=== PATIENT | female | born 1940 | race Caucasian/White ===

== ENCOUNTER → 2019-10-11 13:55 | Outpatient (BNVA) | payer MEDICARE, OTHER, SELFPAY | PROVIDERS: Family Provider Family Medicine; PCP Family Medicine; Visit Provider Nurse Practitioner Family | DX: N39.0 Urinary tract infection, site not specified (principal); N39.41 Urge incontinence | CPT/HCPCS: 81001; 87086 ==

== ENCOUNTER 2019-10-30 13:46 | Outpatient (CLI) | payer MEDICARE, OTHER, SELFPAY ==
--- NOTE | 2019-10-30 14:15 | USCV_ITS ---
Corina Cabral Age: 79 Gender: F : 1940 Exam Date: 10/30/2019 14:06 Ordering Phys: Norbert Felipe MD ([email or web address]) Technologist: Cassi Shukla Exam Location: [facility] [place] Indication: STENOSIS Risk Factors: Previous Vascular Surgery: Right Brachial BP: / Left Brachial BP: / Right Left Velocity (cm/s) Spectral Plaque Velocity (cm/s) Spectral Plaque Syst/Diast Broadening Syst/Diast Broadening 60.60/ 12.10 Prox CCA 48.60 / 11.50 55.10/ 15.40 Mid CCA 38.90 / 10.60 35.70/ 16.30 Distal CCA 37.90 / 11.50 19.90/ 9.90 Prox ICA 25.70 / 8.40 50.00/ 13.50 Mid ICA 45.40 / 13.80 47.30/ 15.50 Distal ICA 46.00 / 17.80 46.60 ECA 44.30 0.91 ICA/CCA 1.18 Antegrade Vertebral Antegrade 23.40/ 7.90 cm/s 26.70/ 7.80 cm/s Tri Subclavian Tri 67.20 71.20 CONCLUSIONS Right ICA stenosis <50%. Mild atheromatous plaque right carotid bulb/ICA. Left ICA stenosis <50%. Mild atheromatous plaque left carotid bulb/ICA. Normal antegrade Doppler flow noted in the right vertebral artery. Normal antegrade Doppler flow noted in the left vertebral artery. Stephan Pires MD (Electronically Signed) Final Date: 30 October 2019 15:07 S
== END 2019-10-30 13:47 | disposition home or self-care (01) ==
LOC: RAD 13:51
PROVIDERS: Family Provider Family Medicine; PCP Family Medicine; Visit Provider Internal Medicine Cardiovascular Disease
DX: I65.23 Occlusion and stenosis of bilateral carotid arteries (principal)
CPT/HCPCS: 93880

== ENCOUNTER → 2020-05-27 13:08 | Outpatient (BNVA) | payer MEDICARE, OTHER, SELFPAY | PROVIDERS: Family Provider Family Medicine; PCP Family Medicine; Referring Provider Dermatology; Visit Provider Dermatology | DX: L81.4 Other melanin hyperpigmentation (principal); L21.9 Seborrheic dermatitis, unspecified; L30.0 Nummular dermatitis; L57.0 Actinic keratosis | CPT/HCPCS: 17000; 17003; 99203; 99204 ==

== ENCOUNTER 2020-06-03 15:07 | Outpatient (CLI) | payer MEDICARE, OTHER, SELFPAY ==
--- NOTE | 2020-06-03 15:45 | USCV_ITS ---
Corina Cabral Age: 79 Gender: F : 1940 Exam Date: 06/03/2020 15:25 Ordering Phys: Lio Yang MD ([email or web address]) Technologist: Roz Olivas Exam Location: [facility] [place] Indication: AV STENOSIS BP: 125 / 67 HR: 68 Rhythm: Sinus Technical Quality: Adequate MEASUREMENTS (Male / Female) Normal Values 2D ECHO LV Diastolic Diameter PLAX 3.7 cm 4.2 - 5.9 / 3.9 - 5.3 cm LV Systolic Diameter PLAX 2.9 cm LV Chamber Size 3.9 cm IVS Diastolic Thickness 1.9 cm 0.6 - 1.0 / 0.6 - 0.9 cm IVS Systolic Thickness 1.8 cm LVPW Diastolic Thickness 1.7 cm 0.6 - 1.0 / 0.6 - 0.9 cm LVPW Systolic Thickness 2.2 cm RV Chamber Size 3.3 cm LVOT Diameter 2.0 cm LV Ejection Fraction 2D Teich 45.3 % LV Ejection Fraction MOD 2C 62.6 % LV Ejection Fraction 2C AL 62.5 % LA Diameter 4.6 cm LA Width 3.5 cm LA Height 4.7 cm RA Width 3.0 cm RA Height 3.7 cm Aorta at Sinotubular Diameter 2.7 cm M-MODE LV Diastolic Diameter MM 3.9 cm 4.2 - 5.9 / 3.9 - 5.3 cm LV Systolic Diameter MM 2.3 cm LV Ejection Fraction MM Teich 71.4 % IVS Diastolic Thickness MM 1.5 cm 0.6 - 1.0 / 0.6 - 0.9 cm IVS Systolic Thickness MM 2.1 cm LVPW Diastolic Thickness MM 1.5 cm 0.6 - 1.0 / 0.6 - 0.9 cm LVPW Systolic Thickness MM 2.2 cm RV Diastolic Diameter MM 2.2 cm Aortic Annulus Diameter 2.9 cm LA Ao Ratio MM 1.8 MV E Point Septal Separation 0.6 cm DOPPLER AV Peak Velocity 197.0 cm/s LVOT Peak Velocity 131.0 cm/s AV Area Cont Eq vti 2.4 cm squared AV Area Cont Eq pk 2.1 cm squared MV Area PHT 2.1 cm squared Mitral E to A Ratio 0.9 MV E' Velocity 64.0 cm/s Mitral E to MV E' Ratio 14.4 Mitral E to LV E' Lateral Ratio 15.4 Mitral E to LV E' Septal Ratio 13.8 TR Peak Velocity 318.5 cm/s TR Peak Gradient 40.6 mmHg TR Mean Velocity 230.9 cm/s TR Mean Gradient 23.7 mmHg TR Velocity Time Integral 103.9 cm TV Peak E Velocity 80.0 cm/s PV Peak Velocity 58.0 cm/s RV Acceleration Time 0.1 s RV Ejection Time 0.3 s RV AcT/ET 0.4 FINDINGS Left Ventricle Normal left ventricular size and systolic function, EF 56 %. Mild left ventricular hypertrophy. No regional wall motion abnormalities. Grade I/IV diastolic dysfunction (abnormal relaxation filling pattern), normal to mildly elevated filling pressures. Right Ventricle Normal right ventricular size and systolic function. Right Atrium The right atrium is normal in size. Left Atrium Mildly increased left atrial size. Mitral Valve Thickened mitral valve. Heavy mitral annular calcification. Calcification in the chordal structures Aortic Valve Thickened aortic valve. Peak velocity aortic valve is 1.9 cm/s Tricuspid Valve Mild tricuspid valve regurgitation. Pulmonic Valve Pulmonic valve not well visualized. Pericardium Normal pericardium without effusion. Aorta Normal aortic annulus size. CONCLUSIONS Features of aortic valve sclerosis Normal left ventricular size and systolic function, EF 56 %. Mild left ventricular hypertrophy. No regional wall motion abnormalities. Grade I/IV diastolic dysfunction (abnormal relaxation filling pattern), normal to mildly elevated filling pressures. Thickened mitral valve. Heavy mitral annular calcification. Calcification in the chordal structures. Mildly increased left atrial size. Mild tricuspid valve regurgitation. Estimated pulmonary artery peak systolic pressure was 30 mmHg There is no pericardial effusion. There are no intracardiac masses. Compared to the previous study from 07/28/2017, there may not be a significant change Dr Lio Yang MD FAC (Electronically Signed) Final Date: 03 June 2020 17:07 S
== END 2020-06-03 15:08 | disposition home or self-care (01) ==
LOC: US 15:11
PROVIDERS: PCP Family Medicine; Visit Provider Internal Medicine Cardiovascular Disease
DX: R01.1 Cardiac murmur, unspecified (principal); I08.1 Rheumatic disorders of both mitral and tricuspid valves
CPT/HCPCS: 93306

== ENCOUNTER → 2020-06-04 16:51 | Outpatient (BNVA) | payer MEDICARE, OTHER, SELFPAY | PROVIDERS: PCP Family Medicine; Visit Provider Nurse Practitioner Family | DX: Z11.59 Encounter for screening for other viral diseases (principal); J06.9 Acute upper respiratory infection, unspecified; Z20.828 Contact with and (suspected) exposure to other viral communicable diseases | CPT/HCPCS: 87635 ==

== ENCOUNTER 2020-06-06 12:18 | Emergency (ER) | payer MEDICARE, OTHER, SELFPAY ==
--- NOTE | 2020-06-06 12:20 | XR_ITS ---
WS: [id number] Portable AP upright chest, 06/06/2020 Clinical Data: cp Comparison: Portable chest, 03/18/2017. Findings: No nodules, masses or effusions are seen. The heart is normal. The pulmonary vascularity is not increased. No pneumonia or pneumothorax is seen. There is a monitor device overlying the aortic arch. Monitor leads are on the chest wall. XR/XR chest 1V portable [id number] Impression: Negative chest.
--- NOTE | 2020-06-06 12:20 | ECG_ITS ---
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 Measurements Intervals Sherman Rate: 66 P: 70 VA: 171 QRS: 3 QRSD: 134 T: 185 QT: 438 QTc: 461 Interpretive Statements SINUS RHYTHM LEFT BUNDLE BRANCH BLOCK [120+ ms QRS DURATION, 80+ ms Q/S IN V1/V2, 85+ ms R IN I/aVL/V5/V6] Compared to ECG 07/28/2017 07:19:07 Left bundle-branch block now present Atrial fibrillation no longer present Myocardial infarct finding no longer present T-wave abnormality no longer present Possible ischemia no longer present Electronically Signed On 06-06-2020 20:37:49 CDT by Fredrick Marcial M.D. [id number]
[2020-06-06 12:28] VITALS: BP 130/72; PULSE 62; RESP 16; TEMP 36.9; O2SAT 94; BMI 39.6
--- NOTE | 2020-06-06 12:47 | W.ED.CHESTPA ---
HPI - Chest Pain General: Chief Complaint: Chest Pain Stated Complaint: says heart stopped this morning/ sent by doc Time Seen by Provider: 06/06/20 12:38 Source: patient Mode of arrival: ambulatory Limitations: no limitations History of Present Illness: HPI narrative: 79-year-old female states she has history of A. fib been having some chest discomfort since last night and got worse today. States the burning sensation in the center of her chest and she is just not felt right. 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 She states her pain is currently 2 out of 10. Denies any vomiting or diarrhea. MD complaint: chest pain Associated symptoms: Deny abdominal pain, dyspnea, fever(s), nausea or vomiting Review of Systems Const: Denies: fever(s), chills, body aches or change in appetite Eyes: Denies: blurry vision or eye discomfort ENMT: Denies: throat pain or dental pain Card: Reports: chest pain Resp: Denies: dyspnea GI: Denies: abdominal pain, nausea, vomiting or diarrhea : Denies: dysuria Musc: Denies: neck pain or back pain Skin/Breast: Denies: rash Neuro: Denies: headache(s) Psych: Denies: depression Aurelio/Lymph: Denies: easy bruising All/Imm: Denies: urticaria PFSH ED PFSH: Medical History (Updated 06/04/20 @ 15:24 by Gayatri Neal APRN) A-fib Ortiz palsy Benign essential HTN Carotid stenosis, bilateral COPD (chronic obstructive pulmonary disease) Cystitis cystica Heart murmur HTN (hypertension) Hyperlipidemia IBD (inflammatory bowel disease) Left bundle branch block Mitral valve disorder Morbid obesity RICHARD (obstructive sleep apnea) Pt has clostrophobia, could not use CPAP- uses oxygen at tnight Recurrent UTI Type 2 diabetes mellitus Urgency incontinence Urgency of urination Surgical History H/O partial resection of colon S/P bladder repair S/P section S/P hysterectomy S/P lumpectomy of breast Status post correction of deviated nasal septum Status post tubal ligation Family History Other CAD (coronary artery disease) Cancer Chronic kidney disease (CKD) Diabetes Social History Smoking and tobacco status: former smoker Alcohol intake: never Adopted: No Caregiver/support person: No Lives independently: No Household members: spouse Marital status: Current occupational status: retired History of recent travel: No Physical Exam Const: COMMON NORMALS: no acute distress, patient oriented x3 and healthy appearing HENMT: COMMON NORMALS: normocephalic and atraumatic HEAD & SCALP: normocephalic and atraumatic Eye: COMMON NORMALS: Equal, round and reactive pupils present and EOMs intact bilaterally PUPIL: Yes Equal, round and reactive pupils present Neck/C-Spine: COMMON NORMALS: full ROM and supple Chest: COMMONS NORMALS: normal inspection of the chest and normal palpation of entire chest wall Resp: COMMON NORMALS: normal respiratory effort, No retractions, No use of accessory muscles and clear to auscultation bilaterally AUSCULTATION: clear to auscultation bilaterally Cardio: COMMON NORMALS: regular rate, regular rhythm and No murmurs present (Cardio) RATE: regular rate RHYTHM: regular rhythm GI: COMMON NORMALS: Normal to inspection, nondistended, normoactive bowel sounds present, Soft to palpation, non-tender and no masses PALPATION: Yes Soft to palpation Extremity: COMMON NORMALS: normal to inspection and full ROM Neuro: COMMON NORMALS: patient oriented x3, moves all extremities and no focal motor deficits Psych: COMMON NORMALS: mental status grossly normal, Normal thought process present and cooperative THOUGHT PROCESS: Normal thought process present Skin: COMMON NORMALS: no rashes or lesions noted and no wounds GENERAL SKIN EXAM: no rashes or lesions noted Course Vital Signs: Vital signs: Vital Signs Temperature 98.4 F 06/06/20 12:28 Pulse Rate 67 06/06/20 13:07 Respiratory Rate 18 06/06/20 13:07 Blood Pressure 116/78 06/06/20 13:07 Pulse Oximetry 95 06/06/20 13:07 MDM - Chest Pain MDM Narrative: Medical decision making narrative: Patient presents with chest pain that comes and goes. Initial troponin is mildly elevated. Spoke to hospitalist and will admit for ACS rule out. She has no signs of pulmonary embolism and EKG here is normal. Lab Data: Labs: Lab Results 06/06/20 06/06/20 06/06/20 Range/Units 13:03 13:03 13:03 WBC 6.5 (4.0-10.0) 10^3/ uL RBC 4.82 (4.1-5.3) 10^6/u L Hgb 14.1 (11.5-15.3) g/dL Hct 43.9 (37.0-47.0) % MCV 91.1 (81-99) fL MCH 29.3 (28.0-34.0) pg MCHC 32.1 (30.0-36.0) g/dL RDW 13.2 (12.1-15.1) % Plt Count 263 (130-400) 10^3/c mm MPV 9.6 (7.4-10.4) fL Neut % (Auto) 61.9 % Lymph % (Auto) 27.1 % Kingsbury % (Auto) 10.1 % Eos % (Auto) 0.3 % Baso % (Auto) 0.3 % Neut # (Auto) 4.05 (1.8-7.7) 10^3/u L Lymph # (Auto) 1.8 (0.8-4.8) 10^3/u L Kingsbury # (Auto) 0.7 (0.2-0.9) 10^3/u L Eos # (Auto) 0.0 (0.0-0.8) 10^3/u L Baso # (Auto) 0.0 (0.0-0.1) 10^3/u L Nucleated RBC % (a uto) 0 % Nucleated RBCs # 0.0 /100WBC Sodium 132 L (136-145) mmol/L Potassium 4.0 (3.5-5.1) mmol/L Chloride 98 (98-107) mmol/L Carbon Dioxide 22 (22-29) mmol/L Anion Gap 16.0 (5-19) BUN 11 (8-23) mg/dL Creatinine 0.6 (0.5-0.9) mg/dL GFR Calculation Not Reportable Glucose 119 H (65-115) mg/dL Calculated Osmolal ity 275 L (285-295) mOsm/k g Calcium 9.3 (8.5-10.5) mg/dL Total Bilirubin 0.2 (0.15-1.2) mg/dL AST 13 (0-32) U/L ALT 17 (0-33) U/L Alkaline Phosphata se 72 (35-105) IU/L Troponin T Baselin e 34 H (0-10) ng/L NT-Pro-B Natriuret Pep 1583 H (0-450) pg/mL Total Protein 7.4 (6.6-8.7) g/dL Albumin 4.1 (3.5-5.2) g/dL Globulin 3.3 (1.3-4.6) g/dL EKG Data^: EKG 1: Attestation: I personally reviewed and interpreted this EKG as follows: EKG interpretation date: 06/06/20 EKG interpretation time: 11:45 Interpretation: nsr hr 66 lbbb qrs 134 qtc 452 Discharge Plan Discharge Prescriptions: No Action alpha lipoic acid 100 mg capsule 100 mg PO BID RF: 0 PreserVision AREDS-2 [id number] [id number]-atqn-dn-mg capsule 1 tab PO BID RF: 0 Macular Health Formula 5-1-7.5 mg capsule 1 cap PO DAILY RF: 0 estro dim 1 tab PO DAILY RF: 0 astralagalus See Rx Instructions .ROUTE .COMPLEX RF: 0 super enzymes See Rx Instructions .ROUTE .COMPLEX RF: 0 acetylcysteine [NAC] 600 mg capsule 600 mg PO BID RF: 0 ketoconazole 2 % shampoo 1 applic TOPICAL .2 x weekly Qty: 120 RF: 3 triamcinolone acetonide 0.1 % ointment 1 applic TOPICAL BID Qty: 80 RF: 0 hydroxyzine HCl 10 mg tablet 10 mg PO PRN RF: 0 magnesium 200 mg tablet 200 mg PO BID RF: 0 metoprolol tartrate 25 mg tablet 25 mg PO BID RF: 0 omega-3 fatty acids [Fish Oil Concentrate] 1,000 mg capsule See Rx Instructions .ROUTE .COMPLEX RF: 0 albuterol sulfate [Ventolin HFA] 90 mcg/actuation HFA aerosol inhaler 2 puff INHALATION Q6H PRN (Reason: Shortness Of Breath) RF: 0 furosemide 20 mg tablet 20 - 40 mg PO QAM PRN (Reason: edema) RF: 0 potassium chloride [Klor-Con 10] 10 mEq tablet extended release 10 meq PO DAILY PRN (Reason: unknown) RF: 0 lactobacillus combination no.8 1 cap PO BID RF: 0 lysine 500 mg tablet 500 mg PO DAILY RF: 0 diltiazem HCl 30 mg tablet 30 mg PO PRN RF: 0 cholecalciferol (vitamin D3) 2,000 unit tablet 5,000 unit PO DAILY RF: 0 diltiazem HCl 60 mg tablet 60 mg PO TID RF: 0 Vitamin C Powder See Rx Instructions .ROUTE .COMPLEX RF: 0 Beta-Glucan Tab 1 tab PO DAILY RF: 0 Chromium Tab 500 mg PO QPM RF: 0 CoQ-10 1 tab PO DAILY RF: 0 Xopenex 0.31 mg/3 mL solution for nebulization 0.31 mg INHALATION PRN RF: 0 mometasone 0.1 % solution See Rx Instructions .ROUTE .COMPLEX RF: 0 aspirin 81 mg Tablet,Delayed Release (Dr/Ec) 81 mg PO DAILY RF: 0 calcium gluconate 1 tab PO DAILY RF: 0 Coding Level of Care Code ED Recreation Therapy Teacher for Chg Fwd Exam Comprehensive
[2020-06-06 13:07] VITALS: BP 116/78; PULSE 67; RESP 18; O2SAT 95
[2020-06-06 13:08] LABS: Basophils % 0.3 %; Eosinophils % 0.3 %; Hematocrit 43.9 % (37.0-47.0); Hemoglobin 14.1 g/dL (11.5-15.3); Lymphocytes # 1.8 10^3/uL (0.8-4.8); Lymphocytes % 27.1 %; Mean Corpuscular HGB Conc 32.1 g/dL (30.0-36.0); Mean Corpuscular Hemoglobin 29.3 pg (28.0-34.0); Mean Corpuscular Volume 91.1 fL (81-99); Mean Platelet Volume 9.6 fL (7.4-10.4); Monocytes # 0.7 10^3/uL (0.2-0.9); Monocytes % 10.1 %; Neutrophils # 4.05 10^3/uL (1.8-7.7); Neutrophils % 61.9 %; Nucleated Red Blood Cells % 0 %; Platelet Count 263 10^3/cmm (130-400); Red Blood Count 4.82 10^6/uL (4.1-5.3); Red Cell Distribution Width 13.2 % (12.1-15.1); White Blood Count 6.5 10^3/uL (4.0-10.0)
[2020-06-06 13:28] LABS: Troponin(5th) Baseline 34 ng/L (0-10)
[2020-06-06 13:36] LABS: Alanine Aminotransferase 17 U/L (0-33); Albumin Level 4.1 g/dL (3.5-5.2); Alkaline Phosphatase 72 IU/L (35-105); Aspartate Amino Transferase 13 U/L (0-32); Blood Urea Nitrogen 11 mg/dL (8-23); Calcium 9.3 mg/dL (8.5-10.5); Carbon Dioxide 22 mmol/L (22-29); Chloride 98 mmol/L (98-107); Globulin 3.3 g/dL (1.3-4.6); Glucose 119 mg/dL (65-115); NT Pro B Type Natriuretic Pept 1583 pg/mL (0-450); Osmolality Calculated 275 mOsm/kg (285-295); Sodium 132 mmol/L (136-145); Total Bilirubin 0.2 mg/dL (0.15-1.2); Total Protein 7.4 g/dL (6.6-8.7)
--- NOTE | 2020-06-06 14:20 | ECG_ITS ---
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 Measurements Intervals Tracy Rate: 62 P: 17 AK: 159 QRS: -20 QRSD: 143 T: 166 QT: 442 QTc: 451 Interpretive Statements SINUS RHYTHM LEFT BUNDLE BRANCH BLOCK [120+ ms QRS DURATION, 80+ ms Q/S IN V1/V2, 85+ ms R IN I/aVL/V5/V6] Compared to ECG 06/06/2020 11:45:31 No significant changes Electronically Signed On 06-06-2020 20:40:28 CDT by Fredrick Marcial M.D. [id number] f
[2020-06-06 15:11] LABS: SARS Covid-2 Antigen Positive (Negative)
--- NOTE | 2020-06-06 15:36 | CT_ITS ---
WS: [id number] CTA OF THE CHEST WITH PULMONARY EMBOLISM PROTOCOL TECHNIQUE: High-resolution contrast enhanced CTA of the chest with coronal and sagittal reformatted i mages with pulmonary embolism protocol. MIP images are also reviewed. CLINICAL INFORMATION: cp COMPARISON: None. DLP: 569.[address] scans at [facility] use at least one of these dose optimization techniques: automat ed exposure control; mA and/or kV adjustment per patient size (includes targeted exams where dose is matched to clinical indication); or iterative reconstruction. FINDINGS: Proximal main pulmonary arteries are normal. Segmental and subsegmental pulmonary arteries are normal . No filling defects. No evidence of pulmonary embolus. Normal caliber thoracic aorta. No mediastinal or hilar lymphadenopathy. Calcified right hilar lymph nodes. Normal caliber thoracic aorta. Aortic a nd coronary calcification. Mild chronic emphysematous changes. No acute pulmonary infiltrates. No focal pneumonia. No pleural fl uid. Hypertrophic changes thoracic spine. Small esophageal hiatal hernia. Adrenal glands are normal. No axillary lymphadenopathy. Right breast lesion measuring 2.9 x 1.8 cm. Recommend further evaluation with right diagnostic mammog yeni and ultrasound. A few adjacent calcifications. CT/CT angio chest PE protcl [id number] IMPRESSION: 1. Proximal main pulmonary arteries are normal. No filling defects. No evidenc e of pulmonary embolus. 2. Both lungs are well aerated. No acute pulmonary infiltrates. 3. Mild chronic emphysematous changes. 4. No mediastinal or hilar lymphadenopathy. 5. Right breast lesion measures approximately 1.8 x 2.9 cm. Recommend right di agnostic mammography and ultrasound for further evaluation.
[2020-06-06 15:49] LABS: Troponin 5 2HR 34.82 ng/L (0-10); Troponin 5 2HR Delta 0.82 ABS# (0-10)
[2020-06-06 16:14] VITALS: BP 118/66; PULSE 66; RESP 18; O2SAT 95
[2020-06-06] MEDS: iohexol 350 mg/mL 100 mL Btl IV (16:18)
--- NOTE | 2020-06-06 16:32 | PM.CONSULT ---
Providers/Reason For Consult Consulting Physican/Specialty*: Hospitalist, internal medicine Reason for Consult*: Chest pain Attending Physician: Jayson Kemp MD Primary Care Provider: Susan Kemp MD History of Present Illness History of Present Illness Corina Cabral is a 79 year old female that presented to the emergency department with complaints of some chest discomfort. She reported she has had some chest discomfort off and on for the last 2 days. She reports it is usually burning, midsternal. She thinks sitting and leaning back, walking and relaxing sometimes help it. It is not exertional. She is worried about some abdominal bloating as well. She has had sinus congestion, and a headache. She has had no vomiting. She has had exposure to COVID, her sister on the who was febrile at that time and now positive. She denies any pleuritic pain. She was also called with a cardiac pause, noted last night on her Holter monitor cardiology had placed. It was approximately 4.8 seconds. She reports she occasionally will go into atrial fibrillation, which cardiology follows. Review of Systems General: Reports: 10 or more systems reviewed and unremarkable except in HPI and below Const: Reports: malaise; Denies: fever(s) or chills Eyes: Denies: change in vision ENMT: Reports: nasal congestion; Denies: throat pain Card: Reports: chest pain and palpitations Resp: Denies: dyspnea GI: Denies: abdominal pain : Denies: flank pain Musc: Denies: neck pain Skin/Breast: Denies: rash Neuro: Denies: headache(s) Psych: Denies: anxiety Endo: Denies: polyuria Aurelio/Lymph: Denies: easy bruising All/Imm: Denies: urticaria Meds/Allergies Home Medications and Allergies Home Medications Medication Instructions Recorded Confirmed Last Taken Type albuterol sulfate 90 mcg/actuation 2 puff INHALATION Q6H PRN 10/09/19 06/06/20 Unknown History aerosol inhaler diltiazem HCl 30 mg tablet 30 mg PO PRN tab 10/09/19 06/06/20 06/05/20 History furosemide 20 mg tablet 20 - 40 mg PO QAM PRN 10/09/19 06/06/20 Unknown History lactobacillus combination no.8 1 cap PO BID 10/09/19 06/06/20 06/06/20 History lysine 500 mg tablet 500 mg PO DAILY 10/09/19 06/06/20 06/06/20 History metoprolol tartrate 25 mg tablet 25 mg PO BID 10/09/19 06/06/20 06/06/20 History omega-3 fatty acids 1,000 mg See Rx Instructions .ROUTE .COMPLEX 10/09/19 06/06/20 Unknown History capsule potassium chloride 10 mEq 10 meq PO DAILY PRN 10/09/19 06/06/20 Unknown History tablet,extended release cholecalciferol (vitamin D3) 50 5,000 unit PO DAILY tab 10/11/19 06/06/20 06/06/20 History mcg (2,000 unit) tablet hydroxyzine HCl 10 mg tablet 10 mg PO PRN tab 10/11/19 06/06/20 Unknown History magnesium 200 mg tablet 200 mg PO BID tab 10/11/19 06/06/20 06/05/20 History alpha lipoic acid 100 mg capsule 100 mg PO BID 05/07/20 06/06/20 06/06/20 History astralagalus See Rx Instructions .ROUTE .COMPLEX 05/07/20 06/06/20 06/06/20 History diltiazem HCl 60 mg tablet 60 mg PO TID tab 05/07/20 06/06/20 06/06/20 13:18 History estro dim 1 tab PO DAILY 05/07/20 06/06/20 06/06/20 History cadyoifv-cqf-qhruin 5 mg-zeaxanth 1 cap PO DAILY 05/07/20 06/06/20 06/05/20 History 1 mg-bilberry 7.5 mg-herbal capsule super enzymes See Rx Instructions .ROUTE .COMPLEX 05/07/20 06/06/20 06/06/20 History vit C 250 mg-E 200 unit-zinc 40 1 tab PO BID 05/07/20 06/06/20 06/06/20 History mg-copper 1 jl-nuqpka-jhigde capsule ketoconazole 2 % shampoo 1 applic TOPICAL .2 x weekly #120 05/27/20 06/06/20 Unknown Rx ml triamcinolone acetonide 0.1 % 1 applic TOPICAL BID #80 gm 05/27/20 06/06/20 Unknown Rx topical ointment Beta-Glucan Tab 1 tab PO DAILY 1006/06/20 06/06/20 History Chromium Tab 500 mg PO QPM 06/06/20 06/06/20 06/05/20 History CoQ-10 1 tab PO DAILY 06/06/20 06/06/20 Unknown History acetylcysteine [NAC] 600 mg PO BID 06/06/20 06/06/20 06/06/20 History ascorbic acid (vitamin C) [Vitamin See Rx Instructions .ROUTE .COMPLEX 06/06/20 06/06/20 Unknown History C] aspirin 81 mg PO DAILY 06/06/20 06/06/20 06/06/20 History calcium gluconate 1 tab PO DAILY 06/06/20 06/06/20 06/06/20 History levalbuterol HCl [Xopenex] 0.31 mg INHALATION PRN 06/06/20 06/06/20 Unknown History mometasone See Rx Instructions .ROUTE .COMPLEX 06/06/20 06/06/20 Unknown History Allergies Allergy/AdvReac Type Severity Reaction Status Date / Time levofloxacin [From Levaquin] Allergy Unknown Unknown Verified 06/06/20 14:11 prednisone Allergy Unknown Unknown Verified 06/06/20 14:11 sulfamethoxazole Allergy Unknown unknown Verified 06/06/20 14:11 [From Bactrim] tretinoin [From Retin-A] Allergy Unknown unknown Verified 06/06/20 14:11 trimethoprim [From Bactrim] Allergy Unknown unknown Verified 06/06/20 14:11 bacitracin [From Polysporin] Allergy wasn't Verified 06/06/20 14:11 healing polymyxin B [From Polysporin] Allergy wasn't Verified 06/06/20 14:11 healing PFSH Acute PFSH: Medical History (Updated 06/06/20 @ 16:49 by Jayson Kemp MD) A-fib Ortiz palsy Benign essential HTN Breast cancer no evidence of mets Carotid stenosis, bilateral COPD (chronic obstructive pulmonary disease) Cystitis cystica GERD (gastroesophageal reflux disease) Heart murmur HTN (hypertension) Hyperlipidemia IBD (inflammatory bowel disease) Left bundle branch block Mitral valve disorder Morbid obesity RICHARD (obstructive sleep apnea) Pt has clostrophobia, could not use CPAP- uses oxygen at tnight Recurrent UTI Type 2 diabetes mellitus Urgency incontinence Urgency of urination Surgical History H/O partial resection of colon S/P bladder repair S/P section S/P hysterectomy S/P lumpectomy of breast Status post correction of deviated nasal septum Status post tubal ligation Family History Other CAD (coronary artery disease) Cancer Chronic kidney disease (CKD) Diabetes Social History Smoking and tobacco status: former smoker Alcohol intake: never Adopted: No Caregiver/support person: No Lives independently: No Household members: spouse Marital status: Current occupational status: retired History of recent travel: No Vitals/I&O/Wt Last Vital Signs Temp 98.4 F 06/06/20 12:28 Pulse 66 06/06/20 16:14 Resp 18 06/06/20 16:14 BP 118/66 06/06/20 16:14 Pulse Ox 95 06/06/20 16:14 Weight last 48 hrs Weight 101.605 kg Physical Exam Narrative: EXAM NARRATIVE: General exam is a white female, no apparent distress. 95% saturation on room air. She reports she normally uses 2 L of oxygen at night. HEENT: Pupils equally round. Oropharynx clear. Neck is supple no lymphadenopathy or thyromegaly Cardiovascular regular rate and rhythm without murmur, occasional premature beat Lungs clear no wheezing or crackles Abdomen is soft, positive bowel sounds. No obvious organomegaly was deferred Extremities no cyanosis clubbing or edema, cap refill brisk Skin no rash Neuro no obvious focal deficits Data Other Data: Other data: Troponin baseline is 34 with repeat 34.82. BNP elevated at 1583 I have now been informed her rapid COVID is positive Chest x-ray without infiltrate Recent echocardiogram demonstrated an EF of 56%, 1/4 diastolic dysfunction, pulmonary artery pressure of 30 on June [id number] Carotid duplex in October demonstrated no significant stenosis bilaterally EKG demonstrated sinus rhythm, left bundle branch block. A&P Assessment and plan (1) Chest pain: Atypical pain. May be associated with COVID infection. The emergency department is appropriately doing CTA to prove no pulmonary embolism is present. No significant delta in regards to troponin. Could consider outpatient stress test. This will need to be done greater than 10 days from now considering positive COVID test. Follow-up expeditiously with cardiology in regards to this. I have also discussed this with her primary care provider who will be following up on this. Would consider aspirin 81 mg daily, continuation of her chronic medication, addition of Imdur 15 mg daily Return for any continued pain Status: Acute (2) GERD (gastroesophageal reflux disease): A lot of her chest discomfort sounds reflux in etiology. Place her on Protonix 40 mg twice daily Status: Acute (3) COVID-19: Reviewed with patient to return for any worsening symptoms, shortness of breath, hypoxia(she has pulse oximeter at home and we reviewed normal saturations) Encourage fluids Status: Acute Additional A&P Information Atrial fibrillation, arrhythmia, with history of pause. I have instructed the emergency department physician to call cardiology to determine if this requires any medication change or further concerns CTA demonstrating breast lesion. I have informed her primary regarding this for follow-up. History of COPD, no evidence of exacerbation History of hypertension History of inflammatory bowel disease Hyperlipidemia Type 2 diabetes Consult Attestations Medical Necessity Statement: Not applicable Coding Level of Care Code Acute Continuous Process Tanner Rotary Drum for Chg Fwd Diagnoses Chest pain R07.9 GERD (gastroesophageal reflux disease) K21.9 COVID-19 U07.1
[2020-06-06 17:39] VITALS: BP 138/69; PULSE 66; RESP 18; TEMP 37.1; O2SAT 97
== END 2020-06-06 17:52 | disposition home or self-care (01) ==
LOC: ER 12:38 → CSU 16:54
PROVIDERS: Emergency Provider Emergency Medicine; PCP Family Medicine
DX: R07.9 Chest pain, unspecified (principal); U07.1 COVID-19; Z79.82 Long term (current) use of aspirin; I48.91 Unspecified atrial fibrillation; J44.9 Chronic obstructive pulmonary disease, unspecified; I10 Essential (primary) hypertension; E78.5 Hyperlipidemia, unspecified; E11.9 Type 2 diabetes mellitus without complications; Z87.891 Personal history of nicotine dependence
CPT/HCPCS: 12345; 71045; 71275; 80053; 83880; 84484; 85025; 87426; 93005; 99284; Q9967

== ENCOUNTER 2020-06-28 09:11 | Emergency (ER) | payer MEDICARE, OTHER, SELFPAY ==
[2020-06-28 09:25] VITALS: BP 149/97; PULSE 98; RESP 18; TEMP 36.8; O2SAT 97
--- NOTE | 2020-06-28 09:31 | ED_ITS ---
HPI - Arrhythmia/Palpitations General: Chief Complaint: Weakness Stated Complaint: ELEVATED BP Time Seen by Provider: 06/28/20 09:21 History of Present Illness: HPI narrative: 79-year-old female presents emergency room complaining of irregular heart rate. She has a known history of atrial fibrillation she feels like she is in A. fib now began around 2 in the morning she is wearing a 21-day event monitor. Evidently there is a 4-second pause last night and she was contacted by the monitoring service. She has had what she describes as a chest discomfort not really chest pain. last night she did have an episode where she had diaphoresis and some shortness of breath. She also reported a systolic pressure last night in the 90s. Today in the ER she has a moderately elevated blood pressure 150 systolic. She is showing a sinus arrhythmia with frequent PVCs on the monitor when I came in the room. MD complaint: rapid heart beat, palpitations and atrial fibrillation Onset (ago): hour(s) Duration: intermittent Severity: moderate Context: occurred during rest and awoke with symptoms Arrhythmia history: atrial fibrillation Associated symptoms: Reports anxiety, diaphoresis, nausea and sense of impending doom; Deny short of breath, syncope or vomiting Review of Systems Const: Reports: diaphoresis ENMT: Denies: throat pain, ear or mastoid pain, nasal discharge or nasal congestion Card: Denies: syncope Resp: Denies: dyspnea, productive cough or non-productive cough GI: Reports: nausea; Denies: vomiting : Denies: flank pain, difficulty voiding, dysuria, urinary frequency or urinary urgency Skin/Breast: Denies: rash or pruritus Psych: Reports: anxiety PFSH ED PFSH: Medical History A-fib Ortiz palsy Benign essential HTN Breast cancer no evidence of mets Carotid stenosis, bilateral COPD (chronic obstructive pulmonary disease) Cystitis cystica GERD (gastroesophageal reflux disease) Heart murmur HTN (hypertension) Hyperlipidemia IBD (inflammatory bowel disease) Left bundle branch block Mitral valve disorder Morbid obesity RICHARD (obstructive sleep apnea) Pt has clostrophobia, could not use CPAP- uses oxygen at [facility] Recurrent UTI Type 2 diabetes mellitus Urgency incontinence Urgency of urination Surgical History H/O partial resection of colon S/P bladder repair S/P section S/P hysterectomy S/P lumpectomy of breast Status post correction of deviated nasal septum Status post tubal ligation Family History Other CAD (coronary artery disease) Cancer Chronic kidney disease (CKD) Diabetes Social History Smoking and tobacco status: former smoker Alcohol intake: never Adopted: No Caregiver/support person: No Lives independently: No Household members: spouse Marital status: Current occupational status: retired History of recent travel: No Physical Exam Const: COMMON NORMALS: no acute distress GENERAL APPEARANCE: cooperative and comfortable ORIENTATION/CONSCIOUSNESS: Yes awake, Yes oriented to person, Yes oriented to place and Yes oriented to time HENMT: COMMON NORMALS: normocephalic, atraumatic and hearing grossly normal bilaterally HEAD & SCALP: normocephalic and atraumatic Neck/C-Spine: COMMON NORMALS: no JVD Resp: COMMON NORMALS: normal respiratory effort, No retractions, No use of accessory muscles and clear to auscultation bilaterally AUSCULTATION: clear to auscultation bilaterally Cardio: COMMON NORMALS: no JVD, regular rate, regular rhythm and No murmurs present (Cardio) RATE: regular rate RHYTHM: regular rhythm GI: COMMON NORMALS: Soft to palpation and No hepatosplenomegaly present AUSCULTATION: Yes normoactive bowel sounds PALPATION: Yes Soft to palpation, No Tenderness to palpation present (GI), No Guarding due to palpation present (GI) and Yes No hepatosplenomegaly present Extremity: COMMON NORMALS: normal to inspection, capillary refill normal, no clubbing, cyanosis or edema, no calf tenderness and no pedal edema Neuro: SENSORIUM/ORIENTATION: Yes oriented to person, Yes oriented to place and Yes oriented to time Skin: COMMON NORMALS: no rashes or lesions noted GENERAL SKIN EXAM: no rashes or lesions noted Course Vital Signs: Vital signs: Vital Signs Temperature 98.4 F 06/28/20 09:41 Pulse Rate 72 06/28/20 13:59 Respiratory Rate 18 06/28/20 13:59 Blood Pressure 115/62 06/28/20 13:59 Pulse Oximetry 93 06/28/20 13:59 MDM - Arrhythmia/Palpitations MDM Narrative: Medical decision making narrative: Heart rate now under good control blood pressure is a little bit on the low side we can recommend at this point that she hold the isosorbide mononitrate continue her other medications. Her heart rate was getting good control while she is here she has any recurrent symptoms recheck. Lab Data: Labs: Lab Results 06/28/20 06/28/20 06/28/20 Range/Units 09:38 09:38 09:38 WBC 8.7 (4.0-10.0) 10^3/ uL RBC 4.84 (4.1-5.3) 10^6/u L Hgb 14.1 (11.5-15.3) g/dL Hct 44.0 (37.0-47.0) % MCV 90.9 (81-99) fL MCH 29.1 (28.0-34.0) pg MCHC 32.0 (30.0-36.0) g/dL RDW 13.2 (12.1-15.1) % Plt Count 293 (130-400) 10^3/c mm MPV 9.8 (7.4-10.4) fL Neut % (Auto) 74.1 % Lymph % (Auto) 16.1 % [place] % (Auto) 8.4 % Eos % (Auto) 1.0 % Baso % (Auto) 0.2 % Neut # (Auto) 6.42 (1.8-7.7) 10^3/u L Lymph # (Auto) 1.4 (0.8-4.8) 10^3/u L [place] # (Auto) 0.7 (0.2-0.9) 10^3/u L Eos # (Auto) 0.1 (0.0-0.8) 10^3/u L Baso # (Auto) 0.0 (0.0-0.1) 10^3/u L Nucleated RBC % (a uto) 0 % Nucleated RBCs # 0.0 /100WBC Sodium 136 (136-145) mmol/L Potassium 4.4 (3.5-5.1) mmol/L Chloride 101 (98-107) mmol/L Carbon Dioxide 26 (22-29) mmol/L Anion Gap 13.4 (5-19) BUN 11 (8-23) mg/dL Creatinine 0.7 (0.5-0.9) mg/dL GFR Calculation Not Reportable Glucose 185 H (65-115) mg/dL Calculated Osmolal ity 286 (285-295) mOsm/k g Calcium 9.6 (8.5-10.5) mg/dL Total Bilirubin 0.3 (0.15-1.2) mg/dL AST 8 (0-32) U/L ALT 20 (0-33) U/L Alkaline Phosphata se 72 (35-105) IU/L Troponin T Baselin e 13 H (0-10) ng/L Troponin T 120 Min [place] (0-10) ng/L Delta Troponin T (0-10) ABS# NT-Pro-B Natriuret Pep 1832 H (0-450) pg/mL Total Protein 7.1 (6.6-8.7) g/dL Albumin 3.8 (3.5-5.2) g/dL Globulin 3.3 (1.3-4.6) g/dL 06/28/20 Range/Units 12:28 WBC (4.0-10.0) 10^3/ uL RBC (4.1-5.3) 10^6/u L Hgb (11.5-15.3) g/dL Hct (37.0-47.0) % MCV (81-99) fL MCH (28.0-34.0) pg MCHC (30.0-36.0) g/dL RDW (12.1-15.1) % Plt Count (130-400) 10^3/c mm MPV (7.4-10.4) fL Neut % (Auto) % Lymph % (Auto) % [place] % (Auto) % Eos % (Auto) % Baso % (Auto) % Neut # (Auto) (1.8-7.7) 10^3/u L Lymph # (Auto) (0.8-4.8) 10^3/u L [place] # (Auto) (0.2-0.9) 10^3/u L Eos # (Auto) (0.0-0.8) 10^3/u L Baso # (Auto) (0.0-0.1) 10^3/u L Nucleated RBC % (a uto) % Nucleated RBCs # /100WBC Sodium (136-145) mmol/L Potassium (3.5-5.1) mmol/L Chloride (98-107) mmol/L Carbon Dioxide (22-29) mmol/L Anion Gap (5-19) BUN (8-23) mg/dL Creatinine (0.5-0.9) mg/dL GFR Calculation Glucose (65-115) mg/dL Calculated Osmolal ity (285-295) mOsm/k g Calcium (8.5-10.5) mg/dL Total Bilirubin (0.15-1.2) mg/dL AST (0-32) U/L ALT (0-33) U/L Alkaline Phosphata se (35-105) IU/L Troponin T Baselin e (0-10) ng/L Troponin T 120 Min [place] 13.84 H (0-10) ng/L Delta Troponin T 0.84 (0-10) ABS# NT-Pro-B Natriuret Pep (0-450) pg/mL Total Protein (6.6-8.7) g/dL Albumin (3.5-5.2) g/dL Globulin (1.3-4.6) g/dL Discharge Plan Discharge Patient Disposition: Home Clinical Impression: A-fib, HTN (hypertension) Condition: Stable Prescriptions: Held isosorbide mononitrate 30 mg tablet extended release 24 hr 15 mg PO BID RF: 0 Hold Instructions: Resume on 07/12/20. hold until resumed by automobile sales consultant No Action alpha lipoic acid 100 mg capsule 100 mg PO BID RF: 0 PreserVision AREDS-2 [id number] sp-jieg-fq-mg capsule 1 tab PO BID RF: 0 Macular Health Formula 5-1-7.5 mg capsule 1 cap PO DAILY RF: 0 estro dim 1 tab PO DAILY RF: 0 astralagalus See Rx Instructions .ROUTE .COMPLEX RF: 0 super enzymes See Rx Instructions .ROUTE .COMPLEX RF: 0 ketoconazole 2 % shampoo 1 applic TOPICAL .2 x weekly Qty: 120 RF: 3 hydroxyzine HCl 10 mg tablet 10 mg PO PRN RF: 0 magnesium 200 mg tablet 200 mg PO BID RF: 0 metoprolol tartrate 25 mg tablet 25 mg PO BID RF: 0 omega-3 fatty acids [Fish Oil Concentrate] 1,000 mg capsule See Rx Instructions .ROUTE .COMPLEX RF: 0 albuterol sulfate [Ventolin HFA] 90 mcg/actuation HFA aerosol inhaler 2 puff INHALATION Q6H PRN (Reason: Shortness Of Breath) RF: 0 furosemide 20 mg tablet 20 - 40 mg PO QAM PRN (Reason: edema) RF: 0 potassium chloride [Klor-Con 10] 10 mEq tablet extended release 10 meq PO DAILY PRN (Reason: unknown) RF: 0 lactobacillus combination no.8 1 cap PO BID RF: 0 lysine 500 mg tablet 500 mg PO DAILY RF: 0 diltiazem HCl 30 mg tablet 30 mg PO PRN RF: 0 cholecalciferol (vitamin D3) 2,000 unit tablet 5,000 unit PO DAILY RF: 0 diltiazem HCl 60 mg tablet 60 mg PO TID RF: 0 Vitamin C Powder See Rx Instructions .ROUTE .COMPLEX RF: 0 Beta-Glucan Tab 1 tab PO DAILY RF: 0 Chromium Tab 500 mg PO QPM RF: 0 CoQ-10 1 tab PO DAILY RF: 0 mometasone 0.1 % solution See Rx Instructions .ROUTE .COMPLEX RF: 0 aspirin 81 mg Tablet,Delayed Release (Dr/Ec) 81 mg PO DAILY RF: 0 calcium gluconate 1 tab PO DAILY RF: 0 acetylcysteine [NAC] 600 mg Capsule 600 mg PO TID PRN (Reason: unknown) RF: 0 levalbuterol HCl 0.63 mg/3 mL solution for nebulization 0.63 mg INHALATION TID PRN (Reason: unknown) RF: 0 pantoprazole 40 mg tablet,delayed release (DR/EC) 40 mg PO BID RF: 0 dexamethasone 4 mg tablet 6 mg PO DAILY RF: 0 Systane Ultra (PF) 0.4-0.3 % dropperette 1 drp ophthalmic (eye) PRN RF: 0 triamcinolone acetonide 0.1 % ointment 1 applic TOPICAL BID PRN (Reason: unknown) RF: 0 Discharge Orders: Discharge Order (Routine); Ordered 06/28/20 Ordered By: Ernie Bahena Referrals: Susan Kemp MD [Primary Care Provider] - Discharge Diet: Usual diet Discharge Activity: Limit activity as instructed Activity Restrictions/Additional Instructions: Limit exertional activity. Follow-up with your automobile sales consultant within 2 to 4 days. Return to the emergency room if worsens. Discharge Date/Time: 06/28/20 14:01 Coding Level of Care Code ED Oncology Technician for Angelg Fwd Exam Comprehensive
[2020-06-28 09:41] VITALS: BP 153/94; RESP 18; TEMP 36.9; O2SAT 96
--- NOTE | 2020-06-28 09:46 | ECG_ITS ---
[facility] Test Date: 2020-06-28 Pat Name: Corina Cabral Department: Room: Gender: Female Apprentice Embalmer: : 1940 Requested By: Ernie Dickinson Order Number: [id number] Clarita MD: Shaniqua Phelps M.D. Measurements Intervals [place] Rate: 90 P: 54 [place]: 157 QRS: -26 QRSD: 132 T: 142 QT: 366 QTc: 449 Interpretive Statements SINUS RHYTHM WITH OCCASIONAL VENTRICULAR PREMATURE COMPLEXES LEFT BUNDLE BRANCH BLOCK [120+ ms QRS DURATION, 80+ ms Q/S IN V1/V2, 85+ ms R IN I/aVL/V5/V6] Compared to ECG 06/06/2020 13:43:06 Ventricular premature complex(es) now present Electronically Signed On 06-28-2020 22:06:06 CDT by Shaniqua Phelps M.D. [email or web address]/[id number] mary
--- NOTE | 2020-06-28 09:46 | XRR_ITS ---
PROCEDURE INFORMATION: Exam: XR Chest, 1 View Exam date and time: 06/28/2020 10:05 AM Age: 79 years old Clinical indication: Pain; Other: Afib; Additional info: Dyspnea chest pain TECHNIQUE: Imaging protocol: XR of the chest Views: 1 view. COMPARISON: CR XR chest 1V portable [id number] 06/06/2020 12:44 PM FINDINGS: Lungs: Unremarkable. No consolidation. Pleural space: There is slight blunting of the right costophrenic angle which could indicate minimal effusion. Heart/Mediastinum: Unremarkable. No cardiomegaly. Bones/joints: Unremarkable. Soft tissues: Clips are present in the right axilla from old surgery. XR/XR chest 1V portable [id number] IMPRESSION: There is slight blunting of the right costophrenic angle which may indicate small effusion. No other significant abnormality.
[2020-06-28 10:00] LABS: Basophils % 0.2 %; Eosinophils # 0.1 10^3/uL (0.0-0.8); Hemoglobin 14.1 g/dL (11.5-15.3); Lymphocytes # 1.4 10^3/uL (0.8-4.8); Lymphocytes % 16.1 %; Mean Corpuscular Hemoglobin 29.1 pg (28.0-34.0); Mean Corpuscular Volume 90.9 fL (81-99); Mean Platelet Volume 9.8 fL (7.4-10.4); Monocytes # 0.7 10^3/uL (0.2-0.9); Monocytes % 8.4 %; Neutrophils # 6.42 10^3/uL (1.8-7.7); Neutrophils % 74.1 %; Nucleated Red Blood Cells % 0 %; Platelet Count 293 10^3/cmm (130-400); Red Blood Count 4.84 10^6/uL (4.1-5.3); Red Cell Distribution Width 13.2 % (12.1-15.1); White Blood Count 8.7 10^3/uL (4.0-10.0)
[2020-06-28 10:56] LABS: Alanine Aminotransferase 20 U/L (0-33); Albumin Level 3.8 g/dL (3.5-5.2); Alkaline Phosphatase 72 IU/L (35-105); Anion Gap 13.4 (5-19); Aspartate Amino Transferase 8 U/L (0-32); Blood Urea Nitrogen 11 mg/dL (8-23); Calcium 9.6 mg/dL (8.5-10.5); Carbon Dioxide 26 mmol/L (22-29); Chloride 101 mmol/L (98-107); Globulin 3.3 g/dL (1.3-4.6); Glucose 185 mg/dL (65-115); NT Pro B Type Natriuretic Pept 1832 pg/mL (0-450); Osmolality Calculated 286 mOsm/kg (285-295); Potassium 4.4 mmol/L (3.5-5.1); Sodium 136 mmol/L (136-145); Total Bilirubin 0.3 mg/dL (0.15-1.2); Total Protein 7.1 g/dL (6.6-8.7)
[2020-06-28 11:10] LABS: Troponin(5th) Baseline 13 ng/L (0-10)
[2020-06-28 11:46] VITALS: BP 100/67; PULSE 74; RESP 18; O2SAT 96
--- NOTE | 2020-06-28 11:46 | ECG_ITS ---
[facility] Test Date: 2020-06-28 Pat Name: Corina Cabral Department: Room: Gender: Female Hose Tester: : 1940 Requested By: Ernie Dickinson Order Number: [id number] Clarita MD: Shaniqua Phelps M.D. Measurements Intervals [place] Rate: 102 P: [place]: -1 QRS: 46 QRSD: 97 T: 210 QT: 409 QTc: 534 Interpretive Statements Sinus tachycardia POSSIBLE LEFT VENTRICULAR HYPERTROPHY ST DEVIATION AND MODERATE T-WAVE ABNORMALITY, CONSIDER LATERAL ISCHEMIA ST DEVIATION AND MODERATE T-WAVE ABNORMALITY, CONSIDER INFERIOR ISCHEMIA Compared to ECG 06/28/2020 13:41:23 T-wave abnormality now present Possible ischemia now present Sinus rhythm no longer present Left bundle-branch block no longer present Electronically Signed On 06-29-2020 14:28:09 CDT by Shaniqua Phelps M.D. [id number]
[2020-06-28 12:54] LABS: Troponin 5 2HR 13.84 ng/L (0-10); Troponin 5 2HR Delta 0.84 ABS# (0-10)
[2020-06-28 13:36] VITALS: BP 115/62; PULSE 77; RESP 16; O2SAT 93
[2020-06-28 13:59] VITALS: BP 115/62; PULSE 72; RESP 18; O2SAT 93
--- NOTE | 2020-06-28 15:46 | ECG_ITS ---
[facility] Test Date: 2020-06-28 Pat Name: Corina Cabral Department: Room: Gender: Female Staff Midwife/Apprenticeship Director: : 1940 Requested By: Ernie Dickinson Order Number: [id number] Clarita MD: Shaniqua Phelps M.D. Measurements Intervals [place] Rate: 70 P: 50 ME: 165 QRS: -17 QRSD: 126 T: 163 QT: 409 QTc: 443 Interpretive Statements SINUS RHYTHM POSSIBLE LEFT ATRIAL ENLARGEMENT [-0.1mV P WAVE IN V1/V2] LEFT BUNDLE BRANCH BLOCK [120+ ms QRS DURATION, 80+ ms Q/S IN V1/V2, 85+ ms R IN I/aVL/V5/V6] Compared to ECG 06/28/2020 09:29:07 Ventricular premature complex(es) no longer present Electronically Signed On 06-28-2020 22:14:06 CDT by Shaniqua Phelps M.D. [id number]
== END 2020-06-28 14:01 | disposition home or self-care (01) ==
PROVIDERS: Emergency Provider Family Medicine; PCP Family Medicine
DX: I48.91 Unspecified atrial fibrillation (principal); I10 Essential (primary) hypertension; Z79.82 Long term (current) use of aspirin; Z85.3 Personal history of malignant neoplasm of breast; J44.9 Chronic obstructive pulmonary disease, unspecified; E78.5 Hyperlipidemia, unspecified; E11.9 Type 2 diabetes mellitus without complications; Z87.891 Personal history of nicotine dependence
CPT/HCPCS: 12345; 36415; 71045; 80053; 83880; 84484; 85025; 93005; 99283; 99284

== ENCOUNTER → 2020-09-11 12:48 | Outpatient (BNVA) | payer MEDICARE, OTHER, SELFPAY | PROVIDERS: PCP Family Medicine; Visit Provider Nurse Practitioner Family | DX: N39.0 Urinary tract infection, site not specified (principal); N89.8 Other specified noninflammatory disorders of vagina | CPT/HCPCS: 81003; 87086 ==

== ENCOUNTER → 2020-09-16 15:08 | Outpatient (BNVA) | payer MEDICARE, OTHER, SELFPAY | PROVIDERS: PCP Family Medicine; Visit Provider Obstetrics & Gynecology | DX: N89.8 Other specified noninflammatory disorders of vagina (principal); N95.0 Postmenopausal bleeding | CPT/HCPCS: 87512; 87799 ==

== ENCOUNTER → 2020-12-10 10:48 | Outpatient (BNVA) | payer MEDICARE, OTHER, SELFPAY | PROVIDERS: PCP Family Medicine; Visit Provider Urology | DX: N39.0 Urinary tract infection, site not specified (principal); N89.8 Other specified noninflammatory disorders of vagina; T19.2XXA Foreign body in vulva and vagina, initial encounter | CPT/HCPCS: 81003 ==

== ENCOUNTER 2021-02-17 14:20 | Outpatient (CLI) | payer MEDICARE, OTHER, SELFPAY ==
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
== END 2021-02-17 14:21 | disposition home or self-care (01) ==
PROVIDERS: PCP Family Medicine; Visit Provider Family Medicine
DX: S14.5XXA Injury of cervical sympathetic nerves, initial encounter (principal); S49.91XA Unspecified injury of right shoulder and upper arm, initial encounter; S79.912A Unspecified injury of left hip, initial encounter; V89.2XXA Person injured in unspecified motor-vehicle accident, traffic, initial encounter; M19.011 Primary osteoarthritis, right shoulder
CPT/HCPCS: 72040; 73030; 73502

== ENCOUNTER 2021-04-14 00:22 | Emergency (ER) | payer MEDICARE, OTHER, SELFPAY ==
[2021-04-14 00:29] VITALS: BP 191/87; PULSE 81; RESP 22; TEMP 36.7; O2SAT 94; BMI 40.7
--- NOTE | 2021-04-14 00:34 | ECG_ITS ---
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 Measurements Intervals [place] Rate: 76 P: 19 MA: 157 QRS: -15 QRSD: 142 T: 153 QT: 416 QTc: 471 Interpretive Statements SINUS RHYTHM LEFT BUNDLE BRANCH BLOCK [120+ ms QRS DURATION, 80+ ms Q/S IN V1/V2, 85+ ms R IN I/aVL/V5/V6] Compared to ECG 06/28/2020 19:31:25 Left bundle-branch block now present Sinus tachycardia no longer present T-wave abnormality no longer present Possible ischemia no longer present Electronically Signed On 04-16-2021 7:45:41 CDT by Shaniqua Phelps M.D. [id number]
--- NOTE | 2021-04-14 00:34 | XRR_ITS ---
PROCEDURE INFORMATION: Exam: XR Chest Exam date and time: 04/14/2021 12:34 AM Age: 80 years old Clinical indication: Pain; Chest pressure; Additional info: Cp TECHNIQUE: Imaging protocol: XR of the chest. Views: 1 view. COMPARISON: CR XR chest 1V portable [id number] 06/28/2020 9:54 AM FINDINGS: Lungs: Unremarkable. No consolidation. Pleural spaces: Unremarkable. No pleural effusion. No pneumothorax. Heart/Mediastinum: There is mild cardiomegaly. Bones/joints: Unremarkable. Soft tissues: Surgical clips in the right axilla. XR/XR chest 1V portable [id number] IMPRESSION: 1. Mild cardiomegaly. 2. No acute disease.
--- NOTE | 2021-04-14 00:37 | ED_ITS ---
HPI - Chest Pain General: Chief Complaint: Chest Pain Stated Complaint: HIGH BLOOD PRESSURE Time Seen by Provider: 04/14/21 00:31 Source: patient and EMS Mode of arrival: EMS Limitations: no limitations History of Present Illness: HPI narrative: 80-year-old female who has history of high blood pressure states her blood pressures running 180/110 throughout the night she is getting nervous about it. States she started having some chest discomfort as well. States pain in the center of her chest is a 2 out of 10. Denies any vomiting or diarrhea. Denies any shortness of breath. Denies any radiation of her pain. Associated symptoms: Deny abdominal pain, dyspnea, fever(s), nausea or vomiting Review of Systems Const: Denies: fever(s), chills, body aches or change in appetite Eyes: Denies: blurry vision or eye discomfort ENMT: Denies: throat pain or dental pain Card: Reports: chest pain Resp: Denies: dyspnea GI: Denies: abdominal pain, nausea, vomiting or diarrhea : Denies: dysuria Musc: Denies: neck pain or back pain Skin/Breast: Denies: rash Neuro: Denies: headache(s) Psych: Denies: depression Aurelio/Lymph: Denies: easy bruising All/Imm: Denies: urticaria PFSH ED PFSH: Medical History A-fib Ortiz palsy Benign essential HTN Breast cancer no evidence of mets Carotid stenosis, bilateral COPD (chronic obstructive pulmonary disease) Cystitis cystica GERD (gastroesophageal reflux disease) Heart murmur HTN (hypertension) Hyperlipidemia IBD (inflammatory bowel disease) Left bundle branch block Mitral valve disorder Morbid obesity RICHARD (obstructive sleep apnea) Pt has clostrophobia, could not use CPAP- uses oxygen at tnight PMB (postmenopausal bleeding) Recurrent UTI Type 2 diabetes mellitus Urgency incontinence Urgency of urination Surgical History H/O partial resection of colon S/P ablation of atrial fibrillation S/P bladder repair S/P section S/P hysterectomy S/P lumpectomy of breast Status post correction of deviated nasal septum Status post tubal ligation Family History Mother CAD (coronary artery disease) Dementia Diabetes Sister CAD (coronary artery disease) Stroke Brother Cancer Father Chronic kidney disease (CKD) Grandmother Diabetes Denies family history of Clotting disorder Suicide Anesthesia complication Bleeding disorder Lung disease Social History Smoking and tobacco status: former smoker (quit in 1981 stated she was a light smoker) Alcohol intake: never Adopted: No Caregiver/support person: No Lives independently: No Household members: spouse Marital status: Current occupational status: retired History of recent travel: No Physical Exam Const: COMMON NORMALS: no acute distress, patient oriented x3 and healthy appearing HENMT: COMMON NORMALS: normocephalic and atraumatic HEAD & SCALP: normocephalic and atraumatic Eye: COMMON NORMALS: Equal, round and reactive pupils present and EOMs intact bilaterally PUPIL: Yes Equal, round and reactive pupils present Neck/C-Spine: COMMON NORMALS: full ROM and supple Chest: COMMONS NORMALS: normal inspection of the chest and normal palpation of entire chest wall Resp: COMMON NORMALS: normal respiratory effort, No retractions, No use of accessory muscles and clear to auscultation bilaterally AUSCULTATION: clear to auscultation bilaterally Cardio: COMMON NORMALS: regular rate, regular rhythm and No murmurs present (Cardio) RATE: regular rate RHYTHM: regular rhythm GI: COMMON NORMALS: Normal to inspection, nondistended, normoactive bowel sounds present, Soft to palpation, non-tender and no masses PALPATION: Yes Soft to palpation Extremity: COMMON NORMALS: normal to inspection and full ROM Neuro: COMMON NORMALS: patient oriented x3, moves all extremities and no focal motor deficits Psych: COMMON NORMALS: mental status grossly normal, Normal thought process present and cooperative THOUGHT PROCESS: Normal thought process present Skin: COMMON NORMALS: no rashes or lesions noted and no wounds GENERAL SKIN EXAM: no rashes or lesions noted Course Vital Signs: Vital signs: Vital Signs Temperature 98.1 F 04/14/21 00:29 Pulse Rate 70 04/14/21 03:05 Respiratory Rate 18 04/14/21 03:05 Blood Pressure 138/67 04/14/21 03:05 Pulse Oximetry 93 04/14/21 03:05 MDM - Chest Pain MDM Narrative: Medical decision making narrative: Patient presents with hypertension along with chest pain. Her pain is atypical on her initial repeat troponins here are negative. Her blood pressure is improved as well. EKGs here are normal. She is stable for discharge is to follow-up with PCP and return if worsening. Lab Data: Labs: Lab Results 04/14/21 04/14/21 04/14/21 Range/Units 00:40 00:40 00:40 WBC 9.0 (4.0-10.0) 10^3/ uL RBC 5.16 (4.1-5.3) 10^6/u L Hgb 15.0 (11.5-15.3) g/dL Hct 46.8 (37.0-47.0) % MCV 90.7 (81-99) fL MCH 29.1 (28.0-34.0) pg MCHC 32.1 (30.0-36.0) g/dL RDW 13.1 (12.1-15.1) % Plt Count 274 (130-400) 10^3/c mm MPV 9.2 (7.4-10.4) fL Neut % (Auto) 54.2 % Lymph % (Auto) 33.6 % [place] % (Auto) 10.1 % Eos % (Auto) 1.6 % Baso % (Auto) 0.3 % Neut # (Auto) 4.85 (1.8-7.7) 10^3/u L Lymph # (Auto) 3.0 (0.8-4.8) 10^3/u L [place] # (Auto) 0.9 (0.2-0.9) 10^3/u L Eos # (Auto) 0.1 (0.0-0.8) 10^3/u L Baso # (Auto) 0.0 (0.0-0.1) 10^3/u L Nucleated RBC % (a uto) 0 % Nucleated RBCs # 0.0 /100WBC Sodium 135 L (136-145) mmol/L Potassium 4.4 (3.5-5.1) mmol/L Chloride 95 L (98-107) mmol/L Carbon Dioxide 27 (22-29) mmol/L Anion Gap 17.4 (5-19) BUN 10 (8-23) mg/dL Creatinine 0.5 (0.5-0.9) mg/dL GFR Calculation Not Reportable Glucose 109 (65-115) mg/dL Calculated Osmolal ity 280 L (285-295) mOsm/k g Calcium 9.0 (8.5-10.5) mg/dL Total Bilirubin 0.3 (0.15-1.2) mg/dL AST 10 (0-32) U/L ALT 19 (0-33) U/L Alkaline Phosphata se 83 (35-105) IU/L Troponin T Baselin e 9 (0-10) ng/L Troponin T 120 [place] (0-10) ng/L Delta Troponin T (0-10) ABS# Total Protein 7.3 (6.6-8.7) g/dL Albumin 4.4 (3.5-5.2) g/dL Globulin 2.9 (1.3-4.6) g/dL 04/14/21 Range/Units 03:25 WBC (4.0-10.0) 10^3/ uL RBC (4.1-5.3) 10^6/u L Hgb (11.5-15.3) g/dL Hct (37.0-47.0) % MCV (81-99) fL MCH (28.0-34.0) pg MCHC (30.0-36.0) g/dL RDW (12.1-15.1) % Plt Count (130-400) 10^3/c mm MPV (7.4-10.4) fL Neut % (Auto) % Lymph % (Auto) % [place] % (Auto) % Eos % (Auto) % Baso % (Auto) % Neut # (Auto) (1.8-7.7) 10^3/u L Lymph # (Auto) (0.8-4.8) 10^3/u L [place] # (Auto) (0.2-0.9) 10^3/u L Eos # (Auto) (0.0-0.8) 10^3/u L Baso # (Auto) (0.0-0.1) 10^3/u L Nucleated RBC % (a uto) % Nucleated RBCs # /100WBC Sodium (136-145) mmol/L Potassium (3.5-5.1) mmol/L Chloride (98-107) mmol/L Carbon Dioxide (22-29) mmol/L Anion Gap (5-19) BUN (8-23) mg/dL Creatinine (0.5-0.9) mg/dL GFR Calculation Glucose (65-115) mg/dL Calculated Osmolal ity (285-295) mOsm/k g Calcium (8.5-10.5) mg/dL Total Bilirubin (0.15-1.2) mg/dL AST (0-32) U/L ALT (0-33) U/L Alkaline Phosphata se (35-105) IU/L Troponin T Baselin e (0-10) ng/L Troponin T 120 [place] 10.17 H (0-10) ng/L Delta Troponin T 1.17 (0-10) ABS# Total Protein (6.6-8.7) g/dL Albumin (3.5-5.2) g/dL Globulin (1.3-4.6) g/dL EKG Data^: EKG 1: Attestation: I personally reviewed and interpreted this EKG as follows: EKG interpretation date: 04/14/21 EKG interpretation time: 00:31 Interpretation: nsr hr [address] elevation LBBB qrs 142 qtc 447 unchanged from previous EKG 2: Attestation: I personally reviewed and interpreted this EKG as follows: EKG interpretation date: 04/14/21 EKG interpretation time: 02:25 Interpretation: nsr hr [address] elevation lbbb qrs 136 qtc 448 Discharge Plan Discharge Patient Disposition: Home Clinical Impression: HTN (hypertension) Qualifiers: Hypertension type: unspecified Qualified Code(s): I10 - Essential (primary) hypertension Chest pain Qualifiers: Chest pain type: unspecified Qualified Code(s): R07.9 - Chest pain, unspecified Condition: Stable Prescriptions: No Action PreserVision AREDS-2 [id number] yl-rtpu-mj-mg capsule 1 tab PO BID RF: 0 Macular Health Formula 5-1-7.5 mg capsule 1 cap PO DAILY RF: 0 astralagalus See Rx Instructions .ROUTE .COMPLEX RF: 0 alpha lipoic acid 100 mg capsule 100 mg PO DAILY RF: 0 cholecalciferol (vitamin D3) 125 mcg (5,000 unit) capsule 125 mcg PO DAILY RF: 0 magnesium 200 mg tablet 200 mg PO BID RF: 0 metoprolol tartrate 25 mg tablet 25 mg PO BID RF: 0 albuterol sulfate [Ventolin HFA] 90 mcg/actuation HFA aerosol inhaler 2 puff INHALATION Q6H PRN (Reason: Shortness Of Breath) RF: 0 furosemide 20 mg tablet 20 - 40 mg PO QAM PRN (Reason: edema) RF: 0 potassium chloride [Klor-Con 10] 10 mEq tablet extended release 10 meq PO DAILY PRN (Reason: unknown) RF: 0 lactobacillus combination no.8 1 cap PO BID RF: 0 lysine 500 mg tablet 500 mg PO DAILY RF: 0 omega-3 fatty acids [Fish Oil Concentrate] 1,000 mg capsule See Rx Instructions .ROUTE DAILY RF: 0 diltiazem HCl 60 mg tablet 60 mg PO BID RF: 0 aspirin 81 mg tablet,chewable 81 mg PO DAILY 30 Days Qty: 30 RF: 5 (DME) Diabetic shoes See Rx Instructions .Route .MEDSUPPLY Qty: 1 RF: 0 Vitamin C Powder See Rx Instructions .ROUTE .COMPLEX RF: 0 Beta-Glucan Tab 1 tab PO DAILY RF: 0 Chromium Tab 500 mg PO QPM RF: 0 CoQ-10 1 tab PO DAILY RF: 0 calcium gluconate 1 tab PO DAILY RF: 0 levalbuterol HCl 0.63 mg/3 mL solution for nebulization 0.63 mg INHALATION TID PRN (Reason: unknown) RF: 0 Systane Ultra (PF) 0.4-0.3 % dropperette 1 drp ophthalmic (eye) PRN RF: 0 Discharge Orders: Discharge ED (Routine); Ordered 04/14/21 Ordered By: Rebecca Hernández Discharge Diet: Advance as tolerated Discharge Activity: Resume usual activity Patient Instructions: Chest Pain (ED), Hypertension (ED) Coding Level of Care Code ED Soil Sampler for Chg Fwd Exam Comprehensive
[2021-04-14 00:48] LABS: Basophils % 0.3 %; Eosinophils # 0.1 10^3/uL (0.0-0.8); Eosinophils % 1.6 %; Hematocrit 46.8 % (37.0-47.0); Lymphocytes % 33.6 %; Mean Corpuscular HGB Conc 32.1 g/dL (30.0-36.0); Mean Corpuscular Hemoglobin 29.1 pg (28.0-34.0); Mean Corpuscular Volume 90.7 fL (81-99); Mean Platelet Volume 9.2 fL (7.4-10.4); Monocytes # 0.9 10^3/uL (0.2-0.9); Monocytes % 10.1 %; Neutrophils # 4.85 10^3/uL (1.8-7.7); Neutrophils % 54.2 %; Nucleated Red Blood Cells % 0 %; Platelet Count 274 10^3/cmm (130-400); Red Blood Count 5.16 10^6/uL (4.1-5.3); Red Cell Distribution Width 13.1 % (12.1-15.1)
[2021-04-14] MEDS: aspirin 81 mg Chew Tablet 324 MG PO (00:59)
[2021-04-14] MEDS: labetalol 5 mg/mL SDV 20mL 10 MG IVP (01:02)
[2021-04-14 01:06] LABS: Troponin(5th) Baseline 9 ng/L (0-10)
--- NOTE | 2021-04-14 01:07 | PC.NURSE ---
pt states she has a 'bleeding problem' so is taking the aspirin slowly not all at the same time.
[2021-04-14 01:08] LABS: Alanine Aminotransferase 19 U/L (0-33); Albumin Level 4.4 g/dL (3.5-5.2); Alkaline Phosphatase 83 IU/L (35-105); Anion Gap 17.4 (5-19); Aspartate Amino Transferase 10 U/L (0-32); Blood Urea Nitrogen 10 mg/dL (8-23); Carbon Dioxide 27 mmol/L (22-29); Chloride 95 mmol/L (98-107); Globulin 2.9 g/dL (1.3-4.6); Glucose 109 mg/dL (65-115); Osmolality Calculated 280 mOsm/kg (285-295); Potassium 4.4 mmol/L (3.5-5.1); Sodium 135 mmol/L (136-145); Total Bilirubin 0.3 mg/dL (0.15-1.2); Total Protein 7.3 g/dL (6.6-8.7)
--- NOTE | 2021-04-14 02:34 | ECG_ITS ---
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 Measurements Intervals [place] Rate: 75 P: 31 NV: 165 QRS: -18 QRSD: 136 T: 154 QT: 419 QTc: 471 Interpretive Statements SINUS RHYTHM LEFT BUNDLE BRANCH BLOCK [120+ ms QRS DURATION, 80+ ms Q/S IN V1/V2, 85+ ms R IN I/aVL/V5/V6] Compared to ECG 04/14/2021 00:31:04 No significant changes Electronically Signed On 04-16-2021 10:05:09 CDT by Shaniqua Phelps M.D. [id number]
[2021-04-14 03:05] VITALS: BP 135/89; BP 138/67; PULSE 70; PULSE 79; RESP 18; O2SAT 92; O2SAT 93
[2021-04-14 04:09] LABS: Troponin 5 2HR 10.17 ng/L (0-10); Troponin 5 2HR Delta 1.17 ABS# (0-10)
[2021-04-14 04:36] VITALS: BP 137/78; PULSE 80; RESP 18; O2SAT 93
== END 2021-04-14 04:37 | disposition home or self-care (01) ==
PROVIDERS: Emergency Provider Emergency Medicine
DX: R07.89 Other chest pain (principal); I10 Essential (primary) hypertension; I48.91 Unspecified atrial fibrillation; J44.9 Chronic obstructive pulmonary disease, unspecified; E78.5 Hyperlipidemia, unspecified; E66.01 Morbid (severe) obesity due to excess calories; Z68.41 Body mass index [BMI] 40.0-44.9, adult; E11.9 Type 2 diabetes mellitus without complications; Z87.891 Personal history of nicotine dependence; Z82.49 Family history of ischemic heart disease and other diseases of the circulatory system; Z79.82 Long term (current) use of aspirin; Z79.899 Other long term (current) drug therapy
CPT/HCPCS: 71045; 80053; 81003; 84484; 85025; 87086; 93005; 96374; 99204; 99284; J3490

== ENCOUNTER 2021-05-12 13:26 | Outpatient (CLI) | payer MEDICARE, OTHER, SELFPAY ==
--- NOTE | 2021-05-12 14:04 | CT_ITS ---
WS: [id number] CT NECK WITH CONTRAST HISTORY: ATYPICAL FACIAL PAIN TECHNIQUE: Contiguous 5 mm axial images are performed through the neck with intravenous contrast. Sag ittal and coronal reformats are also submitted. All CT scans at [facility] use at least one o f these dose optimization techniques: automated exposure control; mA and/or kV adjustment per patient size (includes targeted exams where dose is matched to clinical indication); or iterative reconstruc tion. CONTRAST: CONTRAST: Omnipaque 300; 95 mL IV. DLP: 980.65 mGycm COMPARISON: None available. Nasopharynx, oropharynx, hypopharynx and larynx are unremarkable. No soft tissue masses or abnormal e nhancement. Torus tubarius and fossa of Rosenmuller and parapharyngeal fat are normal. No significant lymphadenopathy is identified. Small bilateral cervical chain lymph nodes. Thyroid gland and salivary glands are normally enhancing with no masses. No osseous abnormalities. Visualized portions of the skull base demonstrate no abnormalities. Orbits and globes are within norm al limits. No soft tissue masses. Mild atherosclerosis carotid arteries. Visualized paranasal sinuses and mastoid air cells are normal. Lung apices are clear. Benign lymph nodes in the RIGHT paratracheal region and mild atherosclerosis a sharmin. CT/CT neck w con* [id number] IMPRESSION: 1. No neck mass or adenopathy. 2. Mild atherosclerosis carotid arteries.
[2021-05-12] MEDS: iohexol 300 mg/mL 100 mL Btl IV (14:35)
== END 2021-05-12 13:27 | disposition home or self-care (01) ==
PROVIDERS: Visit Provider Specialist
DX: G50.1 Atypical facial pain (principal); I65.23 Occlusion and stenosis of bilateral carotid arteries
CPT/HCPCS: 70491; Q9967

== ENCOUNTER 2021-05-14 20:11 | Emergency (ER) | payer MEDICARE, OTHER, SELFPAY ==
[2021-05-14 20:44] VITALS: BP 114/71; PULSE 105; RESP 16; TEMP 36.7; O2SAT 95; BMI 40.7
--- NOTE | 2021-05-14 21:02 | ED_ITS ---
HPI - Allergic Reaction General: Chief complaint: Allergic Reaction Stated complaint: Reaction to Antibiotic Time Seen by Provider: 05/14/21 21:01 History of Present Illness: HPI narrative: 80-year-old female comes in today with complaints of reaction to antibiotic. Patient has multiple allergies. Patient was started on doxycycline for a probable infection to the left face. Patient reports having a CT scan done by Dr. Priest. On exam is noticeable patient has some facial drooping that appears to be Ortiz's palsy. Patient reports then she seen her physician today which started her on hydroxyzine and methylprednisone pack. Patient states tonight she took the methylprednisone and started having hives. Patient does have an issue with prednisone which causes her to react. Patient does have some hives noted to her arms and ears. Review of Systems General: Reports: 10 or more systems reviewed and unremarkable except in HPI and below Skin/Breast: Reports: other (Hives) [facility] ED PFSH: Medical History A-fib Ortiz palsy Benign essential HTN Breast cancer no evidence of mets Carotid stenosis, bilateral COPD (chronic obstructive pulmonary disease) Cystitis cystica GERD (gastroesophageal reflux disease) Heart murmur HTN (hypertension) Hyperlipidemia IBD (inflammatory bowel disease) Left bundle branch block Mitral valve disorder Morbid obesity RICHARD (obstructive sleep apnea) Pt has clostrophobia, could not use CPAP- uses oxygen at tnight PMB (postmenopausal bleeding) Recurrent UTI Type 2 diabetes mellitus Urgency incontinence Urgency of urination Surgical History H/O partial resection of colon S/P ablation of atrial fibrillation S/P bladder repair S/P section S/P hysterectomy S/P lumpectomy of breast Status post correction of deviated nasal septum Status post tubal ligation Family History Mother CAD (coronary artery disease) Dementia Diabetes Sister CAD (coronary artery disease) Stroke Brother Cancer Father Chronic kidney disease (CKD) Grandmother Diabetes Denies family history of Clotting disorder Suicide Anesthesia complication Bleeding disorder Lung disease Social History Alcohol intake: never Adopted: No Caregiver/support person: No Lives independently: No Household members: spouse Marital status: Current occupational status: retired History of recent travel: No Physical Exam Const: COMMON NORMALS: no acute distress and patient oriented x3 GENERAL APPEARANCE: cooperative HENMT: COMMON NORMALS: normocephalic, TM's normal bilaterally and Normal external nose present HEAD & SCALP: normal to inspection and normocephalic NOSE: Normal external nose present TYMPANIC MEMBRANE: TM's normal bilaterally MOUTH: Normal oral and palatal mucosa present THROAT: posterior oropharynx normal Eye: GENERAL EYE: appearance normal, both eyes and all related structures Neck/C-Spine: COMMON NORMALS: full ROM Lymph: LYMPHATIC: no lymphadenopathy noted Chest: COMMONS NORMALS: normal inspection of the chest Resp: COMMON NORMALS: normal respiratory effort EFFORT & INSPECTION: Yes able to speak in complete sentences Cardio: COMMON NORMALS: regular rate and regular rhythm RATE: regular rate RHYTHM: regular rhythm GI: COMMON NORMALS: non-tender : COMMON NORMALS: Yes no CVA tenderness BLADDER/KIDNEY EXAM: Yes no CVA tenderness Back/Pelvis: COMMON NORMALS: no CVA tenderness and thoracic and lumbar spine normal to inspection Extremity: COMMON NORMALS: normal to inspection Neuro: COMMON NORMALS: patient oriented x3 and moves all extremities Psych: COMMON NORMALS: mental status grossly normal and cooperative Skin: NARRATIVE SKIN EXAM: Urticaria noted to the torso and upper extremities, patient also has some urticaria to her neck and some redness to her ears with some mild swelling to the lobes. Course Vital Signs: Vital signs: Vital Signs Temperature 98.1 F 05/14/21 20:44 Pulse Rate 105 H 05/14/21 20:44 Respiratory Rate 16 05/14/21 20:44 Blood Pressure 114/71 05/14/21 20:44 Pulse Oximetry 95 05/14/21 20:44 MDM - Allergic Reaction MDM Narrative: Medical decision making narrative: Patient comes in for aggravation of hives. Patient was taken some doxycycline and started breaking out in hives so she attended her physician today and was started on hydroxyzine and methylprednisone. Patient then took the methylprednisone tonight and about 30 minutes after taking the methylprednisone started breaking out in new onset of hives. Patient has a history of reaction to prednisone. On exam patient has some hives noted to her neck ears torso and upper extremities. Respirations are even lungs are clear to auscultation. Oropharynx is open without any signs of significant swelling. Differential diagnosis includes adverse drug effect, allergic reaction, anaphylaxis. Patient was given 50 mg of Benadryl with improvement of symptoms and rash. Patient was instructed to stop the methylprednisone and the doxycycline. Patient was recommended to follow-up with Dr. Leal regarding other medication for her ear nose and throat infection. Patient was recommended to continue with Claritin twice a day to help control the hives and then use Benadryl or hydroxyzine as needed for breakthrough rash and itching. Patient reported understanding of care plan and need for follow-up or return to the ER. Discharge Plan Discharge Patient Disposition: Home Clinical Impression: Urticaria Adverse reaction to drug Qualifiers: Encounter type: initial encounter Qualified Code(s): T50.905A - Adverse effect of unspecified drugs, medicaments and biological substances, initial encounter Condition: Stable Prescriptions: No Action PreserVision AREDS-2 [id number] si-cush-wi-mg capsule 1 tab PO BID RF: 0 Macular Health Formula 5-1-7.5 mg capsule 1 cap PO DAILY RF: 0 astralagalus See Rx Instructions .ROUTE .COMPLEX RF: 0 conjugated estrogens 0.625 mg/gram cream 0.625 mg vaginal .3 x weekly RF: 0 nitrofurantoin monohyd/m-cryst [Macrobid] 100 mg capsule 100 mg PO BID Qty: 60 RF: 1 alpha lipoic acid 100 mg capsule 100 mg PO DAILY RF: 0 cholecalciferol (vitamin D3) 125 mcg (5,000 unit) capsule 125 mcg PO DAILY RF: 0 magnesium 200 mg tablet 200 mg PO BID RF: 0 metoprolol tartrate 25 mg tablet 25 mg PO BID RF: 0 albuterol sulfate [Ventolin HFA] 90 mcg/actuation HFA aerosol inhaler 2 puff INHALATION Q6H PRN (Reason: Shortness Of Breath) RF: 0 furosemide 20 mg tablet 20 - 40 mg PO QAM PRN (Reason: edema) RF: 0 potassium chloride [Klor-Con 10] 10 mEq tablet extended release 10 meq PO DAILY PRN (Reason: unknown) RF: 0 lactobacillus combination no.8 1 cap PO BID RF: 0 lysine 500 mg tablet 500 mg PO DAILY RF: 0 omega-3 fatty acids [Fish Oil Concentrate] 1,000 mg capsule See Rx Instructions .ROUTE DAILY RF: 0 diltiazem HCl 60 mg tablet 60 mg PO BID RF: 0 aspirin 81 mg tablet,chewable 81 mg PO DAILY 30 Days Qty: 30 RF: 5 (DME) Diabetic shoes See Rx Instructions .Route .MEDSUPPLY Qty: 1 RF: 0 Vitamin C Powder See Rx Instructions .ROUTE .COMPLEX RF: 0 Beta-Glucan Tab 1 tab PO DAILY RF: 0 Chromium Tab 500 mg PO QPM RF: 0 CoQ-10 1 tab PO DAILY RF: 0 calcium gluconate 1 tab PO DAILY RF: 0 levalbuterol HCl 0.63 mg/3 mL solution for nebulization 0.63 mg INHALATION TID PRN (Reason: unknown) RF: 0 Systane Ultra (PF) 0.4-0.3 % dropperette 1 drp ophthalmic (eye) PRN RF: 0 Discharge Orders: Discharge ED (Routine); Ordered 05/14/21 Ordered By: Addison Calderón Discharge Diet: Usual diet Discharge Activity: Increase activity as tolerated Patient Instructions: Opioid Safety Activity Restrictions/Additional Instructions: Home and rest. Use Claritin 10 mg 1 tablet twice a day to help control the rash and hives. Use Benadryl or hydroxyzine for breakthrough rash, itching, hives as needed. Drink plenty of water with medication. Follow-up with clinical research administrator regarding the antibiotic for other alternatives of treatment. Stop the methylprednisolone, often steroids are not necessary for hives with studies showing minimal benefit, and in your case seemed to cause more reaction. Return to the ER for worsening symptoms or new concerns. Coding Level of Care Code ED Battery Container Inspector for Refugio Helms Exam Comprehensive
[2021-05-14] MEDS: diphenhydrAMINE 50 mg/mL SDV 1mL IM (21:33)
== END 2021-05-14 21:54 | disposition home or self-care (01) ==
PROVIDERS: Emergency Provider Nurse Practitioner Family
DX: L50.9 Urticaria, unspecified (principal); T50.905A Adverse effect of unspecified drugs, medicaments and biological substances, initial encounter; Z79.82 Long term (current) use of aspirin; I10 Essential (primary) hypertension; Z85.3 Personal history of malignant neoplasm of breast; J44.9 Chronic obstructive pulmonary disease, unspecified; E78.5 Hyperlipidemia, unspecified; E11.9 Type 2 diabetes mellitus without complications; Z87.440 Personal history of urinary (tract) infections
CPT/HCPCS: 96372; 99283; J1200

== ENCOUNTER 2021-05-16 02:05 | Emergency (ER) | payer MEDICARE, OTHER, SELFPAY ==
[2021-05-16 02:13] VITALS: BP 145/84; PULSE 106; RESP 18; TEMP 37; O2SAT 93; BMI 40.7
--- NOTE | 2021-05-16 02:16 | W.ED.ALLEREA ---
HPI - Allergic Reaction General: Chief complaint: Allergic Reaction Stated complaint: ALLERGIC REACTION Time Seen by Provider: 05/16/21 02:06 Source: patient Mode of arrival: ambulatory Limitations: no limitations History of Present Illness: HPI narrative: 80-year-old female with a history of multiple allergic reactions in the past. States she was recently placed on doxycycline had allergic reaction to that. She was seen here last night given Benadryl and states she was improving but tonight the rash came back worse. States that she has severe itching. Denies any shortness of breath. She is in no distress. She cannot take steroids either as she is allergic to steroids as well. Associated symptoms: Deny abdominal pain, nausea or vomiting Review of Systems Const: Denies: fever(s), chills, body aches or change in appetite Eyes: Denies: blurry vision or eye discomfort ENMT: Denies: throat pain or dental pain Card: Denies: chest pain Resp: Denies: dyspnea GI: Denies: abdominal pain, nausea, vomiting or diarrhea : Denies: dysuria Musc: Denies: neck pain or back pain Skin/Breast: Reports: rash Neuro: Denies: headache(s) Psych: Denies: depression Aurelio/Lymph: Denies: easy bruising All/Imm: Denies: urticaria PFSH ED PFSH: Medical History A-fib Ortiz palsy Benign essential HTN Breast cancer no evidence of mets Carotid stenosis, bilateral COPD (chronic obstructive pulmonary disease) Cystitis cystica GERD (gastroesophageal reflux disease) Heart murmur HTN (hypertension) Hyperlipidemia IBD (inflammatory bowel disease) Left bundle branch block Mitral valve disorder Morbid obesity RICHARD (obstructive sleep apnea) Pt has clostrophobia, could not use CPAP- uses oxygen at tnight PMB (postmenopausal bleeding) Recurrent UTI Type 2 diabetes mellitus Urgency incontinence Urgency of urination Surgical History H/O partial resection of colon S/P ablation of atrial fibrillation S/P bladder repair S/P section S/P hysterectomy S/P lumpectomy of breast Status post correction of deviated nasal septum Status post tubal ligation Family History Mother CAD (coronary artery disease) Dementia Diabetes Sister CAD (coronary artery disease) Stroke Brother Cancer Father Chronic kidney disease (CKD) Grandmother Diabetes Denies family history of Clotting disorder Suicide Anesthesia complication Bleeding disorder Lung disease Social History Alcohol intake: never Adopted: No Caregiver/support person: No Lives independently: No Household members: spouse Marital status: Current occupational status: retired History of recent travel: No Physical Exam Const: COMMON NORMALS: no acute distress, patient oriented x3 and healthy appearing HENMT: COMMON NORMALS: normocephalic and atraumatic HEAD & SCALP: normocephalic and atraumatic Eye: COMMON NORMALS: Equal, round and reactive pupils present and EOMs intact bilaterally PUPIL: Yes Equal, round and reactive pupils present Neck/C-Spine: COMMON NORMALS: full ROM and supple Chest: COMMONS NORMALS: normal inspection of the chest and normal palpation of entire chest wall Resp: COMMON NORMALS: normal respiratory effort, No retractions, No use of accessory muscles and clear to auscultation bilaterally AUSCULTATION: clear to auscultation bilaterally Cardio: COMMON NORMALS: regular rate, regular rhythm and No murmurs present (Cardio) RATE: regular rate RHYTHM: regular rhythm GI: COMMON NORMALS: Normal to inspection, nondistended, normoactive bowel sounds present, Soft to palpation, non-tender and no masses PALPATION: Yes Soft to palpation Extremity: COMMON NORMALS: normal to inspection and full ROM Neuro: COMMON NORMALS: patient oriented x3, moves all extremities and no focal motor deficits Psych: COMMON NORMALS: mental status grossly normal, Normal thought process present and cooperative THOUGHT PROCESS: Normal thought process present Skin: COMMON NORMALS: no wounds NARRATIVE SKIN EXAM: urticarial rash to face and trunk and back Course Vital Signs: Vital signs: Vital Signs Temperature 98.6 F 05/16/21 02:13 Pulse Rate 84 05/16/21 03:31 Respiratory Rate 18 05/16/21 03:31 Blood Pressure 109/58 05/16/21 03:31 Pulse Oximetry 92 05/16/21 03:31 MDM - Allergic Reaction MDM Narrative: Medical decision making narrative: Patient presents here with rash consistent with allergic reaction to the doxycycline. Patient is to continue Benadryl and is to take Pepcid. Patient is well-appearing here and is improved after IV Benadryl. She is stable for discharge and is to follow-up with PCP and return if worsening. Discharge Plan Discharge Patient Disposition: Home Clinical Impression: Allergic reaction Qualifiers: Encounter type: subsequent encounter Qualified Code(s): T78.40XD - Allergy, unspecified, subsequent encounter Condition: Stable Prescriptions: No Action PreserVision AREDS-2 [id number] hg-gxhn-fh-mg capsule 1 tab PO BID RF: 0 Macular Health Formula 5-1-7.5 mg capsule 1 cap PO DAILY RF: 0 astralagalus See Rx Instructions .ROUTE .COMPLEX RF: 0 conjugated estrogens 0.625 mg/gram cream 0.625 mg vaginal .3 x weekly RF: 0 nitrofurantoin monohyd/m-cryst [Macrobid] 100 mg capsule 100 mg PO BID Qty: 60 RF: 1 alpha lipoic acid 100 mg capsule 100 mg PO DAILY RF: 0 cholecalciferol (vitamin D3) 125 mcg (5,000 unit) capsule 125 mcg PO DAILY RF: 0 magnesium 200 mg tablet 200 mg PO BID RF: 0 metoprolol tartrate 25 mg tablet 25 mg PO BID RF: 0 albuterol sulfate [Ventolin HFA] 90 mcg/actuation HFA aerosol inhaler 2 puff INHALATION Q6H PRN (Reason: Shortness Of Breath) RF: 0 furosemide 20 mg tablet 20 - 40 mg PO QAM PRN (Reason: edema) RF: 0 potassium chloride [Klor-Con 10] 10 mEq tablet extended release 10 meq PO DAILY PRN (Reason: unknown) RF: 0 lactobacillus combination no.8 1 cap PO BID RF: 0 lysine 500 mg tablet 500 mg PO DAILY RF: 0 omega-3 fatty acids [Fish Oil Concentrate] 1,000 mg capsule See Rx Instructions .ROUTE DAILY RF: 0 diltiazem HCl 60 mg tablet 60 mg PO BID RF: 0 aspirin 81 mg tablet,chewable 81 mg PO DAILY 30 Days Qty: 30 RF: 5 (DME) Diabetic shoes See Rx Instructions .Route .MEDSUPPLY Qty: 1 RF: 0 Vitamin C Powder See Rx Instructions .ROUTE .COMPLEX RF: 0 Beta-Glucan Tab 1 tab PO DAILY RF: 0 Chromium Tab 500 mg PO QPM RF: 0 CoQ-10 1 tab PO DAILY RF: 0 calcium gluconate 1 tab PO DAILY RF: 0 levalbuterol HCl 0.63 mg/3 mL solution for nebulization 0.63 mg INHALATION TID PRN (Reason: unknown) RF: 0 Systane Ultra (PF) 0.4-0.3 % dropperette 1 drp ophthalmic (eye) PRN RF: 0 Discharge Orders: Discharge ED (Routine); Ordered 05/16/21 Ordered By: Rebecca Hernández Referrals: Susan Kemp MD [Primary Care Provider] - 1-3 days Discharge Diet: Advance as tolerated Discharge Activity: Resume usual activity Patient Instructions: Allergic Reaction Coding Level of Care Code ED Electrical Equipment Assembler for Chg Fwd Exam Comprehensive
[2021-05-16 02:19] VITALS: BP 123/68; PULSE 84; RESP 22; O2SAT 92
[2021-05-16] MEDS: diphenhydrAMINE 50 mg/mL SDV 1mL IVP (02:46)
[2021-05-16] MEDS: famotidine 20 mg/2 mL INJ 40 MG IVP (02:47)
[2021-05-16 03:10] VITALS: BP 109/58; PULSE 84; RESP 18; O2SAT 92
[2021-05-16 03:31] VITALS: BP 109/58; PULSE 84; RESP 18; O2SAT 92
== END 2021-05-16 03:32 | disposition home or self-care (01) ==
PROVIDERS: Emergency Provider Emergency Medicine; PCP Family Medicine
DX: T78.40XA Allergy, unspecified, initial encounter (principal); Z79.82 Long term (current) use of aspirin; I10 Essential (primary) hypertension; Z85.3 Personal history of malignant neoplasm of breast; J44.9 Chronic obstructive pulmonary disease, unspecified; E78.5 Hyperlipidemia, unspecified; E11.9 Type 2 diabetes mellitus without complications
CPT/HCPCS: 96374; 96375; 99283; J1200; J3490

== ENCOUNTER 2021-05-17 11:22 | Emergency (ER) | payer MEDICARE, OTHER, SELFPAY ==
[2021-05-17 12:03] VITALS: BP 149/84; PULSE 77; RESP 15; TEMP 36.8; O2SAT 95; BMI 40.7
[2021-05-17 12:19] VITALS: BP 193/124; PULSE 82; RESP 16; O2SAT 96
--- NOTE | 2021-05-17 12:43 | W.ED.ALLEREA ---
HPI - Allergic Reaction General: Chief complaint: Allergic Reaction Stated complaint: ALLERGIC REACTION: FACIAL SWELLING AND OTHERS Time Seen by Provider: 05/17/21 12:14 History of Present Illness: HPI narrative: Presents with fluid underneath her eyes after waking this morning. Patient states rash and itching has gone away with medications received other day. Patient's states that swelling is going down some under her eyes now that she has been up. Patient denies any shortness of breath problems swallowing or chest pain MD complaint: allergic reaction Onset (ago): hour(s) Exposure: medication Associated symptoms: Reports no associated symptoms; Deny abdominal pain, nausea or vomiting Severity: mild Treatment prior to arrival: benadryl Previous Allergic Reaction History: prior ED visit(s) Review of Systems Const: Denies: fever(s), chills or body aches Eyes: Denies: change in vision or blurry vision ENMT: Denies: throat pain or nasal congestion Card: Reports: other (Has a history of hypertension has not taken all her medicine this morning.); Denies: chest pain or dyspnea on exertion Resp: Denies: dyspnea, productive cough or non-productive cough GI: Denies: abdominal pain, nausea or vomiting Musc: Denies: extremity pain Skin/Breast: Reports: other (Has swelling under the eyes, redness to cheeks); Denies: rash Neuro: Denies: headache(s) Psych: Denies: anxiety or depression Aurelio/Lymph: Denies: easy bruising PFS ED PFSH: Medical History A-fib Ortiz palsy Benign essential HTN Breast cancer no evidence of mets Carotid stenosis, bilateral COPD (chronic obstructive pulmonary disease) Cystitis cystica GERD (gastroesophageal reflux disease) Heart murmur HTN (hypertension) Hyperlipidemia IBD (inflammatory bowel disease) Left bundle branch block Mitral valve disorder Morbid obesity RICHARD (obstructive sleep apnea) Pt has clostrophobia, could not use CPAP- uses oxygen at tnight PMB (postmenopausal bleeding) Recurrent UTI Type 2 diabetes mellitus Urgency incontinence Urgency of urination Surgical History H/O partial resection of colon S/P ablation of atrial fibrillation S/P bladder repair S/P section S/P hysterectomy S/P lumpectomy of breast Status post correction of deviated nasal septum Status post tubal ligation Family History Mother CAD (coronary artery disease) Dementia Diabetes Sister CAD (coronary artery disease) Stroke Brother Cancer Father Chronic kidney disease (CKD) Grandmother Diabetes Denies family history of Clotting disorder Suicide Anesthesia complication Bleeding disorder Lung disease Social History Alcohol intake: never Adopted: No Caregiver/support person: No Lives independently: No Household members: spouse Marital status: Current occupational status: retired History of recent travel: No Physical Exam Const: COMMON NORMALS: no acute distress GENERAL APPEARANCE: cooperative HENMT: MOUTH: Normal oral and palatal mucosa present THROAT: posterior oropharynx normal Eye: OTHER: Pockets of fluid underneath both eyes Lymph: LYMPHATIC: no lymphadenopathy noted Resp: COMMON NORMALS: normal respiratory effort Skin: OTHER: Mild redness of both cheeks. No rash noted in the scalp or neck now Course Vital Signs: Vital signs: Vital Signs Temperature 98.2 F 05/17/21 12:03 Pulse Rate 82 05/17/21 12:19 Respiratory Rate 16 05/17/21 12:19 Blood Pressure 193/124 05/17/21 12:19 Pulse Oximetry 96 05/17/21 12:19 MDM - Allergic Reaction MDM Narrative: Medical decision making narrative: Patient encouraged take medicine as directed. Can increase Benadryl dosage as needed. Apply cool compress to the eyes. Monitor blood pressure. Discharge Plan Discharge Patient Disposition: Home Clinical Impression: Adverse reaction to drug Qualifiers: Encounter type: subsequent encounter Qualified Code(s): T50.905D - Adverse effect of unspecified drugs, medicaments and biological substances, subsequent encounter Allergic angioedema Qualifiers: Encounter type: initial encounter Qualified Code(s): T78.3XXA - Angioneurotic edema, initial encounter Condition: Stable Prescriptions: No Action PreserVision AREDS-2 [id number] be-duih-up-mg capsule 1 tab PO BID RF: 0 Macular Health Formula 5-1-7.5 mg capsule 1 cap PO DAILY RF: 0 astralagalus See Rx Instructions .ROUTE .COMPLEX RF: 0 conjugated estrogens 0.625 mg/gram cream 0.625 mg vaginal .3 x weekly RF: 0 nitrofurantoin monohyd/m-cryst [Macrobid] 100 mg capsule 100 mg PO BID Qty: 60 RF: 1 alpha lipoic acid 100 mg capsule 100 mg PO DAILY RF: 0 cholecalciferol (vitamin D3) 125 mcg (5,000 unit) capsule 125 mcg PO DAILY RF: 0 magnesium 200 mg tablet 200 mg PO BID RF: 0 metoprolol tartrate 25 mg tablet 25 mg PO BID RF: 0 albuterol sulfate [Ventolin HFA] 90 mcg/actuation HFA aerosol inhaler 2 puff INHALATION Q6H PRN (Reason: Shortness Of Breath) RF: 0 furosemide 20 mg tablet 20 - 40 mg PO QAM PRN (Reason: edema) RF: 0 potassium chloride [Klor-Con 10] 10 mEq tablet extended release 10 meq PO DAILY PRN (Reason: unknown) RF: 0 lactobacillus combination no.8 1 cap PO BID RF: 0 lysine 500 mg tablet 500 mg PO DAILY RF: 0 omega-3 fatty acids [Fish Oil Concentrate] 1,000 mg capsule See Rx Instructions .ROUTE DAILY RF: 0 diltiazem HCl 60 mg tablet 60 mg PO BID RF: 0 aspirin 81 mg tablet,chewable 81 mg PO DAILY 30 Days Qty: 30 RF: 5 (DME) Diabetic shoes See Rx Instructions .Route .MEDSUPPLY Qty: 1 RF: 0 Vitamin C Powder See Rx Instructions .ROUTE .COMPLEX RF: 0 Beta-Glucan Tab 1 tab PO DAILY RF: 0 Chromium Tab 500 mg PO QPM RF: 0 CoQ-10 1 tab PO DAILY RF: 0 calcium gluconate 1 tab PO DAILY RF: 0 levalbuterol HCl 0.63 mg/3 mL solution for nebulization 0.63 mg INHALATION TID PRN (Reason: unknown) RF: 0 Systane Ultra (PF) 0.4-0.3 % dropperette 1 drp ophthalmic (eye) PRN RF: 0 Discharge Orders: Discharge ED (Routine); Ordered 05/17/21 Ordered By: Rivas Lara Referrals: Susan Kemp MD [Primary Care Provider] - Discharge Diet: Usual diet Discharge Activity: Increase activity as tolerated Activity Restrictions/Additional Instructions: Take your Benadryl 50 mg every 6 hours as needed. Apply cool ice packs to the face area. Sleep sitting up if at all possible. Continue taking Pepcid. Follow-up your family medical provider tomorrow if no significant improvement are can return here to the ER. Coding Level of Care Code ED Copping Machine Operator for Refugio Helms
== END 2021-05-17 12:45 | disposition home or self-care (01) ==
PROVIDERS: Emergency Provider Nurse Practitioner Family; PCP Family Medicine
DX: T78.3XXA Angioneurotic edema, initial encounter (principal); T50.905A Adverse effect of unspecified drugs, medicaments and biological substances, initial encounter; Z79.82 Long term (current) use of aspirin; I10 Essential (primary) hypertension; Z85.3 Personal history of malignant neoplasm of breast; J44.9 Chronic obstructive pulmonary disease, unspecified; E78.5 Hyperlipidemia, unspecified; E11.9 Type 2 diabetes mellitus without complications
CPT/HCPCS: 99281

== ENCOUNTER 2021-07-14 14:55 | Outpatient (CLI) | payer MEDICARE, OTHER, SELFPAY ==
--- NOTE | 2021-07-14 15:00 | XR_ITS ---
WS: [id number] SCREENING DEXA SCAN [email or web address] CLINICAL INFORMATION: ASYMPTOMATIC MENOPAUSAL STATE COMPARISON: None. FINDINGS: The L1-L4 bone mineral density measures 1.306 g/cm2. This corresponds to a T score score of 1.1 and Z score of 1.7. Left femoral neck bone mineral density measures 1.048 g/cm2. This corresponds to a T score of 0.3 and Z score of 1.4. Right femoral neck bone mineral density measures 1.053 g/cm2. This corresponds to a T score 0.4of and Z score of 1.5. Mean femoral neck bone mineral density measures 1.051 g/cm2. This corresponds to a T score of 0.3 and Z score of 1.4. XR/XR DEXA axial skeleton* [id number] IMPRESSION: Normal bone mineralization. Patient's FRAX calculated 10 year probability for major osteoporotic fracture i s 9.4 % and osteoporotic hip fracture is 1.5%.
== END 2021-07-14 14:56 | disposition home or self-care (01) ==
PROVIDERS: Visit Provider Family Medicine
DX: Z78.0 Asymptomatic menopausal state (principal)
CPT/HCPCS: 77080

== ENCOUNTER 2021-07-28 20:18 | Emergency (ER) | payer MEDICARE, OTHER, SELFPAY ==
[2021-07-28 20:18] VITALS: BP 148/86; PULSE 104; RESP 24; O2SAT 96
--- NOTE | 2021-07-28 20:58 | W.ED.GENADLT ---
HPI - General Adult General: Stated complaint: BLEED NOSE Time Seen by Provider: 07/28/21 20:38 History of Present Illness: HPI narrative: Patient is a 80-year-old female history of A. fib, hypertension, COPD who presents the emergency room with nosebleed since 10 AM. Patient says that she has had intermittent nosebleed throughout the day. She normally does not have nosebleed. Patient is only on aspirin denies any anticoagulation use. Patient denies any trauma to the nose. Patient has been out of control the bleed called EMS and was brought to the emergency room. Patient denies any lightheadedness, chest pain, shortness breath, nausea/vomiting, abdominal pain, diarrhea, melena hematochezia. Onset: 10 am Duration: 8 hrs Location:home Severity:mild Review of Systems Narrative: Constitutional: No fever, no chills. HEENT: No vision changes, +nose bleed CV: No chest pain, no palpitations PULM: no cough, no dyspnea. GI: No abdominal pain, no N/V/D. : No dysuria MSKEL: No muscle pain SKIN: No new rashes, no lesions. NEURO: No headache, no focal weakness. HEME: No visible bruises PSYCH: Normal mood PFSH ED PFSH: Medical History A-fib Ortiz palsy Benign essential HTN Breast cancer no evidence of mets Carotid stenosis, bilateral COPD (chronic obstructive pulmonary disease) Cystitis cystica GERD (gastroesophageal reflux disease) Heart murmur HTN (hypertension) Hyperlipidemia IBD (inflammatory bowel disease) Left bundle branch block Mitral valve disorder Morbid obesity RICHARD (obstructive sleep apnea) Pt has clostrophobia, could not use CPAP- uses oxygen at [facility] PMB (postmenopausal bleeding) Recurrent UTI Type 2 diabetes mellitus Urgency incontinence Urgency of urination Surgical History H/O partial resection of colon S/P ablation of atrial fibrillation S/P bladder repair S/P section S/P hysterectomy S/P lumpectomy of breast Status post correction of deviated nasal septum Status post tubal ligation Family History Mother CAD (coronary artery disease) Dementia Diabetes Sister CAD (coronary artery disease) Stroke Brother Cancer Father Chronic kidney disease (CKD) Grandmother Diabetes Denies family history of Clotting disorder Suicide Anesthesia complication Bleeding disorder Lung disease Social History Smoking and tobacco status: former smoker Alcohol intake: never Adopted: No Caregiver/support person: No Lives independently: No Household members: spouse Marital status: Current occupational status: retired History of recent travel: No Physical Exam Narrative: EXAM NARRATIVE: Head: Atraumatic Eyes: PERRL, conjunctiva without injection ENT: Mucous membrane moist, +b/l nonbrisk bilateral oozing NECK: Supple, ROM intact LUNGS: LCTAB, no crackles/rhonchi CV: RRR ABDOMEN: Soft, nontender in all quadrants EXTREMITY: Normal ROM SKIN: No rash or erythema NEURO: Awake and alert, no focal motor deficits PSYCH: Normal mood and affect MDM - General Adult MDM Narrative: Medical decision making narrative: 80-year-old female with history of CAD, hypertension, A. fib, presenting to the emergency room for evaluation of nosebleed. Patient has bleeding from both nares. Patient is hemodynamically stable, no signs of active bleeding. Do not suspect posterior epistaxis. Symptoms are likely anterior. Patient has had intermittent resolution of symptoms. 200mg of TXA mixed with Rhino Rocket has been inserted into the right nare. Pressure has been applied to the left nare with successful resolution of bleeding in the emergency room. H&H appears to be stable today. Continues to be hemodynamically stable. Patient has not had any bleed while the Rhino Rocket has been pinned in place. I have given patient strict instructions to have the Rhino Rocket taken out tomorrow morning. has been shown ways to deflate the commercial helicopter pilot balloon to take out the Rhino Rocket. Patient would like to follow-up with a PCP first thing in the morning. Have given patient follow-up with Dr. Duarte the a.m. Disposition: Discharge. Patient counseled regarding diagnostic impression, treatment plan. Patient given ED strict return precautions to return for continuation, worsening, or development of new symptoms. Instructed to f/u w/ PCP regarding symptoms today. Patient verbalized understanding. Lab Data: Labs: Lab Results 07/28/21 07/28/21 07/28/21 20:59 22:19 22:19 WBC 10.8 10^3/uL H 10 ^3/uL (4.0-10.0) RBC 4.74 10^6/uL 10^6 /uL (4.1-5.3) Hgb 14.0 g/dL g/dL (11.5-15.3) Hct 42.8 % % (37.0-47.0) MCV 90.3 fl fl (81-99) MCH 29.5 pg pg (28.0-34.0) MCHC 32.7 g/dL g/dL (30.0-36.0) RDW 12.8 % % (12.1-15.1) Plt Count 303 10^3/cmm 10^3 /cmm (130-400) MPV 9.1 fL fL (7.4-10.4) Neut % (Auto) 75.1 % % Lymph % (Auto) 14.8 % % [place] % (Auto) 8.9 % % Eos % (Auto) 0.6 % % Baso % (Auto) 0.3 % % Neut # (Auto) 8.13 10^3/uL H 10 ^3/uL (1.8-7.7) Lymph # (Auto) 1.6 10^3/uL 10^3/ uL (0.8-4.8) [place] # (Auto) 1.0 10^3/uL H 10^ 3/uL (0.2-0.9) Eos # (Auto) 0.1 10^3/uL 10^3/ uL (0.0-0.8) Baso # (Auto) 0.0 10^3/uL 10^3/ uL (0.0-0.1) Nucleated RBC % (a uto) 0 % % Nucleated RBCs # 0.0 /100WBC /100W BC PT 13.50 SECONDS SEC ONDS (12.1-14.9) INR 1.00 (0.8-1.2) APTT 29.5 SECONDS SECO NDS (23.9-36.7) Sodium Potassium Chloride Carbon Dioxide Anion Gap BUN Creatinine GFR Calculation Glucose POC Glucose 148 mg/dL H mg/dL (70-110) Calculated Osmolal ity Calcium 07/28/21 07/28/21 22:19 23:05 WBC RBC Hgb Hct MCV MCH MCHC RDW Plt Count MPV Neut % (Auto) Lymph % (Auto) [place] % (Auto) Eos % (Auto) Baso % (Auto) Neut # (Auto) Lymph # (Auto) [place] # (Auto) Eos # (Auto) Baso # (Auto) Nucleated RBC % (a uto) Nucleated RBCs # PT INR APTT Sodium 135 mmol/L L mmol /L (136-145) Potassium 4.0 mmol/L mmol/L (3.5-5.1) Chloride 98 mmol/L mmol/L (98-107) Carbon Dioxide 28 mmol/L mmol/L (22-29) Anion Gap 13.0 (5-19) BUN 12 mg/dL mg/dL (8-23) Creatinine 0.5 mg/dL mg/dL (0.5-0.9) GFR Calculation Not Reportable Glucose 127 mg/dL H mg/dL (65-115) POC Glucose 136 mg/dL H mg/dL (70-110) Calculated Osmolal ity 281 mOsm/kg L mOs m/kg (285-295) Calcium 8.8 mg/dL mg/dL (8.5-10.5) Discharge Plan Discharge Patient Disposition: Home Clinical Impression: Epistaxis Condition: Stable Prescriptions: No Action PreserVision AREDS-2 [id number] ac-ythe-he-mg capsule 1 tab PO BID RF: 0 Macular Health Formula 5-1-7.5 mg capsule 1 cap PO DAILY RF: 0 astralagalus See Rx Instructions .ROUTE .COMPLEX RF: 0 conjugated estrogens 0.625 mg/gram cream 0.625 mg vaginal .3 x weekly RF: 0 alpha lipoic acid 100 mg capsule 100 mg PO DAILY RF: 0 cholecalciferol (vitamin D3) 125 mcg (5,000 unit) capsule 125 mcg PO DAILY RF: 0 metoprolol succinate 25 mg tablet extended release 24 hr 25 mg PO DAILY Qty: 30 RF: 5 magnesium 200 mg tablet 200 mg PO BID RF: 0 metoprolol tartrate 25 mg tablet 25 mg PO BID RF: 0 albuterol sulfate [Ventolin HFA] 90 mcg/actuation HFA aerosol inhaler 2 puff INHALATION Q6H PRN (Reason: Shortness Of Breath) RF: 0 furosemide 20 mg tablet 20 - 40 mg PO QAM PRN (Reason: edema) RF: 0 potassium chloride [Klor-Con 10] 10 mEq tablet extended release 10 meq PO DAILY PRN (Reason: unknown) RF: 0 lactobacillus combination no.8 1 cap PO BID RF: 0 lysine 500 mg tablet 500 mg PO DAILY RF: 0 omega-3 fatty acids [Fish Oil Concentrate] 1,000 mg capsule See Rx Instructions .ROUTE DAILY RF: 0 diltiazem HCl 60 mg tablet 60 mg PO BID RF: 0 aspirin 81 mg tablet,chewable 81 mg PO DAILY 30 Days Qty: 30 RF: 5 (DME) Diabetic shoes See Rx Instructions .Route .MEDSUPPLY Qty: 1 RF: 0 Vitamin C Powder See Rx Instructions .ROUTE .COMPLEX RF: 0 Beta-Glucan Tab 1 tab PO DAILY RF: 0 Chromium Tab 500 mg PO QPM RF: 0 CoQ-10 1 tab PO DAILY RF: 0 calcium gluconate 1 tab PO DAILY RF: 0 levalbuterol HCl 0.63 mg/3 mL solution for nebulization 0.63 mg INHALATION TID PRN (Reason: unknown) RF: 0 Systane Ultra (PF) 0.4-0.3 % dropperette 1 drp ophthalmic (eye) PRN RF: 0 Discharge Orders: Discharge ED (Routine); Ordered 07/28/21 Ordered By: Servando Jo Referrals: Susan Kemp MD [Primary Care Provider] - Discharge Diet: Advance as tolerated Discharge Activity: Resume usual activity Patient Instructions: Nosebleed (ED) Activity Restrictions/Additional Instructions: Please, the emergency room have any worsening please, lightheadedness, or other complaints. Please follow-up in primary care doctor to evaluate for causes of nosebleed. The rhino rocket needs to be removed in 24 hrs Our case checker will have you follow-up with Dr. Duarte in AM for rocket removal. You would be expected to have a phone call with our case checker who will put you on the schedule. His address is: [address] [place] [address] [address], [place] [address] Coding Level of Care Code ED Sap Business Analyst for Refugio Helms
[2021-07-28 21:04] LABS: Glucose Point of Care 148 mg/dL (70-110)
--- NOTE | 2021-07-28 21:04 | PC.NURSE ---
400mg total of tXA adm by physician topically in both nares. secured in R nare by megan cano packed by 4x2 in L nare. bleeding appears controlled at this time
[2021-07-28 22:27] LABS: Basophils % 0.3 %; Eosinophils # 0.1 10^3/uL (0.0-0.8); Eosinophils % 0.6 %; Hematocrit 42.8 % (37.0-47.0); Lymphocytes # 1.6 10^3/uL (0.8-4.8); Lymphocytes % 14.8 %; Mean Corpuscular HGB Conc 32.7 g/dL (30.0-36.0); Mean Corpuscular Hemoglobin 29.5 pg (28.0-34.0); Mean Corpuscular Volume 90.3 fl (81-99); Mean Platelet Volume 9.1 fL (7.4-10.4); Monocytes % 8.9 %; Neutrophils # 8.13 10^3/uL (1.8-7.7); Neutrophils % 75.1 %; Nucleated Red Blood Cells % 0 %; Platelet Count 303 10^3/cmm (130-400); Red Blood Count 4.74 10^6/uL (4.1-5.3); Red Cell Distribution Width 12.8 % (12.1-15.1); White Blood Count 10.8 10^3/uL (4.0-10.0)
[2021-07-28 22:47] LABS: Partial Thromboplastin Time 29.5 SECONDS (23.9-36.7)
[2021-07-28 22:54] LABS: Blood Urea Nitrogen 12 mg/dL (8-23); Calcium 8.8 mg/dL (8.5-10.5); Carbon Dioxide 28 mmol/L (22-29); Chloride 98 mmol/L (98-107); Glucose 127 mg/dL (65-115); Osmolality Calculated 281 mOsm/kg (285-295); Sodium 135 mmol/L (136-145)
[2021-07-28 23:10] LABS: Glucose Point of Care 136 mg/dL (70-110)
[2021-07-28 23:31] VITALS: BP 136/71; PULSE 64; RESP 20; O2SAT 96
--- NOTE | 2021-07-29 11:12 | DCPLANNER ---
oracle manager had message to schedule a follow up appointment for patient with Dr. Lazaro. According to chart, patient is to follow up with Dr. Duarte as well. oracle manager spoke with ER physician to clarify who patient needs to follow up with. oracle manager was told that patient wants to establish care with Dr. Lazaro, and that patient is following up with Dr. Duarte, and he will refer patient to Dr. Lazaro. No needs from corrections caseworker at this time.
== END 2021-07-28 23:20 | disposition home or self-care (01) ==
PROVIDERS: Emergency Provider Emergency Medicine; PCP Family Medicine
DX: R04.0 Epistaxis (principal); Z79.82 Long term (current) use of aspirin; I10 Essential (primary) hypertension; Z87.891 Personal history of nicotine dependence; E78.5 Hyperlipidemia, unspecified; E11.9 Type 2 diabetes mellitus without complications
CPT/HCPCS: 36416; 80048; 82962; 85025; 85610; 85730; 96365; 99283

== ENCOUNTER → 2021-08-11 10:50 | Outpatient (BNVA) | payer MEDICARE, OTHER, SELFPAY | PROVIDERS: PCP Family Medicine; Visit Provider Internal Medicine | DX: K59.00 Constipation, unspecified (principal); R04.0 Epistaxis; R14.0 Abdominal distension (gaseous); R73.03 Prediabetes; E66.9 Obesity, unspecified; Z68.41 Body mass index [BMI] 40.0-44.9, adult | CPT/HCPCS: 99214 ==

== ENCOUNTER 2021-09-15 15:00 | Outpatient (CLI) | payer MEDICARE, OTHER, SELFPAY ==
--- NOTE | 2021-09-15 15:00 | USCV_ITS ---
Corina Cabral Age: 80 Gender: F : 1940 Exam Date: 09/15/2021 15:37 Ordering Phys: Sameer Goodwin DPM Technologist: TISHA Exam Location: [facility] [place] Indication: RLE PAIN HISTORY: Lower extremity pain. PROCEDURES: Venous duplex imaging was performed in only the right lower extremity. The following venous structures were evaluated: common femoral vein, profunda vein, proximal portion of the greater saphenous vein, superficial femoral vein, and the popliteal vein. In addition, the posterior tibial and peroneal trunk were evaluated. Serial compression, augmentation maneuvers, and spectral Doppler flow evaluation were performed. FINDINGS: No evidence of DVT seen in any vessel visualized at this time. CONCLUSIONS No evidence of right lower extremity DVT. Stephan Pires MD (Electronically Signed) Final Date: 15 September 2021 17:05 S
== END 2021-09-15 15:01 | disposition home or self-care (01) ==
LOC: RAD 15:13
PROVIDERS: PCP Family Medicine; Visit Provider Podiatrist Foot & Ankle Surgery
DX: I73.9 Peripheral vascular disease, unspecified (principal)
CPT/HCPCS: 93971

== ENCOUNTER → 2021-10-13 12:59 | Outpatient (BNVA) | payer MEDICARE, OTHER, SELFPAY | PROVIDERS: PCP Family Medicine; Visit Provider Urology | DX: N39.0 Urinary tract infection, site not specified (principal) | CPT/HCPCS: 81003 ==

== ENCOUNTER → 2021-11-30 10:50 | Outpatient (BNVA) | payer MEDICARE, OTHER, SELFPAY | PROVIDERS: PCP Family Medicine; Visit Provider Internal Medicine Cardiovascular Disease | DX: R01.1 Cardiac murmur, unspecified (principal); I11.0 Hypertensive heart disease with heart failure; I50.30 Unspecified diastolic (congestive) heart failure | CPT/HCPCS: 99214 ==

== ENCOUNTER → 2021-12-11 13:36 | Outpatient (BNVA) | payer MEDICARE, OTHER, SELFPAY | PROVIDERS: PCP Family Medicine; Visit Provider Podiatrist Foot & Ankle Surgery | DX: L60.3 Nail dystrophy (principal); M20.41 Other hammer toe(s) (acquired), right foot; M20.42 Other hammer toe(s) (acquired), left foot; M21.41 Flat foot [pes planus] (acquired), right foot; M21.42 Flat foot [pes planus] (acquired), left foot; E11.9 Type 2 diabetes mellitus without complications; I73.9 Peripheral vascular disease, unspecified; Z87.891 Personal history of nicotine dependence | CPT/HCPCS: 11721 ==

== ENCOUNTER 2022-01-08 08:57 | Outpatient (CLI) | payer MEDICARE, OTHER, SELFPAY ==
--- NOTE | 2022-01-08 09:07 | CT_ITS ---
WS: [id number] CT LUMBAR SPINE TECHNIQUE: Noncontrast CT of the lumbar spine with coronal and sagittal reformatted images. CLINICAL INFORMATION: VERTEBROGENIC LOW BACK PAIN DLP: 2513.[address] scans at [facility] use at least one of these dose optimization techniques: automated e xposure control; mA and/or kV adjustment per patient size (includes targeted exams where dose is matc hed to clinical indication); or iterative reconstruction. FINDINGS: Mild lumbar curve. No acute compression. Vacuum disc phenomenon worse at L3-L4 and L5-S1. Slight ante rolisthesis L3 on L4 and L4 on L5. No acute appearing compression fractures. L1-L2: Normal. L2-L3: Normal. L3-L4: Mild annular bulging with slight effacement of ventral thecal sac. Slight anterolisthesis. Mil d central canal stenosis with impingement subarticular recess bilaterally. Moderate facet arthropathy with mild ligamentum flavum hypertrophy. Mild LEFT and no significant RIGHT foraminal narrowing. L4-L5: Mild annular bulging. Mild central canal stenosis. Impingement on the subarticular recess bila terally. LEFT foraminal protrusion impinges the exiting LEFT L4 nerve root with moderate LEFT foramin al narrowing. RIGHT foramen is patent. Moderate facet arthropathy ligamentum flavum hypertrophy. Slig ht anterolisthesis. L5-S1: Mild annular bulging with slight contact of the traversing LEFT greater than RIGHT S1 nerve ro ots. Spinal canal and foramen are patent. Moderate to advanced facet arthropathy. Slight atelectasis in the lung bases. Adrenal glands are normal. Small esophageal hiatal hernia. CT/CT lumbar spine wo con* [id number] IMPRESSION: 1. Mild lumbar curve. No acute compression. Slight anterolisthesis L3 on L4 an d L4 on L5. 2. Mild central canal stenosis L3-L4 and L4-L5 due to mild annular bulging in combination with facet arthropathy and ligamentum flavum hypertrophy. Impingeme nt traversing L5 nerve roots bilaterally at the L4-L5 level. 3. LEFT foraminal protrusion L4-L5 with moderate LEFT foraminal narrowing impi nges the exiting LEFT L4 nerve root. 4. Mild LEFT L3-L4 foraminal narrowing with a small LEFT foraminal protrusion. 5. Advanced facet arthropathy L5-S1. 6. Mild annular bulge L5-S1 with slight impingement on the traversing LEFT gre ater than RIGHT S1 nerve roots.
--- NOTE | 2022-01-08 09:07 | XR_ITS ---
WS: [id number] Lumbar spine with flexion and extension lateral, 01/08/2022 Clinical Data: VERTEBROGENIC LOW BACK PAIN Comparison: None. Findings: No compression fractures are seen. There is disc space narrowing at L4-L5 and L5-S1. There is a 0.3 c m subluxation of L4 on L5. There is osteoarthritic spurring from L1 through L5.. No limitation of motion or change in subluxation is seen. There is calcification in the wall of the abdominal aorta but no aneurysm is seen. XR/XR lumbar spine f/e only [id number] Impression: 1. Degenerative disc narrowing at L4-L5 with 0.3 cm subluxation of L4 and L5. 2. 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 3. Negative for limitation of motion or change in subluxation at L4-L5.
== END 2022-01-08 08:58 | disposition home or self-care (01) ==
LOC: RAD 08:59
PROVIDERS: PCP Family Medicine; Visit Provider Nurse Practitioner
DX: M54.51 Vertebrogenic low back pain (principal); M48.061 Spinal stenosis, lumbar region without neurogenic claudication; M47.816 Spondylosis without myelopathy or radiculopathy, lumbar region; M51.16 Intervertebral disc disorders with radiculopathy, lumbar region
CPT/HCPCS: 72120; 72131

== ENCOUNTER → 2022-03-10 12:09 | Outpatient (BNVA) | payer MEDICARE, OTHER, SELFPAY | PROVIDERS: PCP Family Medicine; Visit Provider Podiatrist Foot & Ankle Surgery | DX: L60.3 Nail dystrophy (principal); M79.671 Pain in right foot; M79.672 Pain in left foot; M20.41 Other hammer toe(s) (acquired), right foot; M20.42 Other hammer toe(s) (acquired), left foot; M21.41 Flat foot [pes planus] (acquired), right foot; M21.42 Flat foot [pes planus] (acquired), left foot; E11.9 Type 2 diabetes mellitus without complications; I73.9 Peripheral vascular disease, unspecified | CPT/HCPCS: 11721 ==

== ENCOUNTER → 2022-03-30 12:04 | Outpatient (BNVA) | payer MEDICARE, OTHER, SELFPAY | PROVIDERS: PCP Family Medicine; Visit Provider Internal Medicine Cardiovascular Disease | DX: I48.11 Longstanding persistent atrial fibrillation (principal); I11.0 Hypertensive heart disease with heart failure; I50.32 Chronic diastolic (congestive) heart failure; I44.7 Left bundle-branch block, unspecified | CPT/HCPCS: 99213; 99214 ==

== ENCOUNTER 2022-04-10 19:44 | Emergency (ER) | payer MEDICARE, OTHER, SELFPAY ==
--- NOTE | 2022-04-10 19:55 | ECG_ITS ---
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 Measurements Intervals [place] Rate: 77 P: 56 MO: 170 QRS: -34 QRSD: 142 T: 137 QT: 390 QTc: 442 Interpretive Statements SINUS RHYTHM LEFT AXIS DEVIATION [QRS AXIS < -30] LEFT BUNDLE BRANCH BLOCK [120+ ms QRS DURATION, 80+ ms Q/S IN V1/V2, 85+ ms R IN I/aVL/V5/V6] Compared to ECG 04/14/2021 02:25:22 Left-axis deviation now present Electronically Signed On 04-11-2022 19:00:45 CDT by Lio Yang M.D. [id number]
[2022-04-10 19:56] VITALS: BP 154/82; PULSE 82; RESP 16; TEMP 36.5; O2SAT 93
--- NOTE | 2022-04-10 20:17 | XRR_ITS ---
PROCEDURE INFORMATION: Exam: XR Chest Exam date and time: 04/10/2022 8:51 PM Age: 81 years old Clinical indication: Pain; Left-sided; Prior surgery; Surgery type: Masectomy - right breast; Patient HX: HX breast/colon cancer; Additional info: Cp TECHNIQUE: Imaging protocol: Radiologic exam of the chest. Views: 1 view. COMPARISON: CR XR chest 1V portable [id number] 04/14/2021 1:05 AM FINDINGS: Lungs: Unremarkable. No consolidation. Pleural spaces: Unremarkable. No pleural effusion. No pneumothorax. Heart/Mediastinum: Unremarkable. No cardiomegaly. Bones/joints: There are incidental spurs in the thoracic spine. XR/XR chest 1V portable [id number] IMPRESSION: No change, lungs clear
--- NOTE | 2022-04-10 21:05 | W.ED.CHESTPA ---
HPI - Chest Pain General: Chief Complaint: Chest Pain Stated Complaint: A Fib Time Seen by Provider: 04/10/22 20:42 Source: patient Mode of arrival: ambulatory Limitations: no limitations History of Present Illness: 81-year-old female states that tonight she is having some epigastric pain. States she has reflux and has a hiatal hernia and gets these pains very often states it felt like her normal reflux type pain states that she was having some palpitations and her family is concerned whenever her heart checked out she denies any actual chest pain she denies any worsening proving factors her heart rate here is 79 she feels improved with the palpitations does have some burning in her abdomen she rates a 1-2 out of 10. Denies any vomiting or diarrhea or fevers. Associated symptoms: Reports abdominal pain and palpitations; Deny dyspnea or fever(s) Review of Systems Const: Denies: fever(s), chills, body aches or change in appetite Eyes: Denies: blurry vision or eye discomfort ENMT: Denies: throat pain or dental pain Card: Reports: chest pain and palpitations Resp: Denies: dyspnea GI: Reports: abdominal pain : Denies: dysuria Musc: Denies: neck pain or back pain Skin/Breast: Denies: rash Neuro: Denies: headache(s) Psych: Denies: depression Aurelio/Lymph: Denies: easy bruising All/Imm: Denies: urticaria PFSH ED PFSH: Medical History A-fib Ortiz palsy Benign essential HTN Breast cancer no evidence of mets. Right breast - lumpectomy and radiation. Carotid stenosis, bilateral COPD (chronic obstructive pulmonary disease) Cystitis cystica GERD (gastroesophageal reflux disease) Heart murmur History of gastrointestinal stromal tumor (GIST) Of jejunum - in remission Hyperlipidemia Left bundle branch block Mitral valve disorder Morbid obesity RICHARD (obstructive sleep apnea) Pt has clostrophobia, could not use CPAP- uses oxygen at tnight PMB (postmenopausal bleeding) Recurrent UTI Urgency incontinence Urgency of urination Surgical History S/P ablation of atrial fibrillation S/P bladder repair S/P section S/P hysterectomy S/P lumpectomy of breast S/P small bowel resection Status post correction of deviated nasal septum Status post tubal ligation Family History Mother CAD (coronary artery disease) Dementia Diabetes Sister CAD (coronary artery disease) Stroke Brother Cancer Father Chronic kidney disease (CKD) Grandmother Diabetes Denies family history of Clotting disorder Suicide Anesthesia complication Bleeding disorder Lung disease Social History Smoking and tobacco status: former smoker Alcohol intake: never Adopted: No Caregiver/support person: No Lives independently: No Household members: spouse Marital status: Current occupational status: retired History of recent travel: No Physical Exam Const: COMMON NORMALS: no acute distress, patient oriented x3 and healthy appearing HENMT: COMMON NORMALS: normocephalic and atraumatic HEAD & SCALP: normocephalic and atraumatic Eye: COMMON NORMALS: Equal, round and reactive pupils present and EOMs intact bilaterally PUPIL: Yes Equal, round and reactive pupils present Neck/C-Spine: COMMON NORMALS: full ROM and supple Chest: COMMONS NORMALS: normal inspection of the chest and normal palpation of entire chest wall Resp: COMMON NORMALS: normal respiratory effort, No retractions, No use of accessory muscles and clear to auscultation bilaterally AUSCULTATION: clear to auscultation bilaterally Cardio: COMMON NORMALS: regular rate, regular rhythm and No murmurs present (Cardio) RATE: regular rate RHYTHM: regular rhythm GI: COMMON NORMALS: Normal to inspection, nondistended, normoactive bowel sounds present, Soft to palpation, non-tender and no masses PALPATION: Yes Soft to palpation Extremity: COMMON NORMALS: normal to inspection and full ROM Neuro: COMMON NORMALS: patient oriented x3, moves all extremities and no focal motor deficits Psych: COMMON NORMALS: mental status grossly normal, Normal thought process present and cooperative THOUGHT PROCESS: Normal thought process present Skin: COMMON NORMALS: no rashes or lesions noted and no wounds GENERAL SKIN EXAM: no rashes or lesions noted Course Vital Signs: Vital signs: Vital Signs Temperature 97.7 F 04/10/22 19:56 Pulse Rate 82 04/10/22 19:56 Respiratory Rate 16 04/10/22 19:56 Blood Pressure 154/82 04/10/22 19:56 Pulse Oximetry 93 04/10/22 19:56 Oxygen Delivery Me thod 04/10/22 19:56 MDM - Chest Pain Medical Decision Making Patient presents for chest pains atypical in nature patient's blood work troponins and EKG here are all normal she feels much improved she is stable for discharge she is to follow-up with PCP and return if worsening she understands agrees to plan. Lab Data : 04/10/22 21:05 04/10/22 21:05 Radiology Impressions Chest X-Ray 04/10/22 20:17 IMPRESSION: No change, lungs clear Laboratory Results WBC 10.2 10^3/uL (4.0-10.0) H 04/10/22 21:05 RBC 5.01 10^6/uL (4.1-5.3) 04/10/22 21:05 Hgb 14.8 g/dL (11.5-15.3) 04/10/22 21:05 Hct 44.8 % (37.0-47.0) 04/10/22 21:05 MCV 89.4 fl (81-99) 04/10/22 21:05 MCH 29.5 pg (28.0-34.0) 04/10/22 21:05 MCHC 33.0 g/dL (30.0-36.0) 04/10/22 21:05 RDW 12.8 % (12.1-15.1) 04/10/22 21:05 Plt Count 297 10^3/cmm (130-400) 04/10/22 21:05 MPV 9.5 fL (7.4-10.4) 04/10/22 21:05 Neut % (Auto) 69.5 % 04/10/22 21:05 Lymph % (Auto) 19.4 % 04/10/22 21:05 [place] % (Auto) 10.0 % 04/10/22 21:05 Eos % (Auto) 0.5 % 04/10/22 21:05 Baso % (Auto) 0.3 % 04/10/22 21:05 Neut # (Auto) 7.05 10^3/uL (1.8-7.7) 04/10/22 21:05 Lymph # (Auto) 2.0 10^3/uL (0.8-4.8) 08/06/22 21:05 [place] # (Auto) 1.0 10^3/uL (0.2-0.9) H 04/10/22 21:05 Eos # (Auto) 0.1 10^3/uL (0.0-0.8) 04/10/22 21:05 Baso # (Auto) 0.0 10^3/uL (0.0-0.1) 04/10/22 21:05 Nucleated RBC % (auto) 0 % 04/10/22 21:05 Nucleated RBCs # 0.0 /100WBC 04/10/22 21:05 Sodium 133 mmol/L (136-145) L 04/10/22 21:05 Potassium 4.3 mmol/L (3.5-5.1) 04/10/22 21:05 Chloride 96 mmol/L (98-107) L 04/10/22 21:05 Carbon Dioxide 24 mmol/L (22-29) 04/10/22 21:05 Anion Gap 17.3 (5-19) 04/10/22 21:05 BUN 13 mg/dL (8-23) 04/10/22 21:05 Creatinine 0.6 mg/dL (0.5-0.9) 04/10/22 21:05 GFR Calculation Not Reportable 04/10/22 21:05 Glucose 123 mg/dL (65-115) H 04/10/22 21:05 Calculated Osmolality 277 mOsm/kg (285-295) L 04/10/22 21:05 Calcium 9.6 mg/dL (8.5-10.5) 04/10/22 21:05 Total Bilirubin 0.4 mg/dL (0.15-1.2) 04/10/22 21:05 AST 10 U/L (0-32) 04/10/22 21:05 ALT 16 U/L (0-33) 04/10/22 21:05 Alkaline Phosphatase 66 IU/L (35-105) 04/10/22 21:05 Troponin T Baseline 13 ng/L (0-10) H 04/10/22 21:05 Troponin T 120 Minute 13.81 ng/L (0-10) H 04/10/22 23:05 Delta Troponin T 0.81 ABS# (0-10) 04/10/22 23:05 Total Protein 7.5 g/dL (6.6-8.7) 04/10/22 21:05 Albumin 4.6 g/dL (3.5-5.2) 04/10/22 21:05 Globulin 2.9 g/dL (1.3-4.6) 04/10/22 21:05 Lipase 44 U/L (13-60) 04/10/22 21:05 EKG Data EKG 1: I personally reviewed and interpreted this EKG as follows: EKG interpretation date: 04/10/22 EKG interpretation time: 19:55 Interpretation: nsrr hr [address] or t wave abnormalities lbbb unchanged from previous ekg qrs 142 qtc 422 Discharge Plan Discharge Patient Disposition: Home Clinical Impression: Chest pain Condition: Stable Prescriptions: No Action PreserVision AREDS-2 [id number] lb-lenv-gg-mg capsule 1 tab PO BID Rx Instructions: administer with meals Macular Health Formula 5-1-7.5 mg capsule 1 cap PO DAILY astralagalus See Rx Instructions .ROUTE .COMPLEX Rx Instructions: pt states she takes 1 tab po two to three times a day cholecalciferol (vitamin D3) 125 mcg (5,000 unit) capsule 125 mcg PO DAILY hydrochlorothiazide 12.5 mg capsule 12.5 mg PO DAILY PRN (Reason: edema) Qty: 90 2RF nitrofurantoin macrocrystal 100 mg capsule 100 mg PO BID PRN Rx Instructions: must administer with a meal/food magnesium 200 mg tablet 150 mg PO DAILY Rx Instructions: pt states sometimes she just takes once a day albuterol sulfate [Ventolin HFA] 90 mcg/actuation HFA aerosol inhaler 2 puff INHALATION Q6H PRN (Reason: Shortness Of Breath) furosemide 20 mg tablet 20 - 40 mg PO QAM PRN (Reason: edema) Hold Instructions: switching to HCTZ potassium chloride [Klor-Con 10] 10 mEq tablet extended release 10 meq PO DAILY PRN (Reason: unknown) lactobacillus combination no.8 1 cap PO BID omega-3 fatty acids [Fish Oil Concentrate] 1,000 mg capsule See Rx Instructions .ROUTE DAILY Rx Instructions: 1 cap po bid daily; (DME) Diabetic shoes See Rx Instructions .Route .MEDSUPPLY Qty: 1 0RF Rx Instructions: As directed with 3 pairs of inserts. Made by [employer] metoprolol tartrate 25 mg tablet 25 mg PO TID Rx Instructions: Take 1 tab two to three times daily. May take up to 75mg in a 24hr period as long as HR remains > 60 bpm Vitamin C Powder See Rx Instructions .ROUTE .COMPLEX Rx Instructions: 1/2 teaspoonful po bid CoQ-10 1 tab PO DAILY levalbuterol HCl 0.63 mg/3 mL solution for nebulization 0.63 mg INHALATION TID PRN (Reason: unknown) Systane Ultra (PF) 0.4-0.3 % dropperette 1 drp ophthalmic (eye) PRN Discharge Orders: Discharge ED (Routine); Ordered 04/10/22 Ordered By: Rebecca Hernández Referrals: Evangelina Winslow DO [Primary Care Provider] - 1-3 days Discharge Diet: Advance as tolerated Discharge Activity: Resume usual activity Patient Instructions: Chest Pain (ED) Coding Level of Care Code ED Hospitalist Program Director for [facility] Fwd Exam Comprehensive
[2022-04-10 21:11] LABS: Basophils % 0.3 %; Eosinophils # 0.1 10^3/uL (0.0-0.8); Eosinophils % 0.5 %; Hematocrit 44.8 % (37.0-47.0); Hemoglobin 14.8 g/dL (11.5-15.3); Lymphocytes % 19.4 %; Mean Corpuscular Hemoglobin 29.5 pg (28.0-34.0); Mean Corpuscular Volume 89.4 fl (81-99); Mean Platelet Volume 9.5 fL (7.4-10.4); Neutrophils # 7.05 10^3/uL (1.8-7.7); Neutrophils % 69.5 %; Nucleated Red Blood Cells % 0 %; Platelet Count 297 10^3/cmm (130-400); Red Blood Count 5.01 10^6/uL (4.1-5.3); Red Cell Distribution Width 12.8 % (12.1-15.1); White Blood Count 10.2 10^3/uL (4.0-10.0)
[2022-04-10 21:33] LABS: Alanine Aminotransferase 16 U/L (0-33); Albumin Level 4.6 g/dL (3.5-5.2); Alkaline Phosphatase 66 IU/L (35-105); Aspartate Amino Transferase 10 U/L (0-32); Blood Urea Nitrogen 13 mg/dL (8-23); Calcium 9.6 mg/dL (8.5-10.5); Carbon Dioxide 24 mmol/L (22-29); Chloride 96 mmol/L (98-107); Creatinine Clr Calc Pharmacy 63.4162; Globulin 2.9 g/dL (1.3-4.6); Glucose 123 mg/dL (65-115); Lipase 44 U/L (13-60); Osmolality Calculated 277 mOsm/kg (285-295); Sodium 133 mmol/L (136-145); Total Bilirubin 0.4 mg/dL (0.15-1.2); Total Protein 7.5 g/dL (6.6-8.7)
[2022-04-10 21:34] LABS: Troponin(5th) Baseline 13 ng/L (0-10)
[2022-04-10 21:35] LABS: Anion Gap 17.3 (5-19); Potassium 4.3 mmol/L (3.5-5.1)
[2022-04-10 23:33] LABS: Troponin 5 2HR 13.81 ng/L (0-10)
[2022-04-10 23:35] LABS: Troponin 5 2HR Delta 0.81 ABS# (0-10)
== END 2022-04-10 23:56 | disposition home or self-care (01) ==
PROVIDERS: Emergency Provider Emergency Medicine; PCP Family Medicine
DX: R07.9 Chest pain, unspecified (principal); Z87.891 Personal history of nicotine dependence; I10 Essential (primary) hypertension; Z85.3 Personal history of malignant neoplasm of breast; J44.9 Chronic obstructive pulmonary disease, unspecified; E78.5 Hyperlipidemia, unspecified
CPT/HCPCS: 71045; 80053; 83690; 84484; 85025; 93005; 99285

== ENCOUNTER → 2022-05-11 10:32 | Outpatient (BNVA) | payer MEDICARE, OTHER, SELFPAY | PROVIDERS: PCP Family Medicine; Visit Provider Internal Medicine | DX: K59.00 Constipation, unspecified (principal); R14.0 Abdominal distension (gaseous); R73.03 Prediabetes; E66.9 Obesity, unspecified | CPT/HCPCS: 99214 ==

== ENCOUNTER 2022-05-14 10:00 | Outpatient (CLI) | payer MEDICARE, OTHER, SELFPAY ==
--- NOTE | 2022-05-14 10:15 | USCV_ITS ---
Corina Cabral Age: 81 Gender: F : 1940 Exam Date: 05/14/2022 10:17 Ordering Phys: Norbert Felipe MD ([email or web address]) Technologist: Katalina Dumont [place] [facility] [place]: dizziness BP: 101 / 62 HR: 74 Rhythm: Sinus Technical Quality: Fair MEASUREMENTS (Male / Female) Normal Values 2D ECHO LV Diastolic Diameter PLAX 3.9 cm 4.2 - 5.9 / 3.9 - 5.3 cm LV Systolic Diameter PLAX 2.1 cm IVS Diastolic Thickness 2.1 cm 0.6 - 1.0 / 0.6 - 0.9 cm IVS Systolic Thickness 2.1 cm LVPW Diastolic Thickness 1.4 cm 0.6 - 1.0 / 0.6 - 0.9 cm LVPW Systolic Thickness 2.3 cm LVOT Diameter 2.0 cm LV Ejection Fraction 2D Teich 78.0 % LV Ejection Fraction MOD 2C 56.7 % LV Ejection Fraction 2C AL 55.0 % LA Diameter 3.6 cm LA Width 3.4 cm LA Height 5.6 cm RA Width 5.3 cm RA Height 5.8 cm Aorta at Sinotubular Diameter 2.6 cm IVC Diameter 2.2 cm M-MODE MV E Point Septal Separation 0.9 cm DOPPLER AV Peak Velocity 183.0 cm/s LVOT Peak Velocity 153.0 cm/s AV Area Cont Eq vti 3.0 cm squared AV Area Cont Eq pk 2.6 cm squared MV Peak Velocity 144.0 cm/s MV Area PHT 2.5 cm squared Mitral E to A Ratio 0.9 MV E' Velocity 61.5 cm/s Mitral E to MV E' Ratio 14.0 Mitral E to LV E' Lateral Ratio 19.6 Mitral E to LV E' Septal Ratio 10.9 TR Peak Velocity 266.7 cm/s TR Peak Gradient 28.4 mmHg Right Atrial Pressure 3.0 mmHg Pulmonary Artery Systolic Pressu 31.4 mmHg PV Peak Velocity 113.0 cm/s RV Acceleration Time 0.1 s RV Ejection Time 0.3 s RV AcT/ET 0.4 FINDINGS Left Ventricle Normal left ventricular size, systolic function and wall thickness, with no regional wall motion abnormalities. Grade I/IV diastolic dysfunction (abnormal relaxation filling pattern), normal to mildly elevated filling pressures. Left ventricular ejection fraction is estimated at 65 %. Right Ventricle Normal right ventricular size and systolic function. Normal right ventricular systolic pressure. Right Atrium Mildly increased right atrial size. Left Atrium Mildly increased left atrial size. Mitral Valve Structurally normal mitral valve. Severe mitral annular calcification. No mitral valve stenosis. Mild mitral valve regurgitation. Aortic Valve Structurally normal trileaflet aortic valve. Mild aortic valve calcification. Mild aortic valve regurgitation. Aortic valve sclerosis without stenosis. Tricuspid Valve Structurally normal tricuspid valve without significant stenosis or regurgitation. Pulmonary artery systolic pressure is normal. Pulmonic Valve Structurally normal pulmonic valve. Pericardium Normal pericardium without effusion. Aorta Normal ascending aorta dimension. IVC The inferior vena cava appears normal. CONCLUSIONS Normal left ventricular size, systolic function and wall thickness, with no regional wall motion abnormalities. Grade I/IV diastolic dysfunction (abnormal relaxation filling pattern), normal to mildly elevated filling pressures. Left ventricular ejection fraction is estimated at 65 %. Mildly increased right atrial size. Mildly increased left atrial size. Structurally normal mitral valve. Severe mitral annular calcification. No mitral valve stenosis. Mild mitral valve regurgitation. Structurally normal trileaflet aortic valve. Mild aortic valve calcification. Mild aortic valve regurgitation. Aortic valve sclerosis without stenosis. No significant change since the prior echocardiogram study of 06/03/2020 Dr. Norbert Felipe MD (Electronically Signed) Final Date: 17 May 2022 17:35 S
== END 2022-05-14 10:01 | disposition home or self-care (01) ==
LOC: RAD 10:02
PROVIDERS: PCP Family Medicine; Visit Provider Internal Medicine Cardiovascular Disease
DX: R42 Dizziness and giddiness (principal); I44.7 Left bundle-branch block, unspecified; I08.0 Rheumatic disorders of both mitral and aortic valves
CPT/HCPCS: 93306

== ENCOUNTER → 2022-05-19 10:16 | Outpatient (BNVA) | payer MEDICARE, OTHER, SELFPAY | PROVIDERS: PCP Family Medicine; Visit Provider Podiatrist Foot & Ankle Surgery | DX: I73.9 Peripheral vascular disease, unspecified (principal); L60.3 Nail dystrophy; M20.41 Other hammer toe(s) (acquired), right foot; M20.42 Other hammer toe(s) (acquired), left foot; M21.41 Flat foot [pes planus] (acquired), right foot; M21.42 Flat foot [pes planus] (acquired), left foot; E11.9 Type 2 diabetes mellitus without complications | CPT/HCPCS: 11721 ==

== ENCOUNTER → 2022-06-15 08:46 | Outpatient (BNVA) | payer MEDICARE, OTHER, SELFPAY | PROVIDERS: PCP Family Medicine; Visit Provider Family Medicine | DX: R73.03 Prediabetes (principal); E78.2 Mixed hyperlipidemia; J42 Unspecified chronic bronchitis; L30.4 Erythema intertrigo | CPT/HCPCS: 80061; 83036 ==

== ENCOUNTER 2022-07-13 20:17 | Emergency (ER) | payer MEDICARE, OTHER, SELFPAY ==
[2022-07-13 20:18] VITALS: BP 182/86; PULSE 87; RESP 20; TEMP 36.6; O2SAT 95; BMI 37.2
[2022-07-13] MEDS: oxymetazoline 0.05% Nasal Spray 15 mL 2 SPRAY NOSTRIL-B (20:43)
--- NOTE | 2022-07-13 20:49 | W.ED.EPISTAX ---
HPI - Epistaxis General: Chief complaint: Epistaxis Stated complaint: nosebleed Time Seen by Provider: 07/13/22 20:21 Source: patient and EMS Mode of arrival: EMS Limitations: no limitations History of Present Illness: 81-year-old female states she has had bleeding from her right nare started roughly 1 hour ago. States its been moderate in nature she has had difficult time getting to stop she is hypertensive here has a history of hypertension she is not on any blood thinners denies any worsening proving factors she states she has had nosebleeds in the past. Associated symptoms: Deny fever(s), headache(s) or vomiting Review of Systems Const: Denies: fever(s), chills, body aches or change in appetite Eyes: Denies: blurry vision or eye discomfort ENMT: Reports: epistaxis; Denies: throat pain or dental pain Card: Denies: chest pain Resp: Denies: dyspnea GI: Denies: abdominal pain, nausea, vomiting or diarrhea : Denies: dysuria Musc: Denies: neck pain or back pain Skin/Breast: Denies: rash Neuro: Denies: headache(s) Psych: Denies: depression Aurelio/Lymph: Denies: easy bruising All/Imm: Denies: urticaria PFSH ED PFSH: Medical History A-fib Ortiz palsy Benign essential HTN Breast cancer no evidence of mets. Right breast - lumpectomy and radiation. Carotid stenosis, bilateral COPD (chronic obstructive pulmonary disease) Cystitis cystica GERD (gastroesophageal reflux disease) Heart murmur History of gastrointestinal stromal tumor (GIST) Of jejunum - in remission Hyperlipidemia Left bundle branch block Mitral valve disorder Morbid obesity RICHARD (obstructive sleep apnea) Pt has clostrophobia, could not use CPAP- uses oxygen at tnight PMB (postmenopausal bleeding) Recurrent UTI Urgency incontinence Urgency of urination Surgical History S/P ablation of atrial fibrillation S/P bladder repair S/P section S/P hysterectomy S/P lumpectomy of breast S/P small bowel resection Status post correction of deviated nasal septum Status post tubal ligation Family History Mother CAD (coronary artery disease) Dementia Diabetes Sister CAD (coronary artery disease) Stroke Brother Cancer Father Chronic kidney disease (CKD) Grandmother Diabetes Denies family history of Clotting disorder Suicide Anesthesia complication Bleeding disorder Lung disease Social History Smoking and tobacco status: former smoker Alcohol intake: never Adopted: No Caregiver/support person: No Lives independently: No Household members: spouse Marital status: Current occupational status: retired History of recent travel: No Physical Exam Const: COMMON NORMALS: no acute distress, patient oriented x3 and healthy appearing HENMT: COMMON NORMALS: normocephalic and atraumatic HEAD & SCALP: normocephalic and atraumatic OTHER: Nosebleed from right nare Eye: COMMON NORMALS: conjunctivae normal CONJUNCTIVA: Yes conjunctivae normal Neck/C-Spine: COMMON NORMALS: full ROM and supple Chest: COMMONS NORMALS: normal inspection of the chest Resp: COMMON NORMALS: normal respiratory effort Cardio: COMMON NORMALS: regular rate, regular rhythm and No murmurs present (Cardio) RATE: regular rate RHYTHM: regular rhythm GI: INSPECTION: Yes normal to inspection Extremity: COMMON NORMALS: normal to inspection and full ROM Neuro: COMMON NORMALS: patient oriented x3, moves all extremities and no focal motor deficits Psych: COMMON NORMALS: mental status grossly normal, Normal thought process present and cooperative THOUGHT PROCESS: Normal thought process present Skin: COMMON NORMALS: no rashes or lesions noted and no wounds GENERAL SKIN EXAM: no rashes or lesions noted Procedures Epistaxis Control Time Out Performed: Yes Nostril: right Clots Removed by: blowing nose Device Inserted: hemostatic balloon Patient Tolerated Procedure: well Course Vital Signs: Vital signs: Vital Signs Temperature 97.9 F 07/13/22 20:18 Pulse Rate 87 07/13/22 20:18 Respiratory Rate 20 H 07/13/22 20:18 Blood Pressure 182/86 07/13/22 20:18 Pulse Oximetry 95 07/13/22 20:18 Oxygen Delivery Me thod 07/13/22 20:18 MDM - Epistaxis Medical Decision Making Patient presents here with nosebleed was unable to get it to stop with pressure did place a Rhino Rocket and the bleeding resolved we will place her on Keflex she is to follow-up with Dr. Priest of ENT return if worsening she understands agrees to plan. Discharge Plan Discharge Patient Disposition: Home Clinical Impression: Epistaxis Condition: Stable Prescriptions: New cephalexin 500 mg capsule 500 mg PO TID 3 Days Qty: 9 0RF No Action PreserVision AREDS-2 [id number]-mg capsule 1 tab PO BID Rx Instructions: administer with meals Macular Health Formula 5-1-7.5 mg capsule 1 cap PO DAILY astralagalus See Rx Instructions .ROUTE .COMPLEX Rx Instructions: pt states she takes 1 tab po two to three times a day cholecalciferol (vitamin D3) 125 mcg (5,000 unit) capsule 125 mcg PO DAILY magnesium 200 mg tablet 150 mg PO DAILY Rx Instructions: pt states sometimes she just takes once a day furosemide 20 mg tablet 20 - 40 mg PO QAM PRN (Reason: edema) Hold Instructions: switching to HCTZ potassium chloride [Klor-Con 10] 10 mEq tablet extended release 10 meq PO DAILY PRN (Reason: unknown) lactobacillus combination no.8 1 cap PO BID omega-3 fatty acids [Fish Oil Concentrate] 1,000 mg capsule See Rx Instructions .ROUTE DAILY Rx Instructions: 1 cap po bid daily; (DME) Diabetic shoes See Rx Instructions .Route .MEDSUPPLY Qty: 1 0RF Rx Instructions: As directed with 3 pairs of inserts. Made by [employer] triamcinolone acetonide 0.1 % ointment 1 applic topical BID Qty: 80 0RF Rx Instructions: Apply to affected areas on back and arms no more than 2 weeks per month. Not for face ondansetron HCl 4 mg tablet 4 mg PO Q8H PRN (Reason: nausea and vomiting) Qty: 10 0RF metoprolol tartrate 25 mg tablet 25 mg PO TID Rx Instructions: Take 1 tab two to three times daily. May take up to 75mg in a 24hr period as long as HR remains > 60 bpm albuterol sulfate [Ventolin HFA] 90 mcg/actuation HFA aerosol inhaler 2 puff INHALATION Q6H PRN (Reason: Shortness Of Breath) Qty: 8.5 1RF levalbuterol HCl 0.63 mg/3 mL solution for nebulization 0.63 mg INHALATION TID PRN (Reason: SOB or wheezing) Qty: 90 0RF mupirocin 2 % ointment 1 applic topical BID Qty: 22 0RF Rx Instructions: To affected area (DME) Rollator Walker See Rx Instructions .Route .MEDSUPPLY Qty: 1 0RF Rx Instructions: As directed Vitamin C Powder See Rx Instructions .ROUTE .COMPLEX Rx Instructions: 1/2 teaspoonful po bid CoQ-10 1 tab PO DAILY Systane Ultra (PF) 0.4-0.3 % dropperette 1 drp ophthalmic (eye) PRN Discharge Orders: Discharge ED (Routine); Ordered 07/13/22 Ordered By: Rebecca Hernández Referrals: Evangelina Winslow DO [Primary Care Provider] - Discharge Diet: Advance as tolerated Discharge Activity: Resume usual activity Patient Instructions: Nosebleed (ED) Coding Level of Care Code ED Web Services Professional for Chg Fwd Exam Comprehensive
[2022-07-13 21:00] VITALS: BP 151/82; PULSE 75; RESP 17; O2SAT 93
[2022-07-13] MEDS: metoprolol tartrate 25 mg Tablet PO (21:04)
[2022-07-13 21:30] VITALS: BP 146/79; PULSE 73; RESP 16; O2SAT 92
[2022-07-13 22:30] VITALS: BP 173/90; PULSE 79; RESP 18; O2SAT 91
--- NOTE | 2022-07-14 08:30 | DCPLANNER ---
Addendum entered by Kusum Simmons 07/27/22 11:21: Patient had a follow up appointment scheduled for 07.14.[address] Leal - patient did attend appointment. Original Note: manager lsw had message to schedule a follow up appointment for patient with ENT, Dr. Leal. manager lsw faxed patients information to Dr. Chilel office. Patients information will be reviewed, clinic will call patient with appointment information.
== END 2022-07-13 22:50 | disposition home or self-care (01) ==
PROVIDERS: Emergency Provider Emergency Medicine; PCP Family Medicine
DX: R04.0 Epistaxis (principal); Z87.891 Personal history of nicotine dependence; I10 Essential (primary) hypertension; Z85.3 Personal history of malignant neoplasm of breast; J44.9 Chronic obstructive pulmonary disease, unspecified; E78.5 Hyperlipidemia, unspecified
CPT/HCPCS: 30901; 99284

== ENCOUNTER 2022-07-14 15:36 | Outpatient (CLI) | payer MEDICARE, OTHER, SELFPAY ==
[2022-07-14 16:16] LABS: Basophils % 0.2 %; Eosinophils % 0.4 %; Hematocrit 41.3 % (37.0-47.0); Hemoglobin 13.6 g/dL (11.5-15.3); Lymphocytes # 2.4 10^3/uL (0.8-4.8); Lymphocytes % 22.4 %; Mean Corpuscular HGB Conc 32.9 g/dL (30.0-36.0); Mean Corpuscular Hemoglobin 29.5 pg (28.0-34.0); Mean Corpuscular Volume 89.6 fl (81-99); Mean Platelet Volume 9.5 fL (7.4-10.4); Monocytes # 1.2 10^3/uL (0.2-0.9); Monocytes % 11.2 %; Neutrophils # 7.07 10^3/uL (1.8-7.7); Neutrophils % 65.6 %; Nucleated Red Blood Cells % 0 %; Platelet Count 278 10^3/cmm (130-400); Red Blood Count 4.61 10^6/uL (4.1-5.3); Red Cell Distribution Width 12.7 % (12.1-15.1); White Blood Count 10.8 10^3/uL (4.0-10.0)
[2022-07-14 16:42] LABS: INR 1.07 (0.8-1.2)
== END 2022-07-14 15:37 | disposition home or self-care (01) ==
LOC: LAB 15:42
PROVIDERS: PCP Family Medicine; Visit Provider Otolaryngology
DX: R04.0 Epistaxis (principal)
CPT/HCPCS: 85025; 85610

== ENCOUNTER → 2022-07-20 11:04 | Outpatient (BNVA) | payer MEDICARE, OTHER, SELFPAY | PROVIDERS: PCP Family Medicine; Visit Provider Podiatrist Foot & Ankle Surgery | DX: I73.9 Peripheral vascular disease, unspecified (principal); M20.41 Other hammer toe(s) (acquired), right foot; M20.42 Other hammer toe(s) (acquired), left foot; M21.41 Flat foot [pes planus] (acquired), right foot; M21.42 Flat foot [pes planus] (acquired), left foot; E11.9 Type 2 diabetes mellitus without complications; L60.3 Nail dystrophy | CPT/HCPCS: 11721 ==

== ENCOUNTER → 2022-08-17 11:35 | Outpatient (BNVA) | payer MEDICARE, OTHER, SELFPAY | PROVIDERS: PCP Family Medicine; Visit Provider Internal Medicine Cardiovascular Disease | DX: I11.0 Hypertensive heart disease with heart failure (principal); I50.30 Unspecified diastolic (congestive) heart failure; E66.9 Obesity, unspecified; Z68.38 Body mass index [BMI] 38.0-38.9, adult; I35.8 Other nonrheumatic aortic valve disorders; R01.1 Cardiac murmur, unspecified; E11.65 Type 2 diabetes mellitus with hyperglycemia; I44.7 Left bundle-branch block, unspecified; I48.11 Longstanding persistent atrial fibrillation; G47.33 Obstructive sleep apnea (adult) (pediatric); I65.23 Occlusion and stenosis of bilateral carotid arteries; E78.2 Mixed hyperlipidemia; Z87.891 Personal history of nicotine dependence | CPT/HCPCS: 99214 ==

== ENCOUNTER 2022-08-17 21:09 | Emergency (ER) | payer MEDICARE, OTHER, SELFPAY ==
[2022-08-17 21:16] VITALS: BP 180/91; PULSE 89; RESP 20; TEMP 36.6; O2SAT 93; BMI 372.0
--- NOTE | 2022-08-17 21:35 | W.ED.GENADLT ---
HPI - General Adult General: Chief complaint: General Medical Stated complaint: nose bleed, htn Time Seen by Provider: 08/17/22 21:35 History of Present Illness: Ms. Cabral is a 81-year-old lady with history of hypertension presenting to the emergency room due to nosebleed. Onset of symptoms was approximately 1 hour ago and atraumatic in nature. She does note higher blood pressure than normal but no other associated symptoms. Bleeding was not improved with direct pressure and upon venous arrival with clamp nosebleed has improved. Patient denies other significant health. She is not on anticoagulation. Intensity symptoms when present is moderate. No other specific changes in health, exacerbating, or alleviating factors identified. Onset (ago): hour(s) Associated symptoms: Reports other Review of Systems General: Reports: 10 or more systems reviewed and unremarkable except in HPI and below PFSH ED PFSH: Medical History A-fib Ortiz palsy Benign essential HTN Breast cancer no evidence of mets. Right breast - lumpectomy and radiation. Carotid stenosis, bilateral COPD (chronic obstructive pulmonary disease) Cystitis cystica GERD (gastroesophageal reflux disease) Heart murmur History of gastrointestinal stromal tumor (GIST) Of jejunum - in remission Hyperlipidemia Left bundle branch block Mitral valve disorder Morbid obesity RICHARD (obstructive sleep apnea) Pt has clostrophobia, could not use CPAP- uses oxygen at tnight PMB (postmenopausal bleeding) Recurrent UTI Urgency incontinence Urgency of urination Surgical History S/P ablation of atrial fibrillation S/P bladder repair S/P section S/P hysterectomy S/P lumpectomy of breast S/P small bowel resection Status post correction of deviated nasal septum Status post tubal ligation Family History Mother CAD (coronary artery disease) Dementia Diabetes Sister CAD (coronary artery disease) Stroke Brother Cancer Father Chronic kidney disease (CKD) Grandmother Diabetes Denies family history of Clotting disorder Suicide Anesthesia complication Bleeding disorder Lung disease Social History Smoking and tobacco status: former smoker Alcohol intake: never Adopted: No Caregiver/support person: No Lives independently: No Household members: spouse Marital status: Current occupational status: retired History of recent travel: No Physical Exam Const: COMMON NORMALS: alert GENERAL APPEARANCE: cooperative and well developed HENMT: COMMON NORMALS: normocephalic and atraumatic HEAD & SCALP: normocephalic and atraumatic OTHER: Large clot removed from the right nare. Venous trickle noted from anterior right nare, no definitive vessel identified. Clot noted in the posterior pharynx though this resolved with gargling water without recurrence or evidence of posterior bleed. Eye: COMMON NORMALS: conjunctivae normal CONJUNCTIVA: Yes conjunctivae normal SCLERA: sclerae normal Neck/C-Spine: COMMON NORMALS: supple GENERAL: Yes trachea midline Resp: COMMON NORMALS: normal respiratory effort EFFORT & INSPECTION: Yes able to speak in complete sentences Cardio: COMMON NORMALS: regular rate and regular rhythm RATE: regular rate RHYTHM: regular rhythm GI: COMMON NORMALS: Soft to palpation PALPATION: Yes Soft to palpation and No Tenderness to palpation present (GI) PERCUSSION: normal to percussion Extremity: GENERAL: Yes normal exam except as noted and No edema Neuro: COMMON NORMALS: moves all extremities SENSORIUM/ORIENTATION: Yes alert and No Orientation impaired Psych: COMMON NORMALS: mental status grossly normal and Normal thought process present THOUGHT PROCESS: Normal thought process present Course Vital Signs: Vital signs: Vital Signs Temperature 98 F 08/17/22 21:16 Pulse Rate 88 08/18/22 00:10 Respiratory Rate 16 08/18/22 00:10 Blood Pressure 124/95 08/18/22 00:10 Pulse Oximetry 95 08/18/22 00:10 Oxygen Delivery In thod 08/17/22 21:[address] [facility] - General Adult Medical Decision Making 81-year-old lady presenting with nosebleed in the context of high blood pressure. Exam as above. Labetalol ordered for blood pressure control. Afrin and nose clamp reapplied with successful control of bleeding. No vessel amenable to cauterization identified. There is no evidence of posterior bleed. On reassessment patient improved and had continued hemostasis. Plan to follow-up in outpatient setting again with ENT. Most likely etiology of symptoms is hypertensive epistaxis. The results of ED evaluation were discussed with the patient including prescriptions and/or symptomatic cares (if applicable) including appropriate and responsible use, followup plan, and return precautions. The patient verbalized understanding and felt safe for discharge. Medical Records I reviewed the patient's medical records. Lab Data I reviewed the patient's lab results. Discharge Plan Discharge Patient Disposition: Home Clinical Impression: Hemorrhage from nose Hypertension Qualifiers: Hypertension type: primary hypertension Qualified Code(s): I10 - Essential (primary) hypertension Condition: Stable Prescriptions: New hydralazine 25 mg tablet 25 mg PO TID PRN (Reason: hypertension with nosebleed) Qty: 20 0RF Rx Instructions: for >160 systolic or >110 diastolic with nosebleed No Action Macular Health Formula 5-1-7.5 mg capsule 1 cap PO DAILY astralagalus See Rx Instructions .ROUTE .COMPLEX Rx Instructions: pt states she takes 1 tab po two to three times a day cholecalciferol (vitamin D3) 125 mcg (5,000 unit) capsule 125 mcg PO DAILY magnesium 200 mg tablet 150 mg PO DAILY Rx Instructions: pt states sometimes she just takes once a day furosemide 20 mg tablet 20 - 40 mg PO QAM PRN (Reason: edema) Hold Instructions: switching to HCTZ potassium chloride [Klor-Con 10] 10 mEq tablet extended release 10 meq PO DAILY PRN (Reason: unknown) lactobacillus combination no.8 1 cap PO BID omega-3 fatty acids [Fish Oil Concentrate] 1,000 mg capsule See Rx Instructions .ROUTE DAILY Rx Instructions: 1 cap po bid daily; (DME) Diabetic shoes See Rx Instructions .Route .MEDSUPPLY Qty: 1 0RF Rx Instructions: As directed with 3 pairs of inserts. Made by [employer] mupirocin 2 % ointment 1 applic topical BID PRN Rx Instructions: To affected area triamcinolone acetonide 0.1 % ointment 1 applic topical BID PRN Rx Instructions: Apply to affected areas on back and arms no more than 2 weeks per month. Not for face multivitamin Tablet 1 tab PO DAILY ondansetron HCl 4 mg tablet 4 mg PO Q8H PRN (Reason: nausea and vomiting) Qty: 10 0RF citalopram [Celexa] 10 mg tablet 10 mg PO DAILY Qty: 30 0RF metoprolol tartrate 25 mg tablet 25 mg PO TID Rx Instructions: Take 1 tab two to three times daily. May take up to 75mg in a 24hr period as long as HR remains > 60 bpm albuterol sulfate [Ventolin HFA] 90 mcg/actuation HFA aerosol inhaler 2 puff INHALATION Q6H PRN (Reason: Shortness Of Breath) Qty: 8.5 1RF levalbuterol HCl 0.63 mg/3 mL solution for nebulization 0.63 mg INHALATION TID PRN (Reason: SOB or wheezing) Qty: 90 0RF (DME) Rollator Walker See Rx Instructions .Route .MEDSUPPLY Qty: 1 0RF Rx Instructions: As directed Vitamin C Powder See Rx Instructions .ROUTE .COMPLEX Rx Instructions: 1/2 teaspoonful po bid CoQ-10 1 tab PO DAILY Systane Ultra (PF) 0.4-0.3 % dropperette 1 drp ophthalmic (eye) PRN Discharge Orders: Discharge ED (Routine); Ordered 08/17/22 Ordered By: Glen Oliveira Referrals: Evangelina Winslow DO [Primary Care Provider] - Discharge Diet: Usual diet Discharge Activity: Limit activity as instructed Patient Instructions: Oxymetazoline (Into the nose), Hydralazine (By mouth), Nosebleed (ED) Activity Restrictions/Additional Instructions: Thank you for visiting the emergency department you were seen and evaluated for nosebleed. The exact cause of your increased nosebleeds is unclear though likely somewhat associated with high blood pressure. We are pleased that you had improvement in the emergency department. I will add as needed hydralazine to your blood pressure regimen, please use this cautiously. Additionally if your nosebleed recurs you should use the nasal spray and clamp the nose for at least 20 minutes. Please follow-up with your primary care provider and ENT. Return to the emergency department for bleeding that continues despite the above treatments, lightheadedness, shortness of breath, dizziness, fainting, or anything else that you are concerned about a feel needs emergency department evaluation. Coding Level of Care Code ED Residential Service Technician for Refugio Helms
[2022-08-17] MEDS: labetalol 5 mg/mL SDV 20mL 20 MG IVP (22:04)
[2022-08-17] MEDS: oxymetazoline 0.05% Nasal Spray 15 mL 2 SPRAY NOSTRIL-B (22:05)
[2022-08-18 00:10] VITALS: BP 124/95; PULSE 88; RESP 16; O2SAT 95
== END 2022-08-18 00:10 | disposition home or self-care (01) ==
PROVIDERS: Emergency Provider Emergency Medicine; PCP Family Medicine
DX: R04.0 Epistaxis (principal); I10 Essential (primary) hypertension; Z87.891 Personal history of nicotine dependence; Z85.3 Personal history of malignant neoplasm of breast; J44.9 Chronic obstructive pulmonary disease, unspecified; E78.5 Hyperlipidemia, unspecified
CPT/HCPCS: 96374; 99284; J3490

== ENCOUNTER 2022-08-25 12:58 | Inpatient (IN) | payer MEDICARE, OTHER, SELFPAY ==
[2022-08-25] VITALS (13 sets, daily range): BP systolic 105–146; BP diastolic 62–86; PULSE 58–143; RESP 16–20; TEMP 36.6–36.8; O2SAT 92–98; BMI 37.2
--- NOTE | 2022-08-25 13:08 | XR_ITS ---
WS: [id number] Exam: XR chest 1V portable [id number] Date/Time of Exam: 08/25/2022 1:20 PM Reason For Exam: cp Comparison 04/10/2022. The lungs are clear and fully expanded. No pleural effusions. Unremarkable cardiomediastinal silhouet te. Surgical clips along the right axilla. Regional bony structures are intact. Spondylosis of the th oracic spine. XR/XR chest 1V portable [id number] IMPRESSION: 1. No acute cardiopulmonary finding. No change.
--- NOTE | 2022-08-25 13:16 | ECG_ITS ---
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 Measurements Intervals [place] Rate: 84 P: 60 GA: 152 QRS: -22 QRSD: 137 T: 139 QT: 387 QTc: 458 Interpretive Statements SINUS RHYTHM WITH OCCASIONAL VENTRICULAR PREMATURE COMPLEXES LEFT BUNDLE BRANCH BLOCK [120+ ms QRS DURATION, 80+ ms Q/S IN V1/V2, 85+ ms R IN I/aVL/V5/V6] Compared to ECG 04/10/2022 19:55:42 Ventricular premature complex(es) now present Left-axis deviation no longer present Electronically Signed On 08-26-2022 9:11:20 GAME BRE[employer]ING FARM MANAGER by Shaniqua Phelps M.D. [email or web address]
[2022-08-25 13:39] LABS: Basophils % 0.2 %; Eosinophils % 0.4 %; Hematocrit 44.9 % (37.0-47.0); Hemoglobin 14.8 g/dL (11.5-15.3); Lymphocytes % 20.7 %; Mean Corpuscular Hemoglobin 29.7 pg (28.0-34.0); Mean Platelet Volume 9.3 fL (7.4-10.4); Monocytes # 0.9 10^3/uL (0.2-0.9); Monocytes % 9.8 %; Neutrophils % 68.7 %; Nucleated Red Blood Cells % 0 %; Platelet Count 315 10^3/cmm (130-400); Red Blood Count 4.99 10^6/uL (4.1-5.3); Red Cell Distribution Width 12.7 % (12.1-15.1); White Blood Count 9.5 10^3/uL (4.0-10.0)
--- NOTE | 2022-08-25 13:49 | ED_ITS ---
HPI - Chest Pain General: Chief Complaint: Chest Pain Stated Complaint: irregular Blood pressure, chest pain, SOB Time Seen by Provider: 08/25/22 13:20 Source: patient and family Mode of arrival: ambulatory Limitations: no limitations History of Present Illness: This patient presents to our emergency department because she woke up today and took her blood pressure is noted to be elevated and became a bit concerned about that. She states she also had some brief episodes of fluttering and other symptoms to include tingling in her feet as well as some facial tingling. She denied any difficulty with speech, focal weakness etc. She has a history of atrial fibrillation and had an ablation several years ago which was curative. She does monitor her heart rate on a weekly basis and has been in sinus rhythm according to her. She states she has been faithful to her metoprolol. She denies any nonsteroidals or other potential stimulants. She does admit to having episodes of subjective anxiety since the loss of her earlier this year. She states she slept well last night until she woke at 5 AM which is not unusual for her. She denies any associated shortness of breath although she gets occasional episodes of nausea when she feels these symptoms. She has seen her primary care doctor recently who has started her on Celexa but she has not begun that medication yet. She denies any recent exposure to illness to include fever cough etc. MD complaint: chest discomfort Timing of current episode: episodic Exacerbating factors: stress Associated symptoms: Reports palpitations; Deny abdominal pain, dyspnea, fever(s), nausea, syncope or vomiting Review of Systems Const: Denies: fever(s) or chills Eyes: Denies: change in vision ENMT: Denies: throat pain, odynophagia, nasal discharge, nasal congestion or epistaxis Card: Reports: palpitations and lightheadedness; Denies: edema, swelling of feet/ankles, syncope or dyspnea on exertion Resp: Denies: dyspnea, productive cough or non-productive cough GI: Denies: abdominal pain, nausea, vomiting or hematemesis : Denies: flank pain, difficulty voiding or dysuria Musc: Denies: neck pain, back pain, extremity pain or extremity swelling Skin/Breast: Denies: rash or pruritus Neuro: Denies: headache(s), numbness in extremities, weakness in extremities, dizziness, confusion or Slurred speech present Psych: Reports: anxiety and depression Aurelio/Lymph: Denies: easy bruising or easy bleeding PFSH ED PFSH: Medical History A-fib Ortiz palsy Benign essential HTN Breast cancer no evidence of mets. Right breast - lumpectomy and radiation. Carotid stenosis, bilateral COPD (chronic obstructive pulmonary disease) Cystitis cystica GERD (gastroesophageal reflux disease) Heart murmur History of gastrointestinal stromal tumor (GIST) Of jejunum - in remission Hyperlipidemia Left bundle branch block Mitral valve disorder Morbid obesity RICHARD (obstructive sleep apnea) Pt has clostrophobia, could not use CPAP[facility] PMB (postmenopausal bleeding) Recurrent UTI Urgency incontinence Urgency of urination Surgical History S/P ablation of atrial fibrillation S/P bladder repair S/P section S/P hysterectomy S/P lumpectomy of breast S/P small bowel resection Status post correction of deviated nasal septum Status post tubal ligation Family History Mother CAD (coronary artery disease) Dementia Diabetes Sister CAD (coronary artery disease) Stroke Brother Cancer Father Chronic kidney disease (CKD) Grandmother Diabetes Denies family history of Clotting disorder Suicide Anesthesia complication Bleeding disorder Lung disease Social History Smoking and tobacco status: former smoker Alcohol intake: never Adopted: No Caregiver/support person: No Lives independently: No Household members: spouse Marital status: Current occupational status: retired History of recent travel: No Physical Exam Narrative: EXAM NARRATIVE: She makes good eye contact and is pleasant and answers questions a goal-directed fashion. Has episodes where she displays some anxiety about her symptoms. Const: COMMON NORMALS: no acute distress and patient oriented x3 GENERAL APPEARANCE: cooperative, well kempt and anxious HENMT: COMMON NORMALS: normocephalic and atraumatic HEAD & SCALP: normocephalic and atraumatic FACE & SINUS: normal facial exam Eye: COMMON NORMALS: Equal, round and reactive pupils present, EOMs intact bilaterally and conjunctivae normal CONJUNCTIVA: Yes conjunctivae normal PUPIL: Yes Equal, round and reactive pupils present Neck/C-Spine: COMMON NORMALS: full ROM, no lymphadenopathy, no JVD and No carotid bruits Chest: COMMONS NORMALS: normal inspection of the chest and normal palpation of entire chest wall Resp: COMMON NORMALS: normal respiratory effort, No retractions and clear to auscultation bilaterally AUSCULTATION: clear to auscultation bilaterally Cardio: COMMON NORMALS: no JVD, regular rate, regular rhythm and Peripheral pulses 2+ throughout RATE: regular rate RHYTHM: regular rhythm PERIPHERAL PULSES: Peripheral pulses 2+ throughout GI: COMMON NORMALS: Normal to inspection, nondistended, normoactive bowel sounds present, Soft to palpation and non-tender PALPATION: Yes Soft to palpation : COMMON NORMALS: Yes no CVA tenderness BLADDER/KIDNEY EXAM: Yes no CVA tenderness Back/Pelvis: COMMON NORMALS: no CVA tenderness, thoracic and lumbar spine normal to inspection, no thoracic nor lumbar tenderness and thoraco-lumbar ROM normal Extremity: COMMON NORMALS: normal to inspection, full ROM, no calf tenderness and no pedal edema Neuro: COMMON NORMALS: patient oriented x3, moves all extremities, no focal motor deficits and no sensory deficits noted CRANIAL NERVES: Yes CN normal except as noted SPEECH: speech normal Psych: COMMON NORMALS: mental status grossly normal and speech normal APPEARANCE: Yes well kempt SPEECH: Yes normal speech Skin: COMMON NORMALS: no rashes or lesions noted and turgor normal GENERAL SKIN EXAM: no rashes or lesions noted and turgor normal Course Reevaluation(s): Reevaluation #1: Monitor is now showing her in atrial fibrillation with a rapid ventricular response. We will give her a 2 g of magnesium and follow her response prior to giving any additional rate control. She is asymptomatic without any chest pain or shortness of breath at this time Time: 14:38 Reevaluation #2: She has responded to magnesium followed by 10 mg of diltiazem with her now being back in sinus rhythm of rate of 55 bpm. It would appear at least what what 1 can from discern from today is that she may be having episodes of intermittent atrial fibrillation that is causing some of her symptoms. Her initial troponin is slightly elevated and we will await second troponin to ensure that there is less likelihood of ACS. Time: 15:04 Reevaluation #3: While awaiting second troponin she was observed to be back in atrial for with a rapid ventricular response. We will give her additional diltiazem bolus followed by a infusion and plan on admission. Prior to the time we could initiate her diltiazem infusion she converted back to a controlled ventricular response. I feel that this still remains a likely etiology of her presentation. I do not feel that she is adequately controlled and has intermittent episodes of atrial fibrillation. I think she might benefit from a switching her to diltiazem rather than metoprolol as she has responded to diltiazem in the emergency department. She will need cardiology follow-up as well for additional monitoring and perhaps additional electrophysiology studies. We also reviewed her antiplatelet, anticoagulation status and she has been told that she cannot take anticoagulants due to prior bleeding issues. She voiced understanding of her increased stroke risk because of intermittent uncontrolled atrial fibrillation. Time: 17:31 Consultations: Consultation #1: Hospitalist was consulted Time: 19:00 Vital Signs: Vital signs: Vital Signs Temperature 98.3 F 08/25/22 13:14 Pulse Rate 73 08/25/22 19:20 Respiratory Rate 20 H 08/25/22 19:20 Blood Pressure 127/75 08/25/22 19:20 Pulse Oximetry 93 08/25/22 19:20 Oxygen Delivery Me thod 08/25/22 19:20 MDM - Chest Pain Medical Decision Making To the emergencyPatient with a known history of atrial fibrillation in the past who underwent an ablation in [place] in [address] [place] [address] with episodes where she is felt anxious and odd sensations in her feet and face which she thought may have been related to anxiety. During her evaluation here she was noted to have episodes of atrial fibrillation with a rapid ventricular response. This was continued despite giving her additional beta-blockade. She is not eventually required diltiazem to control her rate she did have another episode of prolonged rapid ventricular response while in the emergency department. Because of failure to control on beta-jean is felt that she would might better controlled on a calcium channel jean and would like to place her in observation to make that in change. Medical Records I reviewed the patient's medical records. Lab Data I reviewed the patient's lab results. 08/25/22 13:31 08/25/22 13:31 Radiology Impressions Chest X-Ray 08/25/22 13:08 IMPRESSION: 1. No acute cardiopulmonary finding. No change. Laboratory Results WBC 9.5 10^3/uL (4.0-10.0) 08/25/22 13:31 RBC 4.99 10^6/uL (4.1-5.3) 08/25/22 13:31 Hgb 14.8 g/dL (11.5-15.3) 08/25/22 13:31 Hct 44.9 % (37.0-47.0) 08/25/22 13:31 MCV 90.0 fl (81-99) 08/25/22 13:31 MCH 29.7 pg (28.0-34.0) 08/25/22 13:31 MCHC 33.0 g/dL (30.0-36.0) 08/25/22 13:31 RDW 12.7 % (12.1-15.1) 08/25/22 13:31 Plt Count 315 10^3/cmm (130-400) 08/25/22 13:31 MPV 9.3 fL (7.4-10.4) 08/25/22 13:31 Neut % (Auto) 68.7 % 08/25/22 13:31 Lymph % (Auto) 20.7 % 08/25/22 13:31 Delta % (Auto) 9.8 % 08/25/22 13:31 Eos % (Auto) 0.4 % 08/25/22 13:31 Baso % (Auto) 0.2 % 08/25/22 13:31 Neut # (Auto) 6.50 10^3/uL (1.8-7.7) 08/25/22 13:31 Lymph # (Auto) 2.0 10^3/uL (0.8-4.8) 08/25/22 13:31 Delta # (Auto) 0.9 10^3/uL (0.2-0.9) 08/25/22 13:31 Eos # (Auto) 0.0 10^3/uL (0.0-0.8) 08/25/22 13:31 Baso # (Auto) 0.0 10^3/uL (0.0-0.1) 08/25/22 13:31 Nucleated RBC % (auto) 0 % 08/25/22 13:31 Nucleated RBCs # 0.0 /100WBC 08/25/22 13:31 Sodium 131 mmol/L (136-145) L 08/25/22 13:31 Potassium 4.1 mmol/L (3.5-5.1) 08/25/22 13:31 Chloride 94 mmol/L (98-107) L 08/25/22 13:31 Carbon Dioxide 27 mmol/L (22-29) 08/25/22 13:31 Anion Gap 14.1 (5-19) 08/25/22 13:31 BUN 11 mg/dL (8-23) 08/25/22 13:31 Creatinine 0.7 mg/dL (0.5-0.9) 08/25/22 13:31 GFR Calculation Not Reportable 08/25/22 13:31 Glucose 110 mg/dL (65-115) 08/25/22 13:31 Calculated Osmolality 272 mOsm/kg (285-295) L 08/25/22 13:31 Calcium 9.6 mg/dL (8.5-10.5) 08/25/22 13:31 Total Bilirubin 0.3 mg/dL (0.15-1.2) 08/25/22 13:31 AST 11 U/L (0-32) 08/25/22 13:31 ALT 18 U/L (0-33) 08/25/22 13:31 Alkaline Phosphatase 78 U/L (35-105) 08/25/22 13:31 Troponin T Baseline 14 ng/L (0-10) H 08/25/22 13:31 Troponin T 120 Minute 16.00 ng/L (0-10) H 08/25/22 15:48 Delta Troponin T 2.00 ABS# (0-10) 08/25/22 15:48 Total Protein 8.2 g/dL (6.6-8.7) 08/25/22 13:31 Albumin 4.5 g/dL (3.5-5.2) 08/25/22 13:31 Globulin 3.7 g/dL (1.3-4.6) 08/25/22 13:31 EKG Data EKG 2: I personally reviewed and interpreted this EKG as follows: Interpretation: Resting EKG shows a sinus bradycardia 52 bpm. She has a left bundle branch block pattern. She appears to be in sinus bradycardia at this time. No acute ST-T wave changes noted. EKG 1: I personally reviewed and interpreted this EKG as follows: Interpretation: EKG shows a sinus rhythm with a left bundle branch block pattern. No acute ST-T wave changes noted at this time. Discharge Plan Discharge Patient Disposition: Placed in Observation Clinical Impression: Atrial fibrillation with rapid ventricular response Condition: Stable Prescriptions: No Action Macular Health Formula 5-1-7.5 mg capsule 1 cap PO DAILY astralagalus 1 cap PO DAILY cholecalciferol (vitamin D3) 125 mcg (5,000 unit) capsule 125 mcg PO DAILY magnesium 200 mg tablet 150 mg PO QPM furosemide 20 mg tablet 20 - 40 mg PO QAM PRN (Reason: edema) Hold Instructions: switching to HCTZ potassium chloride [Klor-Con 10] 10 mEq tablet extended release 10 meq PO DAILY PRN (Reason: when taking lasix) (DME) Diabetic shoes See Rx Instructions .Route .MEDSUPPLY Qty: 1 0RF Rx Instructions: As directed with 3 pairs of inserts. Made by [employer] mupirocin 2 % ointment 1 applic topical BID PRN (Reason: unknown) Rx Instructions: To affected area triamcinolone acetonide 0.1 % ointment 1 applic topical BID PRN (Reason: unknown) Rx Instructions: Apply to affected areas on back and arms no more than 2 weeks per month. Not for face multivitamin Tablet 1 tab PO DAILY ondansetron HCl 4 mg tablet 4 mg PO Q8H PRN (Reason: nausea and vomiting) Qty: 10 0RF citalopram [Celexa] 10 mg tablet 10 mg PO DAILY Qty: 30 0RF Rx Instructions: pt not started taking as of 08/25/22 metoprolol tartrate 25 mg tablet 25 mg PO TID Rx Instructions: May take up to 75mg in a 24hr period as long as HR remains > 60 bpm albuterol sulfate [Ventolin HFA] 90 mcg/actuation HFA aerosol inhaler 2 puff INHALATION Q6H PRN (Reason: Shortness Of Breath) Qty: 8.5 1RF levalbuterol HCl 0.63 mg/3 mL solution for nebulization 0.63 mg INHALATION TID PRN (Reason: SOB or wheezing) Qty: 90 0RF (DME) Rollator Walker See Rx Instructions .Route .MEDSUPPLY Qty: 1 0RF Rx Instructions: As directed Vitamin C Powder See Rx Instructions .ROUTE .COMPLEX Rx Instructions: 1/2 teaspoonful po bid (mix with water) Systane Ultra (PF) 0.4-0.3 % dropperette 1 drp ophthalmic (eye) DAILY hydralazine 25 mg tablet 25 mg PO TID PRN (Reason: hypertension with nosebleed) Qty: 20 0RF Rx Instructions: for >160 systolic or >110 diastolic with nosebleed estradiol 0.01 % (0.1 mg/gram) cream See Rx Instructions .ROUTE .COMPLEX Rx Instructions: insert vaginally once a week on tuesday CoQ-10 100 mg Capsule 100 mg PO DAILY Leslie 3 Fish Oil 684-1,200 mg Capsule,Delayed Release(Dr/Ec) 1 cap PO DAILY Referrals: Evangelina Winslow DO [Primary Care Provider] - Coding Level of Care Code ED [employer] Top Helper for Chg Fwd Exam Comprehensive
[2022-08-25 14:21] LABS: Troponin(5th) Baseline 14 ng/L (0-10)
[2022-08-25 14:25] LABS: Alanine Aminotransferase 18 U/L (0-33); Albumin Level 4.5 g/dL (3.5-5.2); Alkaline Phosphatase 78 U/L (35-105); Anion Gap 14.1 (5-19); Aspartate Amino Transferase 11 U/L (0-32); Blood Urea Nitrogen 11 mg/dL (8-23); Calcium 9.6 mg/dL (8.5-10.5); Carbon Dioxide 27 mmol/L (22-29); Chloride 94 mmol/L (98-107); Creatinine Clr Calc Pharmacy 62.5995; Globulin 3.7 g/dL (1.3-4.6); Glucose 110 mg/dL (65-115); Osmolality Calculated 272 mOsm/kg (285-295); Potassium 4.1 mmol/L (3.5-5.1); Sodium 131 mmol/L (136-145); Total Bilirubin 0.3 mg/dL (0.15-1.2); Total Protein 8.2 g/dL (6.6-8.7)
[2022-08-25] MEDS: magnesium sulfate premix 2 GM/50 ML PIGGYBACK IV (14:27)
[2022-08-25] MEDS: dilTIAZem 5 mg/mL SDV 5 mL 10 MG IVP (14:44)
--- NOTE | 2022-08-25 15:08 | ECG_ITS ---
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 Measurements Intervals [place] Rate: 52 P: 63 SC: 174 QRS: -26 QRSD: 137 T: 161 QT: 445 QTc: 415 Interpretive Statements SINUS BRADYCARDIA LEFT BUNDLE BRANCH BLOCK [120+ ms QRS DURATION, 80+ ms Q/S IN V1/V2, 85+ ms R IN I/aVL/V5/V6] Compared to ECG 08/25/2022 13:16:41 Sinus rhythm no longer present Ventricular premature complex(es) no longer present Electronically Signed On 08-26-2022 9:22:58 INSERTER by Shaniqua Phelps M.D. [id number]
--- NOTE | 2022-08-25 15:14 | PC.PHAR ---
pt states she takes care of her own medications-pt states she hasnt started taking celexa 10mg daily filled 08/19/22 30d/s-pt states she only uses her estradiol once a week on tuesday rx filled 06/30/22 30d/s for bid-rx filled 06/15/22 90d/s for lasix 20-40mg qam prn -pt also brought in med bottle for hctz 12.5mg daily prn filled 09/17/21 pt states only takes the lasix prn not hctz-notes are made in the pharmacy comments
--- NOTE | 2022-08-25 17:30 | PC.NURSE ---
NURSE ROUNDING AND FOUND PATIENT HR TO BE ELEVATED AT 162. PATIENT STATES THAT SHE DOES NOT FEEL WELL. PROVIDER NOTIFIED OF INCREASED HEART RATE AND OVERALL WELL-BEING.
--- NOTE | 2022-08-25 18:00 | PC.NURSE ---
CARDIZEM PULLED. NURSE CONNECTED NEW IV TUBING AND PATIENT HEART RATE CAME BACK DOWN TO 72 IN SINUS RHYTHM. PROVIDER NOTIFIED OF FINDINGS. PROVIDER VERBALIZED TO HOLD THE CARDIZEM DRIP. CARDIZEM BAG HANGING FROM IV POLE IN PATIENT ROOM.
[2022-08-25] MEDS: dilTIAZem 60 mg Tablet PO (18:35)
--- NOTE | 2022-08-25 19:06 | PM.HP ---
Providers/Chief Complaint Primary Care Provider: Evangelina Winslow DO Chief Complaint: irregular Blood pressure, chest pain, SOB History of Present Illness Corina Cabral is a 81 year old female who carries history of A. fib, not a candidate for anticoagulation because of history of GI bleed requiring blood transfusion, lives alone presenting today with chief complaint of palpitations hypertensive urgency. Patient is stating that around 6 AM she woke up started having chest discomfort at that time when she checked her blood pressure her diastolic was around 119 mmHg, she was experiencing chest palpitations heart rate was in 130s -140s range. She started experiencing chest discomfort which she is describing as left-sided heaviness that prompted her visit to the ER around 1 PM. It eased up on its own by the time she arrived in the ER. She did not experience any nausea, vomiting, fever, diarrhea or diaphoresis. In the ER she received multiple doses of Cardizem which controlled her heart rate she was well to be discharged however her heart rate jumped up to 130s again, she is being admitted as observation for up titration of AV emiliano blocking agent and antihypertensive regimen. Her CBC and BMP is unremarkable, troponins without significant delta EKG showing A. fib, chest x-ray unremarkable She is hemodynamically stable She lives alone and is concerned that if something happened overnight she was able to make it especially when the weather is going to be rough tomorrow Review of Systems Const: Denies: fever(s) Eyes: Denies: change in vision ENMT: Denies: throat pain Card: Reports: chest pain and irregular heart rhythm Resp: Denies: dyspnea GI: Denies: abdominal pain or GI cramping : Denies: flank pain Musc: Denies: neck pain Skin/Breast: Denies: rash Neuro: Denies: headache(s) Psych: Denies: anxiety Endo: Denies: polyuria Aurelio/Lymph: Denies: easy bruising All/Imm: Denies: urticaria Medications/Allergies Home Medications Medication Instructions Recorded Confirmed Last Taken Type furosemide 20 mg tablet 20 - 40 mg PO QAM PRN edema 10/09/19 08/25/22 Unknown History potassium chloride 10 mEq 10 meq PO DAILY PRN when taking 10/09/19 08/25/22 Unknown History tablet,extended release (Klor-Con) lasix astralagalus 1 cap PO DAILY 09/10/2508/25/22 06/27/20 History ljerxqok-oei-bqrkik 5 mg-zeaxanth 1 cap PO DAILY 05/07/20 08/25/22 08/25/22 History 1 mg-bilberry 7.5 mg-herbal capsule (Macular Health Formula) ascorbic acid (vitamin C) (Vitamin See Rx Instructions .Route .COMPLEX 06/06/20 08/25/22 06/27/20 History C oral powder) peg 400-propylene glycol (PF) 0.4 1 drp ophthalmic (eye) DAILY 06/28/20 08/25/22 Unknown History %-0.3 % eye drops in a dropperette (Systane Ultra (PF)) cholecalciferol (vitamin D3) 125 125 mcg PO DAILY 12/22/20 08/25/22 Unknown History mcg (5,000 unit) capsule Diabetic shoes #1 ea 03/03/21 08/25/22 Unknown Rx magnesium 200 mg tablet 150 mg PO QPM 03/30/22 08/25/22 Unknown History metoprolol tartrate 25 mg tablet 25 mg PO TID 03/30/22 08/25/22 08/25/22 14:00 History Rollator Walker #1 ea 04/12/22 08/25/22 Unknown Rx ondansetron HCl 4 mg tablet 4 mg PO Q8H PRN nausea and 05/11/22 08/25/22 Unknown Rx vomiting #10 tabs albuterol sulfate 90 mcg/actuation 2 puff inhalation Q6H PRN 06/15/22 08/25/22 Unknown Rx aerosol inhaler (Ventolin HFA) Shortness Of Breath #8.5 grams levalbuterol HCl 0.63 mg/3 mL 0.63 mg (3 mL) inhalation TID PRN 06/15/22 08/25/22 Unknown Rx solution for nebulization SOB or wheezing #90 mL hydralazine 25 mg tablet 25 mg PO TID PRN hypertension with 08/17/22 08/25/22 08/25/22 Rx nosebleed #20 tabs 1/4 tab multivitamin 1 tab PO DAILY 08/17/22 08/25/22 08/23/22 History mupirocin 2 % topical ointment 1 applic topical BID PRN unknown 08/17/22 08/25/22 Unknown History triamcinolone acetonide 0.1 % 1 applic topical BID PRN unknown 08/17/22 08/25/22 Unknown History topical ointment citalopram 10 mg tablet (Celexa) 10 mg PO DAILY #30 tabs 08/19/22 08/25/22 Unknown Rx coenzyme Q10 100 mg capsule 100 mg PO DAILY 08/25/22 08/25/22 Unknown History (CoQ-10) estradiol 0.01% (0.1 mg/gram) See Rx Instructions .Route .COMPLEX 08/25/22 08/25/22 Unknown History vaginal cream omega-3 fatty acids-fish oil 684 1 cap PO DAILY 08/25/22 08/25/22 08/23/22 History mg-1,200 mg capsule,delayed release Allergies Allergy/AdvReac Type Severity Reaction Status Date / Time levofloxacin [From Levaquin] Allergy Unknown Unknown Verified 08/25/22 14:47 prednisone Allergy Unknown Unknown Verified 08/25/22 14:47 sulfamethoxazole Allergy Unknown unknown Verified 08/25/22 14:47 [From Bactrim] tretinoin [From Retin-A] Allergy Unknown unknown Verified 08/25/22 14:47 trimethoprim [From Bactrim] Allergy Unknown unknown Verified 08/25/22 14:47 bacitracin [From Polysporin] Allergy wasn't Verified 08/25/22 14:47 healing doxycycline Allergy ALGY-Hives Verified 08/25/22 14:47 polymyxin B [From Polysporin] Allergy wasn't Verified 08/25/22 14:47 healing PFSH Acute PFSH: Medical History A-fib Ortiz palsy Benign essential HTN Breast cancer no evidence of mets. Right breast - lumpectomy and radiation. Carotid stenosis, bilateral COPD (chronic obstructive pulmonary disease) Cystitis cystica GERD (gastroesophageal reflux disease) Heart murmur History of gastrointestinal stromal tumor (GIST) Of jejunum - in remission Hyperlipidemia Left bundle branch block Mitral valve disorder Morbid obesity RICHARD (obstructive sleep apnea) Pt has clostrophobia, could not use CPAP- uses oxygen at tnight PMB (postmenopausal bleeding) Recurrent UTI Urgency incontinence Urgency of urination Surgical History S/P ablation of atrial fibrillation S/P bladder repair S/P section S/P hysterectomy S/P lumpectomy of breast S/P small bowel resection Status post correction of deviated nasal septum Status post tubal ligation Family History Mother CAD (coronary artery disease) Dementia Diabetes Sister CAD (coronary artery disease) Stroke Brother Cancer Father Chronic kidney disease (CKD) Grandmother Diabetes Denies family history of Clotting disorder Suicide Anesthesia complication Bleeding disorder Lung disease Social History Smoking and tobacco status: former smoker Alcohol intake: never Adopted: No Caregiver/support person: No Lives independently: No Household members: spouse Marital status: Current occupational status: retired History of recent travel: No Vitals/I&O/Wt Last Vital Signs Temp 98.3 F 08/25/22 13:14 Pulse 73 08/25/22 18:02 Resp 16 08/25/22 18:02 BP 125/73 08/25/22 18:02 Pulse Ox 94 08/25/22 18:02 O2 Del Method 08/25/22 18:02 08/25/22 08/25/22 08/25/22 06:59 14:59 22:59 Intake Total 50 / 50 Balance 50 / 50 Weight last 48 hrs Weight 95.254 kg Physical Exam Narrative: Patient is sitting upright Without any discomfort A. 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 fib with RVR Left bundle branch block is chronic Chronic history of A. fib Not a candidate for anticoagulation due to history of GI bleed requiring blood transfusion Patient was hypertensive however at the time of my evaluation blood pressure has improved Heart rate is in 70s Currently she is on Cardizem drip I will add Cardizem 30 mg every 6 hours and DC metoprolol considering left bundle branch block I will be cautious with dual AV emiliano blocking agent therapy No active chest pain Troponin without significant delta EKG showing A. fib Patient lives alone Uptitrate AV emiliano blocking agent and antihypertensive regimen Cardiac diet DVT prophylaxis Lovenox Full code Continue anxiolytics for history of generalized anxiety disorder Would use leave albuterol for shortness of breath and avoid albuterol Attestations Medical Necessity Statement*: Anticipating discharge within 48 hours Time Spent in Patient Care: 40 Coding Level of Care Code Acute External Grinder Tool for Chg Fwd Diagnoses Atrial fibrillation with rapid ventricular response I48.91 SILVA (generalized anxiety disorder) F41.1 Hypertension I10 Hypertension type: primary hypertension
--- NOTE | 2022-08-25 19:08 | ECG_ITS ---
[facility] Test Date: 2022-08-25 Pat Name: Corina Cabral Department: Room: Gender: Female Alteration Tailor: : 1940 Requested By: Carlitos Gold Order Number: [id number] Clarita MD: Shaniqua Phelps M.D. Measurements Intervals [place] Rate: 153 P: 0 DC: 0 QRS: -24 QRSD: 130 T: 141 QT: 303 QTc: 484 Interpretive Statements ATRIAL FIBRILLATION WITH RAPID VENTRICULAR RESPONSE LEFT BUNDLE BRANCH BLOCK Compared to ECG 08/25/2022 15:17:23 Sinus bradycardia no longer present Electronically Signed On 08-26-2022 9:21:55 PROTOTYPE ENGINEER by Shaniqua Phelps M.D. [id number]
--- NOTE | 2022-08-25 20:39 | PC.NURSE ---
PATIENT REFUSED TO PUT ON HOSPITAL GOWN. PATIENT BROUGHT OWN GOWN FROM HOME AND STATED SHE WOULD WEAR IT. PATIENT PLACED IN PERSONAL GOWN.
[2022-08-25 20:48] LABS: Troponin 5 6HR 16.16 ng/L (0-10)
[2022-08-25 20:52] LABS: Troponin 5 6HR Delta 2.16 ng/L (0-12)
[2022-08-25 21:19] LABS: NT Pro B Type Natriuretic Pept 1223 pg/mL (0-450)
--- NOTE | 2022-08-25 21:37 | PC.NURSE ---
Patient arrived A&O, VSS on the floor from the ED via wheelchair. Patient stated that she came in for arrythmias. Patient resting on side of bed with two purses, clothing, phone and phone telephone repairer.
--- NOTE | 2022-08-25 22:01 | PC.NURSE ---
Patient's money counted at bedside with this nurse, patient, and Brunilda Hill RN. Patient and these two nurses counted 4 $100, 5 $50, and 1 $2. Patient and nurse verbalized amount of money counted. Money was placed in a biohazard bag with patient label attached to front and sticky note inside with exact amount counted. Labeled money was placed in [facility] [place].
[2022-08-25 22:02] LABS: Thyroid Stimulating Hormone 1.72 uIU/mL (0.27-4.20)
--- NOTE | 2022-08-25 22:13 | PC.NURSE ---
Patient was concerned about taking cardizem as BP was 105/62 and heart rate was 65. Patient requested clarification of cardizem 30mg PO q6 hour order. Dr Martines instructed nurse to hold cardizem for another 6 hours.
[2022-08-26] VITALS (58 sets, daily range): BP systolic 101–175; BP diastolic 60–86; PULSE 56–89; RESP 15–29; TEMP 36.3–36.6; O2SAT 89–99
--- NOTE | 2022-08-26 03:31 | PC.NURSE ---
Dr Martines notified of patient's last set of vitals and instructed nurse to hold cardizem pill.
[2022-08-26 06:29] LABS: Blood Urea Nitrogen 12 mg/dL (8-23); Calcium 9.1 mg/dL (8.5-10.5); Carbon Dioxide 28 mmol/L (22-29); Chloride 97 mmol/L (98-107); Creatinine Clr Calc Pharmacy 62.5995; Glucose 92 mg/dL (65-115); Magnesium 2.3 mg/dL (1.7-2.3); Osmolality Calculated 277 mOsm/kg (285-295); Sodium 134 mmol/L (136-145)
--- NOTE | 2022-08-26 06:45 | PC.NURSE ---
Patient's heart rate jumped into the 160s for about [address] Martines notified and informed nurse to have patient walk in hallway.
[2022-08-26] MEDS: dilTIAZem 30 mg Tablet PO ×2 (07:59→14:22)
[2022-08-26] MEDS: citalopram 20 mg Tablet 10 MG PO (08:10)
[2022-08-26] MEDS: dilTIAZem 5 mg/mL SDV 5 mL 10 MG IVP (09:50)
--- NOTE | 2022-08-26 10:46 | PC.CHAP ---
Pastoral Care Encounter/Spiritual Assessment Type of Contact [] Declined iron miner blasting visit [] Patient/Family/Request visit [] Outpatient visit [] Follow-up visit [] Physician referral [] Code/Alert [x] Routine visit [] Staff referral [] Actively dying [] Patient sleeping [] Family support [] [] Out of room [] Palliative care [] [] Receiving care in room [] Pre-surgical visit [] Trauma [] Long length of stay [] ICU visit [] Other: Relational/Emotional Strength []x Patient feels connected with others/family/visitors/staff [x] Distress [] Loneliness/isolation [] Abandonment Spirituality of Patient [x] Person of Malorie [] Attends Yarsanism of their Malorie [x] Believes in Prayer [] Reads Bible or Sabianist materials [] There are Spiritual issues to be addressed Manager Underwriting Interventions []x Prayer [x] Active listening [] Non-anxious presence [] Spiritual/emotional support [] Crisis/trauma care [] Spiritual counseling [] Bereavement support [] Provided bereavement packet [] Provided Bible/devotional materials [] Provided toy/stuffed animal, coloring book to patient or family member [] Provided Communion [] Anointing/[place] [] Salvation [x] Completed spiritual assessment [] Other: Impact on Illness or Injury [] Angry [] Fearful [] Anxious [] Often cries [] Exhaustion [] Unable to work [] Unable to attend hinduism [] Unable to walk/stand [] Unable to read [] Unable to drive [] Unable to eat/drink [] Unable to sleep [] Unable to be with family [] Patient intubated [] Other: Summary Time spent with patient 10 min
--- NOTE | 2022-08-26 13:01 | PC.NURSE ---
Received patient in ICU accompanied by [facility] staff. BP: 148/78, HR:76, Pulse: 76, SPO2: 91. Alert and oriented to person, place, time, situation. No complaints. Diltiazim drip is running at 15mg/hr, but it is charted as 7.5, nurse updated charting to reflect current rate, continue to monitor, and will titrate diltiazem as ordered.
[2022-08-26] MEDS: enoxaparin 40 mg/0.4 mL Syringe SUBCUT (14:07)
--- NOTE | 2022-08-26 14:48 | PC.NURSE ---
While on 12.5 ofmg/hr of a cardizem drip, patient suddenly went into AFIB with RVR. rate went from mid 70's to 170's. Patient felt nauseated. Before nurse could respond with vagal maneuver instructions, RVR resolved and rate went back to the mid 70's. Patient no longer felt nauseated. Episode lasted less than 30 seconds. Nurse increased cardizen drip form 12.[address] Borrero to episode. No new orders received.
[2022-08-26] MEDS: docusate sodium 100 mg Capsule PO (14:58)
--- NOTE | 2022-08-26 15:04 | P.PN_ITS ---
Subjective Subjective: Patient was seen and examined this morning, went into A. fib with RVR again this morning, with Aberrant conduction (due to pre-existing left bundle branch block ) Medications: Medication Review Details: Generic Name Dose Route Start Last Admin Trade Name Emeka PRN Reason Stop Dose Admin Citalopram Hydrobr omide 10 mg 08/26/22 09:00 08/26/22 08:10 Citalopram 20 Mg Tablet PO 10 mg DAILY MEET Administration Diltiazem HCl 30 mg 08/25/22 21:16 08/26/22 14:22 Diltiazem 30 Mg Tablet PO 30 mg Q6H MEET Administration Docusate Sodium 100 mg 08/26/22 14:30 08/26/22 14:58 Docusate Sodium 100 Mg Capsule PO 100 mg DAILY MEET Administration Enoxaparin Sodium 40 mg 08/26/22 14:30 08/26/22 14:07 Enoxaparin 40 Mg /0.4 Ml Syringe SUBCUT 40 mg Q24H MEET Administration Non-Formulary Medi cation 100 mg 08/26/22 09:00 08/26/22 08:02 Coenzyme Q10 [Co q-10] PO Not Given DAILY MEET Vitals/I&O/Wt Last Vital Signs Temp 97.8 F 08/26/22 07:00 Pulse 69 08/26/22 14:00 Resp 16 08/26/22 09:01 BP 134/73 08/26/22 10:45 Pulse Ox 96 08/26/22 09:01 O2 Del Method 08/26/22 09:01 08/26/22 08/26/22 08/26/22 06:59 14:59 22:59 Intake Total 0 / 50 277.292 / 277.292 Output Total 400 / 400 Balance 0 / 50 -122.708 / -122.708 Weight last 48 hrs Weight 95.254 kg Weight 95.254 kg Physical Exam Const: COMMON NORMALS: patient oriented x3 HENMT: COMMON NORMALS: normocephalic, atraumatic, hearing grossly normal bilaterally and external ears normal HEAD & SCALP: normocephalic and atraumatic EXTERNAL EAR: Yes external ears normal Resp: COMMON NORMALS: clear to auscultation bilaterally EFFORT & INSP ECTION: Yes symmetric chest movement AUSCULTATION: clear to auscultation bilaterally Cardio: OTHER: Irregularly irregular rhythm, S1-S2 variable intensity GI: COMMON NORMALS: Normal to inspection, nondistended, normoactive bowel s ounds present, Soft to palpation, non-tender, No hepatosplenomegaly present and no masses AUSCULTATION: Yes normoactive bowel sounds PALPATION: Yes Soft to palpation and Yes No hepatosplenomegaly present RECTAL EXAM: deferred Extremity: COMMON NORMALS: no clubbing, cyanosis or edema and no pedal edema Neuro: COMMON NORMALS: patient oriented x3 Data 08/25/22 13:31 08/26/22 05:53 A&P Assessment and plan (1) Atrial fibrillation with rapid ventricular response: (2) SILVA (generalized anxiety disorder): (3) Hypertension: Qualifiers: Hypertension type: primary hypertension Qualified Code(s): I10 - Essential (primary) hypertension Plan 81-year-old female with past medical history of A. fib status post ablation, GI bleed, epistaxis , chronic left bundle branch block, left-sided Ortiz's palsy, hypertension, mild MR, mild AR, obstructive sleep apnea, COPD, Was brought in from home with chief complaint of palpitation, according to her she is having these episodes of palpitation for last week or so during these episodes she has chest tightness shortness of breath dizziness nausea. She was admitted for the management of: Assessment: A. fib with RVR: With possibility of underlying tachybradycardia syndrome History of left-sided Ortiz's palsy Chronic left bundle branch block Hypertension Mild MR Mild AR History of COPD History of sleep apnea Plan: Troponin trend without significant delta. Most recent 2D echo: Normal LV size and systolic function, no RWMA , grade 1 diastolic dysfunction, mild MR. Currently not on therapeutic anticoagulation, given her prior history of GI bleed, as well as epistaxis, on prophylactic anticoagulation with Lovenox. Patient is currently on Cardizem drip Currently on p.o. Cardizem 30 p.o. every 6H Cardiology on board CODE STATUS: Full code Attestations Medical Necessity Statement*: Patient needs to be in hospital for management A. fib with RVR. Time Spent in Patient Care: Greater than 35 minutes Critical Care Time: The high probability of a clinically significant, sudden or life threatening deterioration of the patient's [] system(s) required my full and direct attention, intervention and personal management. The critical care time is as shown. This time is in addition to time spent performing any reported procedures but includes the following: [x] Data and vital sign review and interpretation [x] Patient assessment, examination and intervention [x] Documentation [x] Medication orders and management Critical Care Time (min): 45 Coding Level of Care Code Acute Senior Radiation Protection Technician for g Fwd Exam Detailed Diagnoses Atrial fibrillation with rapid ventricular response I48.91 SILVA (generalized anxiety disorder) F41.1 Hypertension I10 Hypertension type: primary hypertension
[2022-08-26 15:52] LABS: Glucose Point of Care 116 mg/dL (70-110)
--- NOTE | 2022-08-26 16:06 | PC.NURSE ---
Patient described a strange sensation in the left upper chest, not painful, unable to describe other than a weird feeling. ALso feels a tingling sensation to the left side of her face. Says she feels like her BG is low. Nurse complete stroke assessment which was negative for any findings. Blood sugar was 116. Nurse alerted Dr Borrero, no new orders will continue to monitor.
--- NOTE | 2022-08-26 16:12 | PC.NURSE ---
Patient has left side facial droop. She states this is do to a history of bells palsy. Family is at bedside and says the left sided facial droop is normal for her and she is at her baseline.
[2022-08-26] MEDS: dilTIAZem 100 MG in sodium chloride 0.9% (add-van) 100 ML 12.5 MG IV (16:36)
[2022-08-26 17:26] LABS: Glucose Point of Care 111 mg/dL (70-110)
--- NOTE | 2022-08-26 17:49 | P.CONIM_ITS ---
Providers/Reason For Consult Consulting Physician/Specialty*: LOR Yang MD/cardiology Reason for Consult*: Patient with history of atrial fibrillation, status post ablation, presenting with recurrent atrial fibrillation Requesting Physician: Dr. Borrero Attending Physician: Terence Borrero MD Primary Care Provider: Evangelina Winslow DO History of Present Illness History of Present Illness Corina Cabral is a 81 year old female with a history of atrial fibrillation, status post radiofrequency ablation in 2019, now is presenting with complaints of palpitations intermittently associated with her dizziness. The frequency and the duration of these spells are getting more lately. She had a prolonged episode of palpitation associated the dizziness on the day of admission. Was found to be atrial fibrillation rapid ventricular rate in the emergency room. She was started on IV Cardizem. After several hours, she spontaneously co nverted to sinus rhythm. Today she again went back into fibrillation. Cardiology consult is requested for further cardiac evaluation recommendations. Patient is known to have high blood pressure, dyslipidemia, carotid artery disease, mitral regurgitation, sleep apnea, recurrent nosebleeds/GI bleed. Is currently on a Cardizem drip. The heart rate seems to be getting under control and intermittently going back into sinus rhythm. She has no history for any coronary artery disease. Has a history of diastolic heart failure. No fever or chills. No cough. No other specific complaints. She lives alone. She lost her in November of this year- of acute myocardial infarction. She has a history of anxiety disorder Review of Systems Narrative: CONSTITUTIONAL: No fever or chills. EYES: No blurring of vision or other visual disturbances lately. ENT: No hoarseness of voice, auditory disturbances or sore throat. History of nosebleed, recurrent CARDIOVASCULAR: As mentioned above. RESPIRATORY: Apnea/COPD GASTROINTESTINAL: History of GI bleed, GIST tumor, small bowel resection GENITOURINARY: No dysuria or hematuria. INTEGUMENTARY: No skin rashes or history of skin cancer. NEURO: No transient ischemic attacks or amaurosis. PSYCHIATRIC: No history of psychosis or major depression. HEMATOLOGIC: History of anemia ENDOCRINE: No history of polyuria or polydipsia. MUSCULOSKELETAL: No recent joint pain or swelling. ALLERGY/IMMUNOLOGY: As mentioned above. Medications/Allergies Home Medications Medication Instructions Recorded Confirmed Last Taken Type furosemide 20 mg tablet 20 - 40 mg PO QAM PRN edema 10/09/19 08/25/22 Unknown History potassium chloride 10 mEq 10 meq PO DAILY PRN when taking 10/09/19 08/25/22 Unknown History tablet,extended release (Klor-Con) lasix astralagalus 1 cap PO DAILY 05/07/20 08/25/22 06/27/20 History jkxlzsan-rvl-ejcdwq 5 mg-zeaxanth 1 cap PO DAILY 05/07/20 08/25/22 08/25/22 History 1 mg-bilberry 7.5 mg-herbal capsule ([facility] Formula) ascorbic acid (vitamin C) (Vitamin See Rx Instructions .Route .COMPLEX 06/06/20 08/25/22 06/27/20 History C oral powder) peg 400-propylene glycol (PF) 0.4 1 drp ophthalmic (eye) DAILY 06/28/20 08/25/22 Unknown History %-0.3 % eye drops in a dropperette (Systane Ultra (PF)) cholecalciferol (vitamin D3) 125 125 mcg PO DAILY 12/22/20 08/25/22 Unknown History mcg (5,000 unit) capsule Diabetic shoes #1 ea 03/03/21 08/25/22 Unknown Rx magnesium 200 mg tablet 150 mg PO QPM 03/30/22 08/25/22 Unknown History metoprolol tartrate 25 mg tablet 25 mg PO TID 03/30/22 08/25/22 08/25/22 14:00 History Rollator Walker #1 ea 04/12/22 08/25/22 Unknown Rx ondansetron HCl 4 mg tablet 4 mg PO Q8H PRN nausea and 05/11/22 08/25/22 Unknown Rx vomiting #10 tabs albuterol sulfate 90 mcg/actuation 2 puff inhalation Q6H PRN 06/15/22 08/25/22 Unknown Rx aerosol inhaler (Ventolin HFA) Shortness Of Breath #8.5 grams levalbuterol HCl 0.63 mg/3 mL 0.63 mg (3 mL) inhalation TID PRN 06/15/22 08/25/22 Unknown Rx solution for nebulization SOB or wheezing #90 mL hydralazine 25 mg tablet 25 mg PO TID PRN hypertension with 08/17/22 08/25/22 08/25/22 Rx nosebleed #20 tabs 1/4 tab multivitamin 1 tab PO DAILY 08/17/22 08/25/22 08/23/22 History mupirocin 2 % topical ointment 1 applic topical BID PRN unknown 08/17/22 08/25/22 Unknown History triamcinolone acetonide 0.1 % 1 applic topical BID PRN unknown 08/17/22 08/25/22 Unknown History topical ointment citalopram 10 mg tablet (Celexa) 10 mg PO DAILY #30 tabs 08/19/22 08/25/22 Unknown Rx coenzyme Q10 100 mg capsule 100 mg PO DAILY 08/25/22 08/25/22 Unknown History (CoQ-10) estradiol 0.01% (0.1 mg/gram) See Rx Instructions .Route .COMPLEX 08/25/22 08/25/22 Unknown History vaginal cream omega-3 fatty acids-fish oil 684 1 cap PO DAILY 08/25/22 08/25/22 08/23/22 History mg-1,200 mg capsule,delayed release Allergies Allergy/AdvReac Type Severity Reaction Status Date / Time levofloxacin [From Levaquin] Allergy Unknown Unknown Verified 08/25/22 14:47 prednisone Allergy Unknown Unknown Verified 08/25/22 14:47 sulfamethoxazole Allergy Unknown unknown Verified 08/25/22 14:47 [From Bactrim] tretinoin [From Retin-A] Allergy Unknown unknown Verified 08/25/22 14:47 trimethoprim [From Bactrim] Allergy Unknown unknown Verified 08/25/22 14:47 bacitracin [From Polysporin] Allergy wasn't Verified 08/25/22 14:47 healing doxycycline Allergy ALGY-Hives Verified 08/25/22 14:47 polymyxin B [From Polysporin] Allergy wasn't Verified 08/25/22 14:47 healing Current Medications Generic Name Dose Route Start Last Admin Trade Name Freq PRN Reason Stop Dose Admin Citalopram Hydrobromide 10 mg 08/26/22 09:00 08/26/22 08:10 Citalopram 20 Mg Tablet PO 10 mg DAILY MEET Administration Diltiazem HCl 30 mg 08/25/22 21:16 08/26/22 14:22 Diltiazem 30 Mg Tablet PO 30 mg Q6H MEET Administration Docusate Sodium 100 mg 08/26/22 14:30 08/26/22 14:58 Docusate Sodium 100 Mg Capsule PO 100 mg DAILY MEET Administration Enoxaparin Sodium 40 mg 08/26/22 14:30 08/26/22 14:07 Enoxaparin 40 Mg/0.4 Ml Syringe SUBCUT 40 mg Q24H MEET Administration Diltiazem HCl 100 mg/ Sodium 100 mls @ 0 mls/hr 08/26/22 15:30 08/26/22 16:45 Chloride IV 10 mg/hr .Q0M MEET 10 mls/hr Titration Protocol Per Protocol Non-Formulary Medication 100 mg 08/26/22 09:00 08/26/22 08:02 Coenzyme Q10 [Coq-10] PO Not Given DAILY MEET Non-Formulary Medication 150 mg 08/26/22 18:00 08/26/22 17:40 Magnesium PO Not Given QPM MEET PFSH Acute PFSH: Medical History A-fib Ortiz palsy Benign essential HTN Breast cancer no evidence of mets. Right breast - lumpectomy and radiation. Carotid stenosis, bilateral COPD (chronic obstructive pulmonary disease) Cystitis cystica GERD (gastroesophageal reflux disease) Heart murmur History of gastrointestinal stromal tumor (GIST) Of jejunum - in remission Hyperlipidemia Left bundle branch block Mitral valve disorder Morbid obesity RICHARD (obstructive sleep apnea) Pt has clostrophobia, could not use CPAP- uses oxygen at tnight PMB (postmenopausal bleeding) Recurrent UTI Urgency incontinence Urgency of urination Surgical History S/P ablation of atrial fibrillation S/P bladder repair S/P section S/P hysterectomy S/P lumpectomy of breast S/P small bowel resection Status post correction of deviated nasal septum Status post tubal ligation Family History Mother CAD (coronary artery disease) Dementia Diabetes Sister CAD (coronary artery disease) Stroke Brother Cancer Father Chronic kidney disease (CKD) Grandmother Diabetes Denies family history of Clotting disorder Suicide Anesthesia complication Bleeding disorder Lung disease Social History Smoking and tobacco status: former smoker Alcohol intake: never Adopted: No Caregiver/support person: No Lives independently: No Household members: spouse Marital status: Current occupational status: retired History of recent travel: No Vitals/I&O/Wt Last Vital Signs Temp 97.8 F 08/26/22 07:00 Pulse 75 08/26/22 15:05 Resp 25 H 08/26/22 15:05 BP 143/74 08/26/22 15:05 Pulse Ox 93 08/26/22 15:05 O2 Del Method 08/26/22 12:40 08/26/22 08/26/22 08/26/22 06:59 14:59 22:59 Intake Total 0 / 50 277.292 / 277.292 30.666 / 307.958 Output Total 400 / 400 Balance 0 / 50 -122.708 / -122.708 30.666 / -92.042 Weight last 48 hrs Weight 210 lb Weight 210 lb Physical Exam Narrative: GENERAL: The patient is alert and oriented times three. Not in any acute distress. HEENT: No significant pallor, icterus or lymphadenopathy.Oral cavity: There are no mucous membrane lesions. NECK: Trachea appears to be central. No masses noted. No JVD or thyromegaly appreciated. RESPIRATORY: Chest is symmetrical. No intercostals muscle retraction or any accessory muscle activation. There is no chest wall tenderness. Breath sounds are heard bilaterally. No rales or rhonchi heard. No evidence of any consolidation. BREASTS: Deferred. HEART: The heart sounds are normal. No S3 or S4. Systolic murmur grade 3 or 6 in the left sternal border. No diastolic murmurs. No pericardial rub ABDOMEN: No vessel pulsations or distention. No tenderness. No organomegaly appreciated. Bowel sounds are normally heard. : Deferred. RECTAL: Deferred. LYMPHATIC: No lymphadenopathy noted in the neck. EXTREMITIES: No edema or cyanosis. No clubbing. MUSCULOSKELETAL: No acute joint deformities or swelling SKIN: There are no significant rashes or ecchymosis NEUROPSYCHIATRIC: The patient is alert and oriented x3. Appears to be in a good mood. No tremors or rigidity noted. Data 08/25/22 13:31 08/26/22 05:53 Other Labs: CONCLUSIONS ?Normal left ventricular size, systolic function and wall ?thickness, with no regional wall motion abnormalities. Grade ?I/IV diastolic dysfunction (abnormal relaxation filling ?pattern), normal to mildly elevated filling pressures. Left ?ventricular ejection fraction is estimated at 65 %. ?Mildly increased right atrial size. ?Mildly increased left atrial size. ?Structurally normal mitral valve. Severe mitral annular ?calcification. No mitral valve stenosis. Mild mitral valve ?regurgitation. ?Structurally normal trileaflet aortic valve. Mild aortic valve ?calcification. Mild aortic valve regurgitation. Aortic valve ?sclerosis without stenosis. ?No significant change since the prior echocardiogram study of ?06/03/2020 06/06/20 CT angio chest 1.? Proximal main pulmonary arteries are normal. No filling defects. No evidence of pulmonary embolus. 2.? Both lungs are well aerated. No acute pulmonary infiltrates. 3.? Mild chronic emphysematous changes. 4.? No mediastinal or hilar lymphadenopathy. 5.? Right breast lesion measures approximately 1.8 x 2.9 cm. Recommend right diagnostic mammography and ultrasound for further evaluation. ? 05/27/20 Holter Monitor 1.? The baseline rhythm was found to be normal sinus at a heart rate of 73 bpm.? Episodes of atrial fibrillation with rapid ventricular rate were noted. ?The total duration of atrial fibrillation was 26 hours and 36 minutes.? 90% of the episode was atrial fibrillation with rapid ventricular rate and 10% controlled ventricular response rate 2.? No symptoms are mentioned with any of the recordings. 3.? No previous similar studies, available for comparison CAROTID DUPLEX 10/2019 ?Right ICA stenosis <50%. Mild atheromatous plaque right carotid ?bulb/ICA. ?Left ICA stenosis <50%. Mild atheromatous plaque left carotid ?bulb/ICA. ?Normal antegrade Doppler flow noted in the right vertebral ?artery. ?Normal antegrade Doppler flow noted in the left vertebral ?artery. Micro: Laboratory Last Values WBC 9.5 10^3/uL (4.0-10.0) 08/25/22 13:31 RBC 4.99 10^6/uL (4.1-5.3) 08/25/22 13:31 Hgb 14.8 g/dL (11.5-15.3) 08/25/22 13:31 Hct 44.9 % (37.0-47.0) 08/25/22 13:31 MCV 90.0 fl (81-99) 08/25/22 13:31 MCH 29.7 pg (28.0-34.0) 08/25/22 13:31 MCHC 33.0 g/dL (30.0-36.0) 08/25/22 13:31 RDW 12.7 % (12.1-15.1) 08/25/22 13:31 Plt Count 315 10^3/cmm (130-400) 08/25/22 13:31 MPV 9.3 fL (7.4-10.4) 08/25/22 13:31 Neut % (Auto) 68.7 % 08/25/22 13:31 Lymph % (Auto) 20.7 % 08/25/22 13:31 Allen % (Auto) 9.8 % 08/25/22 13:31 Eos % (Auto) 0.4 % 08/25/22 13:31 Baso % (Auto) 0.2 % 08/25/22 13:31 Neut # (Auto) 6.50 10^3/uL (1.8-7.7) 08/25/22 13:31 Lymph # (Auto) 2.0 10^3/uL (0.8-4.8) 08/25/22 13:31 Allen # (Auto) 0.9 10^3/uL (0.2-0.9) 08/25/22 13:31 Eos # (Auto) 0.0 10^3/uL (0.0-0.8) 08/25/22 13:31 Baso # (Auto) 0.0 10^3/uL (0.0-0.1) 08/25/22 13:31 Nucleated RBC % (auto) 0 % 08/25/22 13:31 Nucleated RBCs # 0.0 /100WBC 08/25/22 13:31 Sodium 134 mmol/L (136-145) L 08/26/22 05:53 Potassium 4.0 mmol/L (3.5-5.1) 08/26/22 05:53 Chloride 97 mmol/L (98-107) L 08/26/22 05:53 Carbon Dioxide 28 mmol/L (22-29) 08/26/22 05:53 Anion Gap 13.0 (5-19) 08/26/22 05:53 BUN 12 mg/dL (8-23) 08/26/22 05:53 Creatinine 0.7 mg/dL (0.5-0.9) 08/26/22 05:53 GFR Calculation Not Reportable 08/26/22 05:53 Glucose 92 mg/dL (65-115) 08/26/22 05:53 POC Glucose 111 mg/dL (70-110) H 08/26/22 17:21 Calculated Osmolality 277 mOsm/kg (285-295) L 08/26/22 05:53 Calcium 9.1 mg/dL (8.5-10.5) 08/26/22 05:53 Magnesium 2.3 mg/dL (1.7-2.3) 08/26/22 05:53 Total Bilirubin 0.3 mg/dL (0.15-1.2) 08/25/22 13:31 AST 11 U/L (0-32) 08/25/22 13:31 ALT 18 U/L (0-33) 08/25/22 13:31 Alkaline Phosphatase 78 U/L (35-105) 08/25/22 13:31 Troponin T Baseline 14 ng/L (0-10) H 08/25/22 13:31 Troponin T 120 Minute 16.00 ng/L (0-10) H 08/25/22 15:48 Delta Troponin T 2.00 ABS# (0-10) 08/25/22 15:48 Troponin T Hi Sens 6Hr 16.16 ng/L (0-10) H 08/25/22 20:00 Troponin T Hi Sens 6Hr Delta 2.16 ng/L (0-12) 08/25/22 20:00 NT-Pro-B Natriuret Pep 1223 pg/mL (0-450) H 08/25/22 20:00 Total Protein 8.2 g/dL (6.6-8.7) 08/25/22 13:31 Albumin 4.5 g/dL (3.5-5.2) 08/25/22 13:31 Globulin 3.7 g/dL (1.3-4.6) 08/25/22 13:31 TSH 1.72 uIU/mL (0.27-4.20) 08/25/22 20:00 EKG 1: My Interpretation: The EKG from 08/25/2022 showed atrial fibrillation with rapid ventricular rate. Ventricular rate of 153 bpm. Left bundle branch block. EKG 2: My Interpretation: EKG on 08/25/2022 at 15:17 revealed sinus bradycardia with a rate of 552 bpm. Left bundle branch block. Some nonspecific T wave changes. A&P Assessment and plan (1) Atrial fibrillation with rapid ventricular response: Patient seems to have symptomatic intermittent atrial fibrillation, with increasing frequency lately. Status post radiofrequency ablation 2019. She has recurrence of the arrhythmia with a beta-jean and calcium jean, I may start the patient on Betapace 80 mg p.o. now and twice daily. I will taper off the IV Cardizem and discontinue the p.o. Cardizem. Need to be closely monitored on telemetry for 48 hours. This was discussed the patient in detail which is understood well. (2) Diastolic heart failure: Currently the heart failure seems to be compensated. She may be treated with her diuretics on a as needed basis. (3) Benign essential HTN: Currently the blood pressures are stage II. Hopefully the Betapace will control her blood pressure as well . She will be closely monitored. (4) RICHARD (obstructive sleep apnea): Because of claustrophobia, patient is not able to tolerate the CPAP. She uses oxygen at night. This may be continued. (5) Left bundle branch block: Patient has not had any high degree AV block so far. Her rhythm needs to be closely monitored. (6) Type 2 diabetes mellitus: Management as per Dr. Borrero. Qualifiers: Diabetes mellitus terminal supervisor insulin use: without snf use Diabetes mellitus complication status: with hyperglycemia Qualified Code(s): E11.65 - Type 2 diabetes mellitus with hyperglycemia Plan We will do a baseline EKG and then daily EKG to evaluate for the QTC. Thank you for the opportunity to evaluate this patient and make these recommendations. Consult Attestations Medical Necessity Statement: Patient needs to be closely monitored on telemetry because of the high risk medication Coding Level of Care Code Acute [place] Machine Operator Helper for Chg Fwd History Expanded Problem Focused Exam Expanded Problem Focused Medical Decision Making Moderate Complexity Diagnoses Atrial fibrillation with rapid ventricular response I48.91 Diastolic heart failure I50.30 Benign essential HTN I10 RICHARD (obstructive sleep apnea) G47.33 Left bundle branch block I44.7 Type 2 diabetes mellitus E11.65 Diabetes mellitus snf insulin use: without snf use Diabetes mellitus complication status: with hyperglycemia
[2022-08-26] MEDS: sotalol 80 mg Tablet PO (18:46)
--- NOTE | 2022-08-26 18:52 | PC.NURSE ---
Received bedside report from SHA Patel. Patient resting in bed. Discussed new medication, Sotolol, for heart rate control. Patient verbalized complete understanding. Assisted patient up to BSC commode. VS WNL. Will continue to monitor.
--- NOTE | 2022-08-26 18:57 | ECG_ITS ---
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 Measurements Intervals [place] Rate: 67 P: 29 [place]: 158 QRS: -24 QRSD: 137 T: 142 QT: 427 QTc: 452 Interpretive Statements SINUS RHYTHM LEFT BUNDLE BRANCH BLOCK [120+ ms QRS DURATION, 80+ ms Q/S IN V1/V2, 85+ ms R IN I/aVL/V5/V6] Compared to ECG 08/25/2022 17:32:55 Atrial fibrillation no longer present Electronically Signed On 08-27-2022 7:55:42 ROLL TENSION TESTER by Cash Wick M.D. [id number]
[2022-08-26] MEDS: simethicone 80 mg Chew PO (19:38)
[2022-08-26] MEDS: ondansetron 2 mg/ML SDV 2 mL 4 MG IVP (20:35)
--- NOTE | 2022-08-26 20:42 | PC.NURSE ---
Addendum entered by Josee Disla RN 08/26/22 21:12: Spoke with Dr Yang and received order for EKG. Reported to Dr Yang that patient is feeling some better. Will continue to monitor. No new orders at this time from Dr Martines. Will continue to monitor. Original Note: Patient started new medication of betapace 80mg PO tonight. First dose was given around 1900. Patient appears to be having 3 to 6 beat runs of v-tach. Patient is complaining of nausea and palpitations. HR mostly controlled at 70-mid80s. Zofran given as ordered for nausea. Informed Dr Martines of patient condition. Will continue to monitor.
--- NOTE | 2022-08-26 20:48 | ECG_ITS ---
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 Measurements Intervals [place] Rate: 58 P: 44 IN: 168 QRS: -28 QRSD: 142 T: 155 QT: 494 QTc: 487 Interpretive Statements SINUS BRADYCARDIA WITH OCCASIONAL SUPRAVENTRICULAR PREMATURE COMPLEXES LEFT BUNDLE BRANCH BLOCK [120+ ms QRS DURATION, 80+ ms Q/S IN V1/V2, 85+ ms R IN I/aVL/V5/V6] Compared to ECG 08/26/2022 18:57:27 Sinus rhythm no longer present Electronically Signed On 08-27-2022 7:54:30 NIGHT BAKER by Cash Wick M.D. [id number]
[2022-08-27] VITALS (51 sets, daily range): BP systolic 84–175; BP diastolic 42–100; PULSE 55–76; RESP 10–23; TEMP 36.6–37.1; O2SAT 88–99
--- NOTE | 2022-08-27 03:07 | PC.NURSE ---
Patient refused dose of Lisinopril due to developing a cough stating I have not taken lisinopril for years because of persistent cough. Instructed patient on uses and side effects of this medication. Patient verbalized understanding however would not take due to cough.
[2022-08-27 03:42] LABS: Basophils % 0.4 %; Eosinophils # 0.1 10^3/uL (0.0-0.8); Eosinophils % 0.9 %; Hematocrit 40.9 % (37.0-47.0); Hemoglobin 13.2 g/dL (11.5-15.3); Lymphocytes # 2.6 10^3/uL (0.8-4.8); Lymphocytes % 30.6 %; Mean Corpuscular HGB Conc 32.3 g/dL (30.0-36.0); Mean Corpuscular Hemoglobin 29.6 pg (28.0-34.0); Mean Corpuscular Volume 91.7 fl (81-99); Mean Platelet Volume 9.8 fL (7.4-10.4); Monocytes # 0.8 10^3/uL (0.2-0.9); Monocytes % 9.5 %; Neutrophils # 4.94 10^3/uL (1.8-7.7); Neutrophils % 58.1 %; Nucleated Red Blood Cells % 0 %; Platelet Count 285 10^3/cmm (130-400); Red Blood Count 4.46 10^6/uL (4.1-5.3); Red Cell Distribution Width 12.7 % (12.1-15.1); White Blood Count 8.5 10^3/uL (4.0-10.0)
[2022-08-27 04:02] LABS: Anion Gap 15.1 (5-19); Blood Urea Nitrogen 10 mg/dL (8-23); Calcium 8.7 mg/dL (8.5-10.5); Carbon Dioxide 25 mmol/L (22-29); Chloride 97 mmol/L (98-107); Creatinine Clr Calc Pharmacy 62.5995; Glucose 95 mg/dL (65-115); Osmolality Calculated 275 mOsm/kg (285-295); Potassium 4.1 mmol/L (3.5-5.1); Sodium 133 mmol/L (136-145)
[2022-08-27] MEDS: sotalol 80 mg Tablet PO (06:03)
[2022-08-27] MEDS: citalopram 20 mg Tablet 10 MG PO (08:25)
[2022-08-27] MEDS: docusate sodium 100 mg Capsule PO (08:25)
--- NOTE | 2022-08-27 09:00 | ECG_ITS ---
[facility] Test Date: 2022-08-27 Pat Name: Corina Cabral Department: Room: ICU03 Gender: Female Outbound Supervisor: : 1940 Requested By: Lio Yang Order Number: [id number] Clarita MD: Lio Yang M.D. Measurements Intervals [place] Rate: 64 P: 37 AL: 167 QRS: -27 QRSD: 144 T: 158 QT: 475 QTc: 492 Interpretive Statements SINUS RHYTHM LEFT BUNDLE BRANCH BLOCK [120+ ms QRS DURATION, 80+ ms Q/S IN V1/V2, 85+ ms R IN I/aVL/V5/V6] Compared to ECG 08/26/2022 20:55:24 Sinus bradycardia no longer present Electronically Signed On 08-27-2022 15:44:33 JIG INSPECTOR by Lio Yang M.D. [id number]
[2022-08-27] MEDS: ondansetron 2 mg/ML SDV 2 mL 4 MG IVP (09:18)
--- NOTE | 2022-08-27 11:54 | P.PN_ITS ---
Subjective Subjective: Patient seems to be doing okay with the Betapace so far. Blood pressure also seems to be getting under control. New arrhythmias are noted on the monitor. EKG was done today which revealed a sinus rhythm with a rate of 64 bpm. Left bundle branch block. The QT corrected for left bundle branch block was 402 msec Vitals/I&O/Wt Last Vital Signs Temp 98.6 F 08/27/22 07:30 Pulse 65 08/27/22 09:00 Resp 21 H 08/27/22 09:00 BP 121/66 08/27/22 09:00 Pulse Ox 95 08/27/22 09:00 O2 Del Method 08/27/22 09:00 08/26/22 08/27/22 08/27/22 22:59 06:59 14:59 Intake Total 540.582 / 817.874 420 / 1237.874 240 / 240 Output Total 1750 / 2150 400 / 2550 Balance -1209.418 / -1332.126 20 / -1312.126 240 / 240 Weight last 48 hrs Weight 210 lb Weight 210 lb Physical Exam Narrative: GENERAL: The patient is alert and oriented times three. Not in any acute distress. HEENT: No significant pallor, icterus or lymphadenopathy.Oral cavity: There are no mucous membrane lesions. NECK: Trachea appears to be central. No masses noted. No JVD or thyromegaly appreciated. RESPIRATORY: Chest is symmetrical. No intercostals muscle retraction or any accessory muscle activation. There is no chest wall tenderness. Breath sounds are heard bilaterally. No rales or rhonchi heard. No evidence of any consolidation. BREASTS: Deferred. HEART: The heart sounds are normal. No S3 or S4. Short systolic murmur in the left sternal border. No pericardial rub ABDOMEN: No vessel pulsations or distention. No tenderness. No organomegaly appreciated. Bowel sounds are normally heard. : Deferred. RECTAL: Deferred. LYMPHATIC: No lymphadenopathy noted in the neck. EXTREMITIES: No edema or cyanosis. No clubbing. MUSCULOSKELETAL: No acute joint deformities or swelling SKIN: There are no significant rashes or ecchymosis NEUROPSYCHIATRIC: The patient is alert and oriented x3. Appears to be in a good mood. No tremors or rigidity noted. Data 08/27/22 02:24 08/27/22 02:24 Other Labs: Laboratory Last Values WBC 8.5 10^3/uL (4.0-10.0) 08/27/22 02:24 RBC 4.46 10^6/uL (4.1-5.3) 08/27/22 02:24 Hgb 13.2 g/dL (11.5-15.3) 08/27/22 02:24 Hct 40.9 % (37.0-47.0) 08/27/22 02:24 MCV 91.7 fl (81-99) 08/27/22 02:24 MCH 29.6 pg (28.0-34.0) 08/27/22 02:24 MCHC 32.3 g/dL (30.0-36.0) 08/27/22 02:24 RDW 12.7 % (12.1-15.1) 08/27/22 02:24 Plt Count 285 10^3/cmm (130-400) 08/27/22 02:24 MPV 9.8 fL (7.4-10.4) 08/27/22 02:24 Neut % (Auto) 58.1 % 08/27/22 02:24 Lymph % (Auto) 30.6 % 08/27/22 02:24 Wythe % (Auto) 9.5 % 08/27/22 02:24 Eos % (Auto) 0.9 % 08/27/22 02:24 Baso % (Auto) 0.4 % 08/27/22 02:24 Neut # (Auto) 4.94 10^3/uL (1.8-7.7) 08/27/22 02:24 Lymph # (Auto) 2.6 10^3/uL (0.8-4.8) 08/27/22 02:24 Wythe # (Auto) 0.8 10^3/uL (0.2-0.9) 08/27/22 02:24 Eos # (Auto) 0.1 10^3/uL (0.0-0.8) 08/27/22 02:24 Baso # (Auto) 0.0 10^3/uL (0.0-0.1) 08/27/22 02:24 Nucleated RBC % (auto) 0 % 08/27/22 02:24 Nucleated RBCs # 0.0 /100WBC 08/27/22 02:24 Sodium 133 mmol/L (136-145) L 08/27/22 02:24 Potassium 4.1 mmol/L (3.5-5.1) 08/27/22 02:24 Chloride 97 mmol/L (98-107) L 08/27/22 02:24 Carbon Dioxide 25 mmol/L (22-29) 08/27/22 02:24 Anion Gap 15.1 (5-19) 08/27/22 02:24 BUN 10 mg/dL (8-23) 08/27/22 02:24 Creatinine 0.6 mg/dL (0.5-0.9) 08/27/22 02:24 GFR Calculation Not Reportable 08/27/22 02:24 Glucose 95 mg/dL (65-115) 08/27/22 02:24 POC Glucose 111 mg/dL (70-110) H 08/26/22 17:21 Calculated Osmolality 275 mOsm/kg (285-295) L 08/27/22 02:24 Calcium 8.7 mg/dL (8.5-10.5) 08/27/22 02:24 Magnesium 2.3 mg/dL (1.7-2.3) 08/26/22 05:53 Total Bilirubin 0.3 mg/dL (0.15-1.2) 08/25/22 13:31 AST 11 U/L (0-32) 08/25/22 13:31 ALT 18 U/L (0-33) 08/25/22 13:31 Alkaline Phosphatase 78 U/L (35-105) 08/25/22 13:31 Troponin T Baseline 14 ng/L (0-10) H 08/25/22 13:31 Troponin T 120 Minute 16.00 ng/L (0-10) H 08/25/22 15:48 Delta Troponin T 2.00 ABS# (0-10) 08/25/22 15:48 Troponin T Hi Sens 6Hr 16.16 ng/L (0-10) H 08/25/22 20:00 Troponin T Hi Sens 6Hr Delta 2.16 ng/L (0-12) 08/25/22 20:00 NT-Pro-B Natriuret Pep 1223 pg/mL (0-450) H 08/25/22 20:00 Total Protein 8.2 g/dL (6.6-8.7) 08/25/22 13:31 Albumin 4.5 g/dL (3.5-5.2) 08/25/22 13:31 Globulin 3.7 g/dL (1.3-4.6) 08/25/22 13:31 TSH 1.72 uIU/mL (0.27-4.20) 08/25/22 20:00 A&P Assessment and plan (1) Atrial fibrillation with rapid ventricular response: Patient is currently on Betapace. Telemetry shows sinus rhythm. EKG today showed a QTC of 492. After the review for the left bundle branch block, it is around 430 msec (2) Diastolic heart failure: Currently the heart failure seems to be compensated. She may be treated with her diuretics on a as needed basis. (3) Benign essential HTN: Currently the blood pressures is in the normal range. Apparently had problems o f the lisinopril causing cough in the past. If she needs to be back on a blood pressure medication, losartan 25 mg will be a better choice. (4) RICHARD (obstructive sleep apnea): Because of claustrophobia, patient is not able to tolerate the CPAP. She uses oxygen at night. This may be continued. (5) Left bundle branch block: Patient has not had any high degree AV block so far. Her rhythm needs to be closely monitored. (6) Type 2 diabetes mellitus: Management as per Dr. Borrero. Qualifiers: Diabetes mellitus terminal operations manager insulin use: without terminal operations manager use Diabetes mellitus complication status: with hyperglycemia Qualified Code(s): E11.65 - Type 2 diabetes mellitus with hyperglycemia Plan May continue on the current medication. Continue to monitor on telemetry. Repeat EKG tomorrow. If she remains stable, possible discharge home tomorrow with Attestations Medical Necessity Statement*: Patient requires continued hospital stay for close monitoring and further management Coding Level of Care Code Acute Maintenance Repairman for Chg Fwd History Expanded Problem Focused Exam Expanded Problem Focused Medical Decision Making Moderate Complexity Diagnoses Atrial fibrillation with rapid ventricular response I48.91 Diastolic heart failure I50.30 Benign essential HTN I10 RICHARD (obstructive sleep apnea) G47.33 Left bundle branch block I44.7 Type 2 diabetes mellitus E11.65 Diabetes mellitus terminal operations manager insulin use: without terminal operations manager use Diabetes mellitus complication status: with hyperglycemia
[2022-08-27] MEDS: polyethylene glycol 3350 Pkt 17 gm PO (12:18)
--- NOTE | 2022-08-27 12:30 | ECG_ITS ---
[facility] Test Date: 2022-08-27 Pat Name: Corina Cabral Department: Room: ICU03 Gender: Female Lead Java J2Ee Developer: : 1940 Requested By: Terence Borrero Order Number: [id number] Clarita MD: Lio Yang M.D. Measurements Intervals [place] Rate: 56 P: 26 TN: 164 QRS: -24 QRSD: 134 T: 155 QT: 485 QTc: 472 Interpretive Statements SINUS BRADYCARDIA LEFT BUNDLE BRANCH BLOCK [120+ ms QRS DURATION, 80+ ms Q/S IN V1/V2, 85+ ms R IN I/aVL/V5/V6] INTERPRETATION BASED ON A DEFAULT AGE OF 40 YEARS Compared to ECG 08/27/2022 09:00:49 Sinus rhythm no longer present Electronically Signed On 08-27-2022 15:47:19 AUTOMOTIVE SERVICE TECHNICIAN by Lio Yang M.D. [email or web address] [email or web address] [id number]
[2022-08-27] MEDS: simethicone 80 mg Chew PO ×3 (13:58→21:27)
--- NOTE | 2022-08-27 14:06 | P.PN_ITS ---
Subjective Subjective: Patient was seen and examined this morning, currently in sinus rhythm, was started on sotalol. QTc interval being monitored, 2-hour after each dose. Currently at goal. Medications: Medication Review Details: Generic Name Dose Route Start Last Admin Trade Name Freq PRN Reason Stop Dose Admin Citalopram Hydrobr omide 10 mg 08/26/22 09:00 08/27/22 08:25 Citalopram 20 Mg Tablet PO 10 mg DAILY MEET Administration Docusate Sodium 100 mg 08/26/22 14:30 08/27/22 08:25 Docusate Sodium 100 Mg Capsule PO 100 mg DAILY MEET Administration Enoxaparin Sodium 40 mg 08/26/22 14:30 08/26/22 14:07 Enoxaparin 40 Mg /0.4 Ml Syringe SUBCUT 40 mg Q24H MEET Administration Non-Formulary Medi cation 100 mg 08/26/22 09:00 08/27/22 08:30 Coenzyme Q10 [Co q-10] PO Not Given DAILY MEET Non-Formulary Medi cation 150 mg 08/26/22 18:00 08/26/22 17:40 Magnesium PO Not Given QPM MEET Non-Formulary 0 each 08/26/22 19:00 08/27/22 08:25 Medication PO 1 each Famotidine 20 Mg BID MEET Administration Tablet Ondansetron HCl 4 mg 08/25/22 21:16 08/27/22 09:18 Ondansetron 2 Mg /Ml Sdv 2 Ml IVP 4 mg Q6H PRN Administration NAUSEA AND VOMITI NG Polyethylene Glyco l 17 gm 08/27/22 11:43 08/27/22 12:18 Polyethylene Gly col 3350 Pkt 17 Gm PO 17 gm DAILY PRN Administration CONSTIPATION Simethicone 80 mg 08/26/22 18:35 08/27/22 13:58 Simethicone 80 M g Chew PO 80 mg QID PRN Administration FLATULENCE Sotalol HCl 80 mg 08/26/22 19:00 08/27/22 06:03 Sotalol 80 Mg Ta blet PO 80 mg BID@0700,1900 MEET Administration Vitals/I&O/Wt Last Vital Signs Temp 98.6 F 08/27/22 07:30 Pulse 65 08/27/22 12:30 Resp 17 08/27/22 12:30 BP 129/73 08/27/22 12:30 Pulse Ox 94 08/27/22 12:30 O2 Del Method 08/27/22 12:30 08/26/22 08/27/22 08/27/22 22:59 06:59 14:59 Intake Total 540.582 / 817.874 420 / 1237.874 480 / 480 Output Total 1750 / 2150 400 / 2550 250 / 250 Balance -1209.418 / -1332.126 20 / -1312.126 230 / 230 Weight last 48 hrs Weight 95.254 kg Physical Exam Const: COMMON NORMALS: patient oriented x3 HENMT: COMMON NORMALS: normocephalic, atraumatic, hearing grossly normal bilaterally and external ears normal HEAD & SCALP: normocephalic and atraumatic EXTERNAL EAR: Yes external ears normal Resp: COMMON NORMALS: clear to auscultation bilaterally EFFORT & INSPECTION: Yes symmetric chest movement AUSCULTATION: clear to auscultation bilaterally Cardio: OTHER: Irregularly irregular rhythm, S1-S2 variable intensity GI: COMMON NORMALS: Normal to inspection, nondistended, normoactive bowel sounds present, Soft to palpation, non-tender, No hepatosplenomegaly present and no masses AUSCULTATION: Yes normoactive bowel sounds PALPATION: Yes Soft to palpation and Yes No hepatosplenomegaly present RECTAL EXAM: deferred Extremity: COMMON NORMALS: no clubbing, cyanosis or edema and no pedal edema Neuro: COMMON NORMALS: patient oriented x3 Data 08/27/22 02:24 08/27/22 02:24 A&P Assessment and plan (1) Atrial fibrillation with rapid ventricular response: (2) SILVA (generalized anxiety disorder): (3) Hypertension: Qualifiers: Hypertension type: primary hypertension Qualified Code(s): I10 - Essential (primary) hypertension Plan 81-year-old female with past medical history of A. fib status post ablation, GI bleed, epistaxis , chronic left bundle branch block, left-sided Ortiz's palsy, hypertension, mild MR, mild AR, obstructive sleep apnea, COPD, Was brought in from home with chief complaint of palpitation, according to her she is having these episodes of palpitation for last week or so during these episodes she has chest tightness shortness of breath dizziness nausea. She was admitted for the management of: Assessment: A. fib with RVR: With possibility of underlying tachybradycardia syndrome History of left-sided Ortiz's palsy Chronic left bundle branch block Hypertension Mild MR Mild AR History of COPD History of sleep apnea Plan: Troponin trend without significant delta. Most recent 2D echo: Normal LV size and systolic function, no RWMA , grade 1 diastolic dysfunction, mild MR. Currently not on therapeutic anticoagulation, given her prior history of GI bleed, as well as epistaxis, on prophylactic anticoagulation with Lovenox. Patient was initially on Cardizem drip, as well as p.o. Cardizem, was intermittently going into sinus rhythm, she was started on sotalol 80 p.o. twice daily, currently in sinus rhythm. Cardizem has been discontinued. Cardiology on board CODE STATUS: Full code Attestations Medical Necessity Statement*: Patient is in hospital for management of A. rick with RVR. Time Spent in Patient Care: Greater than 35 minutes (>than 50% of time spent in counselling and/or direct pt care on unit) . Coding Level of Care Code Acute Preformer Impregnated Fabrics for [facility] Fwd Diagnoses Atrial fibrillation with rapid ventricular response I48.91 SILVA (generalized anxiety disorder) F41.1 Hypertension I10 Hypertension type: primary hypertension
[2022-08-27] MEDS: enoxaparin 40 mg/0.4 mL Syringe SUBCUT (15:19)
[2022-08-27] MEDS: losartan 50 mg Tablet 25 MG PO (16:00)
--- NOTE | 2022-08-27 16:48 | ECG_ITS ---
[facility] Test Date: 2022-08-27 Pat Name: Corina Cabral Department: Room: ICU03 Gender: Female Performance Architect: : 1940 Requested By: Terence Borrero Order Number: [id number] Clarita MD: Shaniqua Phelps M.D. Measurements Intervals [place] Rate: 67 P: 29 FL: 159 QRS: -22 QRSD: 142 T: 149 QT: 445 QTc: 470 Interpretive Statements SINUS RHYTHM LEFT BUNDLE BRANCH BLOCK [120+ ms QRS DURATION, 80+ ms Q/S IN V1/V2, 85+ ms R IN I/aVL/V5/V6] Compared to ECG 08/27/2022 12:36:23 Sinus bradycardia no longer present Electronically Signed On 08-27-2022 17:33:06 RFID ANALYST by Shaniqua Phelps M.D. [id number]
--- NOTE | 2022-08-27 17:15 | PC.NURSE ---
Dr. Borrero notified of patient discomfort. Patient states she, just doesn't feel right. No changes on the monitor. Orders received to obtain EKG and repeat troponin series.
[2022-08-27 17:41] LABS: Glucose Point of Care 95 mg/dL (70-110)
[2022-08-27 18:24] LABS: Troponin(5th) Baseline 14 ng/L (0-10)
--- NOTE | 2022-08-27 18:34 | PC.NURSE ---
Unable to contact Dr. Yang at this time. Dr. Borrero notified of patients heart rate in the 60's with 80mg Sotalol due at 1900. Orders received to give 40mg Sotalol received.
[2022-08-27] MEDS: sotalol 80 mg Tablet 40 MG PO (18:49)
[2022-08-27 20:10] LABS: Troponin 5 2HR 13.21 ng/L (0-10)
[2022-08-27 20:12] LABS: Troponin 5 2HR Delta -0.79 ABS# (0-10)
[2022-08-28] VITALS (47 sets, daily range): BP systolic 85–188; BP diastolic 43–102; PULSE 57–82; RESP 0–30; TEMP 36.4–36.9; O2SAT 85–97
[2022-08-28 00:24] LABS: Troponin 5 6HR 14.72 ng/L (0-10)
[2022-08-28 00:26] LABS: Troponin 5 6HR Delta 0.72 ng/L (0-12)
[2022-08-28] MEDS: sotalol 80 mg Tablet PO ×2 (06:16→19:16)
--- NOTE | 2022-08-28 06:32 | ECG_ITS ---
[facility] Test Date: 2022-08-28 Pat Name: Corina Cabral Department: Room: ICU03 Gender: Female Chain Maker Hand: : 1940 Requested By: Lio Yang Order Number: [id number] Otto MD: Shaniqua Phelps M.D. Measurements Intervals [place] Rate: 59 P: 26 NE: 155 QRS: -26 QRSD: 134 T: 155 QT: 461 QTc: 457 Interpretive Statements SINUS BRADYCARDIA LEFT BUNDLE BRANCH BLOCK [120+ ms QRS DURATION, 80+ ms Q/S IN V1/V2, 85+ ms R IN I/aVL/V5/V6] Compared to ECG 08/27/2022 16:55:36 Sinus rhythm no longer present Electronically Signed On 08-28-2022 10:58:08 MATERIALS SCHEDULER by Shaniqua Phelps M.D. [email or web address] health miami valley [email or web address]/store/[id number]
[2022-08-28] MEDS: losartan 50 mg Tablet 25 MG PO ×2 (08:04→17:14)
[2022-08-28 08:06] LABS: Basophils % 0.4 %; Eosinophils # 0.1 10^3/uL (0.0-0.8); Hematocrit 41.4 % (37.0-47.0); Hemoglobin 13.9 g/dL (11.5-15.3); Lymphocytes # 1.9 10^3/uL (0.8-4.8); Lymphocytes % 22.2 %; Mean Corpuscular HGB Conc 33.6 g/dL (30.0-36.0); Mean Corpuscular Hemoglobin 30.1 pg (28.0-34.0); Mean Corpuscular Volume 89.6 fl (81-99); Mean Platelet Volume 9.3 fL (7.4-10.4); Monocytes # 0.8 10^3/uL (0.2-0.9); Monocytes % 9.1 %; Neutrophils # 5.63 10^3/uL (1.8-7.7); Neutrophils % 66.8 %; Nucleated Red Blood Cells % 0 %; Platelet Count 278 10^3/cmm (130-400); Red Blood Count 4.62 10^6/uL (4.1-5.3); Red Cell Distribution Width 12.4 % (12.1-15.1); White Blood Count 8.4 10^3/uL (4.0-10.0)
--- NOTE | 2022-08-28 08:23 | ECG_ITS ---
[facility] Test Date: 2022-08-28 Pat Name: Corina Cabral Department: Room: ICU03 Gender: Female Visual Designer: : 1940 Requested By: Terence Borrero Order Number: [id number] Clarita MD: Shaniqua Phelps M.D. Measurements Intervals [place] Rate: 64 P: 44 NM: 159 QRS: -26 QRSD: 139 T: 154 QT: 458 QTc: 474 Interpretive Statements SINUS RHYTHM LEFT BUNDLE BRANCH BLOCK [120+ ms QRS DURATION, 80+ ms Q/S IN V1/V2, 85+ ms R IN I/aVL/V5/V6] Compared to ECG 08/28/2022 06:32:06 Sinus bradycardia no longer present Electronically Signed On 08-29-2022 8:30:41 CHILLER TECHNICIAN by Shaniqua Phelps M.D. [id number]
--- NOTE | 2022-08-28 08:54 | PC.NURSE ---
EKG done at 0831, results are not synching to chart. Paper EKG results in physical chart. Qtc is 467. Nurse alerted Dr jeff to results
[2022-08-28] MEDS: citalopram 20 mg Tablet 10 MG PO (09:01)
[2022-08-28] MEDS: docusate sodium 100 mg Capsule PO (09:02)
[2022-08-28] MEDS: simethicone 80 mg Chew PO ×3 (09:26→18:24)
[2022-08-28 09:52] LABS: Anion Gap 14.6 (5-19); Blood Urea Nitrogen 9 mg/dL (8-23); Calcium 9.3 mg/dL (8.5-10.5); Carbon Dioxide 29 mmol/L (22-29); Chloride 91 mmol/L (98-107); Creatinine Clr Calc Pharmacy 62.5995; Glucose 121 mg/dL (65-115); Osmolality Calculated 270 mOsm/kg (285-295); Potassium 4.6 mmol/L (3.5-5.1); Sodium 130 mmol/L (136-145)
--- NOTE | 2022-08-28 09:55 | P.PN_ITS ---
Subjective Subjective: 81 year old female with a history of atrial fibrillation, status post radiofrequency ablation in 2019 admitted with complaints of palpitations and dizziness.? She was found to be atrial fibrillation rapid ventricular rate and was started on IV Cardizem.? She spontaneously converted to sinus rhythm and then went back into fibrillation. She has been started on sotalol 80 mg twice a day. Patient complains of feeling tired. No other complaints. No events on telemetry. Remains in sinus rhythm with sinus bradycardia with heart rate in 50s at night. Medications: Reviewed: Yes Vitals/I&O/Wt Last Vital Signs Temp 97.6 F 08/28/22 09:00 Pulse 74 08/28/22 09:00 Resp 19 H 08/28/22 09:00 BP 168/91 08/28/22 09:00 Pulse Ox 94 08/28/22 09:00 O2 Del Method 08/28/22 09:00 08/27/22 08/28/22 08/28/22 22:59 06:59 14:59 Intake Total 340 / 820 100 / 920 400 / 400 Output Total 1200 / 1200 Balance 340 / 320 100 / 420 -800 / -800 Physical Exam Const: COMMON NORMALS: no acute distress, patient oriented x3 and alert GENERAL APPEARANCE: cooperative, comfortable, well kempt and well hydrated HENMT: COMMON NORMALS: hearing grossly normal bilaterally and external ears normal FACE & SINUS: normal facial exam NOSE: No nasal discharge present EXTERNAL EAR: Yes external ears normal Eye: COMMON NORMALS: EOMs intact bilaterally and no scleral icterus GENERAL EYE: appearance normal, both eyes and all related structures ALIGNMENT: Yes alignment normal Neck/C-Spine: COMMON NORMALS: supple and no JVD GENERAL: Yes normal visual inspection CAROTIDS: Yes normal carotid upstroke Chest: COMMONS NORMALS: normal inspection of the chest and normal palpation of entire chest wall CHEST: Yes Symmetrical chest wall rise Resp: COMMON NORMALS: clear to auscultation bilaterally AUSCULTATION: clear to auscultation bilaterally, no crackles, no rales, no rhonchi and no wheezes Cardio: COMMON NORMALS: no JVD, regular rate, regular rhythm, S1 normal heart sound present, S2 normal heart sound present and Peripheral pulses 2+ throughout PALPATION: normal PMI RATE: regular rate RHYTHM: regular rhythm HEART SOUNDS: S1 normal heart sound present, S2 normal heart sound present, no gallops and no murmurs BRUITS: no carotid bruits PERIPHERAL PULSES: Pe ripheral pulses 2+ throughout, radial pulses present, posterior tibial pulses present and dorsalis pedis present GI: COMMON NORMALS: Soft to palpation AUSCULTATION: Yes normoactive bowel sounds PALPATION: Yes Soft to palpation, No Tenderness to palpation present (GI), No Guarding due to palpation present (GI) and No Rigid due to palpation Extremity: GENERAL: No cyanosis, No edema and No pallor Neuro: COMMON NORMALS: patient oriented x3 and no focal motor deficits S ENSORIUM/ORIENTATION: Yes alert Psych: COMMON NORMALS: Normal thought process present and speech normal APPEARANCE: Yes well kempt SPEECH: Yes normal speech MOOD & AFFECT: Yes euthymic mood THOUGHT PROCESS: Normal thought process present THOUGHT CONTENT: Yes Normal thought content present Data 08/28/22 07:41 08/28/22 09:10 A&P Assessment and plan (1) A-fib: Paroxysmal atrial fibrillation. -Noted anticoagulation given history of GI bleed. -EKG showing acceptable QTc interval -Possible discharge tomorrow morning Qualifiers: Atrial fibrillation type: longstanding persistent Qualified Code(s): I48.11 - Longstanding persistent atrial fibrillation (2) Diastolic heart failure: Appears compensated on exam (3) Benign essential HTN: (4) Left bundle branch block: (5) Type 2 diabetes mellitus: Qualifiers: Diabetes mellitus fci insulin use: without fci use Diabetes mellitus complication status: with hyperglycemia Qualified Code(s): E11.65 - Type 2 diabetes mellitus with hyperglycemia (6) RICHARD (obstructive sleep apnea): (7) Hyperlipidemia: Qualifiers: Hyperlipidemia type: mixed hyperlipidemia Qualified Code(s): E78.2 - Mixed hyperlipidemia Plan Mild mitral and aortic valve regurgitation Attestations Medical Necessity Statement*: Possible discharge tomorrow Time Spent in Patient Care: 16 - 35 minutes Coding Level of Care Code Acute Highway Truck Driver for [facility] Fwd Diagnoses A-fib I48.11 Atrial fibrillation type: longstanding persistent Diastolic heart failure I50.30 Benign essential HTN I10 Left bundle branch block I44.7 Type 2 diabetes mellitus E11.65 Diabetes mellitus assistant terminal manager insulin use: without fci use Diabetes mellitus complication status: with hyperglycemia RICHARD (obstructive sleep apnea) G47.33 Hyperlipidemia E78.2 Hyperlipidemia type: mixed hyperlipidemia
--- NOTE | 2022-08-28 11:16 | PC.NURSE ---
AMbulated patient in slater. Walked approximately 200 ft. No arrhythmias, heart rate stayed between 70-80. Patient tolerated activity well.
[2022-08-28] MEDS: hyDRALAzine 25 mg Tablet PO (13:07)
[2022-08-28] MEDS: enoxaparin 40 mg/0.4 mL Syringe SUBCUT (14:02)
--- NOTE | 2022-08-28 15:12 | PM.PN ---
Subjective Subjective: Patient was seen and examined this morning no acute events overnight continue to be in sinus rhythm on telemetry with sinus bradycardia overnight, complaining of fatigue, EKG monitoring has shown QTc interval at goal. Medications: Reviewed: Yes Medication Review Details: Generic Name Dose Route Start Last Admin Trade Name Freq PRN Reason Stop Dose Admin Citalopram Hydrobr omide 10 mg 08/26/22 09:00 08/28/22 09:01 Citalopram 20 Mg Tablet PO 10 mg DAILY MEET Administration Docusate Sodium 100 mg 08/26/22 14:30 08/28/22 09:02 Docusate Sodium 100 Mg Capsule PO 100 mg DAILY MEET Administration Enoxaparin Sodium 40 mg 08/26/22 14:30 08/28/22 14:02 Enoxaparin 40 Mg /0.4 Ml Syringe SUBCUT 40 mg Q24H MEET Administration Hydralazine HCl 25 mg 08/25/22 21:16 08/28/22 13:07 Hydralazine 25 M g Tablet PO 25 mg TID PRN Administration hypertension with nosebleed Losartan Potassium 25 mg 08/27/22 15:54 08/28/22 08:04 Losartan 50 Mg T ablet PO 25 mg DAILY MEET Administration Non-Formulary Medi cation 100 mg 08/26/22 09:00 08/28/22 09:15 Coenzyme Q10 [Co q-10] PO Not Given DAILY MEET Non-Formulary Medi cation 150 mg 08/26/22 18:00 08/27/22 17:53 Magnesium PO Not Given QPM MEET Non-Formulary 0 each 08/26/22 19:00 08/28/22 09:03 Medication PO 1 each Famotidine 20 Mg BID MEET Administration Tablet Ondansetron HCl 4 mg 08/25/22 21:16 08/27/22 09:18 Ondansetron 2 Mg /Ml Sdv 2 Ml IVP 4 mg Q6H PRN Administration NAUSEA AND VOMITI NG Polyethylene Glyco l 17 gm 08/27/22 11:43 08/27/22 12:18 Polyethylene Gly col 3350 Pkt 17 Gm PO 17 gm DAILY PRN Administration CONSTIPATION Simethicone 80 mg 08/26/22 18:35 08/28/22 13:05 Simethicone 80 M g Chew PO 80 mg QID PRN Administration FLATULENCE Sotalol HCl 80 mg 08/26/22 19:00 08/28/22 06:16 Sotalol 80 Mg Ta blet PO 80 mg BID@0700,1900 MEET Administration Vitals/I&O/Wt Last Vital Signs Temp 98.5 F 08/28/22 13:00 Pulse 69 08/28/22 14:00 Resp 23 H 08/28/22 14:00 BP 143/74 08/28/22 14:00 Pulse Ox 93 08/28/22 14:00 O2 Del Method 08/28/22 13:00 08/28/22 08/28/22 08/28/22 06:59 14:59 22:59 Intake Total 100 / 920 900 / 900 Output Total 2200 / 2200 Balance 100 / 420 -1300 / -1300 Physical Exam Const: COMMON NORMALS: patient oriented x3 HENMT: COMMON NORMALS: normocephalic, atraumatic, hearing grossly normal bilaterally and external ears normal HEAD & SCALP: normocephalic and atraumatic EXTERNAL EAR: Yes external ears normal Resp: COMMON NORMALS: clear to auscultation bilaterally EFFORT & INSPECTION: Yes symmetric chest movement AUSCULTATION: clear to auscultation bilaterally Cardio: OTHER: Regular rhythm, S1-S2 normal GI: COMMON NORMALS: Normal to inspection, nondistended, normoactive bowel sounds present, Soft to palpation, non-tender, No hepatosplenomegaly present and no masses AUSCULTATION: Yes normoactive bowel sounds PALPATION: Yes Soft to palpation and Yes No hepatosplenomegaly present RECTAL EXAM: deferred Extremity: COMMON NORMALS: no clubbing, cyanosis or edema and no pedal edema Neuro: COMMON NORMALS: patient oriented x3 Data 08/28/22 07:41 08/28/22 09:10 A&P Assessment and plan (1) Atrial fibrillation with rapid ventricular response: (2) SILVA (generalized anxiety disorder): (3) Hypertension: Qualifiers: Hypertension type: primary hypertension Qualified Code(s): I10 - Essential (primary) hypertension Plan 81-year-old female with past medical history of A. fib status post ablation, GI bleed, epistaxis , chronic left bundle branch block, left-sided Ortiz's palsy, hypertension, mild MR, mild AR, obstructive sleep apnea, COPD, Was brought in from home with chief complaint of palpitation, according to her she is having these episodes of palpitation for last week or so during these episodes she has chest tightness shortness of breath dizziness nausea. She was admitted for the management of: Assessment: A. rick with RVR: With possibility of underlying tachybradycardia syndrome History of left-sided Ortiz's palsy Chronic left bundle branch block Hypertension Mild MR Mild AR History of COPD History of sleep apnea Plan: Troponin trend without significant delta. Most recent 2D echo: Normal LV size and systolic function, no RWMA , grade 1 diastolic dysfunction, mild MR. Currently not on therapeutic anticoagulation, given her prior history of GI bleed, as well as epistaxis, on prophylactic anticoagulation with Lovenox. Patient was initially on Cardizem drip, as well as p.o. Cardizem, was intermittently going into sinus rhythm, she was started on sotalol 80 p.o. twice daily, currently in sinus rhythm. Cardizem has been discontinued. Cardiology on board CODE STATUS: Full code Attestations Medical Necessity Statement*: Patient is to be in hospital for continued EKG monitoring. Coding Level of Care Code Acute Reimbursement Consultant for Chg Fwd Exam Detailed Diagnoses Atrial fibrillation with rapid ventricular response I48.91 SILVA (generalized anxiety disorder) F41.1 Hypertension I10 Hypertension type: primary hypertension
--- NOTE | 2022-08-28 18:28 | PC.NURSE ---
at 1700 patient reported a dizzy feeling and tingling in her head. She feels as though her blood pressure is high. Nurse checked blood pressure and it was [address] guevara and received a a one time dose of losartan (see mar), and [facility] dose of [facility] was incraesed form 25 mg to 50 mg. Nurse administered losartant and it was effective at bringing blood pressure down and relieving the dizzyness and tingling feelings. Nurse has noticed that patient starts to feel these dizzy and tingling sensations when blood pressure in above 160 systolic. He report of symptoms reliably coincide with hypertension.
--- NOTE | 2022-08-28 18:37 | PC.NURSE ---
SHift SUmmary: Uneventful shift. Patient rested in bed throughout the day. WE ambulated in the slater about 200 feet and she tolerated this well with no arrhythmias. Patient has been very independent today frequently getting up to use the restroom and up to a chair. Patient has had to receive prn hydralazine once today, and a one time dose of losartan due to hypertension which has been accompanied with dizzyness and tingling sensations in the head.
--- NOTE | 2022-08-28 21:00 | ECG_ITS ---
[facility] Test Date: 2022-08-28 Pat Name: Corina Cabral Department: Room: ICU03 Gender: Female Electronic Device Monitor: : 1940 Requested By: Terence Borrero Order Number: [id number] Clarita MD: Shaniqua Phelps M.D. Measurements Intervals [place] Rate: 63 P: 16 MS: 163 QRS: -33 QRSD: 136 T: 148 QT: 451 QTc: 462 Interpretive Statements SINUS RHYTHM LEFT AXIS DEVIATION [QRS AXIS < -30] LEFT BUNDLE BRANCH BLOCK [120+ ms QRS DURATION, 80+ ms Q/S IN V1/V2, 85+ ms R IN I/aVL/V5/V6] Compared to ECG 08/28/2022 08:31:20 Left-axis deviation now present Electronically Signed On 08-29-2022 8:25:27 CEO & FOUNDER by Shaniqua Phelps M.D. [id number]
[2022-08-29] VITALS (7 sets, daily range): BP systolic 130–159; BP diastolic 67–91; PULSE 57–73; RESP 16–18; TEMP 36.4–36.8; O2SAT 92–97
[2022-08-29] MEDS: sotalol 80 mg Tablet PO (06:22)
[2022-08-29] MEDS: docusate sodium 100 mg Capsule PO (08:20)
[2022-08-29] MEDS: losartan 50 mg Tablet PO (08:21)
[2022-08-29] MEDS: citalopram 20 mg Tablet 10 MG PO (08:21)
[2022-08-29] MEDS: simethicone 80 mg Chew PO (08:23)
--- NOTE | 2022-08-29 08:33 | P.PN_ITS ---
Subjective Subjective: no new complaints. remains in SR Medications: Reviewed: Yes Vitals/I&O/Wt Last Vital Signs Temp 97.5 F L 08/29/22 07:34 Pulse 64 08/29/22 07:34 Resp 18 08/29/22 07:34 BP 159/91 08/29/22 08:21 Pulse Ox 97 08/29/22 07:34 O2 Del Method 08/29/22 07:34 O2 Flow Rate 2 08/29/22 07:34 08/28/22 08/29/22 08/29/22 22:59 06:59 14:59 Intake Total 400 / 1300 Output Total 900 / 3100 650 / 3750 Balance -500 / -1800 -650 / -2450 Physical Exam 2 Const: COMMON NORMALS: no acute distress, patient oriented x3 and alert GENERAL APPEARANCE: cooperative, comfortable, well kempt and well hydrated HENMT: COMMON NORMALS: hearing grossly normal bilaterally and external ears normal FACE & SINUS: normal facial exam NOSE: No nasal discharge present EXTERNAL EAR: Yes external ears normal Eye: COMMON NORMALS: EOMs intact bilaterally and no scleral icterus GENERAL EYE: appearance normal, both eyes and all related structures ALIGNMENT: Yes alignment normal Neck/C-Spine: COMMON NORMALS: supple and no JVD GENERAL: Yes normal visual inspection CAROTIDS: Yes normal carotid upstroke Chest: COMMONS NORMALS: normal inspection of the chest and normal palpation of entire chest wall CHEST: Yes Symmetrical chest wall rise Resp: COMMON NORMALS: clear to auscultation bilaterally AUSCULTATION: clear to auscultation bilaterally, no crackles, no rales, no rhonchi and no wheezes Cardio: COMMON NORMALS: no JVD, regular rate, regular rhythm, S1 normal heart sound present, S2 normal heart sound present and Peripheral pulses 2+ throughout PALPATION: normal PMI RATE: regular rate RHYTHM: regular rhythm HEART SOUNDS: S1 normal heart sound present, S2 normal heart sound present, no gallops and no murmurs BRUITS: no carotid bruits PERIPHERAL PULSES: Per ipheral pulses 2+ throughout, radial pulses present, posterior tibial pulses present and dorsalis pedis present GI: COMMON NORMALS: Soft to palpation AUSCULTATION: Yes normoactive bowel sounds PALPATION: Yes Soft to palpation, No Tenderness to palpation present (GI), No Guarding due to palpation present (GI) and No Rigid due to palpation Extremity: GENERAL: No cyanosis, No edema and No pallor Neuro: COMMON NORMALS: patient oriented x3 and no focal motor deficits SE NSORIUM/ORIENTATION: Yes alert Psych: COMMON NORMALS: Normal thought process present and speech normal APPEARANCE: Yes well kempt SPEECH: Yes normal speech MOOD & AFFECT: Yes euthymic mood THOUGHT PROCESS: Normal thought process present THOUGHT CONTENT: Yes Normal thought content present Data 08/28/22 07:41 08/28/22 09:10 A&P Assessment and plan (1) A-fib: Paroxysmal atrial fibrillation. -Noted anticoagulation given history of GI bleed. -EKG showing acceptable QTc interval -May be discharged today -f/u with Kathleen in 1-2 weeks Qualifiers: Atrial fibrillation type: longstanding persistent Qualified Code(s): I48.11 - Longstanding persistent atrial fibrillation (2) Diastolic heart failure: Appears compensated on exam (3) Benign essential HTN: (4) Left bundle branch block: (5) Type 2 diabetes mellitus: Qualifiers: Diabetes mellitus complication status: with hyperglycemia Diabetes mellitus alf insulin use: without rn long term care use Qualified Code(s): E11.65 - Type 2 diabetes mellitus with hyperglycemia (6) RICHARD (obstructive sleep apnea): (7) Hyperlipidemia: Qualifiers: Hyperlipidemia type: mixed hyperlipidemia Qualified Code(s): E78.2 - Mixed hyperlipidemia Plan Mild mitral and aortic valve regurgitation Attestations Medical Necessity Statement*: stable to be discharged Coding Level of Care Code Acute Property Damage Claims Adjustor for Chg Fwd Exam Comprehensive Diagnoses A-fib I48.11 Atrial fibrillation type: longstanding persistent Diastolic heart failure I50.30 Benign essential HTN I10 Left bundle branch block I44.7 Type 2 diabetes mellitus E11.65 Diabetes mellitus complication status: with hyperglycemia Diabetes mellitus rn long term care insulin use: without alf use RICHARD (obstructive sleep apnea) G47.33 Hyperlipidemia E78.2 Hyperlipidemia type: mixed hyperlipidemia
--- NOTE | 2022-08-29 09:30 | ECG_ITS ---
[facility] Test Date: 2022-08-29 Pat Name: Corina Cabral Department: Room: 105 Gender: Female Textile Chemist: : 1940 Requested By: Terence Borrero Order Number: [id number] Clarita MD: Shaniqua Phelps M.D. Measurements Intervals [place] Rate: 82 P: 77 IN: 182 QRS: -31 QRSD: 145 T: 138 QT: 416 QTc: 486 Interpretive Statements SINUS RHYTHM POSSIBLE LEFT ATRIAL ENLARGEMENT [-0.1mV P-WAVE IN V1/V2] LEFT AXIS DEVIATION [QRS AXIS < -30] LEFT BUNDLE BRANCH BLOCK [120+ ms QRS DURATION, 80+ ms Q/S IN V1/V2, 85+ ms R IN I/aVL/V5/V6] Compared to ECG 08/28/2022 20:35:47 No significant changes Electronically Signed On 08-30-2022 6:01:38 FUNERAL SERVICE PRACTITIONER/EMBALMER by Shaniqua Phelps M.D. [id number]
--- NOTE | 2022-08-29 09:45 | PC.NURSE ---
Patient had anxiety attack, physician notified. Patient to start xanax 0.5mg TID prn
[2022-08-29] MEDS: ALPRAZolam 0.5 mg Tablet PO (10:26)
--- NOTE | 2022-08-29 10:38 | P.DS_ITS ---
Discharge Providers Date of Admission: 08/26/22 14:49 Date of Discharge: August 29, 2022 Attending Provider at Admission: Fredrick Martines MD Attending Provider at Discharge: Terence Borrero MD Primary Care Provider: Evangelina Winslow DO Diagnoses at Discharge Discharge Diagnosis (1) A-fib: Status: Acute Qualifiers: Atrial fibrillation type: longstanding persistent Qualified Code(s): I48.11 - Longstanding persistent atrial fibrillation (2) Diastolic heart failure: Status: Acute (3) Benign essential HTN: Status: Acute (4) Left bundle branch block: Status: Acute (5) Type 2 diabetes mellitus: Status: Acute Qualifiers: Diabetes mellitus complication status: with hyperglycemia Diabetes mellitus lead maintenance technician insulin use: without alf use Qualified Code(s): E11.65 - Type 2 diabetes mellitus with hyperglycemia (6) RICHARD (obstructive sleep apnea): Status: Acute Permanent problem details: Pt has clostrophobia, could not use CPAP- uses oxygen at [facility] (7) Hyperlipidemia: Status: Acute Qualifiers: Hyperlipidemia type: mixed hyperlipidemia Qualified Code(s): E78.2 - Mixed hyperlipidemia Reason for Visit Reason for Visit: irregular Blood pressure, chest pain, SOB Hospital Course Hospital Course 81-year-old female with past medical history of A. fib status post ablation, GI bleed, epistaxis , chronic left bundle branch block, left-sided Ortiz's palsy, hypertension, mild MR, mild AR, obstructive sleep apnea, COPD, Was brought in from home with chief complaint of palpitation, according to her she is having these episodes of palpitation for last week or so during these episodes she has chest tightness shortness of breath dizziness nausea. 'she was admitted for the management of paroxysmal A. fib with RVR, initially she was kept on Cardizem drip As well as p.o. Cardizem, she was intermittently converting to sinus rhythm, was later transitioned to sotalol p.o. On sotalol she was monitored for 3 days with 2-hour post sotalol dose EKG, for corrected QTC: Which was within acceptable range, she was discharged on sotalol 80 twice daily p.o. she was in sinus rhythm at the time of discharge. Patient was not started on anticoagulation during the hospital stay, as he has prior history of GI bleed as well as epistaxis. Risk and benefit of anticoagulation was discussed in detail with the family and it was decided not to use anticoagulation.Patient responded well to above medical management she is being discharged in stable condition to home she willl follow cardiology as outpatient. Physical Exam Const: COMMON NORMALS: patient oriented x3 HENMT: COMMON NORMALS: normocephalic, atraumatic, hearing grossly normal bilaterally and external ears normal HEAD & SCALP: normocephalic and atraumatic EXTERNAL EAR: Yes external ears normal Resp: COMMON NORMALS: clear to auscultation bilaterally EFFORT & INSPECTION: Yes symmetric chest movement AUSCULTATION: clear to auscultation bilaterally Cardio: OTHER: Regular rhythm, S1-S2 normal GI: COMMON NORMALS: Normal to inspection, nondistended, normoactive bowel sounds present, Soft to palpation, non-tender, No hepatosplenomegaly present and no masses AUSCULTATION: Yes normoactive bowel sounds PALPATION: Yes Soft to palpation and Yes No hepatosplenomegaly present RECTAL EXAM: deferred Extremity: COMMON NORMALS: no clubbing, cyanosis or edema and no pedal edema Neuro: COMMON NORMALS: patient oriented x3 Discharge Data Studies Completed and Pending Completed Studies During Hospitalization Category Date Time Status XR chest 1V portable [id number] Stat Exams 08/25/22 13:08 Completed Radiology Impressions Chest X-Ray 08/25/22 13:08 IMPRESSION: 1. No acute cardiopulmonary finding. No change. Laboratory Results WBC 8.4 10^3/uL (4.0-10.0) 08/28/22 07:41 RBC 4.62 10^6/uL (4.1-5.3) 08/28/22 07:41 Hgb 13.9 g/dL (11.5-15.3) 08/28/22 07:41 Hct 41.4 % (37.0-47.0) 08/28/22 07:41 MCV 89.6 fl (81-99) 08/28/22 07:41 MCH 30.1 pg (28.0-34.0) 08/28/22 07:41 MCHC 33.6 g/dL (30.0-36.0) 08/28/22 07:41 RDW 12.4 % (12.1-15.1) 08/28/22 07:41 Plt Count 278 10^3/cmm (130-400) 08/28/22 07:41 MPV 9.3 fL (7.4-10.4) 08/28/22 07:41 Neut % (Auto) 66.8 % 08/28/22 07:41 Lymph % (Auto) 22.2 % 08/28/22 07:41 [place] % (Auto) 9.1 % 08/28/22 07:41 Eos % (Auto) 1.0 % 08/28/22 07:41 Baso % (Auto) 0.4 % 08/28/22 07:41 Neut # (Auto) 5.63 10^3/uL (1.8-7.7) 08/28/22 07:41 Lymph # (Auto) 1.9 10^3/uL (0.8-4.8) 08/28/22 07:41 [place] # (Auto) 0.8 10^3/uL (0.2-0.9) 08/28/22 07:41 Eos # (Auto) 0.1 10^3/uL (0.0-0.8) 08/28/22 07:41 Baso # (Auto) 0.0 10^3/uL (0.0-0.1) 08/28/22 07:41 Nucleated RBC % (auto) 0 % 08/28/22 07:41 Nucleated RBCs # 0.0 /100WBC 08/28/22 07:41 Sodium 130 mmol/L (136-145) L 08/28/22 09:10 Potassium 4.6 mmol/L (3.5-5.1) 08/28/22 09:10 Chloride 91 mmol/L (98-107) L 08/28/22 09:10 Carbon Dioxide 29 mmol/L (22-29) 08/28/22 09:10 Anion Gap 14.6 (5-19) 08/28/22 09:10 BUN 9 mg/dL (8-23) 08/28/22 09:10 Creatinine 0.6 mg/dL (0.5-0.9) 08/28/22 09:10 GFR Calculation Not Reportable 08/28/22 09:10 Glucose 121 mg/dL (65-115) H 08/28/22 09:10 POC Glucose 95 mg/dL (70-110) 08/27/22 17:21 Calculated Osmolality 270 mOsm/kg (285-295) L 08/28/22 09:10 Calcium 9.3 mg/dL (8.5-10.5) 08/28/22 09:10 Magnesium 2.3 mg/dL (1.7-2.3) 08/26/22 05:53 Total Bilirubin 0.3 mg/dL (0.15-1.2) 08/25/22 13:31 AST 11 U/L (0-32) 08/25/22 13:31 ALT 18 U/L (0-33) 08/25/22 13:31 Alkaline Phosphatase 78 U/L (35-105) 08/25/22 13:31 Troponin T Baseline 14 ng/L (0-10) H 08/27/22 17:58 Troponin T 120 Minute 13.21 ng/L (0-10) H 08/27/22 19:46 Delta Troponin T -0.79 ABS# (0-10) L 08/27/22 19:46 Troponin T Hi Sens 6Hr 14.72 ng/L (0-10) H 08/27/22 23:55 Troponin T Hi Sens 6Hr Delta 0.72 ng/L (0-12) 08/27/22 23:55 NT-Pro-B Natriuret Pep 1223 pg/mL (0-450) H 08/25/22 20:00 Total Protein 8.2 g/dL (6.6-8.7) 08/25/22 13:31 Albumin 4.5 g/dL (3.5-5.2) 08/25/22 13:31 Globulin 3.7 g/dL (1.3-4.6) 08/25/22 13:31 TSH 1.72 uIU/mL (0.27-4.20) 08/25/22 20:00 Vitals Last Vital Signs Temp 97.5 F L 08/29/22 07:34 Pulse 65 08/29/22 08:00 Resp 16 08/29/22 08:00 BP 159/91 08/29/22 08:21 Pulse Ox 94 08/29/22 08:00 O2 Del Method 08/29/22 08:00 O2 Flow Rate 2 08/29/22 07:34 Discharge Plan Discharge Patient Disposition: Home Condition: Stable Prescriptions: New losartan 50 mg Tablet 50 mg PO DAILY 30 Days Qty: 30 3RF polyethylene glycol 3350 17 gram Powder In Packet 17 g PO DAILY PRN (Reason: Constipation) 30 Days Qty: 30 0RF sotalol 80 mg Tablet 80 mg PO BID@0700,1900 30 Days Qty: 60 3RF alprazolam 0.5 mg Tablet 0.5 mg PO TID PRN (Reason: Anxiety) 30 Days Qty: 30 0RF Continued Macular Health Formula 5-1-7.5 mg capsule 1 cap PO DAILY astralagalus 1 cap PO DAILY cholecalciferol (vitamin D3) 125 mcg (5,000 unit) capsule 125 mcg PO DAILY magnesium 200 mg tablet 150 mg PO QPM furosemide 20 mg tablet 20 - 40 mg PO QAM PRN (Reason: edema) Hold Instructions: switching to HCTZ potassium chloride [Klor-Con 10] 10 mEq tablet extended release 10 meq PO DAILY PRN (Reason: when taking lasix) (DME) Diabetic shoes See Rx Instructions .Route .MEDSUPPLY Qty: 1 0RF Rx Instructions: As directed with 3 pairs of inserts. Made by [employer] mupirocin 2 % ointment 1 applic topical BID PRN (Reason: unknown) Rx Instructions: To affected area triamcinolone acetonide 0.1 % ointment 1 applic topical BID PRN (Reason: unknown) Rx Instructions: Apply to affected areas on back and arms no more than 2 weeks per month. Not for face multivitamin Tablet 1 tab PO DAILY ondansetron HCl 4 mg tablet 4 mg PO Q8H PRN (Reason: nausea and vomiting) Qty: 10 0RF citalopram [Celexa] 10 mg tablet 10 mg PO DAILY Qty: 30 0RF Rx Instructions: pt not started taking as of 08/25/22 albuterol sulfate [Ventolin HFA] 90 mcg/actuation HFA aerosol inhaler 2 puff INHALATION Q6H PRN (Reason: Shortness Of Breath) Qty: 8.5 1RF levalbuterol HCl 0.63 mg/3 mL solution for nebulization 0.63 mg INHALATION TID PRN (Reason: SOB or wheezing) Qty: 90 0RF (DME) Rollator Walker See Rx Instructions .Route .MEDSUPPLY Qty: 1 0RF Rx Instructions: As directed Vitamin C Powder See Rx Instructions .ROUTE .COMPLEX Rx Instructions: 1/2 teaspoonful po bid (mix with water) Systane Ultra (PF) 0.4-0.3 % dropperette 1 drp ophthalmic (eye) DAILY hydralazine 25 mg tablet 25 mg PO TID PRN (Reason: hypertension with nosebleed) Qty: 20 0RF Rx Instructions: for >160 systolic or >110 diastolic with nosebleed estradiol 0.01 % (0.1 mg/gram) cream See Rx Instructions .ROUTE .COMPLEX Rx Instructions: insert vaginally once a week on tuesday CoQ-10 100 mg Capsule 100 mg PO DAILY omega-3 fatty acids-fish oil 684-1,200 mg Capsule,Delayed Release(Dr/Ec) 1 cap PO DAILY Discontinued metoprolol tartrate 25 mg tablet 25 mg PO TID Rx Instructions: May take up to 75mg in a 24hr period as long as HR remains > 60 bpm Discharge Orders: Discharge Order (Routine); Ordered 08/29/22 Ordered By: Terence Borrero Referrals: Norbert Felipe MD [Physician] - 1 month ([facility] will call you with appointmets for Kathleen Snyder and Dr. Felipe. If you have not heard from by Tuesday, please call them at [phone]) Evangelina Winslow DO [Primary Care Provider] - 7-10 days ([facility] will call you with appointment with Dr. Winslow. If you have not heard from them by Tuesday, please call them at [phone].) Kathleen Snyder FNP [Nurse Practitioner] - 1 week Patient Instructions: Alprazolam (By mouth) (Xanax, Xanax XR, alprazolam Intensol, Gabazolamin), Losartan (By mouth) (Cozaar), Sotalol (By mouth) (Betapace, Betapace AF, Sorine, Sotylize), Polyethylene Glycol 3350/Electrolytes (By mouth) (Golytely,..., A-fib (Atrial Fibrillation) (DC), Cellulitis (GEN), Generalized Anxiety Disorder (GEN), Opioid Safety Discharge Attestations Time Spent in Discharge Care*: greater than 30 min Quality Metrics Clinical Quality Measures [ No reported AMI, CVA or VTE this stay] Coding Level of Care Code Acute Chg FW DC note Diagnoses A-fib I48.11 Atrial fibrillation type: longstanding persistent Diastolic heart failure I50.30 Benign essential HTN I10 Left bundle branch block I44.7 Type 2 diabetes mellitus E11.65 Diabetes mellitus complication status: with hyperglycemia Diabetes mellitus lead maintenance technician insulin use: without lead maintenance technician use RICHARD (obstructive sleep apnea) G47.33 Hyperlipidemia E78.2 Hyperlipidemia type: mixed hyperlipidemia
--- NOTE | 2022-08-29 13:57 | PC.NURSE ---
Discharge Note Patient discharged to home via wheelchair accompanied by family. Discharge instructions reviewed with patient and/or advertising sales representative. Mobile pharmacy medications and/or prescriptions provided. Belongings/home medications returned.
== END 2022-08-29 13:58 | disposition home or self-care (01) | DRG 309 ==
LOC: ER 19:57 → MEDSURG 20:57 → ICU 08-26 12:39 → CSU 08-28 22:20
PROVIDERS: Admitting Provider Internal Medicine; Emergency Provider Emergency Medicine; PCP Family Medicine; Visit Provider Internal Medicine
DX: I48.11 Longstanding persistent atrial fibrillation (principal); I50.32 Chronic diastolic (congestive) heart failure; F41.1 Generalized anxiety disorder; G47.33 Obstructive sleep apnea (adult) (pediatric); I65.23 Occlusion and stenosis of bilateral carotid arteries; I44.7 Left bundle-branch block, unspecified; Z88.3 Allergy status to other anti-infective agents; Z88.2 Allergy status to sulfonamides; I11.0 Hypertensive heart disease with heart failure; Z85.3 Personal history of malignant neoplasm of breast; J44.9 Chronic obstructive pulmonary disease, unspecified; K21.9 Gastro-esophageal reflux disease without esophagitis; I08.0 Rheumatic disorders of both mitral and aortic valves; Z79.890 Hormone replacement therapy; Z79.51 Long term (current) use of inhaled steroids; G51.0 Bell's palsy; E11.65 Type 2 diabetes mellitus with hyperglycemia; Z87.891 Personal history of nicotine dependence; Z90.49 Acquired absence of other specified parts of digestive tract; E66.01 Morbid (severe) obesity due to excess calories; Z68.37 Body mass index [BMI] 37.0-37.9, adult; E78.2 Mixed hyperlipidemia
CPT/HCPCS: 36415; 36416; 71045; 80048; 80053; 82962; 83735; 83880; 84443; 84484; 85025; 93005; 96365; 96366; 96372; 96375; 99285; G0378; J1650; J2405; J3475; J3490

== ENCOUNTER → 2022-09-13 13:55 | Outpatient (BNVA) | payer MEDICARE, OTHER, SELFPAY | PROVIDERS: PCP Family Medicine; Visit Provider Nurse Practitioner Family | DX: I48.11 Longstanding persistent atrial fibrillation (principal); I11.0 Hypertensive heart disease with heart failure; I50.30 Unspecified diastolic (congestive) heart failure | CPT/HCPCS: 93005; 99214 ==

== ENCOUNTER → 2022-09-28 10:56 | Outpatient (BNVA) | payer MEDICARE, OTHER, SELFPAY | PROVIDERS: PCP Family Medicine; Visit Provider Podiatrist Foot & Ankle Surgery | DX: L60.3 Nail dystrophy (principal); M20.41 Other hammer toe(s) (acquired), right foot; M20.42 Other hammer toe(s) (acquired), left foot; M21.41 Flat foot [pes planus] (acquired), right foot; M21.42 Flat foot [pes planus] (acquired), left foot; I73.9 Peripheral vascular disease, unspecified; E11.9 Type 2 diabetes mellitus without complications | CPT/HCPCS: 11721 ==

== ENCOUNTER → 2022-10-12 12:42 | Outpatient (BNVA) | payer MEDICARE, OTHER, SELFPAY | PROVIDERS: PCP Family Medicine; Visit Provider Urology | DX: Z87.440 Personal history of urinary (tract) infections (principal) | CPT/HCPCS: 51798; 81003; 99213 ==

== ENCOUNTER → 2022-11-08 08:30 | Outpatient (BNVA) | payer MEDICARE, OTHER, SELFPAY | PROVIDERS: PCP Family Medicine; Visit Provider Family Medicine | DX: R73.03 Prediabetes (principal) | CPT/HCPCS: 80048; 83036 ==

== ENCOUNTER → 2022-12-29 10:48 | Outpatient (BNVA) | payer MEDICARE, OTHER, SELFPAY | PROVIDERS: PCP Family Medicine; Visit Provider Podiatrist Foot & Ankle Surgery | DX: I73.9 Peripheral vascular disease, unspecified (principal); L60.3 Nail dystrophy; M20.41 Other hammer toe(s) (acquired), right foot; M20.42 Other hammer toe(s) (acquired), left foot; M21.41 Flat foot [pes planus] (acquired), right foot; M21.42 Flat foot [pes planus] (acquired), left foot; E11.9 Type 2 diabetes mellitus without complications | CPT/HCPCS: 11721 ==

== ENCOUNTER → 2023-01-24 09:43 | Outpatient (BNVA) | payer MEDICARE, OTHER, SELFPAY | PROVIDERS: PCP Family Medicine; Visit Provider Internal Medicine Cardiovascular Disease | DX: I11.0 Hypertensive heart disease with heart failure (principal); I50.30 Unspecified diastolic (congestive) heart failure; G47.33 Obstructive sleep apnea (adult) (pediatric); E78.2 Mixed hyperlipidemia; I44.7 Left bundle-branch block, unspecified; Z79.899 Other long term (current) drug therapy | CPT/HCPCS: 93005; 99214 ==

== ENCOUNTER → 2023-03-02 10:46 | Outpatient (BNVA) | payer MEDICARE, OTHER, SELFPAY | PROVIDERS: PCP Family Medicine; Visit Provider Podiatrist Foot & Ankle Surgery | DX: E11.8 Type 2 diabetes mellitus with unspecified complications (principal); L60.3 Nail dystrophy; I73.9 Peripheral vascular disease, unspecified; E11.69 Type 2 diabetes mellitus with other specified complication; M21.42 Flat foot [pes planus] (acquired), left foot; M21.41 Flat foot [pes planus] (acquired), right foot; M20.42 Other hammer toe(s) (acquired), left foot; M20.41 Other hammer toe(s) (acquired), right foot | CPT/HCPCS: 11721 ==

== ENCOUNTER 2023-05-02 22:25 | Emergency (ER) | payer MEDICARE, OTHER, SELFPAY ==
[2023-05-02 22:29] VITALS: BP 216/102; PULSE 105; RESP 18; TEMP 36.6; O2SAT 92; BMI 38.2
--- NOTE | 2023-05-02 22:43 | ECG_ITS ---
[facility] Test Date: 2023-05-02 Pat Name: Corina Cabral Department: Room: Gender: Female Pit Recorder: : 1940 Requested By: Rebecca Hernández Order Number: [id number] Clarita MD: Lio Yang M.D. Measurements Intervals [place] Rate: 90 P: 75 LA: 158 QRS: -43 QRSD: 138 T: 71 QT: 411 QTc: 504 Interpretive Statements SINUS RHYTHM LEFT AXIS DEVIATION [QRS AXIS < -30] INTRAVENTRICULAR CONDUCTION DELAY [130+ ms QRS DURATION] LEFT VENTRICULAR HYPERTROPHY AND ST-T CHANGE [VOLTAGE CRITERIA PLUS ST/T ABNORMALITY] POSSIBLE ANTEROSEPTAL MYOCARDIAL INFARCTION , OF INDETERMINATE AGE [30 ms Q WAVE IN V1-V4] Compared to ECG 01/24/2023 10:47:33 Intraventricular conduction delay now present Left ventricular hypertrophy now present ST (T wave) deviation now present.Myocardial infarct finding now present Sinus bradycardia no longer present.Left bundle-branch block no longer present Electronically Signed On 05-03-2023 23:55:12 CDT by Lio Yang M.D. [id number]
[2023-05-02 22:56] VITALS: BP 156/105; PULSE 92; RESP 18; O2SAT 91
--- NOTE | 2023-05-02 23:01 | W.ED.HA ---
HPI - Headache General: Chief Complaint: Headache Stated Complaint: Blood Pressure Time Seen by Provider: 05/02/23 22:33 Source: patient Mode of arrival: ambulatory Limitations: no limitations History of Present Illness: 82-year-old female states that she taken her sotalol 80 mg at 930 states she had fell asleep when she woke up and thought she had taken took another 1. She states that she is very concerned that she had overdosed she had tried to make herself vomit at home became extremely anxious. Patient came appear because she thought that she had overdosed now she realizes that taking an extra 1 has not enough to be overdose states she feels much improved her blood pressure here is improved 156/105 currently in triage it was quite high likely due to anxiety. She states that she feels like her head is buzzing but denies any actual headache denies any chest pain states she was having some dyspnea due to her anxiety. Associated symptoms: Deny chest pain, fever(s), nausea, rash or vomiting Review of Systems Const: Denies: fever(s), chills, body aches or change in appetite Eyes: Denies: blurry vision or eye discomfort ENMT: Denies: throat pain or dental pain Card: Denies: chest pain Resp: Reports: dyspnea GI: Denies: abdominal pain, nausea, vomiting or diarrhea : Denies: dysuria Musc: Denies: neck pain or back pain Skin/Breast: Denies: rash Neuro: Reports: headache(s) PFS ED PFSH: Medical History A-fib Atrial fibrillation with rapid ventricular response Ortiz palsy Benign essential HTN Breast cancer no evidence of mets. Right breast - lumpectomy and radiation. Carotid stenosis, bilateral COPD (chronic obstructive pulmonary disease) Cystitis cystica Diastolic heart failure SILVA (generalized anxiety disorder) GERD (gastroesophageal reflux disease) Heart murmur History of gastrointestinal stromal tumor (GIST) Of jejunum - in remission Hyperlipidemia Left bundle branch block Mitral valve disorder Morbid obesity RICHARD (obstructive sleep apnea) Pt has clostrophobia, could not use CPAP- uses oxygen at tnight PMB (postmenopausal bleeding) Recurrent UTI Urgency incontinence Urgency of urination Surgical History S/P ablation of atrial fibrillation S/P bladder repair S/P section S/P hysterectomy S/P lumpectomy of breast Right S/P small bowel resection Status post correction of deviated nasal septum Status post tubal ligation Family History Mother , Age 83 CAD (coronary artery disease) Dementia Diabetes Sister CAD (coronary artery disease) Stroke Brother Cancer Father , age 73 Chronic kidney disease (CKD) Grandmother Diabetes Denies family history of Clotting disorder Suicide Anesthesia complication Bleeding disorder Lung disease Social History Smoking and tobacco status: former smoker Alcohol intake: never Substance/Drug Use: never Adopted: No Caregiver/support person: No Lives independently: No Household members: spouse Marital status: / Current occupational status: retired Physical Exam Const: COMMON NORMALS: no acute distress, patient oriented x3 and healthy appearing HENMT: COMMON NORMALS: normocephalic and atraumatic HEAD & SCALP: normocephalic and atraumatic Eye: COMMON NORMALS: Equal, round and reactive pupils present and EOMs intact bilaterally PUPIL: Yes Equal, round and reactive pupils present Neck/C-Spine: COMMON NORMALS: full ROM and supple Chest: COMMONS NORMALS: normal inspection of the chest and normal palpation of entire chest wall Resp: COMMON NORMALS: normal respiratory effort, No retractions, No use of accessory muscles and clear to auscultation bilaterally AUSCULTATION: clear to auscultation bilaterally Cardio: COMMON NORMALS: regular rate, regular rhythm and No murmurs present (Cardio) RATE: regular rate RHYTHM: regular rhythm GI: COMMON NORMALS: Normal to inspection, nondistended, normoactive bowel sounds present, Soft to palpation, non-tender and no masses PALPATION: Yes Soft to palpation Extremity: COMMON NORMALS: normal to inspection and full ROM Neuro: COMMON NORMALS: patient oriented x3, moves all extremities and no focal motor deficits Psych: COMMON NORMALS: mental status grossly normal, Normal thought process present and cooperative THOUGHT PROCESS: Normal thought process present Skin: COMMON NORMALS: no rashes or lesions noted and no wounds GENERAL SKIN EXAM: no rashes or lesions noted Course Vital Signs: Vital signs: Vital Signs Temperature 97.8 F 05/02/23 22:29 Pulse Rate 92 05/02/23 22:56 Respiratory Rate 18 05/02/23 22:56 Blood Pressure 139/81 05/03/23 00:38 Pulse Oximetry 98 05/03/23 00:38 Oxygen Delivery Me thod Room Air 05/02/23 22:56 MDM - Headache Medical Decision Making Patient presents here with hypertension her blood pressure here is improved her main concern was that she had overdosed on her blood pressure medicine she had only taken 1 extra dose no signs of overdose here she was hypertensive when she arrived but she was extremely anxious thinking she had overdosed she never had a real headache more she states was like buzzing due to anxiety she is headache free currently has no signs of subarachnoid hemorrhage or meningitis she is stable for discharge she is to follow-up with PCP and return if worsening. Medical Records I reviewed the patient's medical records. Lab Data I reviewed the patient's lab results. 05/02/23 23:53 05/02/23 23:07 Laboratory Results WBC 8.29 10^3/uL (3.29-11.43) 05/02/23 23:53 Corrected WBC Cancelled 05/02/23 23:07 RBC 4.82 10^6/uL (3.85-5.65) 05/02/23 23:53 Hgb 14.20 g/dL (11.27-16.99) 05/02/23 23:53 Hct 44.2 % (36-47) 05/02/23 23:53 MCV 91.7 fl (85-98) 05/02/23 23:53 MCH 29.5 pg (27-33) 05/02/23 23:53 MCHC 32.1 g/dL (30-55) 05/02/23 23:53 RDW 12.6 % (12.1-15.1) 05/02/23 23:53 Plt Count 255 10^3/cmm (157-399) 05/02/23 23:53 MPV 9.6 fL (7.4-10.4) 05/02/23 23:53 Gran % Cancelled 05/02/23 23:07 Neut % (Auto) 61.1 % 05/02/23 23:53 Lymph % (Auto) 26.7 % 05/02/23 23:53 [place] % (Auto) 9.9 % 05/02/23 23:53 Eos % (Auto) 1.7 % 05/02/23 23:53 Baso % (Auto) 0.2 % 05/02/23 23:53 Neut # (Auto) 5.07 10^3/uL (1.8-7.7) 05/02/23 23:53 Lymph # (Auto) 2.2 10^3/uL (0.8-4.8) 05/02/23 23:53 [place] # (Auto) 0.8 10^3/uL (0.2-0.9) 05/02/23 23:53 Eos # (Auto) 0.1 10^3/uL (0.0-0.8) 05/02/23 23:53 Baso # (Auto) 0.0 10^3/uL (0.0-0.1) 05/02/23 23:53 Absolute Gran (auto) Cancelled 05/02/23 23:07 Nucleated RBC % (auto) 0 % 05/02/23 23:53 Nucleated RBCs # 0.0 /100WBC 05/02/23 23:53 Sodium 132 mmol/L (136-145) L 05/02/23 23:07 Potassium 4.0 mmol/L (3.5-5.1) 05/02/23 23:07 Chloride 95 mmol/L (98-107) L 05/02/23 23:07 Carbon Dioxide 29 mmol/L (22-29) 05/02/23 23:07 Anion Gap 12.0 (5-19) 05/02/23 23:07 BUN 16 mg/dL (8-23) 05/02/23 23:07 Creatinine 0.7 mg/dL (0.5-0.9) 05/02/23 23:07 GFR Calculation Not Reportable 05/02/23 23:07 Glucose 124 mg/dL (65-115) H 05/02/23 23:07 Calculated Osmolality 277 mOsm/kg (285-295) L 05/02/23 23:07 Calcium 9.3 mg/dL (8.5-10.5) 05/02/23 23:07 Total Bilirubin 0.3 mg/dL (0.15-1.2) 05/02/23 23:07 AST 13 U/L (0-32) 05/02/23 23:07 ALT 24 U/L (0-33) 05/02/23 23:07 Alkaline Phosphatase 73 U/L (35-105) 05/02/23 23:07 Total Protein 8.0 g/dL (6.6-8.7) 05/02/23 23:07 Albumin 4.5 g/dL (3.5-5.2) 05/02/23 23:07 Globulin 3.5 g/dL (1.3-4.6) 05/02/23 23:07 EKG Data EKG 1: I personally reviewed and interpreted this EKG as follows: EKG interpretation date: 05/02/23 EKG interpretation time: 22:43 Interpretation: nsr hr [address] elevation LVH qrs 138 qtc 458 Discharge Plan Discharge Patient Disposition: Home Clinical Impression: Benign essential HTN Condition: Stable Prescriptions: No Action Macular Health Formula 5-1-7.5 mg capsule 1 cap PO DAILY astralagalus 1 cap PO DAILY furosemide 20 mg tablet 20 - 40 mg PO QAM PRN (Reason: edema) Hold Instructions: switching to HCTZ potassium chloride [Klor-Con 10] 10 mEq tablet extended release 10 meq PO DAILY PRN (Reason: when taking lasix) (DME) Diabetic shoes See Rx Instructions .Route .MEDSUPPLY Qty: 1 0RF Rx Instructions: As directed with 3 pairs of inserts. Made by [employer] nitrofurantoin macrocrystal 100 mg capsule 100 mg PO BID Qty: 30 4RF Rx Instructions: must administer with a meal/food mupirocin 2 % ointment 1 applic topical BID PRN (Reason: unknown) Rx Instructions: To affected area triamcinolone acetonide 0.1 % ointment 1 applic topical BID PRN (Reason: unknown) Rx Instructions: Apply to affected areas on back and arms no more than 2 weeks per month. Not for face multivitamin Tablet 1 tab PO DAILY sotalol 80 mg tablet 80 mg PO BID@0700,1900 Qty: 180 3RF alprazolam 0.25 mg tablet 0.25 mg PO BID PRN (Reason: Anxiety) 30 Days Qty: 45 3RF losartan 25 mg tablet 25 mg PO BID Qty: 180 1RF albuterol sulfate [Ventolin HFA] 90 mcg/actuation HFA aerosol inhaler 2 puff INHALATION Q6H PRN (Reason: Shortness Of Breath) Qty: 8.5 1RF levalbuterol HCl 0.63 mg/3 mL solution for nebulization 0.63 mg INHALATION TID PRN (Reason: SOB or wheezing) Qty: 90 0RF (DME) lifealert See Rx Instructions .Route .MEDSUPPLY Qty: 1 0RF Rx Instructions: As directed (DME) portable O2 - 2 L See Rx Instructions .Route .MEDSUPPLY Qty: 1 0RF Rx Instructions: As directed nystatin 100,000 unit/gram cream 1 applic topical BID Qty: 30 4RF (DME) Rollator Walker See Rx Instructions .Route .MEDSUPPLY Qty: 1 0RF Rx Instructions: As directed hydralazine 25 mg tablet 25 mg PO TID PRN (Reason: hypertension with nosebleed) Qty: 270 1RF Rx Instructions: for >160 systolic or >110 diastolic ondansetron HCl 4 mg tablet See Rx Instructions .ROUTE .COMPLEX Qty: 10 0RF Dose Instruction: TAKE 1 TABLET BY MOUTH EVERY 8 HOURS NEEDED FOR NAUSEA AND VOMITING Rx Instructions: TAKE 1 TABLET BY MOUTH EVERY 8 HOURS NEEDED FOR NAUSEA AND VOMITING Vitamin C Powder See Rx Instructions .ROUTE .COMPLEX Rx Instructions: 1/2 teaspoonful po bid (mix with water) Systane Ultra (PF) 0.4-0.3 % dropperette 1 drp ophthalmic (eye) DAILY estradiol 0.01 % (0.1 mg/gram) cream See Rx Instructions .ROUTE .COMPLEX Rx Instructions: insert vaginally once a week on tuesday Discharge Orders: Discharge ED (Routine); Ordered 05/03/23 Ordered By: Rebecca Hernández Referrals: Evangelina Winslow DO [Primary Care Provider] - 1-3 days Discharge Diet: Advance as tolerated Discharge Activity: Resume usual activity Patient Instructions: Hypertension (ED) Coding Level of Care Code 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
[2023-05-02 23:34] LABS: Alanine Aminotransferase 24 U/L (0-33); Albumin Level 4.5 g/dL (3.5-5.2); Alkaline Phosphatase 73 U/L (35-105); Aspartate Amino Transferase 13 U/L (0-32); Blood Urea Nitrogen 16 mg/dL (8-23); Calcium 9.3 mg/dL (8.5-10.5); Carbon Dioxide 29 mmol/L (22-29); Chloride 95 mmol/L (98-107); Globulin 3.5 g/dL (1.3-4.6); Glucose 124 mg/dL (65-115); Osmolality Calculated 277 mOsm/kg (285-295); Sodium 132 mmol/L (136-145); Total Bilirubin 0.3 mg/dL (0.15-1.2)
[2023-05-03 00:15] LABS: Basophils % 0.2 %; Eosinophils # 0.1 10^3/uL (0.0-0.8); Eosinophils % 1.7 %; Hematocrit 44.2 % (36-47); Lymphocytes # 2.2 10^3/uL (0.8-4.8); Lymphocytes % 26.7 %; Mean Corpuscular HGB Conc 32.1 g/dL (30-55); Mean Corpuscular Hemoglobin 29.5 pg (27-33); Mean Corpuscular Volume 91.7 fl (85-98); Mean Platelet Volume 9.6 fL (7.4-10.4); Monocytes # 0.8 10^3/uL (0.2-0.9); Monocytes % 9.9 %; Neutrophils # 5.07 10^3/uL (1.8-7.7); Neutrophils % 61.1 %; Nucleated Red Blood Cells % 0 %; Platelet Count 255 10^3/cmm (157-399); Red Blood Count 4.82 10^6/uL (3.85-5.65); Red Cell Distribution Width 12.6 % (12.1-15.1); White Blood Count 8.29 10^3/uL (3.29-11.43)
[2023-05-03 00:38] VITALS: BP 139/81; O2SAT 98
== END 2023-05-03 00:39 | disposition home or self-care (01) ==
PROVIDERS: Emergency Provider Emergency Medicine; PCP Family Medicine
DX: I11.0 Hypertensive heart disease with heart failure (principal); I50.30 Unspecified diastolic (congestive) heart failure; Z87.891 Personal history of nicotine dependence; J44.9 Chronic obstructive pulmonary disease, unspecified; Z85.3 Personal history of malignant neoplasm of breast; E78.5 Hyperlipidemia, unspecified
CPT/HCPCS: 36415; 80053; 85025; 93005; 99284

== ENCOUNTER → 2023-05-03 09:33 | Outpatient (BNVA) | payer MEDICARE, OTHER, SELFPAY | PROVIDERS: PCP Family Medicine; Visit Provider Nurse Practitioner Family | DX: L85.3 Xerosis cutis (principal); D22.5 Melanocytic nevi of trunk; L57.0 Actinic keratosis; D17.22 Benign lipomatous neoplasm of skin and subcutaneous tissue of left arm; L57.8 Other skin changes due to chronic exposure to nonionizing radiation; L82.1 Other seborrheic keratosis; L81.4 Other melanin hyperpigmentation | CPT/HCPCS: 17000; 17003; 99213 ==

== ENCOUNTER → 2023-05-04 10:09 | Outpatient (BNVA) | payer MEDICARE, OTHER, SELFPAY | PROVIDERS: PCP Family Medicine; Visit Provider Podiatrist Foot & Ankle Surgery | DX: L60.3 Nail dystrophy; M20.41 Other hammer toe(s) (acquired), right foot; M20.42 Other hammer toe(s) (acquired), left foot; M21.41 Flat foot [pes planus] (acquired), right foot; M21.42 Flat foot [pes planus] (acquired), left foot; E11.9 Type 2 diabetes mellitus without complications; I73.9 Peripheral vascular disease, unspecified | CPT/HCPCS: 11721 ==

== ENCOUNTER → 2023-05-17 08:54 | Outpatient (BNVA) | payer MEDICARE, OTHER, SELFPAY | PROVIDERS: PCP Family Medicine; Visit Provider Family Medicine | DX: R73.03 Prediabetes (principal); I65.23 Occlusion and stenosis of bilateral carotid arteries | CPT/HCPCS: 80061; 83036 ==

== ENCOUNTER → 2023-06-07 09:57 | Outpatient (BNVA) | payer MEDICARE, OTHER, SELFPAY | PROVIDERS: PCP Family Medicine; Visit Provider Internal Medicine Cardiovascular Disease | DX: I48.11 Longstanding persistent atrial fibrillation (principal); G47.33 Obstructive sleep apnea (adult) (pediatric); I11.0 Hypertensive heart disease with heart failure; I50.30 Unspecified diastolic (congestive) heart failure; E78.2 Mixed hyperlipidemia; I44.7 Left bundle-branch block, unspecified; Z79.899 Other long term (current) drug therapy; Z87.891 Personal history of nicotine dependence | CPT/HCPCS: 99214 ==

== ENCOUNTER 2023-06-24 17:17 | Observation (INO) | payer MEDICARE, OTHER, SELFPAY ==
[2023-06-24 17:29] VITALS: BP 101/64; PULSE 75; RESP 18; TEMP 37.4; O2SAT 93; BMI 37.0
--- NOTE | 2023-06-24 18:19 | ED_ITS ---
HPI - Abdominal Pain General: Chief Complaint: Abdominal Pain Stated Complaint: UC for poss. diverticulitis Time Seen by Provider: 06/24/23 18:19 History of Present Illness: 82-year-old female comes in with left lower quadrant abdominal pain radiating to the midline. Patient has a history of diverticulitis with similar symptoms. Patient also has a history of colon cancer with resection of the bowel, breast cancer with mastectomy, coronary artery disease, diabetes. Patient appears nontoxic. Patient appears in mild pain. Patient was first seen at urgent care was referred to the ER for further evaluation. Associated Symptoms: Reports nausea; Denies constipation, diarrhea, fever(s), hematochezia and vomiting Review of Systems General: Reports: 10 or more systems reviewed and unremarkable except in HPI and below Const: Denies: fever(s) Card: Denies: chest pain Resp: Denies: dyspnea GI: Reports: abdominal pain and nausea; Denies: vomiting, diarrhea, constipation or hematochezia Musc: Denies: neck pain or back pain PFSH ED PFSH: Medical History A-fib Atrial fibrillation with rapid ventricular response Ortiz palsy Benign essential HTN Breast cancer no evidence of mets. Right breast - lumpectomy and radiation. Carotid stenosis, bilateral COPD (chronic obstructive pulmonary disease) Cystitis cystica Diastolic heart failure SILVA (generalized anxiety disorder) GERD (gastroesophageal reflux disease) Heart murmur History of gastrointestinal stromal tumor (GIST) Of jejunum - in remission Hyperlipidemia Left bundle branch block Mitral valve disorder Morbid obesity RICHARD (obstructive sleep apnea) Pt has clostrophobia, could not use CPAP- uses oxygen at [facility] PMB (postmenopausal bleeding) Recurrent UTI Urgency incontinence Urgency of urination Surgical History S/P ablation of atrial fibrillation S/P bladder repair S/P section S/P hysterectomy S/P lumpectomy of breast Right S/P small bowel resection Status post correction of deviated nasal septum Status post tubal ligation Family History Mother , Age 83 CAD (coronary artery disease) Dementia Diabetes Sister CAD (coronary artery disease) Stroke Brother Cancer Father , age 73 Chronic kidney disease (CKD) Grandmother Diabetes Denies family history of Clotting disorder Suicide Anesthesia complication Bleeding disorder Lung disease Social History Smoking and tobacco/nicotine status: former use of tobacco/nicotine Alcohol intake: never Substance/Drug Use: never Adopted: No Caregiver/support person: No Lives independently: No Household members: spouse Marital status: / Current occupational status: retired Physical Exam Const: COMMON NORMALS: alert HENMT: COMMON NORMALS: normocephalic HEAD & SCALP: normocephalic MOUTH: Normal oral and palatal mucosa present Neck/C-Spine: COMMON NORMALS: full ROM Resp: COMMON NORMALS: normal respiratory effort and clear to auscultation bi laterally AUSCULTATION: clear to auscultation bilaterally Cardio: COMMON NORMALS: regular rate and regular rhythm RATE: regular rate RHYTHM: regular rhythm GI: COMMON NORMALS: Soft to palpation and non-tender PALPATION: Yes Soft to palpation : COMMON NORMALS: Yes no CVA tenderness BLADDER/KIDNEY EXAM: Yes no CVA tenderness Back/Pelvis: COMMON NORMALS: no CVA tenderness Extremity: COMMON NORMALS: no pedal edema Neuro: SENSORIUM/ORIENTATION: Yes alert Skin: COMMON NORMALS: turgor normal GENERAL SKIN EXAM: turgor normal Course Vital Signs: Vital signs: Vital Signs Temperature 99.4 F 06/24/23 17:29 Pulse Rate 75 06/24/23 17:29 Respiratory Rate 18 06/24/23 17:29 Blood Pressure 101/64 06/24/23 17:29 Pulse Oximetry 93 06/24/23 17:29 Oxygen Delivery Me thod Room Air 06/24/23 17:29 MDM - Abdominal Pain Medical Decision Making 82-year-old female comes in today with some left lower quadrant abdominal pain radiating to the center abdomen. Patient reports symptoms for the last 2 days. Patient reports no other symptoms. Patient appears nontoxic. Patient appears in mild pain. On exam patient has some tenderness in the left lower quadrant of the abdomen. Bowel sounds are present. Vital signs are normal. Differential diagnosis includes diverticulitis, bowel obstruction, UTI, pyelonephritis. CT of the abdomen pelvis was unremarkable for acute infection or abnormality. CBC showed a white blood cell count 9.72. CMP did show a sodium of 126 and chloride of 90. Urinalysis was positive for white blood cells and leukocyte esterases. Recommended patient be treated for urinary tract infection. Patient does have a list of multiple medications she is allergic to. She agreed to take Macrobid 100 mg twice a day. Patient was started on a dose tonight and continued on for the next 5 days. Patient was recommended to follow-up with primary care or return to ED for worsening symptoms. Lab Data 06/24/23 18:02 06/24/23 18:02 Labs/Radiology: Radiology Impressions Abdomen/Pelvis CT 06/24/23 18:34 IMPRESSION: 1. Bilateral renal cysts, one of which on the left this hyperdense, negative for follow-up advised. 2. Diverticulosis without diverticulitis. 3. Bibasilar atelectasis. 4. Cholelithiasis. 5. Small hiatal hernia. 6. Mild coronary artery atherosclerotic calcifications. Laboratory Results WBC 9.72 10^3/uL (3.29-11.43) 06/24/23 18: RBC 4.44 10^6/uL (3.85-5.65) 06/24/23 18: Hgb 13.10 g/dL (11.27-16.99) 06/24/23 18: Hct 39.6 % (36-47) 06/24/23 18: MCV 89.2 fl (85-98) 06/24/23 18: MCH 29.5 pg (27-33) 06/24/23 18: MCHC 33.1 g/dL (30-55) 06/24/23 18: RDW 12.5 % (12.1-15.1) 06/24/23 18: Plt Count 241 10^3/cmm (157-399) 06/24/23 18: MPV 9.2 fL (7.4-10.4) 06/24/23 18: Neut % (Auto) 68.7 % 06/24/23 18: Lymph % (Auto) 16.4 % 06/24/23 18:02 [place] % (Auto) 14.1 % 06/24/23 18: Eos % (Auto) 0.3 % 06/24/23 18: Baso % (Auto) 0.2 % 06/24/23 18: Neut # (Auto) 6.68 10^3/uL (1.8-7.7) 06/24/23 18:02 Lymph # (Auto) 1.6 10^3/uL (0.8-4.8) 06/24/23 18:02 [place] # (Auto) 1.4 10^3/uL (0.2-0.9) H 06/24/23 18:02 Eos # (Auto) 0.0 10^3/uL (0.0-0.8) 06/24/23 18:02 Baso # (Auto) 0.0 10^3/uL (0.0-0.1) 06/24/23 18:02 Nucleated RBC % (auto) 0 % 06/24/23 18:02 Nucleated RBCs # 0.0 /100WBC 06/24/23 18:02 Sodium 126 mmol/L (136-145) L 06/24/23 18:02 Potassium 4.2 mmol/L (3.5-5.1) 06/24/23 18:02 Chloride 90 mmol/L (98-107) L 06/24/23 18:02 Carbon Dioxide 26 mmol/L (22-29) 06/24/23 18:02 Anion Gap 14.2 (5-19) 06/24/23 18:02 BUN 17 mg/dL (8-23) 06/24/23 18:02 Creatinine 0.8 mg/dL (0.5-0.9) 06/24/23 18:02 GFR Calculation Not Reportable 06/24/23 18:02 Glucose 112 mg/dL (65-115) 06/24/23 18:02 POC Glucose 107 mg/dL (70-110) 06/24/23 18:54 Calculated Osmolality 264 mOsm/kg (285-295) L 06/24/23 18:02 Calcium 8.8 mg/dL (8.5-10.5) 06/24/23 18:02 Total Bilirubin 0.5 mg/dL (0.15-1.2) 06/24/23 18:02 AST 8 U/L (0-32) 06/24/23 18:02 ALT 13 U/L (0-33) 06/24/23 18:02 Alkaline Phosphatase 62 U/L (35-105) 06/24/23 18:02 Total Protein 7.1 g/dL (6.6-8.7) 06/24/23 18:02 Albumin 3.7 g/dL (3.5-5.2) 06/24/23 18:02 Globulin 3.4 g/dL (1.3-4.6) 06/24/23 18:02 Lipase 54 U/L (13-60) 06/24/23 18:02 Urine Color Yellow (Yellow) 06/24/23 18:30 Urine Appearance Sl hazy (CLEAR) A 06/24/23 18:30 Urine pH 6 (5-7) 06/24/23 18:30 Ur Specific [place] 1.005 (1.005-1.030) 06/24/23 18:30 Urine Protein Neg (Negative) 06/24/23 18:30 Urine Glucose (UA) Norm (Normal) 06/24/23 18:30 Urine Ketones Negative (Negative) 06/24/23 18:30 Urine Blood Neg (Negative) 06/24/23 18:30 Urine Nitrate Negative (Negative) 06/24/23 18:30 Urine Bilirubin Neg (Negative) 06/24/23 18:30 Urine Urobilinogen Neg mg/dL (Negative) 06/24/23 18:30 Ur Leukocyte Esterase 2+ (Negative) H 06/24/23 18:30 Urine RBC 0-4 /hpf (0-2) H 06/24/23 18:30 Urine WBC 15-25 /hpf (0-5) H 06/24/23 18:30 Ur Squamous Epith Cells 0-4 /hpf (0-5) H 06/24/23 18:30 Amorphous Sediment Not Reportable 06/24/23 18:30 Urine Bacteria 1+ /hpf (NONE) H 06/24/23 18:30 All radiology interpretation(s) finalized by discharge Discharge Plan Discharge Patient Disposition: Home Clinical Impression: Acute UTI, Chronic hyponatremia Condition: Stable Prescriptions: Continued nitrofurantoin macrocrystal 100 mg capsule 100 mg PO BID Qty: 30 4RF Rx Instructions: must administer with a meal/food No Action Macular Health Formula 5-1-7.5 mg capsule 1 cap PO DAILY astralagalus 1 cap PO DAILY furosemide 20 mg tablet 20 - 40 mg PO QAM PRN (Reason: edema) Hold Instructions: switching to HCTZ (DME) Diabetic shoes See Rx Instructions .Route .MEDSUPPLY Qty: 1 0RF Rx Instructions: As directed with 3 pairs of inserts. Made by [employer] mupirocin 2 % ointment 1 applic topical BID PRN (Reason: unknown) Rx Instructions: To affected area triamcinolone acetonide 0.1 % ointment 1 applic topical BID PRN (Reason: unknown) Rx Instructions: Apply to affected areas on back and arms no more than 2 weeks per month. Not for face multivitamin Tablet 1 tab PO DAILY sotalol 80 mg tablet 80 mg PO BID@0700,1900 Qty: 180 3RF alprazolam 0.25 mg tablet 0.25 mg PO BID PRN (Reason: Anxiety) 30 Days Qty: 45 3RF ondansetron HCl 4 mg tablet See Rx Instructions .ROUTE .COMPLEX Qty: 20 0RF Dose Instruction: TAKE 1 TABLET BY MOUTH EVERY 8 HOURS NEEDED FOR NAUSEA AND VOMITING Rx Instructions: TAKE 1 TABLET BY MOUTH EVERY 8 HOURS NEEDED FOR NAUSEA AND VOMITING diclofenac sodium 3 % gel 1 applic topical BID Qty: 100 0RF Rx Instructions: To affected areas albuterol sulfate [Ventolin HFA] 90 mcg/actuation HFA aerosol inhaler 2 puff INHALATION Q6H PRN (Reason: Shortness Of Breath) Qty: 8.5 1RF (DME) lifealert See Rx Instructions .Route .MEDSUPPLY Qty: 1 0RF Rx Instructions: As directed (DME) portable O2 - 2 L See Rx Instructions .Route .MEDSUPPLY Qty: 1 0RF Rx Instructions: As directed nystatin 100,000 unit/gram cream 1 applic topical BID Qty: 30 4RF losartan 25 mg tablet 50 mg PO BID potassium chloride 8 mEq capsule, extended release 8 meq PO DAILY 30 Days Qty: 30 5RF (DME) Rollator Walker See Rx Instructions .Route .MEDSUPPLY Qty: 1 0RF Rx Instructions: As directed hydralazine 25 mg tablet 25 mg PO TID PRN (Reason: hypertension with nosebleed) Qty: 270 1RF Rx Instructions: for >160 systolic or >110 diastolic levalbuterol HCl 0.63 mg/3 mL solution for nebulization 0.63 mg INHALATION TID PRN (Reason: SOB or wheezing) Qty: 90 0RF polyethylene glycol 3350 [Miralax] 17 gram/dose powder 4 g PO DAILY Qty: 119 0RF Rx Instructions: May take twice daily as needed albuterol sulfate 1.25 mg/3 mL solution for nebulization 1.25 mg inhalation TID PRN (Reason: shortness of breath or wheezing) Qty: 75 0RF Vitamin C Powder See Rx Instructions .ROUTE .COMPLEX Rx Instructions: 1/2 teaspoonful po bid (mix with water) Systane Ultra (PF) 0.4-0.3 % dropperette 1 drp ophthalmic (eye) DAILY estradiol 0.01 % (0.1 mg/gram) cream See Rx Instructions .ROUTE .COMPLEX Rx Instructions: insert vaginally once a week on tuesday Discharge Orders: Discharge ED (Routine); Ordered 06/24/23 Ordered By: Addison Calderón Referrals: Evangelina Winslow DO [Primary Care Provider] - Discharge Diet: Usual diet Discharge Activity: Increase activity as tolerated Patient Instructions: Urinary Tract Infection in Older Adults (ED) Activity Restrictions/Additional Instructions: Take antibiotic as directed. Drink plenty water and fluids. Healthy diet and activity. Follow-up with primary care in 3 to 5 days for recheck of urine. Return to ED for worsening symptoms such as high fever, inability to hold fluids down, severe pain. 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
[2023-06-24 18:27] LABS: Basophils % 0.2 %; Eosinophils % 0.3 %; Hematocrit 39.6 % (36-47); Lymphocytes # 1.6 10^3/uL (0.8-4.8); Lymphocytes % 16.4 %; Mean Corpuscular HGB Conc 33.1 g/dL (30-55); Mean Corpuscular Hemoglobin 29.5 pg (27-33); Mean Corpuscular Volume 89.2 fl (85-98); Mean Platelet Volume 9.2 fL (7.4-10.4); Monocytes # 1.4 10^3/uL (0.2-0.9); Monocytes % 14.1 %; Neutrophils # 6.68 10^3/uL (1.8-7.7); Neutrophils % 68.7 %; Nucleated Red Blood Cells % 0 %; Platelet Count 241 10^3/cmm (157-399); Red Blood Count 4.44 10^6/uL (3.85-5.65); Red Cell Distribution Width 12.5 % (12.1-15.1); White Blood Count 9.72 10^3/uL (3.29-11.43)
--- NOTE | 2023-06-24 18:34 | CTR_ITS ---
PROCEDURE INFORMATION: Exam: CT Abdomen And Pelvis With Contrast Exam date and time: 06/24/2023 7:07 PM Age: 82 years old Clinical indication: Abdominal pain; Localized; Left lower quadrant (llq); Prior surgery; Surgery date: 6+ months; Surgery type: RT lumpectomy. Small bowel resection. Hysterectomy. Tubal ligation. Bladder. Patient HX: Llq pain with nausea. History of diverticulitis, gist, and breast cancer. ; Additional info: Llq pain, HX of colon resection, diveriticulitis TECHNIQUE: Imaging protocol: Computed tomography of the abdomen and pelvis with contrast. Radiation optimization: All CT scans at this facility use at least one of these dose optimization techniques: automated exposure control; mA and/or kV adjustment per patient size (includes targeted exams where dose is matched to clinical indication); or iterative reconstruction. Contrast material: OMNI 350; Contrast volume: 100 ml; Contrast route: INTRAVENOUS (IV); REPORTING DATA: Count of CT and Cardiac NM exams in prior 12 months: This patient has received 0 known CTs and 0 known cardiac nuclear medicine studies in the 12 months prior to the current study. COMPARISON: CT kidney stone [id number] 01/18/2019 4:01 PM RADIATION DOSE METRICS: Total DLP (mGy-cm): 995.23 FINDINGS: Lungs: Bibasilar atelectasis. Liver: Normal. No mass. Gallbladder and bile ducts: Cholelithiasis. Pancreas: Normal. No ductal dilation. Spleen: Normal. No splenomegaly. Adrenal glands: Normal. No mass. Kidneys and ureters: Bilateral renal cysts, one of which on the left this hyperdense, negative for follow-up advised. Stomach and bowel: Diverticulosis without diverticulitis. Small hiatal hernia. Appendix: No evidence of appendicitis. Intraperitoneal space: Unremarkable. No free air. No significant fluid collection. Vasculature: Mild coronary artery atherosclerotic calcifications. Lymph nodes: Unremarkable. No enlarged lymph nodes. Urinary bladder: Unremarkable as visualized. Reproductive: Unremarkable as visualized. Bones/joints: Unremarkable. No acute fracture. Soft tissues: Unremarkable. CT/CT abdomen pelvis w con* [id number] IMPRESSION: 1. Bilateral renal cysts, one of which on the left this hyperdense, negative for follow-up advised. 2. Diverticulosis without diverticulitis. 3. Bibasilar atelectasis. 4. Cholelithiasis. 5. Small hiatal hernia. 6. Mild coronary artery atherosclerotic calcifications.
[2023-06-24 18:45] LABS: Alanine Aminotransferase 13 U/L (0-33); Albumin Level 3.7 g/dL (3.5-5.2); Alkaline Phosphatase 62 U/L (35-105); Anion Gap 14.2 (5-19); Aspartate Amino Transferase 8 U/L (0-32); Blood Urea Nitrogen 17 mg/dL (8-23); Calcium 8.8 mg/dL (8.5-10.5); Carbon Dioxide 26 mmol/L (22-29); Chloride 90 mmol/L (98-107); Globulin 3.4 g/dL (1.3-4.6); Glucose 112 mg/dL (65-115); Lipase 54 U/L (13-60); Osmolality Calculated 264 mOsm/kg (285-295); Potassium 4.2 mmol/L (3.5-5.1); Sodium 126 mmol/L (136-145); Total Bilirubin 0.5 mg/dL (0.15-1.2); Total Protein 7.1 g/dL (6.6-8.7)
[2023-06-24] MEDS: ondansetron 4 MG Tablet PO (18:54)
[2023-06-24 18:58] LABS: Glucose Point of Care 107 mg/dL (70-110)
[2023-06-24 19:01] LABS: Add Urine Culture? Yes; Add Urine Microscopic? YES; Bacteria Urine 1+ /hpf; Bilirubin Urine Neg (Negative); Blood Urine Neg (Negative); Glucose Urine UA Norm (Normal); Ketones Urine Negative (Negative); Leukocyte Esterase Urine 2+ (Negative); Nitrate Urine Negative (Negative); Protein Urine Neg (Negative); RBC Urine 0-4 /hpf (0-2); Specific Gravity, Urine 1.005 (1.005-1.030); Squamous Epithelial Cell Urine 0-4 /hpf (0-5); Urine Appearance SL Hazy (CLEAR); Urine Color Yellow (Yellow); Urobilinogen Urine Neg (Negative); WBC Urine 15-25 /hpf (0-5); pH Urine 6 (5-7)
[2023-06-24] MEDS: iohexol 350 mg/mL 500 mL Btl (per mL) IV (19:04)
[2023-06-24] MEDS: sodium chloride 0.9% 500 ML 999 ML IV (19:26)
[2023-06-24] MEDS: nitrofurantoin SR (BID) 100 mg Capsule PO (20:38)
--- NOTE | 2023-06-24 20:48 | ECG_ITS ---
[facility] Test Date: 2023-06-24 Pat Name: Corina Cabral Department: Room: Gender: Female Distribution Technician: : 1940 Requested By: Dom Altamirano Order Number: [id number] Clarita MD: Cash Wick M.D. Measurements Intervals [place] Rate: 122 P: 0 LA: 0 QRS: -44 QRSD: 142 T: 124 QT: 363 QTc: 518 Interpretive Statements ATRIAL FIBRILLATION WITH RAPID VENTRICULAR RESPONSE LEFT AXIS DEVIATION [QRS AXIS < -30] LEFT BUNDLE BRANCH BLOCK [120+ ms QRS DURATION, 80+ ms Q/S IN V1/V2, 85+ ms R IN I/aVL/V5/V6] Compared to ECG 05/02/2023 22:43:14 Left bundle-branch block now present Sinus rhythm no longer present Intraventricular conduction delay no longer present Left ventricular hypertrophy no longer present ST (T wave) deviation no longer present Myocardial infarct finding no longer present Electronically Signed On 06-24-2023 23:07:46 CDT by Cash Wick M.D. [id number]
[2023-06-24 21:15] LABS: Troponin(5th) Baseline 58 ng/L (0-10)
[2023-06-24] MEDS: metoprolol tartrate 1 mg/1 mL SDV 5 mL 5 MG IVP (22:19)
[2023-06-24] MEDS: dilTIAZem 100 MG in sodium chloride 0.9% (add-van) 100 ML IV (22:46)
--- NOTE | 2023-06-24 22:52 | ECG_ITS ---
[facility] Test Date: 2023-06-24 Pat Name: Corina Cabral Department: Room: Gender: Female Wrapper Caser: : 1940 Requested By: Dom Altamirano Order Number: [id number] Clarita MD: Cash Wick M.D. Measurements Intervals [place] Rate: 141 P: 0 TX: 0 QRS: -45 QRSD: 142 T: 120 QT: 348 QTc: 534 Interpretive Statements ATRIAL FIBRILLATION WITH RAPID VENTRICULAR RESPONSE LEFT AXIS DEVIATION [QRS AXIS < -30] LEFT BUNDLE BRANCH BLOCK [120+ ms QRS DURATION, 80+ ms Q/S IN V1/V2, 85+ ms R IN I/aVL/V5/V6] Compared to ECG 06/24/2023 20:48:50 No significant changes Electronically Signed On 06-24-2023 23:08:45 CDT by Cash Wick M.D. [id number]
[2023-06-24 23:00] LABS: Troponin 5 2HR 56.66 ng/L (0-10)
--- NOTE | 2023-06-24 23:02 | PC.NURSE ---
Patient's heart rate was maintaining in the 150's. Dr Calderón was notified and he ordered a Cardizem drip. Patient's heart rate is maintaining below 110. Patient does have chest pain but it does not radiate.
[2023-06-24 23:06] LABS: Troponin 5 2HR Delta -1.34 ABS# (0-10)
[2023-06-24 23:10] VITALS: BP 129/78; PULSE 65; RESP 18; O2SAT 91
--- NOTE | 2023-06-24 23:41 | PM.HP ---
Providers/Chief Complaint Admitting Physician: Angelic Zabala MD Primary Care Provider: Evangelina Winslow DO Chief Complaint: UC for poss. diverticulitis History of Present Illness Corina Cabral is a 82 year old female A. fib status post ablation 08/24, not on chronic anticoagulation because of history of GI bleed, epistaxis , chronic left bundle branch block, left-sided Ortiz's palsy, hypertension, mild MR, mild AR, obstructive sleep apnea, COPD, GIST, HDL, GERD, diastolic heart failure presented with complaint of lower abdominal pain since 2 days but no fever nausea vomiting or diarrhea. She did not report any urinary discomfort. Pain was 8/10 crampy left lower quadrant and suprapubic area no aggravating or relieving factors and no associated symptoms. Review of Systems Narrative: As per HPI Medications/Allergies Home Medications Medication Instructions Recorded Confirmed Last Taken Type furosemide 20 mg tablet 20 - 40 mg PO QAM PRN edema 10/09/19 06/24/23 Unknown History astralagalus 1 cap PO DAILY 05/07/20 06/24/23 06/27/20 History khslhzsn-yuk-pzllfr 5 mg-zeaxanth 1 cap PO DAILY 05/07/20 06/24/23 08/25/22 History 1 mg-bilberry 7.5 mg-herbal capsule (Macular Health Formula) ascorbic acid (vitamin C) (Vitamin See Rx Instructions .Route .COMPLEX 06/06/20 06/24/23 06/27/20 History C oral powder) peg 400-propylene glycol (PF) 0.4 1 drp ophthalmic (eye) DAILY 06/28/20 06/24/23 Unknown History %-0.3 % eye drops in a dropperette (Systane Ultra (PF)) Diabetic shoes #1 ea 03/03/21 06/24/23 Unknown Rx Rollator Walker #1 ea 04/12/22 06/24/23 Unknown Rx albuterol sulfate 90 mcg/actuation 2 puff inhalation Q6H PRN 06/15/22 06/24/23 Unknown Rx aerosol inhaler (Ventolin HFA) Shortness Of Breath #8.5 grams multivitamin 1 tab PO DAILY 08/17/22 06/24/23 08/23/22 History mupirocin 2 % topical ointment 1 applic topical BID PRN unknown 08/17/22 06/24/23 Unknown History triamcinolone acetonide 0.1 % 1 applic topical BID PRN unknown 08/17/22 06/24/23 Unknown History topical ointment estradiol 0.01% (0.1 mg/gram) See Rx Instructions .Route .COMPLEX 08/25/22 06/24/23 Unknown History vaginal cream sotalol 80 mg tablet 80 mg PO BID@0700,1900 #180 tabs 09/13/22 06/24/23 Unknown Rx nystatin 100,000 unit/gram topical 1 applic topical BID #30 grams 09/27/22 06/24/23 Unknown Rx cream portable O2 - 2 L #1 ea 09/27/22 06/24/23 Unknown Rx lifealert #1 ea 11/08/22 06/24/23 Unknown Rx hydralazine 25 mg tablet 25 mg PO TID PRN hypertension with 11/09/22 06/24/23 Unknown Rx nosebleed #270 tabs alprazolam 0.25 mg tablet 0.25 mg PO BID PRN Anxiety 30 days 01/18/23 06/24/23 Unknown Rx #45 tabs diclofenac sodium 3 % topical gel 1 applic topical BID #100 grams 05/17/23 06/24/23 Unknown Rx ondansetron HCl 4 mg tablet See Rx Instructions .Route 05/17/23 06/24/23 Unknown Rx .COMPLEX #20 tabs levalbuterol HCl 0.63 mg/3 mL 0.63 mg (3 mL) inhalation TID PRN 06/02/23 06/24/23 Unknown Rx solution for nebulization SOB or wheezing #90 mL polyethylene glycol 3350 17 4 g PO DAILY #119 grams 06/02/23 06/24/23 Unknown Rx gram/dose oral powder (Miralax) albuterol sulfate 1.25 mg/3 mL 1.25 mg (3 mL) inhalation TID PRN 06/03/23 06/24/23 Unknown Rx solution for nebulization shortness of breath or wheezing #75 mL losartan 25 mg tablet 50 mg PO BID 06/07/23 06/24/23 Unknown History potassium chloride 8 mEq 8 meq PO DAILY 30 days #30 caps 06/07/23 06/24/23 Unknown Rx capsule,extended release nitrofurantoin macrocrystal 100 mg 100 mg PO BID #30 caps 06/24/23 Unknown Rx capsule Allergies Allergy/AdvReac Type Severity Reaction Status Date / Time levofloxacin [From Levaquin] Allergy Unknown Unknown Verified 06/24/23 16:27 prednisone Allergy Unknown Unknown Verified 06/24/23 16:27 sulfamethoxazole Allergy Unknown unknown Verified 06/24/23 16:27 [From Bactrim] tretinoin [From Retin-A] Allergy Unknown unknown Verified 06/24/23 16:27 trimethoprim [From Bactrim] Allergy Unknown unknown Verified 06/24/23 16:27 bacitracin [From Polysporin] Allergy wasn't Verified 06/24/23 16:27 healing doxycycline Allergy ALGY-Hives Verified 06/24/23 16:27 polymyxin B [From Polysporin] Allergy wasn't Verified 06/24/23 16:27 healing PFSH Acute PFSH: Medical History A-fib Atrial fibrillation with rapid ventricular response Ortiz palsy Benign essential HTN Breast cancer no evidence of mets. Right breast - lumpectomy and radiation. Carotid stenosis, bilateral COPD (chronic obstructive pulmonary disease) Cystitis cystica Diastolic heart failure SILVA (generalized anxiety disorder) GERD (gastroesophageal reflux disease) Heart murmur History of gastrointestinal stromal tumor (GIST) Of jejunum - in remission Hyperlipidemia Left bundle branch block Mitral valve disorder Morbid obesity RICHARD (obstructive sleep apnea) Pt has clostrophobia, could not use CPAP- uses oxygen at tnight PMB (postmenopausal bleeding) Recurrent UTI Urgency incontinence Urgency of urination Surgical History S/P ablation of atrial fibrillation S/P bladder repair S/P section S/P hysterectomy S/P lumpectomy of breast Right S/P small bowel resection Status post correction of deviated nasal septum Status post tubal ligation Family History Mother , Age 83 CAD (coronary artery disease) Dementia Diabetes Sister CAD (coronary artery disease) Stroke Brother Cancer Father , age 73 Chronic kidney disease (CKD) Grandmother Diabetes Denies family history of Clotting disorder Suicide Anesthesia complication Bleeding disorder Lung disease Social History Smoking and tobacco/nicotine status: former use of tobacco/nicotine Alcohol intake: never Substance/Drug Use: never Adopted: No Caregiver/support person: No Lives independently: No Household members: spouse Marital status: / Current occupational status: retired Vitals/I&O/Wt Last Vital Signs Temp 99.4 F 06/24/23 17:29 Pulse 65 06/24/23 23:10 Resp 18 06/24/23 23:10 BP 129/78 06/24/23 23:10 Pulse Ox 91 06/24/23 23:10 O2 Del Method Room Air 06/24/23 23:10 Weight last 48 hrs Weight 94.801 kg Physical Exam Narrative: She is alert awake oriented x3 Chest clear to auscultation bilaterally Cardiovascular normal heart sounds no murmurs Abdomen soft nontender nondistended normal bowel sounds Extremities no edema noted Data 06/24/23 18:02 06/24/23 18:02 CT Abd/Pel: Radiologist's impression: IMPRESSION: 1. ? Bilateral renal cysts, one of which on the left this hyperdense, negative for follow-up advised. 2. ? Diverticulosis without diverticulitis. 3. ? Bibasilar atelectasis. 4. ? Cholelithiasis. 5. ? Small hiatal hernia. 6. ? Mild coronary artery atherosclerotic calcifications. ? A&P Assessment and plan (1) Acute UTI: (2) Atrial fibrillation with rapid ventricular response: Plan 82 year old female A. fib status post ablation 08/24, not on chronic anticoagulation because of history of GI bleed, epistaxis , chronic left bundle branch block, left-sided Ortiz's palsy, hypertension, mild MR, mild AR, obstructive sleep apnea, COPD, GIST, HDL, GERD, diastolic heart failure presented with complaint of lower abdominal pain since 2 days but no fever nausea vomiting or diarrhea and found to have positive UA likely secondary to UTI and hyponatremia with sodium of 126 likely secondary to dehydration. She was treated with IV ceftriaxone 1 g in ER and was planned to to be discharged home with p.o. antibiotics. But then she had an episode of tachycardia with heart rate of 160s and was found to be in atrial fibrillation with rapid ventricular rate. She was started on Cardizem drip which controlled her heart rate into 80s. She did not complain of any chest pain dizziness shortness of breath at that time. On reaching [facility] her heart rate was 60-70, hence discontinued Cardizem drip. Third set of troponin slightly trending up, and absence of chest pain and no acute EKG changes, will get a cardiology follow-up. Patient is known to Dr. Yang legal technician here. For UTI will continue with IV ceftriaxone 1 g daily IV fluids normal saline at 75 mL/h. Resume home medications Cardiac diet IV Pepcid 20 mg twice a day for stress ulcer prophylaxis Subcutaneous Lovenox 30 mg daily for DVT prophylaxis She is full code for now as per the discussion with the patient Attestations Medical Necessity Statement*: She needs less than 2 days of hospitalization. She is here for management of her UTI with IV antibiotics and fluids and management and monitoring of atrial fibrillation with RVR Time Spent in Patient Care: 30 minutes Coding Level of Care Code Acute Code for [facility] Fwd Diagnoses Acute UTI N39.0 Atrial fibrillation with rapid ventricular response I48.91 Time Spent (min) 30
[2023-06-25] VITALS (7 sets, daily range): BP systolic 104–131; BP diastolic 52–66; PULSE 58–66; RESP 12–20; TEMP 36.7–36.9; O2SAT 91–96
--- NOTE | 2023-06-25 00:35 | PC.NURSE ---
upon pt admission to [facility], pt hr was in the low 60s. cardizim drip paused/stopped.
--- NOTE | 2023-06-25 02:48 | ECG_ITS ---
[facility] Test Date: 2023-06-25 Pat Name: Corina Cabral Department: Room: 111 Gender: Female Mixer Operator Tablets: : 1940 Requested By: Dom Altamirano Order Number: [id number] Clarita MD: Shaniqua Phelps M.D. Measurements Intervals [place] Rate: 62 P: 55 HI: 170 QRS: -16 QRSD: 137 T: 170 QT: 470 QTc: 481 Interpretive Statements SINUS RHYTHM LEFT BUNDLE BRANCH BLOCK [120+ ms QRS DURATION, 80+ ms Q/S IN V1/V2, 85+ ms R IN I/aVL/V5/V6] Compared to ECG 06/24/2023 22:52:37 Atrial fibrillation no longer present Left-axis deviation no longer present Electronically Signed On 06-27-2023 12:45:27 CDT by Shaniqua Phelps M.D. [id number]
[2023-06-25 02:51] LABS: Troponin 5 6HR 59.04 ng/L (0-10)
[2023-06-25 02:53] LABS: Troponin 5 6HR Delta 1.04 ng/L (0-12)
[2023-06-25] MEDS: sodium chloride 0.9% 1,000 ML 75 ML IV (06:35)
[2023-06-25] MEDS: famotidine 20 mg/2 mL INJ IVP (06:36)
[2023-06-25] MEDS: losartan 50 mg Tablet 25 MG PO (08:47)
[2023-06-25] MEDS: sotalol 80 mg Tablet PO (08:47)
[2023-06-25] MEDS: nitrofurantoin SR (BID) 100 mg Capsule PO (08:47)
--- NOTE | 2023-06-25 09:25 | PC.NURSE ---
Patient feels nauseous after taking losartan and sotalol together. She says at home she takes sotalol at 0700 and losartan at [address]. Asked Dr[address] Jean-Baptiste if patient may have Zofran.
--- NOTE | 2023-06-25 09:34 | PC.NURSE ---
Dr. Jean-Baptiste gave telephone verbal order for Zofran 4mg Q8H PRN. Patient was offered medicine but states she would like to hold off.
--- NOTE | 2023-06-25 12:08 | PM.DCS ---
Discharge Providers Date of Admission: 06/24/23 23:24 Date of Discharge: June 25, 2023 Attending Provider at Admission: Angelic Zabala MD Attending Provider at Discharge: Cindy Jean-Baptiste MD Primary Care Provider: Evangelina Winslow DO Diagnoses at Discharge Discharge Diagnosis (1) Acute UTI: Status: Acute (2) Atrial fibrillation with rapid ventricular response: Status: Acute Reason for Visit Reason for Visit: UC for poss. diverticulitis Hospital Course Hospital Course 82 year old female A. fib status post ablation 08/24, not on chronic anticoagulation because of history of GI bleed, epistaxis , chronic left bundle branch block, left-sided Ortiz's palsy, hypertension, mild MR, mild AR, obstructive sleep apnea, COPD, GIST, HDL, GERD,diastolic heart failure presented with complaint of lower abdominal pain since 2 days but no fever nausea vomiting or diarrhea and found to have positive UA likely secondary to UTI and hyponatremia with sodium of 126 likely secondary to dehydration.? She was treated with IV ceftriaxone 1 g in ER and was planned to to be discharged home with p.o. antibiotics.? But then she had an episode of tachycardia with heart rate of 160s and was found to be in atrial fibrillation with rapid ventricular rate.? She was started on Cardizem drip which controlled her heart rate into 80s.? She did not complain of any chest pain dizziness shortness of breath. cardizem drip was able to be turned off shortly after arrival to [facility] after her HR returned between 6-70. she never had any chest pain. Mild troponin leak noted in the 50s, however no significant delta at 2 and 6 hrs and no nw EKG changes (baseline left bundle branch block), made ACS less likely. She feels much improved this morning and wishes to be discharged home. Overall diagnosis that of UTI causing her abdominal symptoms, now completely resolved. Ct abdomen/pelvis negative for any acute pathology. She takes nitrofurantoin as a pill in pocket approach with her previous UTIs but has run out of her prescription from Dr. Smith. refilled same today- instructed to return to ER for recurrence of pain fever or worsening symptoms. Physical Exam Narrative: General: No acute distress, AO x3 HEENT: PERRLA, pupils bilaterally equal and reactive, pallors not present Chest: Normal vesicular breath sounds, no added sounds, equal good air entry bilaterally CVS: S1-S2 regular, no murmurs, no tachycardia, no gallops, no rubs Abdomen: Soft, nontender, no organomegaly, bowel sounds present Neuro: No focal deficits, no facial deformity, AO x3, power 5/5 in all limbs Discharge Data Studies Completed and Pending Completed Studies During Hospitalization Category Date Time Status CT abdomen pelvis w con* [id number] Stat Cat Scan 06/24/23 18:34 Completed Pending at discharge Category Date Time Status Complete Blood Count w/Auto AM LABS Lab 06/26/23 04:00 Ordered Comprehensive Metabolic Panel AM LABS Lab 06/26/23 04:00 Ordered Magnesium AM LABS Lab 06/26/23 04:00 Ordered Urine Culture Stat Lab 06/24/23 18:30 Received Radiology Impressions Abdomen/Pelvis CT 06/24/23 18:34 IMPRESSION: 1. Bilateral renal cysts, one of which on the left this hyperdense, negative for follow-up advised. 2. Diverticulosis without diverticulitis. 3. Bibasilar atelectasis. 4. Cholelithiasis. 5. Small hiatal hernia. 6. Mild coronary artery atherosclerotic calcifications. Laboratory Results WBC 9.72 10^3/uL (3.29-11.43) 06/24/23 18: RBC 4.44 10^6/uL (3.85-5.65) 06/24/23 18:02 Hgb 13.10 g/dL (11.27-16.99) 06/24/23 18:02 Hct 39.6 % (36-47) 06/24/23 18:02 MCV 89.2 fl (85-98) 06/24/23 18:02 MCH 29.5 pg (27-33) 06/24/23 18:02 MCHC 33.1 g/dL (30-55) 06/24/23 18:02 RDW 12.5 % (12.1-15.1) 06/24/23 18:02 Plt Count 241 10^3/cmm (157-399) 06/24/23 18:02 MPV 9.2 fL (7.4-10.4) 06/24/23 18:02 Neut % (Auto) 68.7 % 06/24/23 18:02 Lymph % (Auto) 16.4 % 06/24/23 18:02 [place] % (Auto) 14.1 % 06/24/23 18:02 Eos % (Auto) 0.3 % 06/24/23 18:02 Baso % (Auto) 0.2 % 06/24/23 18:02 Neut # (Auto) 6.68 10^3/uL (1.8-7.7) 06/24/23 18:02 Lymph # (Auto) 1.6 10^3/uL (0.8-4.8) 06/24/23 18:02 [place] # (Auto) 1.4 10^3/uL (0.2-0.9) H 06/24/23 18:02 Eos # (Auto) 0.0 10^3/uL (0.0-0.8) 06/24/23 18:02 Baso # (Auto) 0.0 10^3/uL (0.0-0.1) 06/24/23 18:02 Nucleated RBC % (auto) 0 % 06/24/23 18: Nucleated RBCs # 0.0 /100WBC 06/24/23 18:02 Sodium 126 mmol/L (136-145) L 06/24/23 18:02 Potassium 4.2 mmol/L (3.5-5.1) 06/24/23 18:02 Chloride 90 mmol/L (98-107) L 06/24/23 18:02 Carbon Dioxide 26 mmol/L (22-29) 06/24/23 18:02 Anion Gap 14.2 (5-19) 06/24/23 18:02 BUN 17 mg/dL (8-23) 06/24/23 18:02 Creatinine 0.8 mg/dL (0.5-0.9) 06/24/23 18:02 GFR Calculation Not Reportable 06/24/23 18:02 Glucose 112 mg/dL (65-115) 06/24/23 18:02 POC Glucose 107 mg/dL (70-110) 06/24/23 18:54 Calculated Osmolality 264 mOsm/kg (285-295) L 06/24/23 18:02 Calcium 8.8 mg/dL (8.5-10.5) 06/24/23 18:02 Total Bilirubin 0.5 mg/dL (0.15-1.2) 06/24/23 18:02 AST 8 U/L (0-32) 06/24/23 18:02 ALT 13 U/L (0-33) 06/24/23 18:02 Alkaline Phosphatase 62 U/L (35-105) 06/24/23 18:02 Troponin T Baseline 58 ng/L (0-10) H 06/24/23 20:55 Troponin T 120 Minute 56.66 ng/L (0-10) H 06/24/23 22:39 Delta Troponin T -1.34 ABS# (0-10) L 06/24/23 22:39 Troponin T Hi Sens 6Hr 59.04 ng/L (0-10) H 06/25/23 02:12 Troponin T Hi Sens 6Hr Delta 1.04 ng/L (0-12) 06/25/23 02:12 Total Protein 7.1 g/dL (6.6-8.7) 06/24/23 18:02 Albumin 3.7 g/dL (3.5-5.2) 06/24/23 18:02 Globulin 3.4 g/dL (1.3-4.6) 06/24/23 18:02 Lipase 54 U/L (13-60) 06/24/23 18:02 Urine Color Yellow (Yellow) 06/24/23 18:30 Urine Appearance Sl hazy (CLEAR) A 06/24/23 18:30 Urine pH 6 (5-7) 06/24/23 18:30 Ur Specific [place] 1.005 (1.005-1.030) 06/24/23 18:30 Urine Protein Neg (Negative) 06/24/23 18:30 Urine Glucose (UA) Norm (Normal) 06/24/23 18:30 Urine Ketones Negative (Negative) 06/24/23 18:30 Urine Blood Neg (Negative) 06/24/23 18:30 Urine Nitrate Negative (Negative) 06/24/23 18:30 Urine Bilirubin Neg (Negative) 06/24/23 18:30 Urine Urobilinogen Neg mg/dL (Negative) 06/24/23 18:30 Ur Leukocyte Esterase 2+ (Negative) H 06/24/23 18:30 Urine RBC 0-4 /hpf (0-2) H 06/24/23 18:30 Urine WBC 15-25 /hpf (0-5) H 06/24/23 18:30 Ur Squamous Epith Cells 0-4 /hpf (0-5) H 06/24/23 18:30 Amorphous Sediment Not Reportable 06/24/23 18:30 Urine Bacteria 1+ /hpf (NONE) H 06/24/23 18:30 Vitals Last Vital Signs Temp 98.2 F 06/25/23 07:32 Pulse 63 06/25/23 11:45 Resp 20 H 06/25/23 07:32 BP 131/66 06/25/23 11:45 Pulse Ox 95 06/25/23 11:45 O2 Del Method Room Air 06/25/23 11:45 Discharge Plan Discharge Patient Disposition: Home Condition: Stable Prescriptions: Continued Macular Health Formula 5-1-7.5 mg capsule 1 cap PO DAILY astralagalus 1 cap PO DAILY furosemide 20 mg tablet 20 - 40 mg PO QAM PRN (Reason: edema) Hold Instructions: switching to HCTZ (DME) Diabetic shoes See Rx Instructions .Route .MEDSUPPLY Qty: 1 0RF Rx Instructions: As directed with 3 pairs of inserts. Made by [employer] mupirocin 2 % ointment 1 applic topical BID PRN (Reason: unknown) Rx Instructions: To affected area triamcinolone acetonide 0.1 % ointment 1 applic topical BID PRN (Reason: unknown) Rx Instructions: Apply to affected areas on back and arms no more than 2 weeks per month. Not for face multivitamin Tablet 1 tab PO DAILY sotalol 80 mg tablet 80 mg PO BID@0700,1900 Qty: 180 3RF alprazolam 0.25 mg tablet 0.25 mg PO BID PRN (Reason: Anxiety) 30 Days Qty: 45 3RF albuterol sulfate [Ventolin HFA] 90 mcg/actuation HFA aerosol inhaler 2 puff INHALATION Q6H PRN (Reason: Shortness Of Breath) Qty: 8.5 1RF (DME) lifealert See Rx Instructions .Route .MEDSUPPLY Qty: 1 0RF Rx Instructions: As directed (DME) portable O2 - 2 L See Rx Instructions .Route .MEDSUPPLY Qty: 1 0RF Rx Instructions: As directed nystatin 100,000 unit/gram cream 1 applic topical BID Qty: 30 4RF losartan 25 mg tablet 50 mg PO BID potassium chloride 8 mEq capsule, extended release 8 meq PO DAILY 30 Days Qty: 30 5RF (DME) Rollator Walker See Rx Instructions .Route .MEDSUPPLY Qty: 1 0RF Rx Instructions: As directed levalbuterol HCl 0.63 mg/3 mL solution for nebulization 0.63 mg INHALATION TID PRN (Reason: SOB or wheezing) Qty: 90 0RF polyethylene glycol 3350 [Miralax] 17 gram/dose powder 4 g PO DAILY Qty: 119 0RF Rx Instructions: May take twice daily as needed albuterol sulfate 1.25 mg/3 mL solution for nebulization 1.25 mg inhalation TID PRN (Reason: shortness of breath or wheezing) Qty: 75 0RF Vitamin C Powder See Rx Instructions .ROUTE .COMPLEX Rx Instructions: 1/2 teaspoonful po bid (mix with water) Systane Ultra (PF) 0.4-0.3 % dropperette 1 drp ophthalmic (eye) DAILY nitrofurantoin macrocrystal 100 mg capsule 100 mg PO BID Qty: 30 4RF Rx Instructions: must administer with a meal/food iVizia (PF) 0.5 % Drops 1 drp OPHTHALMIC (EYE) DAILY diclofenac sodium 3 % gel 1 applic topical BID PRN (Reason: Pain) Rx Instructions: To affected areas ondansetron HCl 4 mg tablet 4 mg PO Q8H PRN (Reason: Nausea) estradiol 0.01 % (0.1 mg/gram) cream See Rx Instructions .ROUTE .COMPLEX Rx Instructions: insert vaginally once a week on tuesday Discharge Orders: Discharge Order (Routine); Ordered 06/25/23 Ordered By: Cindy Jean-Baptiste Referrals: Evangelina Winslow DO [Primary Care Provider] - Discharge Diet: Usual diet Discharge Activity: Increase activity as tolerated Patient Instructions: Heart Failure (DC), Urinary Tract Infection in Older Adults (ED), CHF Stoplight, Opioid Safety Activity Restrictions/Additional Instructions: Take antibiotic as directed. Drink plenty water and fluids. Healthy diet and activity. Follow-up with primary care in 3 to 5 days for recheck of urine. Return to ED for worsening symptoms such as high fever, inability to hold fluids down, severe pain. Discharge Attestations Time Spent in Discharge Care*: greater than 30 min Quality Metrics Clinical Quality Measures [ No reported AMI, CVA or VTE this stay] Coding Level of Care Code Acute Code for Chg Fwd Diagnoses Acute UTI N39.0 Atrial fibrillation with rapid ventricular response I48.91
== END 2023-06-25 13:04 | disposition home or self-care (01) ==
LOC: ER 22:45 → CSU 06-25 01:18
PROVIDERS: Emergency Medicine; Admitting Provider Internal Medicine; Emergency Provider Nurse Practitioner Family; PCP Family Medicine; Visit Provider Student in an Organized Health Care Education/Training Program
DX: N39.0 Urinary tract infection, site not specified (principal); I48.91 Unspecified atrial fibrillation; I44.7 Left bundle-branch block, unspecified; G47.33 Obstructive sleep apnea (adult) (pediatric); J44.9 Chronic obstructive pulmonary disease, unspecified; K21.9 Gastro-esophageal reflux disease without esophagitis; I11.0 Hypertensive heart disease with heart failure; I50.30 Unspecified diastolic (congestive) heart failure; E86.0 Dehydration; N28.1 Cyst of kidney, acquired; K57.30 Diverticulosis of large intestine without perforation or abscess without bleeding; J98.11 Atelectasis; K80.20 Calculus of gallbladder without cholecystitis without obstruction; K44.9 Diaphragmatic hernia without obstruction or gangrene; I25.10 Atherosclerotic heart disease of native coronary artery without angina pectoris; Z87.891 Personal history of nicotine dependence
CPT/HCPCS: 36415; 36416; 74177; 80053; 81001; 81015; 82962; 83690; 84484; 85025; 87086; 93005; 96365; 96366; 96367; 96375; 96376; 99285; G0378; J3490; J7030; J7040; Q0162; Q9967

== ENCOUNTER → 2023-06-28 08:37 | Outpatient (BNVA) | payer MEDICARE, OTHER, SELFPAY | PROVIDERS: PCP Family Medicine; Visit Provider Internal Medicine | DX: K59.00 Constipation, unspecified (principal); R14.0 Abdominal distension (gaseous); R73.03 Prediabetes; E66.9 Obesity, unspecified; Z68.37 Body mass index [BMI] 37.0-37.9, adult | CPT/HCPCS: 99214 ==

== ENCOUNTER → 2023-07-06 09:59 | Outpatient (BNVA) | payer MEDICARE, OTHER, SELFPAY | PROVIDERS: PCP Family Medicine; Visit Provider Podiatrist Foot & Ankle Surgery | DX: L60.3 Nail dystrophy (principal); E11.69 Type 2 diabetes mellitus with other specified complication; I73.9 Peripheral vascular disease, unspecified | CPT/HCPCS: 11721 ==

== ENCOUNTER 2023-07-11 11:43 | Outpatient (CLI) | payer MEDICARE, OTHER, SELFPAY ==
[2023-07-11 13:03] LABS: Urine Creatinine 36 mg/dL (28-217)
[2023-07-11 13:44] LABS: Total Volume Urine 3100 ml
[2023-07-17 07:19] LABS: Free Cortisol Urine 48.7 mcg/24 h (4.0-50.0); Total Urine 3100 mL; Urine Creatinine 1.06 g/24 h (0.50-2.15)
== END 2023-07-11 11:44 | disposition home or self-care (01) ==
LOC: LAB 11:43
PROVIDERS: PCP Family Medicine; Visit Provider Internal Medicine
DX: N39.0 Urinary tract infection, site not specified (principal)
CPT/HCPCS: 82530; 82570

== ENCOUNTER → 2023-07-18 10:51 | Outpatient (BNVA) | payer MEDICARE, OTHER, SELFPAY | PROVIDERS: PCP Family Medicine; Referring Provider Family Medicine; Visit Provider Surgery | DX: K21.9 Gastro-esophageal reflux disease without esophagitis (principal); R14.0 Abdominal distension (gaseous); K44.9 Diaphragmatic hernia without obstruction or gangrene | CPT/HCPCS: 99203 ==

== ENCOUNTER 2023-07-19 09:42 | Day surgery (SDC) | payer MEDICARE, OTHER, SELFPAY ==
--- NOTE | 2023-07-19 09:27 | P.HPUD_ITS ---
Surgery/Procedure H&P Update DATE OF PROCEDURE: July 19, 2023 DATE H&P PERFORMED: 07/18/23 H&P UPDATE INFORMATION: I have reviewed H&P completed within last 30 days, I have examined patient prior to procedure, No changes to prior documentation and H&P is in [facility] [place] EMR on date indicated PLANNED PROCEDURE: Operation Date: 07/19/23 10:45 Proposed Procedures p EGD 57538,K21.9(Not Applicable) - Olu Rodriguez MD
--- NOTE | 2023-07-19 09:27 | W.PM.OPSUD ---
Surgery/Procedure H&P Update DATE OF PROCEDURE: July 19, 2023 DATE H&P PERFORMED: 07/18/23 H&P UPDATE INFORMATION: I have reviewed H&P completed within last 30 days, I have examined patient prior to procedure, No changes to prior documentation and H&P is in [facility] [place] on date indicated PLANNED PROCEDURE: Operation Date: 07/19/23 10:45 Proposed Procedures p EGD [id number],K21.9(Not Applicable) - Olu Rodriguez MD
[2023-07-19 10:11] VITALS: BP 159/90; PULSE 66; RESP 18; TEMP 36.1; O2SAT 97; BMI 37.0
[2023-07-19 10:24] LABS: Glucose Point of Care 105 mg/dL (70-110)
[2023-07-19] MEDS: sodium chloride 0.9% 1,000 ML 30 ML IV (10:26)
--- NOTE | 2023-07-19 10:38 | ANES.PREANE2 ---
Pre-Anesthetic Assessment Height/Weight: Height 1.6 m Weight 94.801 kg Temp Pulse Resp BP Pulse Ox O2 Del Method 97 F L 66 18 159/90 97 Room Air 07/19/23 10:11 07/19/23 10:11 07/19/23 10:11 07/19/23 10:11 07/19/23 10:11 07/19/23 10:11 Operation Date: 07/19/23 10:45 Proposed Procedures p EGD 24740,K21.9(Not Applicable) - Olu Rodriguez MD Familial anesthetic complications: none Was Beta Alexa taken within 24 hours: Yes Was Clonidine taken within 24 hours: N/A Last intake: Intake Last Liquid Date 07/19/23 Last Liquid Time 04:00 Last Solid Date 07/18/23 Last Solid Time 23:30 Social No alcohol and No tobacco Exam alert, oriented x 3, clear to auscultation bilaterally and regular rate & rhythm Airway Mallampati: Class II Dentition: full Pulmonary Chronic Obstructive Pulmonary Disease and Sleep Apnea CV/HEM Atrial Fibrillation, Congestive Heart Failure and Hypertension thicken mitral valve LBBB GI Gastroesophageal Reflux Disease Metabolic Hyperlipidemia Anesthetic Plan ASA status: 3 Anesthesia: MAC Risk of > 500 ml blood loss (7ml/kg in children): No Medications/Allergies Home Medications Medication Instructions Recorded Confirmed Last Taken Type furosemide 20 mg tablet 20 - 40 mg PO QAM PRN edema 10/09/19 07/18/23 Unknown History astralagalus 1 cap PO DAILY 05/07/20 07/18/23 07/18/23 History ascorbic acid (vitamin C) (Vitamin 0.5 ea PO BID 06/06/20 07/18/23 07/18/23 History C oral powder) peg 400-propylene glycol (PF) 0.4 1 drp ophthalmic (eye) DAILY 06/28/20 07/18/23 07/18/23 History %-0.3 % eye drops in a dropperette (Systane Ultra (PF)) Diabetic shoes #1 ea 03/03/21 07/18/23 Unknown Rx Rollator Walker #1 ea 04/12/22 07/18/23 Unknown Rx multivitamin 1 tab PO DAILY 08/17/22 07/18/23 07/18/23 History mupirocin 2 % topical ointment 1 applic topical BID PRN unknown 08/17/22 07/18/23 Unknown History estradiol 0.01% (0.1 mg/gram) 1 applic vaginal .WKLY 08/25/22 07/18/23 07/18/23 History vaginal cream portable O2 - 2 L #1 ea 09/27/22 07/18/23 Unknown Rx lifealert #1 ea 11/08/22 07/18/23 Unknown Rx albuterol sulfate 1.25 mg/3 mL 1.25 mg (3 mL) inhalation TID PRN 06/03/23 07/18/23 Unknown Rx solution for nebulization shortness of breath or wheezing #75 mL losartan 25 mg tablet 25 mg PO BID 06/07/23 07/18/23 07/18/23 History diclofenac sodium 3 % topical gel 1 applic topical BID PRN Pain 06/25/23 07/18/23 Unknown History ondansetron HCl 4 mg tablet 4 mg PO Q8H PRN Nausea 06/25/23 07/18/23 Unknown History povidone (PF) 0.5 % eye drops 1 drp ophthalmic (eye) DAILY 06/25/23 07/18/23 07/18/23 History (iVizia (PF)) alprazolam 0.25 mg tablet 0.25 mg PO BID PRN Anxiety 30 days 07/07/23 07/18/23 07/18/23 Rx #45 tabs albuterol sulfate 90 mcg/actuation 2 puff inhalation Q6H PRN 07/18/23 07/18/23 Unknown History aerosol inhaler Shortness Of Breath bilberry fruit extract 160 mg 1 mg PO TID 07/18/23 07/18/23 07/18/23 History capsule coQ10 (ubiquinol) 100 mg capsule 50 mg PO DAILY 07/18/23 07/18/23 07/18/23 History (CoQmax Ubiquinol) digestive enzymes (Enzyme Digest 1 - 2 cap PO TID 07/18/23 07/18/23 07/18/23 History capsule) famotidine 20 mg tablet (Pepcid) 20 mg PO BID 07/18/23 07/18/23 07/18/23 History lactobacillus combination no.4 3 3,000 mmu cells PO DAILY 07/18/23 07/18/23 07/18/23 History billion cell capsule (Probiotic) nitrofurantoin macrocrystal 100 mg 100 mg PO BID PRN Outbreak 07/18/23 07/18/23 Unknown History capsule nystatin 100,000 unit/gram topical 1 applic topical BID PRN Outbreak 07/18/23 07/18/23 Unknown History cream polyethylene glycol 3350 17 4 g PO DAILY PRN Constipation 07/18/23 07/18/23 Unknown History gram/dose oral powder (Miralax) potassium chloride 8 mEq 8 meq PO DAILY PRN Edema 07/18/23 07/18/23 Unknown History capsule,extended release rutin 500 mg tablet 500 mg PO DAILY 07/18/23 07/18/23 07/18/23 History sotalol 80 mg tablet 80 mg PO BID@0600,1800 07/18/23 07/19/23 07/19/23 History vit A 9,650 unit-vit C 195 mg-vit 1 cap PO DAILY 07/18/23 07/18/23 07/18/23 History E 95 eypo-erduwi-yevy-zn-[employer] capsule Allergies Allergy/AdvReac Type Severity Reaction Status Date / Time levofloxacin [From Levaquin] Allergy Unknown Unknown Verified 07/18/23 11:09 prednisone Allergy Unknown Unknown Verified 07/18/23 11:09 sulfamethoxazole Allergy Unknown unknown Verified 07/18/23 11:09 [From Bactrim] tretinoin [From Retin-A] Allergy Unknown unknown Verified 07/18/23 11:09 trimethoprim [From Bactrim] Allergy Unknown unknown Verified 07/18/23 11:09 bacitracin [From Polysporin] Allergy wasn't Verified 07/18/23 11:09 healing doxycycline Allergy ALGY-Hives Verified 07/18/23 11:09 polymyxin B [From Polysporin] Allergy wasn't Verified 07/18/23 11:09 healing Cephalosporins AdvReac ADR-Itching Verified 07/18/23 11:09 penicillins Allergy Intermediate rash Uncoded 07/18/23 11:09 Current Medications Generic Name Dose Route Start Last Admin Trade Name Freq PRN Reason Stop Dose Admin Sodium Chloride 1,000 mls @ 30 mls/hr 07/19/23 10:00 07/19/23 10:26 Sodium Chloride 0.9% IV 07/20/23 09:59 30 mls/hr .Q24H MEET Administration PFSH Anesthesia Medical History (Updated 07/18/23 @ 11:17 by Nerissa Zuluaga, CT) A-fib Atrial fibrillation with rapid ventricular response Ortiz palsy Benign essential HTN Breast cancer no evidence of mets. Right breast - lumpectomy and radiation. Carotid stenosis, bilateral COPD (chronic obstructive pulmonary disease) Cystitis cystica Diastolic heart failure SILVA (generalized anxiety disorder) GERD (gastroesophageal reflux disease) Heart murmur History of gastrointestinal stromal tumor (GIST) Of jejunum - in remission Hyperlipidemia Left bundle branch block Mitral valve disorder Morbid obesity RICHARD (obstructive sleep apnea) Pt has clostrophobia, could not use CPAP- uses oxygen at [facility] PMB (postmenopausal bleeding) Recurrent UTI Urgency incontinence Urgency of urination Surgical History (Updated 07/18/23 @ 11:16 by Nerissa Zuluaga, CT) S/P ablation of atrial fibrillation S/P bladder repair S/P section S/P hysterectomy S/P lumpectomy of breast Right S/P small bowel resection Status post correction of deviated nasal septum Status post tubal ligation Family History Mother , Age 83 CAD (coronary artery disease) Dementia Diabetes Sister CAD (coronary artery disease) Stroke Brother Cancer Father , age 73 Chronic kidney disease (CKD) Grandmother Diabetes Denies family history of Clotting disorder Suicide Anesthesia complication Bleeding disorder Lung disease Social History Smoking and tobacco/nicotine status: former use of tobacco/nicotine Alcohol intake: never Substance/Drug Use: never Adopted: No Caregiver/support person: No Lives independently: No Household members: spouse Marital status: / Current occupational status: retired Data Anesthesia 07/19/23 10:10 BMP 07/19/23 10:10 Sodium Cancelled Potassium Cancelled Chloride Cancelled Carbon Dioxide Cancelled BUN Cancelled Creatinine Cancelled Glucose Cancelled Calcium Cancelled Cardiac Studies: Echocardiogram 05/14/22 Echocardiogram Ultrasound 06/03/20 Cardiac Event Monitor 05/27/20
[2023-07-19 11:04] LABS: Blood Urea Nitrogen 10 mg/dL (8-23); Calcium 9.2 mg/dL (8.5-10.5); Carbon Dioxide 29 mmol/L (22-29); Chloride 98 mmol/L (98-107); Glucose 109 mg/dL (65-115); Osmolality Calculated 280 mOsm/kg (285-295); Sodium 135 mmol/L (136-145)
[2023-07-19 11:06] LABS: Anion Gap 12.9 (5-19); Potassium 4.9 mmol/L (3.5-5.1)
[2023-07-19 11:26] VITALS: BP 107/65; PULSE 67; RESP 12; TEMP 36.1; O2SAT 94
[2023-07-19 11:36] VITALS: BP 112/70; PULSE 63; RESP 14; O2SAT 93
[2023-07-19 11:41] VITALS: BP 129/63; PULSE 62; RESP 16; O2SAT 95
--- NOTE | 2023-07-19 12:05 | ANE.PACU2 ---
Inpatient post-anesthesia follow up: Airway intact: Yes Vital signs: Temperature 97.0 F Pulse Rate 62 Respiratory Rate 16 Blood Pressure 129/63 Pulse Oximetry 95 Oxygen Delivery Me thod Room Air Oxygen Flow Rate Fraction of Inspir ed Oxygen Hydration adequate: Yes Nausea and vomiting: No Pain level: 1 Mental status: Baseline
== END 2023-07-19 12:08 | disposition home or self-care (01) ==
PROVIDERS: PCP Family Medicine; Visit Provider Surgery
PROC: 0DJ08ZZ Inspection of Upper Intestinal Tract, Via Natural or Artificial Opening Endoscopic (ICD-10-PCS; CPT 43235; principal; 2023-07-19 10:45)
DX: K21.9 Gastro-esophageal reflux disease without esophagitis (principal); K29.50 Unspecified chronic gastritis without bleeding; J44.9 Chronic obstructive pulmonary disease, unspecified; I48.91 Unspecified atrial fibrillation; I11.0 Hypertensive heart disease with heart failure; I50.30 Unspecified diastolic (congestive) heart failure; E78.5 Hyperlipidemia, unspecified; Z85.3 Personal history of malignant neoplasm of breast; Z92.3 Personal history of irradiation; E66.01 Morbid (severe) obesity due to excess calories; Z68.37 Body mass index [BMI] 37.0-37.9, adult; G47.33 Obstructive sleep apnea (adult) (pediatric); Z87.891 Personal history of nicotine dependence
CPT/HCPCS: 36415; 36416; 43239; 80048; 82962; 88305; 88342; J2001; J2704; J3010; J7030

== ENCOUNTER → 2023-08-01 11:15 | Outpatient (BNVA) | payer MEDICARE, OTHER, SELFPAY | PROVIDERS: PCP Family Medicine; Visit Provider Surgery | DX: Z09 Encounter for follow-up examination after completed treatment for conditions other than malignant neoplasm (principal) | CPT/HCPCS: 99213 ==

== ENCOUNTER → 2023-08-03 11:08 | Outpatient (BNVA) | payer MEDICARE, OTHER, SELFPAY | PROVIDERS: PCP Family Medicine; Visit Provider Internal Medicine Cardiovascular Disease | DX: I48.91 Unspecified atrial fibrillation (principal); G47.33 Obstructive sleep apnea (adult) (pediatric); I11.0 Hypertensive heart disease with heart failure; I50.32 Chronic diastolic (congestive) heart failure; E78.2 Mixed hyperlipidemia | CPT/HCPCS: 99214 ==

== ENCOUNTER → 2023-09-27 13:55 | Outpatient (BNVA) | payer MEDICARE, OTHER, SELFPAY | PROVIDERS: PCP Family Medicine; Visit Provider Dermatology | DX: L72.0 Epidermal cyst (principal); L81.4 Other melanin hyperpigmentation; L57.8 Other skin changes due to chronic exposure to nonionizing radiation; L57.0 Actinic keratosis; D17.22 Benign lipomatous neoplasm of skin and subcutaneous tissue of left arm; L82.1 Other seborrheic keratosis; D22.71 Melanocytic nevi of right lower limb, including hip | CPT/HCPCS: 17000; 99214 ==

== ENCOUNTER → 2023-09-28 09:28 | Outpatient (BNVA) | payer MEDICARE, OTHER, SELFPAY | PROVIDERS: PCP Family Medicine; Visit Provider Internal Medicine | DX: K29.70 Gastritis, unspecified, without bleeding | CPT/HCPCS: 99213; 99214 ==

== ENCOUNTER → 2023-10-17 10:37 | Outpatient (BNVA) | payer MEDICARE, OTHER, SELFPAY | PROVIDERS: PCP Family Medicine; Visit Provider Podiatrist Foot & Ankle Surgery | DX: L60.3 Nail dystrophy; E11.69 Type 2 diabetes mellitus with other specified complication; I73.9 Peripheral vascular disease, unspecified | CPT/HCPCS: 11721 ==

== ENCOUNTER → 2023-10-20 08:17 | Outpatient (BNVA) | payer MEDICARE, OTHER, SELFPAY | PROVIDERS: PCP Family Medicine; Visit Provider Family Medicine | DX: Z85.3 Personal history of malignant neoplasm of breast (principal); I10 Essential (primary) hypertension; I65.23 Occlusion and stenosis of bilateral carotid arteries; R73.03 Prediabetes; K21.9 Gastro-esophageal reflux disease without esophagitis; E87.1 Hypo-osmolality and hyponatremia; Z79.899 Other long term (current) drug therapy | CPT/HCPCS: 80053; 80061; 82306; 83036; 85025 ==

== ENCOUNTER → 2023-12-22 12:24 | Outpatient (BNVA) | payer MEDICARE, OTHER, SELFPAY | PROVIDERS: PCP Family Medicine; Visit Provider Internal Medicine Cardiovascular Disease | DX: R06.02 Shortness of breath (principal); Z79.899 Other long term (current) drug therapy; I10 Essential (primary) hypertension; I48.0 Paroxysmal atrial fibrillation; I05.9 Rheumatic mitral valve disease, unspecified; I44.7 Left bundle-branch block, unspecified; I65.23 Occlusion and stenosis of bilateral carotid arteries; E78.2 Mixed hyperlipidemia | CPT/HCPCS: 36415; 80048; 83880; 99214 ==

== ENCOUNTER → 2024-01-17 10:41 | Outpatient (BNVA) | payer MEDICARE, OTHER, SELFPAY | PROVIDERS: PCP Family Medicine; Visit Provider Podiatrist Foot & Ankle Surgery | DX: L60.3 Nail dystrophy (principal); E11.69 Type 2 diabetes mellitus with other specified complication; I73.9 Peripheral vascular disease, unspecified | CPT/HCPCS: 11721 ==

== ENCOUNTER 2024-02-08 13:14 | Outpatient (CLI) | payer MEDICARE, OTHER, SELFPAY ==
--- NOTE | 2024-02-08 13:30 | MM_ITS ---
WS: [id number] BILATERAL 3D TOMOSYNTHESIS DIGITAL DIAGNOSTIC MAMMOGRAPHY WITH CAD CLINICAL INFORMATION: history of breast cancer HISTORY: Prior RIGHT lumpectomy COMPARISON: 01/05/2023, 2021, 2020, and 2019 TECHNIQUE: Bilateral CC, MLO, and ML views. FINDINGS: Scattered fibroglandular densities bilaterally. Bilateral secretory and dystrophic calcifications. Aishwarya mpectomy RIGHT breast with parenchymal scarring and fat necrosis is similar in appearance compared to previous. Treatment-related changes RIGHT breast. Vascular calcification. LEFT breast is unchanged. No suspicious focal mass, asymmetry, calcifications, or architectural distortion. No evidence of otto gnancy. MM/[place] [id number] IMPRESSION: BI-RADS: 2-Benign FOLLOW UP: 1 Year Follow-up Recommend return to annual diagnostic mammography.
== END 2024-02-08 13:15 | disposition home or self-care (01) ==
LOC: RAD 13:14
PROVIDERS: PCP Family Medicine; Visit Provider Family Medicine
DX: Z85.3 Personal history of malignant neoplasm of breast (principal)
CPT/HCPCS: 77062; G0279

== ENCOUNTER → 2024-03-27 10:05 | Outpatient (BNVA) | payer MEDICARE, OTHER, SELFPAY | PROVIDERS: PCP Family Medicine; Visit Provider Nurse Practitioner Family | DX: I27.20 Pulmonary hypertension, unspecified (principal); I11.0 Hypertensive heart disease with heart failure; I50.30 Unspecified diastolic (congestive) heart failure; Z87.891 Personal history of nicotine dependence | CPT/HCPCS: 99214 ==

== ENCOUNTER → 2024-04-03 09:46 | Outpatient (BNVA) | payer MEDICARE, OTHER, SELFPAY | PROVIDERS: PCP Family Medicine; Visit Provider Podiatrist Foot & Ankle Surgery | DX: L60.3 Nail dystrophy (principal); E11.69 Type 2 diabetes mellitus with other specified complication; I73.9 Peripheral vascular disease, unspecified | CPT/HCPCS: 11721 ==

== ENCOUNTER → 2024-04-12 13:37 | Outpatient (BNVA) | payer MEDICARE, OTHER, SELFPAY | PROVIDERS: PCP Family Medicine; Visit Provider Internal Medicine Critical Care Medicine | DX: J44.89 Other specified chronic obstructive pulmonary disease (principal); R06.09 Other forms of dyspnea; I50.30 Unspecified diastolic (congestive) heart failure; G47.33 Obstructive sleep apnea (adult) (pediatric); E66.01 Morbid (severe) obesity due to excess calories; Z68.38 Body mass index [BMI] 38.0-38.9, adult; R29.898 Other symptoms and signs involving the musculoskeletal system; Z71.82 Exercise counseling; Z71.3 Dietary counseling and surveillance | CPT/HCPCS: 99204 ==

== ENCOUNTER → 2024-04-18 12:06 | Outpatient (BNVA) | payer MEDICARE, OTHER, SELFPAY | PROVIDERS: PCP Family Medicine; Visit Provider Family Medicine | DX: Z79.899 Other long term (current) drug therapy (principal); R73.9 Hyperglycemia, unspecified | CPT/HCPCS: 80053; 83036 ==

== ENCOUNTER → 2024-05-15 10:39 | Outpatient (BNVA) | payer MEDICARE, OTHER, SELFPAY | PROVIDERS: PCP Family Medicine; Referring Provider Family Medicine; Visit Provider Internal Medicine | DX: Z79.899 Other long term (current) drug therapy (principal); R73.03 Prediabetes; E66.9 Obesity, unspecified | CPT/HCPCS: 36415; 82985 ==

== ENCOUNTER → 2024-05-17 15:01 | Outpatient (BNVA) | payer MEDICARE, OTHER, SELFPAY | PROVIDERS: PCP Family Medicine; Visit Provider Nurse Practitioner Family | DX: L57.0 Actinic keratosis (principal); L21.8 Other seborrheic dermatitis; L81.4 Other melanin hyperpigmentation; L72.0 Epidermal cyst; D22.71 Melanocytic nevi of right lower limb, including hip; D17.22 Benign lipomatous neoplasm of skin and subcutaneous tissue of left arm; L82.1 Other seborrheic keratosis | CPT/HCPCS: 17000; 99213 ==

== ENCOUNTER → 2024-06-12 08:16 | Outpatient (BNVA) | payer MEDICARE, OTHER, SELFPAY | PROVIDERS: PCP Family Medicine; Visit Provider Podiatrist Foot & Ankle Surgery | DX: L60.3 Nail dystrophy (principal); E11.69 Type 2 diabetes mellitus with other specified complication; I73.9 Peripheral vascular disease, unspecified | CPT/HCPCS: 11721 ==

== ENCOUNTER 2024-06-20 12:33 | Outpatient (CLI) | payer MEDICARE, OTHER, SELFPAY | END 2024-06-20 12:34 | disposition home or self-care (01) | LOC: SLEEP 12:36 | PROVIDERS: PCP Family Medicine; Visit Provider Internal Medicine Critical Care Medicine | DX: G47.33 Obstructive sleep apnea (adult) (pediatric) (principal); G47.36 Sleep related hypoventilation in conditions classified elsewhere | CPT/HCPCS: 99214; G0399 ==

== ENCOUNTER 2024-06-22 13:40 | Outpatient (CLI) | payer MEDICARE, OTHER, SELFPAY ==
--- NOTE | 2024-06-22 14:00 | US_ITS ---
WS: [id number] ULTRASOUND SOFT TISSUES RIGHT axilla HISTORY: palpable lump in right axillary line COMPARISON: None available. TECHNIQUE: 2-D and color Doppler imaging is submitted. Ultrasound is directed to the RIGHT axilla as indicated by the patient in the area of the palpable ab normality. No mass is identified. There is prominent soft tissue but there is no mass or distortion. US/US soft tissue/extremity [id number] IMPRESSION: Negative RIGHT axillary soft tissue ultrasound.
== END 2024-06-22 13:41 | disposition home or self-care (01) ==
LOC: RAD 13:40
PROVIDERS: PCP Family Medicine; Visit Provider Family Medicine
DX: R22.9 Localized swelling, mass and lump, unspecified (principal)
CPT/HCPCS: 76882

== ENCOUNTER 2024-07-26 09:52 | Outpatient (RCR) | payer MEDICARE, OTHER, SELFPAY | END 2024-08-04 23:59 | disposition home or self-care (01) | LOC: SOT 09:52 | PROVIDERS: PCP Family Medicine; Visit Provider Family Medicine | DX: M79.642 Pain in left hand (principal) | CPT/HCPCS: 97022; 97110; 97140; 97166; G0283 ==

== ENCOUNTER → 2024-07-31 12:18 | Outpatient (BNVA) | payer MEDICARE, OTHER, SELFPAY | PROVIDERS: PCP Family Medicine; Visit Provider Family Medicine | DX: R30.0 Dysuria (principal) | CPT/HCPCS: 81000; 87086 ==

== ENCOUNTER 2024-08-05 06:00 | Outpatient (RCR) | payer MEDICARE, OTHER, SELFPAY | END 2024-09-04 23:59 | disposition home or self-care (01) | LOC: SOT 06:00 | PROVIDERS: PCP Family Medicine; Visit Provider Family Medicine | DX: R09.02 Hypoxemia (principal); G47.34 Idiopathic sleep related nonobstructive alveolar hypoventilation | CPT/HCPCS: 97022; 97110; 97140; G0283 ==

== ENCOUNTER → 2024-09-11 09:21 | Outpatient (BNVA) | payer MEDICARE, OTHER, SELFPAY | PROVIDERS: PCP Family Medicine; Visit Provider Podiatrist Foot & Ankle Surgery | DX: L60.3 Nail dystrophy (principal); E11.69 Type 2 diabetes mellitus with other specified complication; I73.9 Peripheral vascular disease, unspecified | CPT/HCPCS: 11721 ==

== ENCOUNTER → 2024-09-27 13:40 | Outpatient (BNVA) | payer MEDICARE, OTHER, SELFPAY | PROVIDERS: PCP Family Medicine; Visit Provider Nurse Practitioner Family | DX: L81.4 Other melanin hyperpigmentation (principal); B35.1 Tinea unguium; L72.0 Epidermal cyst; F17.220 Nicotine dependence, chewing tobacco, uncomplicated; L57.0 Actinic keratosis | CPT/HCPCS: 17000; 99213 ==

== ENCOUNTER → 2024-10-02 12:48 | Outpatient (BNVA) | payer MEDICARE, OTHER, SELFPAY | PROVIDERS: PCP Family Medicine; Referring Provider Internal Medicine; Visit Provider Psychiatry & Neurology Neurology | DX: G57.92 Unspecified mononeuropathy of left lower limb (principal); M79.671 Pain in right foot; M79.672 Pain in left foot | CPT/HCPCS: 95908 ==

== ENCOUNTER → 2024-10-17 10:52 | Outpatient (BNVA) | payer MEDICARE, OTHER, SELFPAY | PROVIDERS: PCP Family Medicine; Visit Provider Family Medicine | DX: R73.9 Hyperglycemia, unspecified (principal); G47.33 Obstructive sleep apnea (adult) (pediatric); E87.1 Hypo-osmolality and hyponatremia; Z79.899 Other long term (current) drug therapy | CPT/HCPCS: 80053; 82306; 82607; 83036; 83735 ==

== ENCOUNTER → 2024-12-04 09:25 | Outpatient (BNVA) | payer MEDICARE, OTHER, SELFPAY | PROVIDERS: PCP Family Medicine; Visit Provider Podiatrist Foot & Ankle Surgery | DX: E11.69 Type 2 diabetes mellitus with other specified complication (principal); L60.3 Nail dystrophy; I73.9 Peripheral vascular disease, unspecified; Z79.4 Long term (current) use of insulin | CPT/HCPCS: 11721 ==

== ENCOUNTER 2024-12-26 13:01 | Oncology outpatient (recurring) (ONCR) | payer MEDICARE, OTHER, SELFPAY ==
[2024-12-26 13:52] LABS: Basophils % 0.3 %; Eosinophils # 0.1 10^3/uL (0.0-0.8); Eosinophils % 1.1 %; Hematocrit 44.3 % (36-47); Lymphocytes % 25.8 %; Mean Corpuscular HGB Conc 31.6 g/dL (30-55); Mean Corpuscular Hemoglobin 28.2 pg (27-33); Mean Corpuscular Volume 89.3 fl (85-98); Mean Platelet Volume 9.7 fL (7.4-10.4); Monocytes # 0.7 10^3/uL (0.2-0.9); Monocytes % 8.5 %; Neutrophils # 4.88 10^3/uL (1.8-7.7); Nucleated Red Blood Cells % 0 %; Platelet Count 263 10^3/cmm (157-399); Red Blood Count 4.96 10^6/uL (3.85-5.65); Red Cell Distribution Width 13.1 % (12.1-15.1); White Blood Count 7.61 10^3/uL (3.29-11.43)
[2024-12-26 14:21] LABS: Alanine Aminotransferase 18 U/L (0-33); Alkaline Phosphatase 72 U/L (35-105); Aspartate Amino Transferase 10 U/L (0-32); Blood Urea Nitrogen 13 mg/dL (8-23); CA 15-3 13.6 U/mL (0-25); Calcium 9.1 mg/dL (8.5-10.5); Carbon Dioxide 25 mmol/L (22-29); Chloride 98 mmol/L (98-107); Creatinine Clr Calc Pharmacy 59.9868; Globulin 3.4 g/dL (1.3-4.6); Glucose 149 mg/dL (65-115); Lactate Dehydrogenase 156 U/L (135-214); Osmolality Calculated 281 mOsm/kg (285-295); Sodium 134 mmol/L (136-145); Total Bilirubin 0.3 mg/dL (0.15-1.2); Total Protein 7.4 g/dL (6.6-8.7)
== END 2025-01-02 23:59 | disposition home or self-care (01) ==
PROVIDERS: PCP Family Medicine; Visit Provider Internal Medicine
DX: Z08 Encounter for follow-up examination after completed treatment for malignant neoplasm (principal); Z85.3 Personal history of malignant neoplasm of breast; Z85.068 Personal history of other malignant neoplasm of small intestine; R03.0 Elevated blood-pressure reading, without diagnosis of hypertension
CPT/HCPCS: 36415; 80053; 83615; 85025; 86300; 99204

== ENCOUNTER 2025-01-16 13:52 | Oncology outpatient (recurring) (ONCR) | payer MEDICARE, OTHER, SELFPAY ==
--- NOTE | 2025-01-08 13:15 | CTR_ITS ---
PROCEDURE INFORMATION: Exam: CT Chest With Contrast; Diagnostic Exam date and time: 01/08/2025 1:18 PM Age: 84 years old Clinical indication: Condition or disease; Prior surgery; Surgery date: 6+ months; Surgery type: --rt lumpectomy, small bowel resection, hyst, tubal, bladder; History of breast and colon cancer; Additional info: History of colon cancer TECHNIQUE: Imaging protocol: Diagnostic computed tomography of the chest with contrast. Radiation optimization: All CT scans at this facility use at least one of these dose optimization techniques: automated exposure control; mA and/or kV adjustment per patient size (includes targeted exams where dose is matched to clinical indication); or iterative reconstruction. Contrast material: OMNI 350; Contrast volume: 100 ml; Contrast route: INTRAVENOUS (IV); COMPARISON: CT angio chest PE protcl [id number] 06/06/2020 4:06 PM RADIATION DOSE METRICS: Total DLP (mGy-cm): 1449.52 FINDINGS: Lungs: No focal consolidation or other acute appearing pulmonary opacity. Pleural spaces: No pleural effusion or pneumothorax noted. Heart: There is no cardiomegaly. There is no pericardial effusion. Diffuse mitral valve calcification. Lymph nodes: No pathologically enlarged lymph nodes (by short axis size criteria). Slight interval decrease in the right paratracheal node with associated interval calcification. Vasculature: There is atherosclerotic disease. Classic branching pattern of the aortic arch with patency of the origins of the great vessels. There is no aortic dissection. There is no aortic aneurysm. No pulmonary emboli. limited evaluation of the upper abdomen demonstrates patent origins of the celiac and SMA. Thickening of the esophageal wall and small hiatal hernia indicating reflux. Bones/joints: No acute osseous abnormality. There is degenerative disease of the spine. Soft tissues: Oval 2.6 x 1.7 cm right breast lesion with associated calcifications with no significant interval change when compared with the previous study. Surgical clips in right axilla with no significant adenopathy. PROCEDURE INFORMATION: Exam: CT Abdomen And Pelvis With Contrast Exam date and time: 01/08/2025 1:18 PM Age: 84 years old Clinical indication: Condition or disease; Prior surgery; Surgery date: 6+ months; Surgery type: --rt lumpectomy, small bowel resection, hyst, tubal, bladder; History of breast and colon cancer; Additional info: History of colon cancer TECHNIQUE: Imaging protocol: Computed tomography of the abdomen and pelvis with contrast. Radiation optimization: All CT scans at this facility use at least one of these dose optimization techniques: automated exposure control; mA and/or kV adjustment per patient size (includes targeted exams where dose is matched to clinical indication); or iterative reconstruction. Contrast material: OMNI 350; Contrast volume: 100 ml; Contrast route: INTRAVENOUS (IV); COMPARISON: CT abdomen pelvis w con* [id number] 06/24/2023 7:07 PM RADIATION DOSE METRICS: Total DLP (mGy-cm): 1449.52 FINDINGS: Liver: The liver is unremarkable. Gallbladder and biliary ducts: Multiple gallstones are present. No pericholecystic inflammatory changes to suggest cholecystitis. Pancreas: Pancreas is unremarkable. No ductal dilation or peripancreatic inflammation. Spleen: The spleen contains calcified granulomas. Adrenal glands: Adrenal glands are unremarkable. Kidneys and ureters: No hydronephrosis, hydroureter or nephrolithiasis. Bilateral renal cysts are present, as well as other subcentimeter hypodensities which are too small to characterize. There has been interval increase in size in the previously noted hyperdense renal cyst in the inferior pole of the left kidney which measures 19.4 mm, previously it measured 16.6 mm, recommend nonemergent workup for better characterization. Stomach and bowel: Stomach is not distended. Small hiatal hernia. Small and large bowel are normal in caliber without evidence of obstruction. Appendix: No evidence of appendicitis. Intraperitoneal space: No free intraperitoneal air. No significant fluid collection. Vasculature: There is no aortic aneurysm. There is atherosclerotic disease. Origins of the celiac, SMA, RYLEY and renal arteries are patent but diseased. Lymph nodes: No pathologically enlarged lymph nodes (by short axis size criteria). Urinary bladder: Bladder is distended with no focal wall thickening. Reproductive: There has been a hysterectomy. No adnexal cysts or masses are identified. Bones/joints: No acute osseous abnormality. There is degenerative disease of the spine. Soft tissues: Unremarkable. CT/CT chest abdpel w/*[id number] IMPRESSION: 1. Right 2.6 x 1.7 cm breast lesion is again noted with associated calcifications with no significant interval change. 2. Reflux esophagitis. IMPRESSION: 1. Interval increase in size of the left inferior pole renal cyst which now measures 19.4 mm, previously measured 16.6 mm, recommend nonemergent workup for better characterization. 2. Cholelithiasis COMMENTS: Consistent with the [employer]'s Incidental Findings Committee white paper (J Am Livan Radiol 2018): Any incidental renal lesion less than 1 cm or classified as too small to characterize, or any incidental cystic renal lesion characterized as simple-appearing, is likely benign. No follow-up imaging is recommended for these lesions per consensus recommendations based on imaging criteria.
[2025-01-08] MEDS: iohexol 350 mg/mL 500 mL Btl (per mL) PO (13:26)
[2025-01-08] MEDS: iohexol 350 mg/mL 500 mL Btl (per mL) IV (13:27)
== END 2025-02-02 23:59 | disposition home or self-care (01) ==
PROVIDERS: PCP Family Medicine; Visit Provider Nurse Practitioner Family
DX: C49.A3 Gastrointestinal stromal tumor of small intestine (principal); Z85.3 Personal history of malignant neoplasm of breast; R03.0 Elevated blood-pressure reading, without diagnosis of hypertension; N28.89 Other specified disorders of kidney and ureter
CPT/HCPCS: 71260; 74177; 99214

== ENCOUNTER → 2025-01-21 10:59 | Outpatient (BNVA) | payer MEDICARE, OTHER, SELFPAY | PROVIDERS: PCP Family Medicine; Visit Provider Internal Medicine Cardiovascular Disease | DX: R25.2 Cramp and spasm (principal); I48.0 Paroxysmal atrial fibrillation; I05.9 Rheumatic mitral valve disease, unspecified; I44.7 Left bundle-branch block, unspecified; I65.23 Occlusion and stenosis of bilateral carotid arteries; E78.2 Mixed hyperlipidemia; R06.02 Shortness of breath | CPT/HCPCS: 99214 ==

== ENCOUNTER 2025-02-12 10:31 | Outpatient (CLI) | payer MEDICARE, OTHER, SELFPAY ==
--- NOTE | 2025-02-12 11:00 | MM_ITS ---
WS: [id number] DIAGNOSTIC BILATERAL DIGITAL BREAST TOMOSYNTHESIS MAMMOGRAPHY WITH CAD HISTORY: history of breast cancer COMPARISON: 02/08/2024, 02/01/2023, 01/27/2020 TECHNIQUE: Bilateral craniocaudad, mediolateral oblique, and mediolateral views are submitted with tomosynthesis and SM. Computer aided detection utilized. Breast composition: There are scattered areas of fibroglandular density. Volume loss in the RIGHT breast from prior lumpectomy. There is a post procedure collection with calcification in the central RIGHT breast near 12:00 measures 17 x 27 x 25 mm. This is stable over multiple prior studies may represents calcified hematoma or necrosis. There are extensive bilateral rodlike and round calcifications in each breast. No suspicious calcifications. MM/MM diag BI tomosynthesis [id number] IMPRESSION: BI-RADS: 2 - Benign. FOLLOW UP: 1 Year Follow-up
== END 2025-02-12 10:32 | disposition home or self-care (01) ==
LOC: RAD 10:33
PROVIDERS: PCP Family Medicine; Visit Provider Internal Medicine
DX: Z85.3 Personal history of malignant neoplasm of breast (principal); R92.323 Mammographic fibroglandular density, bilateral breasts; Z98.890 Other specified postprocedural states; N64.89 Other specified disorders of breast; R92.1 Mammographic calcification found on diagnostic imaging of breast
CPT/HCPCS: 77062; G0279

== ENCOUNTER 2025-02-15 11:23 | Outpatient (CLI) | payer MEDICARE, OTHER, SELFPAY ==
--- NOTE | 2025-02-15 11:45 | MR_ITS ---
WS: [email or web address] MRI LUMBAR SPINE NONCONTRAST TECHNIQUE: Sagittal T1, T2 and STIR imaging. Axial T1 and T2 imaging. CLINICAL INFORMATION: ncs suggests possible s1 radiculopathy FINDINGS: Lumbar curve. No acute compression. Slight anterolisthesis L3 on L4 and L4 on L5. L1-L2: Mild facet arthropathy. L2-L3: Mild annular bulging with narrowing of the subarticular recess bilaterally. Mild facet arthropathy. Foramen are patent. L3-L4: Slight anterolisthesis. Mild disc bulging with a broad-based central protrusion. Moderate central canal stenosis with impingement on the subarticular recess bilaterally. Moderate facet arthropathy. Mild LEFT greater than RIGHT foraminal narrowing. L4-L5: Slight anterolisthesis. Mild disc bulge with moderate central canal stenosis. Impingement traversing L5 nerve roots bilaterally. Moderate facet arthropathy with ligamentum flavum hypertrophy. Mild to moderate LEFT foraminal narrowing with a LEFT foraminal protrusion. RIGHT foramen is patent. L5-S1: No significant disc bulging. Moderate facet arthropathy. Spinal canal and foramen are patent. Visualized pelvic bony structures: Normal. Paravertebral soft tissues: Normal. Small indeterminate lesion lower pole RIGHT kidney measuring 11 mm. Small renal neoplasm not excluded. This can be further evaluated with MRI. Partially visualized similar-appearing lesion lower pole LEFT kidney described on the recent CT 01/08/2025 also suspicious. MR/MR lumbar spine wo con* [id number] IMPRESSION: 1. Indeterminate small lower pole renal lesions partially visualized. Recommen d further evaluation with MRI. 2. Moderate central canal stenosis L3-L4 and L4-L5 described above. 3. Slight anterolisthesis L3 on L4 and L4 on L5. 4. Mild bilateral 3-4 and mild to moderate LEFT L4-5 foraminal narrowing. 5. Moderate to advanced arthropathy L4-L5 and L5-S1.
--- NOTE | 2025-02-15 12:45 | US_ITS ---
WS: [email or web address] Bilateral renal ultrasound, 02/15/2025 Clinical Data: left inferior pole renal cyst, increased size Comparison: CT chest abdomen pelvis, 01/08/2025 Findings: The right kidney measures 10.9 cm x 5.1 cm x 5.5 cm and the left kidney is 10.7 cm x 4.5 cm x 4.4 cm. There are no masses or hydronephrosis. There are bilateral simple renal cysts. The inferior pole left renal cyst measures 1.7 x 1.8 x 2.1 cm but shows no abnormal internal echoes or irregularity. The right renal cyst is cortical in location and measures 1.3 x 1.6 x 1.7 cm. The renal cortical margin is normal. No renal calculi are seen. The abdominal aorta and inferior vena cava show no vascular abnormalities. US/US renal BI* [id number] Impression: Bilateral renal cysts.
== END 2025-02-15 11:24 | disposition home or self-care (01) ==
PROVIDERS: PCP Family Medicine; Visit Provider Family Medicine
DX: N28.1 Cyst of kidney, acquired (principal); G57.92 Unspecified mononeuropathy of left lower limb; N28.9 Disorder of kidney and ureter, unspecified; M48.061 Spinal stenosis, lumbar region without neurogenic claudication; M47.896 Other spondylosis, lumbar region; M47.897 Other spondylosis, lumbosacral region; M51.369 Other intervertebral disc degeneration, lumbar region without mention of lumbar back pain or lower extremity pain
CPT/HCPCS: 72148; 76770

== ENCOUNTER → 2025-02-26 12:47 | Outpatient (BNVA) | payer MEDICARE, OTHER, SELFPAY | PROVIDERS: PCP Family Medicine; Visit Provider Nurse Practitioner Family | DX: L81.4 Other melanin hyperpigmentation (principal); L72.0 Epidermal cyst; D17.22 Benign lipomatous neoplasm of skin and subcutaneous tissue of left arm; L57.8 Other skin changes due to chronic exposure to nonionizing radiation; L57.0 Actinic keratosis; X32.XXXA Exposure to sunlight, initial encounter | CPT/HCPCS: 17000; 99213 ==

== ENCOUNTER 2025-03-22 15:10 | Outpatient (CLI) | payer MEDICARE, OTHER, SELFPAY ==
--- NOTE | 2025-03-22 15:13 | XR_ITS ---
WS: [email or web address] DEXA (DUAL ENERGY X-RAY ABSORPTIOMETRY) Bone mineral density was performed using a sevenload machine. HISTORY: osteoporosis screening COMPARISON: 07/14/2021 Lumbar spine BMD (L1-L4): 1.190 g/cm2 T score: 0.1 Z score: 0.9 Total hip BMD: Left: 1.113 g/cm2. T score: 0.8 Z score: 2.2 Right: 1.085 g/cm2. T score: 0.6 Z score: 2.0 10 year probability of a major osteoporotic fracture is 7.9%. Compared to the prior study from 07/14/2021. Lumbar spine bone mineral density has decreased by 8.9%. Bilateral hips bone mineral density has increased by 4.6%. XR/XR DEXA axial skeleton* [id number] IMPRESSION: NORMAL BONE MINERAL DENSITY based upon the WHO classification for females. Significant decrease in bone mineral density within the lumbar spine. Significant increase in bone mineral density within the hips.
== END 2025-03-22 15:11 | disposition home or self-care (01) ==
LOC: RAD 15:11
PROVIDERS: PCP Family Medicine; Visit Provider Family Medicine
DX: Z13.820 Encounter for screening for osteoporosis (principal); Z78.0 Asymptomatic menopausal state; M85.88 Other specified disorders of bone density and structure, other site; M85.89 Other specified disorders of bone density and structure, multiple sites
CPT/HCPCS: 77080

== ENCOUNTER → 2025-04-15 10:40 | Outpatient (BNVA) | payer MEDICARE, OTHER, SELFPAY | PROVIDERS: PCP Family Medicine; Visit Provider Family Medicine | DX: R73.03 Prediabetes (principal); R30.0 Dysuria; R19.8 Other specified symptoms and signs involving the digestive system and abdomen; I10 Essential (primary) hypertension | CPT/HCPCS: 80048; 81000; 81003; 83036; 87177; 87209 ==

== ENCOUNTER → 2025-05-07 09:54 | Outpatient (BNVA) | payer MEDICARE, OTHER, SELFPAY | PROVIDERS: PCP Family Medicine; Visit Provider Podiatrist Foot & Ankle Surgery | DX: E11.8 Type 2 diabetes mellitus with unspecified complications (principal); L60.3 Nail dystrophy; E11.69 Type 2 diabetes mellitus with other specified complication; I73.9 Peripheral vascular disease, unspecified | CPT/HCPCS: 11721 ==

== ENCOUNTER → 2025-05-20 10:32 | Outpatient (BNVA) | payer MEDICARE, OTHER, SELFPAY | PROVIDERS: PCP Family Medicine; Visit Provider Family Medicine | DX: R14.0 Abdominal distension (gaseous) (principal); Z79.899 Other long term (current) drug therapy | CPT/HCPCS: 82306; 86003; 86008 ==

== ENCOUNTER → 2025-05-30 09:52 | Outpatient (BNVA) | payer MEDICARE, OTHER, SELFPAY | PROVIDERS: PCP Family Medicine; Referring Provider Family Medicine; Visit Provider Internal Medicine | DX: J44.9 Chronic obstructive pulmonary disease, unspecified (principal); R09.82 Postnasal drip; G47.33 Obstructive sleep apnea (adult) (pediatric); Z99.81 Dependence on supplemental oxygen; Z91.199 Patient's noncompliance with other medical treatment and regimen due to unspecified reason; I27.20 Pulmonary hypertension, unspecified; E66.01 Morbid (severe) obesity due to excess calories; Z68.37 Body mass index [BMI] 37.0-37.9, adult; Z87.891 Personal history of nicotine dependence | CPT/HCPCS: 36415; 85025; 99214 ==

== ENCOUNTER → 2025-06-11 12:34 | Outpatient (BNVA) | payer MEDICARE, OTHER, SELFPAY | PROVIDERS: PCP Family Medicine; Visit Provider Family Medicine | DX: R39.9 Unspecified symptoms and signs involving the genitourinary system (principal) | CPT/HCPCS: 81000; 87086 ==

== ENCOUNTER → 2025-07-01 13:55 | Outpatient (BNVA) | payer MEDICARE, OTHER, SELFPAY | PROVIDERS: PCP Family Medicine; Visit Provider Internal Medicine | DX: G47.33 Obstructive sleep apnea (adult) (pediatric) (principal); Z99.89 Dependence on other enabling machines and devices; Z91.198 Patient's noncompliance with other medical treatment and regimen for other reason; I27.20 Pulmonary hypertension, unspecified; J45.991 Cough variant asthma; J96.10 Chronic respiratory failure, unspecified whether with hypoxia or hypercapnia; Z99.81 Dependence on supplemental oxygen; E66.01 Morbid (severe) obesity due to excess calories; Z68.37 Body mass index [BMI] 37.0-37.9, adult; Z87.891 Personal history of nicotine dependence | CPT/HCPCS: 99214; Q3014 ==

== ENCOUNTER 2025-07-04 15:15 | Oncology outpatient (recurring) (ONCR) | payer MEDICARE, OTHER, SELFPAY ==
[2025-06-26 13:47] LABS: Hematocrit 43.9 % (36-47); Hemoglobin 14.40 g/dL (11.27-16.99); Mean Corpuscular HGB Conc 32.8 g/dL (30-55); Mean Corpuscular Hemoglobin 28.9 pg (27-33); Mean Corpuscular Volume 88.0 fl (85-98); Nucleated Red Blood Cells % 0 %; Platelet Count 267 10^3/cmm (157-399); Red Blood Count 4.99 10^6/uL (3.85-5.65); White Blood Count 8.76 10^3/uL (3.29-11.43)
[2025-06-26 14:06] LABS: Alanine Aminotransferase 20 U/L (0-33); Albumin Level 4.1 g/dL (3.5-5.2); Alkaline Phosphatase 79 U/L (35-105); Anion Gap 16.3 (5-19); Aspartate Amino Transferase 11 U/L (0-32); Blood Urea Nitrogen 13 mg/dL (8-23); Calcium 9.2 mg/dL (8.5-10.5); Carbon Dioxide 25 mmol/L (22-29); Chloride 98 mmol/L (98-107); Creatinine Clr Calc Pharmacy 59.6763; Globulin 3.5 g/dL (1.3-4.6); Glucose 141 mg/dL (65-115); Osmolality Calculated 282 mOsm/kg (285-295); Potassium 4.3 mmol/L (3.5-5.1); Sodium 135 mmol/L (136-145); Total Protein 7.6 g/dL (6.6-8.7)
--- NOTE | 2025-07-04 15:15 | US_ITS ---
WS: [email or web address] RENAL ULTRASOUND HISTORY: kidney cyst COMPARISON: 02/15/2025, CT 01/08/2025 TECHNIQUE: 2-D and color Doppler imaging of the kidney submitted. Right kidney: 9.7 cm x 5.2 cm x 5.6 cm. Cortex: 1.2 cm Normal echogenicity with no hydronephrosis or mass. Small cortical hypodense mass extends laterally from the lower pole. This hypoechoic nodule measures 1.0 x 1.4 x 1.4 cm and has not increased in size. Cannot be further characterized. Left kidney: 10.8 cm x 5.4 cm x 5.2 cm. Cortex: 1.2 cm Kidneys normal size with no obstruction. There is a hypoechoic area in the central LEFT kidney which is not been previously identified. There is interruption of the cortex and slight bulging. Hypoechoic area measures 3.5 x 2.8 cm and is in the mid kidney. This will need to be further evaluated. This wa s not present on the CT from 01/08/2025. Also not identified on the ultrasound from 02/15/2025. Hypoechoic mass from the inferior pole measures 1.6 x 1.2 x 1.1 cm. No change in size. Aorta: Not visualized. Urinary Bladder: Minimally distended. US/US renal BI* [id number] IMPRESSION: 1. New hypoechoic area in the mid LEFT kidney needs to be further evaluated. T his has not been identified on prior studies. The area measures 3.5 x 2.8 cm. M ass needs to be excluded. Recommend follow-up MRI or CT with renal mass protoco l. 2. There are additional bilateral hypoechoic masses within each kidney which c annot be completely characterized. No interval change or increase in size since 01/08/2025.
== END 2025-07-05 23:59 | disposition home or self-care (01) ==
LOC: RAD 07-05 → ONCMED 07-05 07:49
PROVIDERS: Internal Medicine; PCP Family Medicine; Visit Provider Nurse Practitioner Family
DX: N28.1 Cyst of kidney, acquired; N28.9 Disorder of kidney and ureter, unspecified; Z53.9 Procedure and treatment not carried out, unspecified reason
CPT/HCPCS: 36415; 76770; 80053; 83615; 85025; 99213

== ENCOUNTER → 2025-07-09 14:55 | Outpatient (BNVA) | payer MEDICARE, OTHER, SELFPAY | PROVIDERS: PCP Family Medicine; Visit Provider Nurse Practitioner Family | DX: L30.4 Erythema intertrigo (principal); L81.4 Other melanin hyperpigmentation; L72.0 Epidermal cyst; D17.22 Benign lipomatous neoplasm of skin and subcutaneous tissue of left arm; L57.8 Other skin changes due to chronic exposure to nonionizing radiation; L57.0 Actinic keratosis; X32.XXXA Exposure to sunlight, initial encounter | CPT/HCPCS: 99214 ==

== ENCOUNTER → 2025-07-15 13:07 | Outpatient (BNVA) | payer MEDICARE, OTHER, SELFPAY | PROVIDERS: PCP Family Medicine; Visit Provider Podiatrist Foot & Ankle Surgery | DX: E11.69 Type 2 diabetes mellitus with other specified complication (principal); L60.3 Nail dystrophy; I73.9 Peripheral vascular disease, unspecified | CPT/HCPCS: 11721 ==

== ENCOUNTER 2025-07-24 11:46 | Oncology outpatient (recurring) (ONCR) | payer MEDICARE, OTHER, SELFPAY ==
[2025-07-24 12:09] LABS: Hematocrit 45.7 % (36-47); Hemoglobin 14.70 g/dL (11.27-16.99); Mean Corpuscular HGB Conc 32.2 g/dL (30-55); Mean Corpuscular Hemoglobin 29.1 pg (27-33); Mean Corpuscular Volume 90.3 fl (85-98); Nucleated Red Blood Cells % 0 %; Platelet Count 303 10^3/cmm (157-399); Red Blood Count 5.06 10^6/uL (3.85-5.65); White Blood Count 8.02 10^3/uL (3.29-11.43)
[2025-07-24 12:32] LABS: Alanine Aminotransferase 20 U/L (0-33); Albumin Level 4.1 g/dL (3.5-5.2); Alkaline Phosphatase 83 U/L (35-105); Aspartate Amino Transferase 12 U/L (0-32); Blood Urea Nitrogen 11 mg/dL (8-23); Calcium 9.2 mg/dL (8.5-10.5); Carbon Dioxide 28 mmol/L (22-29); Chloride 95 mmol/L (98-107); Creatinine Clr Calc Pharmacy 59.8800; Globulin 3.5 g/dL (1.3-4.6); Glucose 114 mg/dL (65-115); Osmolality Calculated 274 mOsm/kg (285-295); Sodium 132 mmol/L (136-145); Total Protein 7.6 g/dL (6.6-8.7)
[2025-07-24 12:33] LABS: Anion Gap 13.6 (5-19); Potassium 4.6 mmol/L (3.5-5.1)
== END 2025-08-04 23:59 | disposition home or self-care (01) ==
PROVIDERS: PCP Family Medicine; Visit Provider Nurse Practitioner Family
DX: Z08 Encounter for follow-up examination after completed treatment for malignant neoplasm (principal); Z85.3 Personal history of malignant neoplasm of breast; Z85.028 Personal history of other malignant neoplasm of stomach; N28.1 Cyst of kidney, acquired; N28.9 Disorder of kidney and ureter, unspecified; Z87.891 Personal history of nicotine dependence
CPT/HCPCS: 36415; 80053; 83615; 85025; 99215

== ENCOUNTER 2025-08-05 13:34 | Outpatient (CLI) | payer MEDICARE, OTHER, SELFPAY ==
--- NOTE | 2025-08-05 13:42 | CTR_ITS ---
PROCEDURE INFORMATION: Exam: CT Chest Without and With Contrast; Diagnostic Exam date and time: 08/05/2025 2:18 PM Age: 84 years old Clinical indication: Abnormal findings; Abnormal radiologic finding of the abdomen; Other: US renal; -follow up breast and colon cancer, renal mass protocol also; Additional info: Follow up renal mass breast CA TECHNIQUE: Imaging protocol: Diagnostic computed tomography of the chest without and with contrast. 3D rendering (Not supervised by radiologist): MIP and/or 3D reconstructed images were created by the technologist. Radiation optimization: All CT scans at this facility use at least one of these dose optimization techniques: automated exposure control; mA and/or kV adjustment per patient size (includes targeted exams where dose is matched to clinical indication); or iterative reconstruction. Contrast material: OMNIPAQUE 350; Contrast volume: 100 ml; Contrast route: INTRAVENOUS (IV); COMPARISON: CT chest abdpel w/*[id number] 01/08/2025 1:18 PM RADIATION DOSE METRICS: Total DLP (mGy-cm): 2856 FINDINGS: Lungs: Atelectasis at the lung bases. Pleural spaces: No focal consolidation, pleural effusion, or pneumothorax. Heart: Unremarkable. No cardiomegaly. No pericardial effusion. Lymph nodes: Unremarkable. No enlarged lymph nodes. Vasculature: No pulmonary embolism. Bones/joints: Unremarkable. No acute fracture. Soft tissues: Right breast nodule, measures 2.7 x 1.6 cm. Patient has history of breast cancer, correlate with oncology history and mammogram history. PROCEDURE INFORMATION: Exam: CT Abdomen And Pelvis Without And With Contrast Exam date and time: 08/05/2025 2:18 PM Age: 84 years old Clinical indication: Abnormal findings; Abnormal radiologic finding of the abdomen; Other: US renal; -follow up breast and colon cancer, renal mass protocol also; Additional info: Follow up renal mass breast CA TECHNIQUE: Imaging protocol: Computed tomography of the abdomen and pelvis without and with contrast. 3D rendering (Not supervised by radiologist): MIP and/or 3D reconstructed images were created by the technologist. Radiation optimization: All CT scans at this facility use at least one of these dose optimization techniques: automated exposure control; mA and/or kV adjustment per patient size (includes targeted exams where dose is matched to clinical indication); or iterative reconstruction. Contrast material: OMNIPAQUE 350; Contrast volume: 100 ml; Contrast route: INTRAVENOUS (IV); COMPARISON: CT chest abdpel w/*[id number] 12/16/2023 3:49 PM RADIATION DOSE METRICS: Total DLP (mGy-cm): 2856 FINDINGS: Liver: Hepatic steatosis. Gallbladder and biliary ducts: Cholelithiasis. Pancreas: Normal. No ductal dilation. Spleen: Normal. No splenomegaly. Adrenal glands: Normal. No mass. Kidneys and ureters: No definite renal mass. Bilateral renal cysts, a few which are dense, for example a 13 mm cyst along the inferior pole of the right kidney and 19 mm cyst along the inferior pole of the left kidney. These may represent hemorrhagic cysts. Continued follow-up recommended to monitor. Stomach and bowel: Diverticulosis, without acute diverticulitis. No small bowel obstruction. No free air. Appendix: No evidence of appendicitis. Intraperitoneal space: See Stomach and bowel finding. Vasculature: Atherosclerotic changes of the aorta. Lymph nodes: Unremarkable. No enlarged lymph nodes. Urinary bladder: Unremarkable as visualized. Reproductive: Hysterectomy. Bones/joints: Degenerative changes of the spine. Soft tissues: Unremarkable. CT/CT ch abdpel wo/w [id number] IMPRESSION: 1. No pulmonary embolism. 2. No focal consolidation, pleural effusion, or pneumothorax. 3. Right breast nodule, measures 2.7 x 1.6 cm. Patient has history of breast cancer, correlate with oncology history and mammogram history. IMPRESSION: 1. No definite renal mass. Bilateral renal cysts, a few which are dense, for example a 13 mm cyst along the inferior pole of the right kidney and 19 mm cyst along the inferior pole of the left kidney. These may represent hemorrhagic cysts. Continued follow-up recommended to monitor. These are stable when compared to 01/08/2025. 2. Diverticulosis, without acute diverticulitis. No small bowel obstruction. No free air. 3. Hepatic steatosis. 4. Cholelithiasis. 5. Hysterectomy. COMMENTS: Consistent with the [employer]'s Incidental Findings Committee white paper (J Am Livan Radiol 2018): Any incidental renal lesion less than 1 cm or classified as too small to characterize, or any incidental cystic renal lesion characterized as simple-appearing, is likely benign. No follow-up imaging is recommended for these lesions per consensus recommendations based on imaging criteria.
[2025-08-05] MEDS: iohexol 350 mg/mL 500 mL Btl (per mL) IV (14:58)
== END 2025-08-05 13:35 | disposition home or self-care (01) ==
PROVIDERS: PCP Family Medicine; Visit Provider Nurse Practitioner
DX: N63.10 Unspecified lump in the right breast, unspecified quadrant (principal); Z85.3 Personal history of malignant neoplasm of breast; N28.1 Cyst of kidney, acquired; K57.90 Diverticulosis of intestine, part unspecified, without perforation or abscess without bleeding; K76.0 Fatty (change of) liver, not elsewhere classified; K80.20 Calculus of gallbladder without cholecystitis without obstruction; Z90.710 Acquired absence of both cervix and uterus; J98.11 Atelectasis; I70.0 Atherosclerosis of aorta; M47.9 Spondylosis, unspecified
CPT/HCPCS: 71260; 74178

== ENCOUNTER → 2025-08-19 11:41 | Outpatient (BNVA) | payer MEDICARE, OTHER, SELFPAY | PROVIDERS: PCP Family Medicine; Visit Provider Nurse Practitioner Family | DX: I48.91 Unspecified atrial fibrillation (principal); R25.2 Cramp and spasm; N28.1 Cyst of kidney, acquired; R60.9 Edema, unspecified; I11.0 Hypertensive heart disease with heart failure; I50.33 Acute on chronic diastolic (congestive) heart failure; R94.31 Abnormal electrocardiogram [ECG] [EKG]; I45.89 Other specified conduction disorders | CPT/HCPCS: 93005; 99214 ==